=== PATIENT | female | born 1940 | race Caucasian/White ===

== ENCOUNTER 2017-02-05 09:46 | Inpatient (IN) | payer MEDICARE ==
[2017-02-05] MEDS ORDERED: IPRATROPIUM-ALBUTEROL 3 ML NEB INHALATION STA (10:10)
--- NOTE | 2017-02-05 10:13 | ED ---
SOB HPI - General Chief Complaint: Shortness of Breath Stated Complaint: POSS CVA, CONFUSION, KATIUSKA Time Seen by Provider: 02/05/17 10:02 Source: patient, family, RN notes reviewed Mode of arrival: wheelchair Limitations: no limitations - History of Present Illness Initial Comments: This is a 76-year-old female who presents with complaints of 2 days of shortness of breath exertional dyspnea a cough which she states she cannot get any phlegm up. She also states she's had some dull lower midsternal chest discomfort that radiates to her back intermittently. It does not get worse with deep breathing or with coughing. She denies any other complaints at this time. MD Complaint: shortness of breath, cough - Related Data Home Medications Medication Instructions Recorded Confirmed Amitriptyline HCl [Elavil] 75 mg PO HS 12/09/15 02/05/17 Aspirin [Adult Low Dose Aspirin EC] 81 mg PO DAILY 12/09/15 02/05/17 Atenolol 25 mg PO DAILY 12/09/15 02/05/17 Meclizine [Antivert] 25 mg PO BID PRN 12/09/15 02/05/17 Simvastatin [Zocor] 40 mg PO HS 12/09/15 02/05/17 glipiZIDE [Glucotrol] 5 mg PO DAILY 12/09/15 02/05/17 HYDROcodone/APAP 5-325MG [[place] 1 tab PO DAILY PRN 02/29/16 02/05/17 5-325] Insulin NPH Human Isophane 25 units SQ AC-BID 02/29/16 02/05/17 [NovoLIN N] Levothyroxine Sodium [Synthroid] 25 mcg PO DAILY 02/29/16 02/05/17 Lisinopril [Zestril] 10 mg PO DAILY 02/29/16 02/05/17 traMADol HCL [Ultram] 100 mg PO BID PRN 02/29/16 02/05/17 metFORMIN HCL [Glucophage] 500 mg PO BID 02/05/17 02/05/17 Allergies Allergy/AdvReac Type Severity Reaction Status Date / Time No Known Allergies Allergy Verified 02/05/17 10:54 Review of Systems ROS Statement: Those systems with pertinent positive or pertinent negative responses have been documented in the HPI. ROS Other: All systems not noted in ROS Statement are negative. Past Medical History Past Medical History: Cancer, COPD, Diabetes Mellitus, Fibromyalgia, Hypertension Additional Past Medical History / Comment(s): cervical cancer 1975 History of Any Multi-Drug Resistant Organisms: None Reported Past Surgical History: Cholecystectomy, Hysterectomy Past Psychological History: Anxiety Smoking Status: Former smoker Past Alcohol Use History: None Reported Past Drug Use History: None Reported - Past Family History Father Additional Family Medical History / Comment(s): kidney cancer- General Exam - General Exam Comments Initial Comments: This is a well-developed well-nourished awake alert oriented 3 female Limitations: no limitations General appearance: alert, in no apparent distress Head exam: Present: atraumatic, normocephalic, normal inspection Eye exam: Present: normal appearance, PERRL, EOMI. Absent: scleral icterus, conjunctival injection, periorbital swelling ENT exam: Present: normal exam, mucous membranes moist Neck exam: Present: normal inspection. Absent: tenderness, meningismus, lymphadenopathy Respiratory exam: Present: rhonchi, decreased breath sounds. Absent: respiratory distress, wheezes, rales, stridor Cardiovascular Exam: Present: regular rate, normal rhythm, normal heart sounds. Absent: systolic murmur, diastolic murmur, rubs, gallop, clicks GI/Abdominal exam: Present: soft, normal bowel sounds. Absent: distended, tenderness, guarding, rebound, rigid Extremities exam: Present: normal inspection, full ROM, normal capillary refill. Absent: tenderness, pedal edema, joint swelling, calf tenderness Back exam: Present: normal inspection Neurological exam: Present: alert, oriented X3, CN II-XII intact Psychiatric exam: Present: normal affect, normal mood Skin exam: Present: warm, dry, intact, normal color. Absent: rash Course Vital Signs 02/05/17 02/05/17 02/05/17 09:49 10:19 10:52 Temperature 99.3 F Pulse Rate 71 68 Respiratory 18 25 H 25 H Rate Blood Pressure 152/67 176/90 O2 Sat by Pulse 88 L 99 Oximetry 02/05/17 02/05/17 02/05/17 10:53 11:05 12:00 Temperature Pulse Rate 60 64 67 Respiratory 25 H Rate Blood Pressure 149/64 O2 Sat by Pulse 92 L Oximetry 02/05/17 13:12 Temperature Pulse Rate 65 Respiratory 22 Rate Blood Pressure 138/58 O2 Sat by Pulse 92 L Oximetry - Reevaluation(s) Reevaluation #1: 02/05/17 13:29 Reevaluation patient reveals she is improved though far. She does demonstrate an x-ray evidence of pneumonia. Medical Decision Making - Medical Decision Making I discussed findings with the patient family patient will be admitted for evaluation and treatment of pneumonia or bronchospasm secondary to COPD. I did discuss case with Dr. Sanchez - Lab Data Result diagrams: 02/05/17 10:10 02/05/17 10:10 Lab Results 02/05/17 02/05/17 02/05/17 Range/Units 10:10 10:10 10:10 WBC 13.1 H (3.8-10.6) k/uL RBC 4.86 (3.80-5.40) m/uL Hgb 13.8 (11.4-16.0) gm/dL Hct 43.3 (34.0-46.0) % MCV 89.1 (80.0-100.0) fL MCH 28.4 (25.0-35.0) pg MCHC 31.9 (31.0-37.0) g/dL RDW 16.0 H (11.5-15.5) % Plt Count 181 (150-450) k/uL Neutrophils % 78 % Lymphocytes % 15 % Monocytes % 5 % Eosinophils % 0 % Basophils % 0 % Neutrophils # 10.3 H (1.3-7.7) k/uL Lymphocytes # 1.9 (1.0-4.8) k/uL Monocytes # 0.6 (0-1.0) k/uL Eosinophils # 0.0 (0-0.7) k/uL Basophils # 0.0 (0-0.2) k/uL PT (9.0-12.0) sec INR (<1.1) APTT (22.0-30.0) sec D-Dimer (<0.60) mg/L FEU Sodium 139 (137-145) mmol/L Potassium 4.7 (3.5-5.1) mmol/L Chloride 99 (98-107) mmol/L Carbon Dioxide 26 (22-30) mmol/L Anion Gap 14 mmol/L BUN 20 H (7-17) mg/dL Creatinine 1.25 H (0.52-1.04) mg/dL Est GFR (MDRD) Af Amer 51 (>60 ml/min/1.73 sqM) Est GFR (MDRD) Non-Af 42 (>60 ml/min/1.73 sqM) Glucose 229 H (74-99) mg/dL Calcium 9.1 (8.4-10.2) mg/dL Magnesium 1.2 L (1.6-2.3) mg/dL Total Bilirubin 1.5 H (0.2-1.3) mg/dL AST 37 H (14-36) U/L ALT 21 (9-52) U/L Alkaline Phosphatase 88 (38-126) U/L Total Creatine Kinase 69 (30-135) U/L CK-MB (CK-2) 1.0 (0.0-2.4) ng/mL CK-MB (CK-2) Rel Index 1.4 Troponin I 0.028 (0.000-0.034) ng/mL NT-Pro-B Natriuret Pep pg/mL Total Protein 6.7 (6.3-8.2) g/dL Albumin 4.0 (3.5-5.0) g/dL 02/05/17 02/05/17 Range/Units 10:10 10:10 WBC (3.8-10.6) k/uL RBC (3.80-5.40) m/uL Hgb (11.4-16.0) gm/dL Hct (34.0-46.0) % MCV (80.0-100.0) fL MCH (25.0-35.0) pg MCHC (31.0-37.0) g/dL RDW (11.5-15.5) % Plt Count (150-450) k/uL Neutrophils % % Lymphocytes % % Monocytes % % Eosinophils % % Basophils % % Neutrophils # (1.3-7.7) k/uL Lymphocytes # (1.0-4.8) k/uL Monocytes # (0-1.0) k/uL Eosinophils # (0-0.7) k/uL Basophils # (0-0.2) k/uL PT 12.8 H (9.0-12.0) sec INR 1.3 (<1.1) APTT 25.2 (22.0-30.0) sec D-Dimer 0.43 (<0.60) mg/L FEU Sodium (137-145) mmol/L Potassium (3.5-5.1) mmol/L Chloride (98-107) mmol/L Carbon Dioxide (22-30) mmol/L Anion Gap mmol/L BUN (7-17) mg/dL Creatinine (0.52-1.04) mg/dL Est GFR (MDRD) Af Amer (>60 ml/min/1.73 sqM) Est GFR (MDRD) Non-Af (>60 ml/min/1.73 sqM) Glucose (74-99) mg/dL Calcium (8.4-10.2) mg/dL Magnesium (1.6-2.3) mg/dL Total Bilirubin (0.2-1.3) mg/dL AST (14-36) U/L ALT (9-52) U/L Alkaline Phosphatase (38-126) U/L Total Creatine Kinase (30-135) U/L CK-MB (CK-2) (0.0-2.4) ng/mL CK-MB (CK-2) Rel Index Troponin I (0.000-0.034) ng/mL NT-Pro-B Natriuret Pep 663 pg/mL Total Protein (6.3-8.2) g/dL Albumin (3.5-5.0) g/dL - EKG Data -: EKG Interpreted by Ny EKG shows normal: sinus rhythm (Sinus rhythm rate of 65. Interval 94 QRS 94 QT since QTC of 46/[address]-T wave changes. Some artifact is present since arrhythmias noted) - Radiology Data Radiology results: report reviewed (Review the imaging and reports show evidence of right upper lobe pneumonia.), image reviewed Critical Care Time Critical Care Time: Yes Critical Care Time: 31 minutes of critical care time which includes initial presentation with history physical labs x-rays reevaluation. Therapy discuss with the patient family regarding findings. I wished all the above discussed with the admitting physician. Admission orders and documentation Disposition Clinical Impression: Acute exacerbation of chronic obstructive airways disease, Adult respiratory distress syndrome, Right upper lobe pneumonia, Febrile illness, acute Disposition: ADMITTED IP TO THIS [facility] Condition: Stable Referrals: Jeronimo Noble MD [Primary Care Provider] - 1-2 days
[2017-02-05 10:42] LABS: Basophils % (A) 0 %; CH 28.3; CHCM 31.8; Eosinophils % (A) 0 %; HCT 43.3 % (34.0-46.0); HDW 2.75; HGB 13.8 gm/dL (11.4-16.0); Luc # (Auto) 0.24; Luc % (Auto) 2; Lymphocytes # (A) 1.9 k/uL (1.0-4.8); Lymphocytes % (A) 15 %; MCH 28.4 pg (25.0-35.0); MCHC 31.9 g/dL (31.0-37.0); MCV 89.1 fL (80.0-100.0); Mean Platelet Volume 7.7; Monocytes # (A) 0.6 k/uL (0-1.0); Monocytes % (A) 5 %; Neutrophils # (A) 10.3 k/uL (1.3-7.7); Neutrophils % (A) 78 %; RBC 4.86 m/uL (3.80-5.40); WBC 13.1 k/uL (3.8-10.6); WBC (Perox) 13.95
[2017-02-05 10:48] LABS: Calcium 9.1 mg/dL (8.4-10.2); Total Bilirubin 1.5 mg/dL (0.2-1.3)
[2017-02-05 10:54] LABS: Potassium 4.7 mmol/L (3.5-5.1)
[2017-02-05 10:55] LABS: Magnesium 1.2 mg/dL (1.6-2.3); Total Protein 6.7 g/dL (6.3-8.2)
[2017-02-05 11:19] LABS: Troponin I 0.028 ng/mL (0.000-0.034)
--- NOTE | 2017-02-05 11:40 | XR ---
EXAMINATION TYPE: XR chest 2V DATE OF EXAM: 02/05/2017 COMPARISON: 03/11/2016 TECHNIQUE: PA and lateral views submitted. HISTORY: Difficulty breathing FINDINGS: Right upper lobe area of consolidation laterally. Coarsened interstitium is stable. Arthropathy of th e shoulders. Degenerative change of the spine. Bone island likely within the left humeral head. IMPRESSION: 1. Findings suggest right upper lobe infiltrate. Follow to resolution to exclude other etiologies. 2. Coarsened interstitium may reflect chronic underlying interstitial lung disease mild venous conges tion in the differential diagnosis. Correlate clinically.
[2017-02-05 11:46] LABS: INR 1.3 (<1.1); Partial Thromboplastin Time 25.2 sec (22.0-30.0); Prothrombin Time 12.8 sec (9.0-12.0)
[2017-02-05] MEDS ORDERED: PNEUMONIA PROTOCOL UTILIZED 1 EACH MISC PO PRN (13:32)
[2017-02-05] MEDS ORDERED: AZITHROMYCIN 500 MG in SODIUM CHLORIDE 0.9% 250 ML IVPB STA (13:32)
[2017-02-05] MEDS ORDERED: methylPREDNISolone SOD SUCCI 125 MG/2 ML VIAL IV STA (13:35)
[2017-02-05] MEDS: SODIUM CHLORIDE 0.9% 1,000 ML IV SCH (13:50)
[2017-02-05] MEDS ORDERED: IPRATROPIUM-ALBUTEROL 3 ML NEB INHALATION SCH (16:00)
[2017-02-05] MEDS ORDERED: IPRATROPIUM-ALBUTEROL 3 ML NEB INHALATION PRN (19:00)
[2017-02-05 20:37] LABS: Glucose,Whole Blood 297 mg/dL (75-99)
--- NOTE | 2017-02-05 20:37 | P.HPIM ---
History of Present Illness H&P Date: 02/05/17 Chief Complaint: Shortness of breath cough This is a 76-year-old pleasant lady patient of Dr. Noble, she has underlying history of COPD, chronic O2 dependency however she is noncompliant treated, previous tobacco, diabetes mellitus type 2, fibromyalgia morbid obesity hypertension admitted to the hospital secondary to lingering worsening cough and shortness of breath, she has gotten worse over the past 3 days for which sputum now has become more purulent, patient has been hitting some rattling noise in the lung, patient has low-grade fever, no chills, patient denies any PND however she does have dyspnea on exertion, no lower extremity pain does have recurrent lower extremity edema. Patient denies any chest pain nausea vomiting no headache no tiny to his however she has had intermittent coughing spells during food intake. She was subsequently seen in emergency room x-rays chest shows right upper lobe infiltrate, patient was admitted for pneumonia, community acquired acquired against aspiration Review of Systems Constitutional: Reports as per HPI, Reports anorexia, Reports chills, Reports fatigue, Reports fever, Reports malaise, Reports poor appetite, Reports weakness , Reports weight loss Ears, nose, mouth and throat: Reports as per HPI, Denies ant. neck pain, Denies bleeding gums, Denies dental pain, Denies dysphagia, Denies epistaxis, Denies headache, Denies hoarseness, Denies mouth pain, Denies nasal congestion, Denies nasal discharge, Denies neck fullness/pressure, Denies neck lump, Denies nose pain, Denies odynophagia, Denies post-nasal drip, Denies sinus pain, Denies sinus pressure, Denies swelling in mouth, Denies swelling in throat, Denies sore throat, Denies vertigo, Denies voice changes Cardiovascular: Reports as per HPI, Reports decreased exercise tolerance, Reports dyspnea on exertion, Reports shortness of breath, Denies chest pain, Denies claudication, Denies edema, Denies high blood pressure, Denies irregular heart beat, Denies leg edema, Denies lightheadedness, Denies orthopnea, Denies palpitations, Denies paroxysmal nocturnal dyspnea, Denies phlebitis, Denies rapid heart beat, Denies syncope Respiratory: Reports as per HPI, Reports cough, Denies congestion, Denies cough with sputum, Denies dyspnea, Denies excessive sputum, Denies hemoptysis, Denies home oxygen, Denies pain, Denies pain on inspiration, Denies pleurisy, Denies respiratory infections, Denies sleep apnea, Denies snoring, Denies wheezing Gastrointestinal: Reports as per HPI, Denies abdominal pain, Denies belching, Denies bloating, Denies BRBPR, Denies change in bowel habits, Denies coffee ground emesis, Denies constipation, Denies diarrhea, Denies dyspepsia, Denies early satiety, Denies excessive gas, Denies heartburn, Denies hematemesis, Denies hematochezia, Denies indigestion, Denies jaundice, Denies lactose intolerance, Denies loss of appetite, Denies melena, Denies nausea, Denies vomiting Genitourinary: Reports as per HPI Past Medical History Past Medical History: Cancer, COPD, CVA/TIA, Diabetes Mellitus, Fibromyalgia, Hyperlipidemia, Hypertension, Thyroid Disorder Additional Past Medical History / Comment(s): cervical cancer 1974, home 02 2.5 liters n/c uses prn. neuropathy in feet, tia History of Any Multi-Drug Resistant Organisms: None Reported Past Surgical History: Cholecystectomy, Hysterectomy Past Anesthesia/Blood Transfusion Reactions: No Reported Reaction Past Psychological History: Anxiety Additional Psychological History / Comment(s): pt lives w/sig other of years. has 1 pet cat. has home 02 2.5 liters n/c,nebulizer,shower chair, electri scooter, w/c, walker. Smoking Status: Former smoker Past Alcohol Use History: None Reported Additional Past Alcohol Use History / Comment(s): started smoking 1959- quit 1989 was smoking 2 ppd Past Drug Use History: None Reported - Past Family History Father Additional Family Medical History / Comment(s): kidney cancer- Mother Additional Family Medical History / Comment(s): severe osteoporosis Medications and Allergies Home Medications Medication Instructions Recorded Confirmed Type Amitriptyline HCl [Elavil] 75 mg PO HS 12/09/15 02/05/17 History Aspirin [Adult Low Dose Aspirin EC] 81 mg PO DAILY 12/09/15 02/05/17 History Atenolol 25 mg PO DAILY 12/09/15 02/05/17 History Meclizine [Antivert] 25 mg PO BID PRN 12/09/15 02/05/17 History Simvastatin [Zocor] 40 mg PO HS 12/09/15 02/05/17 History glipiZIDE [Glucotrol] 5 mg PO DAILY 12/09/15 02/05/17 History HYDROcodone/APAP 5-325MG [[place] 1 tab PO DAILY PRN 02/29/16 02/05/17 History 5-325] Insulin NPH Human Isophane 25 units SQ AC-BID 02/29/16 02/05/17 History [NovoLIN N] Levothyroxine Sodium [Synthroid] 25 mcg PO DAILY 02/29/16 02/05/17 History Lisinopril [Zestril] 10 mg PO DAILY 02/29/16 02/05/17 History traMADol HCL [Ultram] 100 mg PO BID PRN 02/29/16 02/05/17 History metFORMIN HCL [Glucophage] 500 mg PO BID 02/05/17 02/05/17 History Allergies Allergy/AdvReac Type Severity Reaction Status Date / Time No Known Allergies Allergy Verified 02/05/17 10:54 Physical Exam Vitals: Vital Signs Temp Pulse Pulse Resp BP BP Pulse Ox 02/05/17 16:00 66 18 02/05/17 15:00 99.4 F 66 18 140/62 89 L 02/05/17 14:12 99.9 F H 02/05/17 13:57 62 18 138/58 89 L 02/05/17 13:12 65 22 138/58 92 L 02/05/17 12:00 67 25 H 149/64 92 L 02/05/17 11:05 64 02/05/17 10:53 60 02/05/17 10:52 68 25 H 176/90 99 02/05/17 10:19 25 H 02/05/17 09:49 99.3 F 71 18 152/67 88 L Intake and Output 02/05/17 02/05/17 02/05/17 06:59 14:59 22:59 Other: Voiding Method Bedside Commode Diaper Weight 97.522 kg Patient Weight 02/06/17 06:59 Weight 97.522 kg - Constitutional General appearance: cooperative, no acute distress - EENT Eyes: anicteric sclerae, EOMI, PERRLA, poor dentition, normal appearance ENT: NA/AT, normal oropharynx - Neck Neck: normal ROM - Respiratory Respiratory: bilateral: diminished, rales, negative: CTA, rhonchi, wheezing - Cardiovascular Rhythm: regular Heart sounds: normal: S1 Abnormal Heart Sounds: systolic murmur, no diastolic murmur, no rub, no S3 Gallop, no S4 Gallop, no click, no other - Gastrointestinal General gastrointestinal: normal bowel sounds, soft - Integumentary Integumentary: normal, normal turgor - Musculoskeletal Musculoskeletal: gait normal, strength equal bilaterally - Psychiatric Psychiatric: A&O x's 3, appropriate affect, intact judgment & insight Results CBC & Chem 7: 02/06/17 07:51 02/06/17 07:51 Labs: Abnormal Lab Results - Last 24 Hours (Table) 02/05/17 02/05/17 02/05/17 Range/Units 10:10 10:10 10:10 WBC 13.1 H (3.8-10.6) k/uL RDW 16.0 H (11.5-15.5) % Neutrophils # 10.3 H (1.3-7.7) k/uL PT 12.8 H (9.0-12.0) sec BUN 20 H (7-17) mg/dL Creatinine 1.25 H (0.52-1.04) mg/dL Glucose 229 H (74-99) mg/dL Magnesium 1.2 L (1.6-2.3) mg/dL Total Bilirubin 1.5 H (0.2-1.3) mg/dL AST 37 H (14-36) U/L Thrombosis Risk Factor Assmnt - Choose All That Apply Each Factor Represents 1 point: Abnormal pulmonary function (COPD) Each Risk Factor Represents 3 Points: Age 75 years or older Thrombosis Risk Factor Assessment Total Risk Factor Score: 4 Thrombosis Risk Factor Assessment Level: Moderate Risk Assessment and Plan Plan: 1. Acute COPD exacerbation with purulent tracheobronchitis. Continue Solu- Medrol 60 mg IV every 6 hours, DuoNeb 4 times daily and as needed, Levaquin IV, clindamycin IV, Pulmicort twice daily, Pulmonary consult with Dr. Allen who has seen her in the past hospitalizations modified Sergio swallowing eval secondary to suspected recurrent aspiration IV steroids, nebulized albuterol Atrovent, sputum cultures Last CAT scan reviewed November 2015 there is minimal basilar atelectasis without any mediastinal masses or adenopathy extensive of centrilobular COPD changes are noted 2. Acute on Chronic hypoxic respiratory failure with home O2 dependence. And noncompliance to its use, she was at 2.5 L nasal cannula counseled regarding necessity of compliance and her oxygenation of critical organs 3. Dysphagia/recurrent modified barium swallow eval with speech consult, monitor for involving oral thrush 4. Diabetes mellitus type 2 insulin requiring. Patient on Glucotrol 5 mg daily along with NPH 25 units twice a day, NovoLog sliding scale with pain along with hemoglobin A1c. Patient can continue on metformin 500 mg twice a day 5. Hypertension. Continue atenolol 25 mg daily, lisinopril 5 mg daily. 6. Generalized anxiety disorder and recurrent depression. Continue Elavil 75 mg at bedtime. 7. Hyperlipidemia. Continue Zocor 40 mg at bedtime. 8. Hypothyroidism. Continue Synthroid 25 g daily. 10. DVT prophylaxis. Continue heparin 5000 units subcu every 8 hours. 11. Gastrointestinal prophylaxis. Continue Pepcid 20 mg daily.
[2017-02-05 20:39] LABS: Hemoglobin A1C 6.5 % (4.2-6.1)
[2017-02-05] MEDS: INSULIN LISPRO (humaLOG) 300 UNIT/3 ML VIAL SQ SCH (20:42)
[2017-02-05] MEDS: IPRATROPIUM-ALBUTEROL 3 ML NEB INHALATION SCH (20:46)
[2017-02-05] MEDS ORDERED: MECLIZINE 25 MG TAB PO PRN (20:57)
[2017-02-05] MEDS ORDERED: traMADol 50 MG TAB PO PRN (20:57)
[2017-02-05] MEDS: LEVOFLOXACIN 750MG-D5W PMX 750 MG in DEXTROSE/WATER 1 150ML.BAG IVPB SCH (21:04)
[2017-02-05] MEDS: ATORVASTATIN 20 MG TAB PO SCH (21:33)
[2017-02-05] MEDS: AMITRIPTYLINE HCL 25 MG TAB PO SCH (21:33)
[2017-02-05] MEDS: metFORMIN 500 MG TAB PO SCH (21:34)
[2017-02-05] MEDS: INSULIN NPH 300 UNIT/3 ML VIAL SQ SCH (21:36)
[2017-02-06] MEDS: CLINDAMYCIN 600 MG in DEXTROSE 5% IN WATER 50 ML IVPB SCH ×8 (00:01→23:28)
[2017-02-06] MEDS: LEVOTHYROXINE 25 MCG TAB PO SCH (05:57)
[2017-02-06 06:47] LABS: Glucose,Whole Blood 198 mg/dL (75-99)
[2017-02-06 08:09] LABS: Basophils % (A) 0 %; Eosinophils % (A) 0 %; HCT 36.8 % (34.0-46.0); HDW 2.65; HGB 11.3 gm/dL (11.4-16.0); Hypochromasia Slight; Luc # (Auto) 0.16; Luc % (Auto) 2; Lymphocytes # (A) 2.3 k/uL (1.0-4.8); Lymphocytes % (A) 24 %; MCH 27.9 pg (25.0-35.0); MCHC 30.8 g/dL (31.0-37.0); MCV 90.6 fL (80.0-100.0); Mean Platelet Volume 8.5; Monocytes # (A) 0.4 k/uL (0-1.0); Monocytes % (A) 4 %; Neutrophils # (A) 6.8 k/uL (1.3-7.7); Neutrophils % (A) 71 %; RBC 4.06 m/uL (3.80-5.40); WBC 9.6 k/uL (3.8-10.6); WBC (Perox) 10.01
[2017-02-06] MEDS: SODIUM CHLORIDE 0.9% 1,000 ML IV SCH ×2 (08:32→08:40)
[2017-02-06 08:35] LABS: Calcium 8.4 mg/dL (8.4-10.2); Potassium 4.1 mmol/L (3.5-5.1); Total Bilirubin 0.6 mg/dL (0.2-1.3); Total Protein 5.5 g/dL (6.3-8.2)
[2017-02-06] MEDS: INSULIN LISPRO (humaLOG) 300 UNIT/3 ML VIAL SQ SCH ×4 (08:38→20:22)
[2017-02-06] MEDS: metFORMIN 500 MG TAB PO SCH ×2 (08:38→17:55)
[2017-02-06] MEDS: glipiZIDE 5 MG TAB PO SCH (08:38)
[2017-02-06] MEDS: INSULIN NPH 300 UNIT/3 ML VIAL SQ SCH ×2 (08:39→17:55)
[2017-02-06] MEDS: LISINOPRIL 10 MG TAB PO SCH (08:40)
[2017-02-06] MEDS: ASPIRIN 81 MG CHEW PO SCH (08:40)
[2017-02-06] MEDS: ATENOLOL 25 MG TAB PO SCH (08:40)
[2017-02-06] MEDS: IPRATROPIUM-ALBUTEROL 3 ML NEB INHALATION SCH ×4 (08:48→21:13)
[2017-02-06 11:47] LABS: Glucose,Whole Blood 231 mg/dL (75-99)
--- NOTE | 2017-02-06 11:58 | XR ---
EXAMINATION TYPE: XR chest 2V DATE OF EXAM: 02/06/2017 COMPARISON: Chest x-ray 02/05/2017 HISTORY: Difficulty breathing TECHNIQUE: Frontal and lateral views of the chest are obtained. FINDINGS: Increased density associated with the right lower lobe, there is obscured right hemidiaphr agm and right heart border. No other significant interval change. IMPRESSION: Correlate for right lower lobe pneumonia versus atelectasis and associated effusion, fol low-up recommended.
[2017-02-06] MEDS ORDERED: AZITHROMYCIN 500 MG TAB PO SCH (12:00)
--- NOTE | 2017-02-06 12:01 | CT ---
EXAMINATION TYPE: CT chest wo con DATE OF EXAM: 02/06/2017 COMPARISON: CTA chest December 15, 2015. HISTORY: Cough, ILD, Pneumonia CT DLP: 524.8 mGycm. Automated Exposure Control for Dose Reduction was Utilized. TECHNIQUE: CT scan of the thorax is performed without IV contrast. FINDINGS: LUNGS: Moderate underlying emphysematous change is redemonstrated bilaterally. There is posterior rig ht basilar consolidation and/or atelectasis more prominent than prior exam. There are new new focal a reas of groundglass opacity inferior posterior right upper lobe. There is more prominent right middle lobe atelectasis or consolidation abutting diaphragm and right heart border new from prior study wit h mucous plugging suspected for reference coronal image 64 shows bronchial opacity. Dependent atelectasis in left lung base is present. There is additional central linear scarring left lung base. No suspicious parenchymal nodule or mass is identified bilaterally. No pleural effusion or pneumothorax is seen. MEDIASTINUM: Lack of IV contrast is noted to limit evaluation for mediastinal and especially hilar ad enopathy. There are no definitive greater than 1 cm hilar or mediastinal lymph nodes. No cardiomega ly or pericardial effusion is seen. Prominence of intra-arterial fat is redemonstrated. Coronary siria ry calcifications are again seen. There is mild to moderate calcified plaque of the visualized aorta. Main pulmonary artery remains dilated, CT findings suggesting underlying pulmonary artery hypertensi on. OTHER: Liver is somewhat small in size and lobulated in contour, underlying cirrhosis is felt present . Calcification or clip just below diaphragm above liver is stable. Spleen is slightly enlarged in si ze measuring 13.6 cm on coronal image 62. Some cortical thinning in both kidneys is seen. Cholecystec magdy clips are noted. IMPRESSION: 1. Moderate emphysematous change with increasing posterior right basilar consolidation and/or atelect asis and new right middle lobe atelectasis and/or consolidation abutting right heart border. New foca l areas of groundglass opacity posterior inferior right upper lobe could reflect edema and/or infiltr ates. 2. Suspect cirrhosis and splenomegaly raising concern for underlying portal hypertension. Clinical an d lab correlation advised.
--- NOTE | 2017-02-06 12:02 | FL ---
EXAMINATION TYPE: FL barium swallow w video DATE OF EXAM: 02/06/2017 MODIFIED SWALLOW / DEGLUTITION STUDY CLINICAL HISTORY: Dysphagia. Pneumonia rule out aspiration. TECHNIQUE: Deglutition study is performed utilizing thin liquid barium, honey and nectar thick liqui d barium, barium thick applesauce, and barium coated cracker. A total of 1 minute 53 seconds of fluor oscopic time was utilized during procedure. COMPARISON: None. FINDINGS: The oral and pharyngeal phases show satisfactory initiation and propagation with all modali ties tested. Normal mastication is seen with solid modalities tested. There is no evidence of penet ration or aspiration with any modality tested. No significant pharyngeal residue was appreciated. IMPRESSION: No penetration or aspiration noted. Please refer to speech therapist notes for further details if necessary.
--- NOTE | 2017-02-06 13:08 | P.CNPUL ---
History of Present Illness Consult date: 02/06/17 Requesting physician: Sophia Sanchez Reason for consult: abnormal CXR/CT (Right upper lobe infiltrate) Chief complaint: Shortness of breath, cough, congestion History of present illness: This is a very pleasant 76-year-old female patient who follows with Dr. Noble as her primary care physician. She has a history of oxygen dependent chronic obstructive pulmonary disease, diabetes mellitus, fibromyalgia, hypertension, cervical cancer status post hysterectomy. She does have a significant smoking history but quit many years ago. She has been seen by Dr. Ruffin while hospitalized in the past. She presented to the emergency room on 02/05/2017 with complaints of increasing shortness of breath cough and congestion. This is started 2 days prior to her arrival. She also had some lower midsternal chest discomfort that radiated to her back intermittently. A computed tomography scan of the chest revealed moderately dysmetric changes with increasing posterior right basilar consolidation and/or atelectasis and new right middle lobe atelectasis/consolidation abutting the right heart border. There is some groundglass opacity in the posterior inferior right upper lobe. There was suspected cirrhosis and splenomegaly with concerns regarding underlying portal hypertension as well. The patient is seen today in consultation. She is awake and alert in no acute distress. She states she did have some periods of confusion but seems to be oriented now. She has a loose nonproductive cough. No chills or night sweats. She did have a T-max of 99.9. Currently afebrile. Maintaining good O2 saturations in the 90s on 2 L/m per nasal cannula. No leukocytosis. Blood cultures reveal no growth to date. Review of Systems 14 point review of system was conducted. All negative other than as mentioned in the HPI. Past Medical History Past Medical History: Cancer, COPD, CVA/TIA, Diabetes Mellitus, Fibromyalgia, Hyperlipidemia, Hypertension, Thyroid Disorder Additional Past Medical History / Comment(s): cervical cancer 1974, home 02 2.5 liters n/c uses prn. neuropathy in feet, tia History of Any Multi-Drug Resistant Organisms: None Reported Past Surgical History: Cholecystectomy, Hysterectomy Past Anesthesia/Blood Transfusion Reactions: No Reported Reaction Past Psychological History: Anxiety Additional Psychological History / Comment(s): pt lives w/sig other of years. has 1 pet cat. has home 02 2.5 liters n/c,nebulizer,shower chair, electri scooter, w/c, walker. Smoking Status: Former smoker Past Alcohol Use History: None Reported Additional Past Alcohol Use History / Comment(s): started smoking 1959- quit 1989 was smoking 2 ppd Past Drug Use History: None Reported - Past Family History Father Additional Family Medical History / Comment(s): kidney cancer- Mother Additional Family Medical History / Comment(s): severe osteoporosis Medications and Allergies Home Medications Medication Instructions Recorded Confirmed Type Amitriptyline HCl [Elavil] 75 mg PO HS 12/09/15 02/05/17 History Aspirin [Adult Low Dose Aspirin EC] 81 mg PO DAILY 12/09/15 02/05/17 History Atenolol 25 mg PO DAILY 12/09/15 02/05/17 History Meclizine [Antivert] 25 mg PO BID PRN 12/09/15 02/05/17 History Simvastatin [Zocor] 40 mg PO HS 12/09/15 02/05/17 History glipiZIDE [Glucotrol] 5 mg PO DAILY 12/09/15 02/05/17 History HYDROcodone/APAP 5-325MG [Ell[place] 1 tab PO DAILY PRN 02/29/16 02/05/17 History 5-325] Insulin NPH Human Isophane 25 units SQ AC-BID 02/29/16 02/05/17 History [NovoLIN N] Levothyroxine Sodium [Synthroid] 25 mcg PO DAILY 02/29/16 02/05/17 History Lisinopril [Zestril] 10 mg PO DAILY 02/29/16 02/05/17 History traMADol HCL [Ultram] 100 mg PO BID PRN 02/29/16 02/05/17 History metFORMIN HCL [Glucophage] 500 mg PO BID 02/05/17 02/05/17 History Allergies Allergy/AdvReac Type Severity Reaction Status Date / Time No Known Allergies Allergy Verified 02/05/17 10:54 Physical Exam Vitals: Vital Signs Temp Pulse Pulse Resp BP BP Pulse Ox 02/06/17 12:32 86 02/06/17 12:22 88 02/06/17 08:59 84 02/06/17 08:48 84 02/06/17 07:00 97.7 F 70 18 102/49 92 L 02/05/17 23:00 98.4 F 68 17 117/58 92 L 02/05/17 22:08 18 02/05/17 20:51 80 02/05/17 20:41 80 02/05/17 16:00 66 18 02/05/17 15:00 99.4 F 66 18 140/62 89 L 02/05/17 14:12 99.9 F H 02/05/17 13:57 62 18 138/58 89 L 02/05/17 13:12 65 22 138/58 92 L Intake and Output 02/05/17 02/06/17 02/06/17 22:59 06:59 14:59 Intake Total 450 800 Balance 450 800 Intake: Intake, IV Titration 450 800 Amount Levofloxacin 750Mg-D5w 50 Pmx 750 mg In Dextrose/ Water 1 150ml.bag @ 100 mls/hr IVPB HS [facility] Rx#: [id number] Sodium Chloride 0.9% 1, 400 800 000 ml @ 100 mls/hr IV . Q10H [facility] Rx#:[id number] Other: Voiding Method Bedside Commode Bedside Commode Diaper Diaper GENERAL EXAM: Obese. Alert, active, comfortable in no apparent distress. HEAD: Normocephalic. EYES: Normal reaction of pupils, equal size. NOSE: Clear with pink turbinates. THROAT: No erythema or exudates. NECK: No masses, no JVD. CHEST: No chest wall deformity. LUNGS: Equal air entry with few scattered rhonchi. Crackles in the right posterior base. Diminished. CVS: S1 and S2 normal with no audible murmurs, regular rhythm. ABDOMEN: Obese, soft, normal bowel sounds, no guarding or rigidity. SPINE: No scoliosis or deformity SKIN: No rashes CENTRAL NERVOUS SYSTEM: No focal deficits, tone is normal in all 4 extremities. Extremities: There is trace peripheral edema. No clubbing, no cyanosis. Peripheral pulses are intact. Results - Laboratory Findings CBC and BMP: 02/06/17 07:51 02/06/17 07:51 PT/INR, D-dimer PT 12.8 sec (9.0-12.0) H 02/05/17 10:10 INR 1.3 (<1.1) 02/05/17 10:10 D-Dimer 0.43 mg/L FEU (<0.60) 02/05/17 10:10 Abnormal lab findings: Abnormal Labs 02/05/17 02/05/17 02/05/17 10:10 10:10 10:10 WBC 13.1 H Hgb MCHC RDW 16.0 H Neutrophils # 10.3 H PT 12.8 H BUN 20 H Creatinine 1.25 H Glucose 229 H POC Glucose (mg/dL) Hemoglobin A1c Magnesium 1.2 L Total Bilirubin 1.5 H AST 37 H Total Protein Albumin TSH 02/05/17 02/05/17 02/06/17 10:10 20:21 06:45 WBC Hgb MCHC RDW Neutrophils # PT BUN Creatinine Glucose POC Glucose (mg/dL) 297 H 198 H Hemoglobin A1c 6.5 H Magnesium Total Bilirubin AST Total Protein Albumin TSH 02/06/17 02/06/17 02/06/17 07:51 07:51 11:46 WBC Hgb 11.3 L MCHC 30.8 L RDW 16.0 H Neutrophils # PT BUN 31 H Creatinine 1.31 H Glucose 175 H POC Glucose (mg/dL) 231 H Hemoglobin A1c Magnesium Total Bilirubin AST Total Protein 5.5 L Albumin 3.1 L TSH 0.422 L - Diagnostic Findings Chest x-ray: image reviewed CT scan - chest: image reviewed Assessment and Plan Plan: Impression: #1 Right lower lobe pneumonia, community-acquired. #2 Acute exacerbation of chronic obstructive pulmonary disease, on home oxygen therapy. #3 Acute on chronic hypoxic respiratory failure secondary to above. #4 Remote history of chronic tobacco use. #5 Cirrhosis and splenomegaly suspect portal hypertension. #6 Diabetes mellitus. #7 Acute renal failure suspect dehydration, NSAIDs #8 Hypertension. #9 Hyperlipidemia. #10 Hypothyroidism. #11 Chronic pain syndrome. #12 History of anxiety/depression. Plan: The patient was seen and evaluated by Dr. Allen. Her chest x-ray and CT scans were reviewed. We will continue with her current medications including bronchodilators and antibiotics in the form of Levaquin and clindamycin. We will continue to follow make further recommendations based on her clinical status. Time with Patient: Greater than 30
--- NOTE | 2017-02-06 14:44 | P.PN ---
Subjective This is a 76-year-old pleasant lady patient of Dr. Noble, she has underlying history of COPD, chronic O2 dependency however she is noncompliant treated, previous tobacco, diabetes mellitus type 2, fibromyalgia morbid obesity hypertension admitted to the hospital secondary to lingering worsening cough and shortness of breath, she has gotten worse over the past 3 days for which sputum now has become more purulent, patient has been hitting some rattling noise in the lung, patient has low-grade fever, no chills, patient denies any PND however she does have dyspnea on exertion, no lower extremity pain does have recurrent lower extremity edema. Patient denies any chest pain nausea vomiting no headache no tiny to his however she has had intermittent coughing spells during food intake. She was subsequently seen in emergency room x-rays chest shows right upper lobe infiltrate, patient was admitted for pneumonia, community acquired acquired against aspiration 02/06: CT of the chest showed moderate emphysematous change with increasing posterior right basilar consolidation and/or atelectasis and new right middle lobe atelectasis and/or consolidation. New focal areas of groundglass opacity posterior inferior right upper lobe could reflect edema and/or infiltrates. Suspect cirrhosis and splenomegaly raising concern for underlying portal hypertension. Patient is currently on IV antibiotics the form of clindamycin and Levaquin for possible aspiration. Speech therapy has done a modified barium swallow which found transit laryngeal penetration with thin liquids consistent for patient's advanced age. Recommendations for regular diet and thin liquids. Solu-Medrol is at 60 mg IV every 6 hours will be decreased to 40 mg every 8 hours. Patient states she is only bringing up a small amount of sputum. BUN 31 creatinine 1.31. Objective - Vital Signs Vital signs: Vital Signs Temp 97.7 F 02/06/17 07:00 Pulse 84 02/06/17 08:59 Resp 18 02/06/17 07:00 BP 102/49 02/06/17 07:00 Pulse Ox 92 L 02/06/17 07:00 Intake & Output 02/05/17 02/06/17 02/06/17 18:59 06:59 18:59 Intake Total 1250 Balance 1250 Weight 97.522 kg Intake: Intake, IV Titration 1250 Amount Levofloxacin 750Mg-D5w 50 Pmx 750 mg In Dextrose/ Water 1 150ml.bag @ 100 mls/hr IVPB HS [facility] Rx#: [id number] Sodium Chloride 0.9% 1, 1200 000 ml @ 100 mls/hr IV . Q10H [facility] Rx#:[id number] Other: Voiding Method Bedside Commode Bedside Commode Diaper Diaper - Exam General appearance: cooperative, no acute distress - EENT Eyes: anicteric sclerae, EOMI, PERRLA, poor dentition, normal appearance ENT: NA/AT, normal oropharynx - Neck Neck: normal ROM - Respiratory Respiratory: bilateral: diminished, rales, negative: CTA, rhonchi, wheezing - Cardiovascular Rhythm: regular Heart sounds: normal: S1 Abnormal Heart Sounds: systolic murmur, no diastolic murmur, no rub, no S3 Gallop, no S4 Gallop, no click, no other - Gastrointestinal General gastrointestinal: normal bowel sounds, soft - Integumentary Integumentary: normal, normal turgor - Musculoskeletal Musculoskeletal: gait normal, strength equal bilaterally - Psychiatric Psychiatric: A&O x's 3, appropriate affect, intact judgment & insight - Labs CBC & Chem 7: 02/06/17 07:51 02/06/17 07:51 Labs: Abnormal Lab Results - Last 24 Hours (Table) 02/05/17 02/05/17 02/05/17 Range/Units 10:10 10:10 10:10 WBC 13.1 H (3.8-10.6) k/uL Hgb (11.4-16.0) gm/dL MCHC (31.0-37.0) g/dL RDW 16.0 H (11.5-15.5) % Neutrophils # 10.3 H (1.3-7.7) k/uL PT 12.8 H (9.0-12.0) sec BUN 20 H (7-17) mg/dL Creatinine 1.25 H (0.52-1.04) mg/dL Glucose 229 H (74-99) mg/dL POC Glucose (mg/dL) (75-99) mg/dL Hemoglobin A1c (4.2-6.1) % Magnesium 1.2 L (1.6-2.3) mg/dL Total Bilirubin 1.5 H (0.2-1.3) mg/dL AST 37 H (14-36) U/L Total Protein (6.3-8.2) g/dL Albumin (3.5-5.0) g/dL TSH (0.465-4.680) mIU/L 02/05/17 02/05/17 02/06/17 Range/Units 10:10 20:21 06:45 WBC (3.8-10.6) k/uL Hgb (11.4-16.0) gm/dL MCHC (31.0-37.0) g/dL RDW (11.5-15.5) % Neutrophils # (1.3-7.7) k/uL PT (9.0-12.0) sec BUN (7-17) mg/dL Creatinine (0.52-1.04) mg/dL Glucose (74-99) mg/dL POC Glucose (mg/dL) 297 H 198 H (75-99) mg/dL Hemoglobin A1c 6.5 H (4.2-6.1) % Magnesium (1.6-2.3) mg/dL Total Bilirubin (0.2-1.3) mg/dL AST (14-36) U/L Total Protein (6.3-8.2) g/dL Albumin (3.5-5.0) g/dL TSH (0.465-4.680) mIU/L 02/06/17 02/06/17 Range/Units 07:51 07:51 WBC (3.8-10.6) k/uL Hgb 11.3 L (11.4-16.0) gm/dL MCHC 30.8 L (31.0-37.0) g/dL RDW 16.0 H (11.5-15.5) % Neutrophils # (1.3-7.7) k/uL PT (9.0-12.0) sec BUN 31 H (7-17) mg/dL Creatinine 1.31 H (0.52-1.04) mg/dL Glucose 175 H (74-99) mg/dL POC Glucose (mg/dL) (75-99) mg/dL Hemoglobin A1c (4.2-6.1) % Magnesium (1.6-2.3) mg/dL Total Bilirubin (0.2-1.3) mg/dL AST (14-36) U/L Total Protein 5.5 L (6.3-8.2) g/dL Albumin 3.1 L (3.5-5.0) g/dL TSH 0.422 L (0.465-4.680) mIU/L Assessment and Plan Plan: 1. Acute COPD exacerbation with acute aspiration pneumonia. Continue Solu- Medrol 40 mg IV every 8 hours, DuoNeb 4 times daily and as needed, Levaquin IV, clindamycin IV, Pulmicort twice daily, Pulmonary consult with Dr. Allen who has seen her in the past hospitalizations. Modified barium swallow as above. 2. Acute on Chronic hypoxic respiratory failure with home O2 dependence. And noncompliance to its use, she was at 2.5 L nasal cannula counseled regarding necessity of compliance and her oxygenation of critical organs 3. Dysphagia/recurrent modified barium swallow eval with speech consult, monitor for oral thrush 4. Diabetes mellitus type 2 insulin requiring. Patient on Glucotrol 5 mg daily along with NPH 25 units twice a day, NovoLog sliding scale with pain along with hemoglobin A1c. Patient can continue on metformin 500 mg twice a day 5. Hypertension. Continue atenolol 25 mg daily, lisinopril 5 mg daily. 6. Generalized anxiety disorder and recurrent depression. Continue Elavil 75 mg at bedtime. 7. Hyperlipidemia. Continue Zocor 40 mg at bedtime. 8. Hypothyroidism. Continue Synthroid 25 g daily. 10. DVT prophylaxis. Continue heparin 5000 units subcu every 8 hours. 11. Gastrointestinal prophylaxis. Continue Pepcid 20 mg daily. Discharge plan: Return home Impression and plan of care have been directed as dictated by the signing physician. Jodi Schwartz nurse practitioner acting as scribe for signing physician.
[2017-02-06 17:47] LABS: Glucose,Whole Blood 108 mg/dL (75-99)
[2017-02-06] MEDS: LEVOFLOXACIN 750MG-D5W PMX 750 MG in DEXTROSE/WATER 1 150ML.BAG IVPB SCH (19:58)
[2017-02-06] MEDS: AMITRIPTYLINE HCL 25 MG TAB PO SCH (19:59)
[2017-02-06] MEDS: ATORVASTATIN 20 MG TAB PO SCH (19:59)
[2017-02-06 20:33] LABS: Glucose,Whole Blood 104 mg/dL (75-99)
[2017-02-06] MEDS: SYMBICORT 160-4.5 MCG INHALER INHALATION SCH (21:14)
[2017-02-07] MEDS: LEVOTHYROXINE 25 MCG TAB PO SCH (05:48)
[2017-02-07] MEDS: SYMBICORT 160-4.5 MCG INHALER INHALATION SCH ×2 (07:14→19:31)
[2017-02-07] MEDS: IPRATROPIUM-ALBUTEROL 3 ML NEB INHALATION SCH ×4 (07:15→19:31)
[2017-02-07 07:44] LABS: Anisocytosis Slight; Basophils % (A) 0 %; CHCM 30.7; Eosinophils % (A) 0 %; HCT 40.3 % (34.0-46.0); HDW 2.55; HGB 12.3 gm/dL (11.4-16.0); Hypochromasia Moderate; Luc # (Auto) 0.13; Luc % (Auto) 1; Lymphocytes # (A) 2.3 k/uL (1.0-4.8); Lymphocytes % (A) 22 %; MCH 27.9 pg (25.0-35.0); MCHC 30.5 g/dL (31.0-37.0); MCV 91.6 fL (80.0-100.0); Mean Platelet Volume 7.9; Monocytes # (A) 0.5 k/uL (0-1.0); Monocytes % (A) 5 %; Neutrophils # (A) 7.2 k/uL (1.3-7.7); Neutrophils % (A) 71 %; RDW 16.1 % (11.5-15.5); WBC 10.2 k/uL (3.8-10.6); WBC (Perox) 10.72
[2017-02-07 07:51] LABS: Glucose,Whole Blood 88 mg/dL (75-99)
[2017-02-07 08:03] LABS: Calcium 8.8 mg/dL (8.4-10.2); Potassium 4.2 mmol/L (3.5-5.1); Total Bilirubin 0.7 mg/dL (0.2-1.3); Total Protein 5.8 g/dL (6.3-8.2)
[2017-02-07] MEDS: CLINDAMYCIN 600 MG in DEXTROSE 5% IN WATER 50 ML IVPB SCH ×6 (08:39→22:55)
[2017-02-07] MEDS: INSULIN NPH 300 UNIT/3 ML VIAL SQ SCH ×2 (08:40→17:24)
[2017-02-07] MEDS: ASPIRIN 81 MG CHEW PO SCH (08:40)
[2017-02-07] MEDS: LISINOPRIL 10 MG TAB PO SCH (08:40)
[2017-02-07] MEDS: ATENOLOL 25 MG TAB PO SCH (08:40)
[2017-02-07] MEDS: INSULIN LISPRO (humaLOG) 300 UNIT/3 ML VIAL SQ SCH ×4 (08:40→20:32)
[2017-02-07] MEDS: metFORMIN 500 MG TAB PO SCH ×2 (08:40→17:24)
[2017-02-07] MEDS: glipiZIDE 5 MG TAB PO SCH (08:41)
[2017-02-07] MEDS: HYDROcodone/APAP 5-325MG 1 EACH TAB PO PRN (08:47)
[2017-02-07 11:59] LABS: Glucose,Whole Blood 80 mg/dL (75-99)
--- NOTE | 2017-02-07 13:28 | P.PN ---
Subjective Principal diagnosis: Right upper lobe pneumonia This is a very pleasant 76-year-old female patient who follows with Dr. Noble as her primary care physician. She has a history of oxygen dependent chronic obstructive pulmonary disease, diabetes mellitus, fibromyalgia, hypertension, cervical cancer status post hysterectomy. She does have a significant smoking history but quit many years ago. She has been seen by Dr. Ruffin while hospitalized in the past. She presented to the emergency room on 02/05/2017 with complaints of increasing shortness of breath cough and congestion. This is started 2 days prior to her arrival. She also had some lower midsternal chest discomfort that radiated to her back intermittently. A computed tomography scan of the chest revealed moderately dysmetric changes with increasing posterior right basilar consolidation and/or atelectasis and new right middle lobe atelectasis/consolidation abutting the right heart border. There is some groundglass opacity in the posterior inferior right upper lobe. There was suspected cirrhosis and splenomegaly with concerns regarding underlying portal hypertension as well. The patient is seen today in consultation. She is awake and alert in no acute distress. She states she did have some periods of confusion but seems to be oriented now. She has a loose nonproductive cough. No chills or night sweats. She did have a T-max of 99.9. Currently afebrile. Maintaining good O2 saturations in the 90s on 2 L/m per nasal cannula. No leukocytosis. Blood cultures reveal no growth to date. The patient is seen again today in follow-up 02/07/2017 on the regular medical floor. She is currently sitting up in bed. She is awake and alert in no acute distress. She states she is breathing easier today as compared to yesterday. She does continue with a loose productive cough. Preliminary sputum results revealed moderate gram-positive bacilli. She has been afebrile. No leukocytosis. Maintaining O2 saturations in the low 90s on 3 L/m per nasal cannula. Hemodynamically stable. Creatinine 1.41. Objective - Vital Signs Vital signs: Vital Signs Temp 98.9 F 02/07/17 07:00 Pulse 76 02/07/17 10:41 Resp 18 02/07/17 08:00 BP 135/60 02/07/17 07:00 Pulse Ox 94 L 02/07/17 07:17 Intake & Output 02/06/17 02/07/1717 18:59 06:59 18:59 Intake Total 650 180 Balance 650 180 Weight 97.522 kg Intake: Intake, IV Titration 50 Amount Clindamycin 600 mg In 50 Dextrose 5% in Water 50 ml @ 100 mls/hr IVPB Q8HR [facility] Rx#:[id number] Oral 600 180 Other: Voiding Method Bedside Commode Bedside Commode Bedside Commode Diaper Diaper Diaper # Voids 2 1 - Exam GENERAL EXAM: Obese. Alert, active, comfortable in no apparent distress. HEAD: Normocephalic. EYES: Normal reaction of pupils, equal size. NOSE: Clear with pink turbinates. THROAT: No erythema or exudates. NECK: No masses, no JVD. CHEST: No chest wall deformity. LUNGS: Equal air entry with few scattered rhonchi. Crackles in the right posterior base. Diminished. CVS: S1 and S2 normal with no audible murmurs, regular rhythm. ABDOMEN: Obese, soft, normal bowel sounds, no guarding or rigidity. SPINE: No scoliosis or deformity SKIN: No rashes CENTRAL NERVOUS SYSTEM: No focal deficits, tone is normal in all 4 extremities. Extremities: There is trace peripheral edema. No clubbing, no cyanosis. Peripheral pulses are intact. - Labs CBC & Chem 7: 02/07/17 07:03 02/07/17 07:03 Labs: Abnormal Lab Results - Last 24 Hours (Table) 02/06/17 02/06/17 02/07/17 Range/Units 17:37 20:22 07:03 MCHC 30.5 L (31.0-37.0) g/dL RDW 16.1 H (11.5-15.5) % BUN (7-17) mg/dL Creatinine (0.52-1.04) mg/dL POC Glucose (mg/dL) 108 H 104 H (75-99) mg/dL Total Protein (6.3-8.2) g/dL Albumin (3.5-5.0) g/dL 02/07/17 Range/Units 07:03 MCHC (31.0-37.0) g/dL RDW (11.5-15.5) % BUN 34 H (7-17) mg/dL Creatinine 1.41 H (0.52-1.04) mg/dL POC Glucose (mg/dL) (75-99) mg/dL Total Protein 5.8 L (6.3-8.2) g/dL Albumin 3.3 L (3.5-5.0) g/dL Microbiology - Last 24 Hours (Table) 02/05/17 10:10 Blood Culture - Preliminary Blood No Growth after 48 hours 02/06/17 17:50 Gram Stain - Preliminary Sputum Assessment and Plan Plan: Impression: #1 Right lower lobe pneumonia, community-acquired. #2 Acute exacerbation of chronic obstructive pulmonary disease, on home oxygen therapy. #3 Acute on chronic hypoxic respiratory failure secondary to above. #4 Remote history of chronic tobacco use. #5 Cirrhosis and splenomegaly suspect portal hypertension. #6 Diabetes mellitus. #7 Acute renal failure suspect dehydration, NSAIDs #8 Hypertension. #9 Hyperlipidemia. #10 Hypothyroidism. #11 Chronic pain syndrome. #12 History of anxiety/depression. Plan: The patient was seen and evaluated by Dr. Allen. We will continue with her current medications including bronchodilators, steroids and antibiotics in the form of Levaquin and clindamycin. We will increase her activity as tolerated. We will repeat her chest x-ray in the a.m. We will continue to follow and make further recommendations based on her clinical status.
[2017-02-07 13:44] LABS: Hepatitis B Surface Ag Index 0.05
[2017-02-07 13:50] LABS: Hepatitis B Core IgM Index 0.01
--- NOTE | 2017-02-07 13:55 | P.PN ---
Subjective This is a 76-year-old pleasant lady patient of Dr. Noble, she has underlying history of COPD, chronic O2 dependency however she is noncompliant treated, previous tobacco, diabetes mellitus type 2, fibromyalgia morbid obesity hypertension admitted to the hospital secondary to lingering worsening cough and shortness of breath, she has gotten worse over the past 3 days for which sputum now has become more purulent, patient has been hitting some rattling noise in the lung, patient has low-grade fever, no chills, patient denies any PND however she does have dyspnea on exertion, no lower extremity pain does have recurrent lower extremity edema. Patient denies any chest pain nausea vomiting no headache no tiny to his however she has had intermittent coughing spells during food intake. She was subsequently seen in emergency room x-rays chest shows right upper lobe infiltrate, patient was admitted for pneumonia, community acquired acquired against aspiration 02/06: CT of the chest showed moderate emphysematous change with increasing posterior right basilar consolidation and/or atelectasis and new right middle lobe atelectasis and/or consolidation. New focal areas of groundglass opacity posterior inferior right upper lobe could reflect edema and/or infiltrates. Suspect cirrhosis and splenomegaly raising concern for underlying portal hypertension. Patient is currently on IV antibiotics the form of clindamycin and Levaquin for possible aspiration. Speech therapy has done a modified barium swallow which found transit laryngeal penetration with thin liquids consistent for patient's advanced age. Recommendations for regular diet and thin liquids. Solu-Medrol is at 60 mg IV every 6 hours will be decreased to 40 mg every 8 hours. Patient states she is only bringing up a small amount of sputum. BUN 31 creatinine 1.31. 02/07: Patient continues to have slow improvement. Discussed results of CAT scan with the patient regarding portal hypertension and cirrhosis. Hepatitis panel has been ordered and plan for follow-up with Dr. Campo as an outpatient. Patient denies any history of hepatitis, jaundice. Sht denies any alcohol intake. Repeat BUN 31 and creatinine 1.41. Solu-Medrol will be decreased to 40 mg IV every 6 hours. Anticipate discharge in the next 24-48 hours. Objective - Vital Signs Vital signs: Vital Signs Temp 98.9 F 02/07/17 07:00 Pulse 68 02/07/17 07:17 Resp 18 02/07/17 07:00 BP 135/60 02/07/17 07:00 Pulse Ox 94 L 02/07/17 07:17 Intake & Output 02/06/17 02/07/17 02/07/17 18:59 06:59 18:59 Intake Total 650 180 Balance 650 180 Intake: Intake, IV Titration 50 Amount Clindamycin 600 mg In 50 Dextrose 5% in Water 50 ml @ 100 mls/hr IVPB Q8HR [facility] Rx#:[id number] Oral 600 180 Other: Voiding Method Bedside Commode Bedside Commode Diaper Diaper # Voids 2 - Exam General appearance: cooperative, no acute distress - EENT Eyes: anicteric sclerae, EOMI, PERRLA, poor dentition, normal appearance ENT: NA/AT, normal oropharynx - Neck Neck: normal ROM - Respiratory Respiratory: bilateral: diminished, rales, negative: CTA, rhonchi, wheezing - Cardiovascular Rhythm: regular Heart sounds: normal: S1 Abnormal Heart Sounds: systolic murmur, no diastolic murmur, no rub, no S3 Gallop, no S4 Gallop, no click, no other - Gastrointestinal General gastrointestinal: normal bowel sounds, soft - Integumentary Integumentary: normal, normal turgor - Musculoskeletal Musculoskeletal: gait normal, strength equal bilaterally - Psychiatric Psychiatric: A&O x's 3, appropriate affect, intact judgment & insight - Labs CBC & Chem 7: 02/07/17 07:03 02/07/17 07:03 Labs: Abnormal Lab Results - Last 24 Hours (Table) 02/06/17 02/06/17 02/06/17 Range/Units 07:51 11:46 17:37 MCHC (31.0-37.0) g/dL RDW (11.5-15.5) % BUN 31 H (7-17) mg/dL Creatinine 1.31 H (0.52-1.04) mg/dL Glucose 175 H (74-99) mg/dL POC Glucose (mg/dL) 231 H 108 H (75-99) mg/dL Total Protein 5.5 L (6.3-8.2) g/dL Albumin 3.1 L (3.5-5.0) g/dL TSH 0.422 L (0.465-4.680) mIU/L 02/06/17 02/07/17 02/07/17 Range/Units 20:22 07:03 07:03 MCHC 30.5 L (31.0-37.0) g/dL RDW 16.1 H (11.5-15.5) % BUN 34 H (7-17) mg/dL Creatinine 1.41 H (0.52-1.04) mg/dL Glucose (74-99) mg/dL POC Glucose (mg/dL) 104 H (75-99) mg/dL Total Protein 5.8 L (6.3-8.2) g/dL Albumin 3.3 L (3.5-5.0) g/dL TSH (0.465-4.680) mIU/L Microbiology - Last 24 Hours (Table) 02/06/17 17:50 Gram Stain - Preliminary Sputum 02/05/17 10:10 Blood Culture - Preliminary Blood No Growth after 24 hours Assessment and Plan Plan: 1. Acute COPD exacerbation with acute aspiration pneumonia. Continue Solu- Medrol 40 mg IV every 8 hours, DuoNeb 4 times daily and as needed, Levaquin IV, clindamycin IV, Pulmicort twice daily, Pulmonary consult with Dr. Allen who has seen her in the past hospitalizations. Modified barium swallow as above. 2. Acute on Chronic hypoxic respiratory failure with home O2 dependence. And noncompliance to its use, she was at 2.5 L nasal cannula counseled regarding necessity of compliance and her oxygenation of critical organs 3. Dysphagia/recurrent modified barium swallow eval with speech consult, monitor for oral thrush 4. Diabetes mellitus type 2 insulin requiring. Patient on Glucotrol 5 mg daily along with NPH 25 units twice a day, NovoLog sliding scale with pain along with hemoglobin A1c is 6.5. Patient can continue on metformin 500 mg twice a day 5. Hypertension. Continue atenolol 25 mg daily, lisinopril 5 mg daily. 6. Generalized anxiety disorder and recurrent depression. Continue Elavil 75 mg at bedtime. 7. Hyperlipidemia. Continue Zocor 40 mg at bedtime. 8. Hypothyroidism. Continue Synthroid 25 g daily. 10. DVT prophylaxis. Continue heparin 5000 units subcu every 8 hours. 11. Gastrointestinal prophylaxis. Continue Pepcid 20 mg daily. 12. Possible cirrhosis of the liver found on CAT scan. Acute hepatitis panel ordered. Patient will need follow-up with Dr. Jahaira as an outpatient. Discharge plan: Return home Impression and plan of care have been directed as dictated by the signing physician. Jodi Schwartz nurse practitioner acting as scribe for signing physician.
[2017-02-07] MEDS: methylPREDNISolone SOD SUCCI 40 MG/ML 1 ML VIAL IV SCH ×3 (13:58→22:56)
[2017-02-07 14:01] LABS: Hepatitis C Virus IgG Ab Negative (Negative); Hepatitis C Virus IgG Index 0.01
[2017-02-07 17:09] LABS: Glucose,Whole Blood 141 mg/dL (75-99)
[2017-02-07 20:21] LABS: Glucose,Whole Blood 262 mg/dL (75-99)
[2017-02-07] MEDS: AMITRIPTYLINE HCL 25 MG TAB PO SCH (20:28)
[2017-02-07] MEDS: ATORVASTATIN 20 MG TAB PO SCH (20:28)
[2017-02-07] MEDS: LEVOFLOXACIN 750 MG TAB PO SCH (20:29)
[2017-02-08] MEDS: LEVOTHYROXINE 25 MCG TAB PO SCH (05:06)
[2017-02-08] MEDS: methylPREDNISolone SOD SUCCI 40 MG/ML 1 ML VIAL IV SCH ×4 (05:06→23:40)
[2017-02-08] MEDS: IPRATROPIUM-ALBUTEROL 3 ML NEB INHALATION SCH ×4 (06:55→19:50)
[2017-02-08] MEDS: SYMBICORT 160-4.5 MCG INHALER INHALATION SCH ×2 (06:55→19:49)
[2017-02-08 07:16] LABS: Basophils % (A) 0 %; CH 27.8; CHCM 31.6; Eosinophils % (A) 0 %; HCT 36.7 % (34.0-46.0); HDW 2.77; HGB 11.7 gm/dL (11.4-16.0); Hypochromasia Slight; Luc # (Auto) 0.07; Luc % (Auto) 1; Lymphocytes # (A) 1.3 k/uL (1.0-4.8); Lymphocytes % (A) 23 %; MCH 28.2 pg (25.0-35.0); MCHC 31.8 g/dL (31.0-37.0); MCV 88.5 fL (80.0-100.0); Mean Platelet Volume 8.1; Monocytes # (A) 0.2 k/uL (0-1.0); Monocytes % (A) 3 %; Neutrophils # (A) 4.1 k/uL (1.3-7.7); Neutrophils % (A) 73 %; RBC 4.15 m/uL (3.80-5.40); RDW 15.8 % (11.5-15.5); WBC 5.6 k/uL (3.8-10.6); WBC (Perox) 5.59
[2017-02-08 07:38] LABS: Glucose,Whole Blood 215 mg/dL (75-99)
[2017-02-08] MEDS: metFORMIN 500 MG TAB PO SCH ×2 (07:39→17:59)
[2017-02-08] MEDS: ATENOLOL 25 MG TAB PO SCH (07:39)
[2017-02-08] MEDS: glipiZIDE 5 MG TAB PO SCH (07:39)
[2017-02-08] MEDS: LISINOPRIL 10 MG TAB PO SCH (07:39)
[2017-02-08] MEDS: ASPIRIN 81 MG CHEW PO SCH (07:39)
[2017-02-08] MEDS: CLINDAMYCIN 600 MG in DEXTROSE 5% IN WATER 50 ML IVPB SCH ×6 (07:39→23:40)
[2017-02-08 08:00] LABS: Calcium 9.1 mg/dL (8.4-10.2)
[2017-02-08] MEDS: INSULIN NPH 300 UNIT/3 ML VIAL SQ SCH ×2 (08:04→18:00)
[2017-02-08] MEDS: INSULIN LISPRO (humaLOG) 300 UNIT/3 ML VIAL SQ SCH ×4 (08:05→21:09)
--- NOTE | 2017-02-08 08:21 | XR ---
EXAMINATION TYPE: XR chest 2V DATE OF EXAM: 02/08/2017 COMPARISON: 02/06/2017 TECHNIQUE: PA and lateral views submitted. HISTORY: Pneumonia FINDINGS: Bilateral lower lobe infiltrate and small effusion. The heart is prominent there is atherosclerotic c hange aorta. Arthropathy of the shoulders. Biapical pleural thickening. Hypertrophic and degenerative change of the spine. IMPRESSION: 1. Bilateral lower lobe infiltrate and small effusion.
--- NOTE | 2017-02-08 11:34 | P.PN ---
Subjective Principal diagnosis: Right upper lobe pneumonia This is a very pleasant 76-year-old female patient who follows with Dr. Noble as her primary care physician. She has a history of oxygen dependent chronic obstructive pulmonary disease, diabetes mellitus, fibromyalgia, hypertension, cervical cancer status post hysterectomy. She does have a significant smoking history but quit many years ago. She has been seen by Dr. Ruffin while hospitalized in the past. She presented to the emergency room on 02/05/2017 with complaints of increasing shortness of breath cough and congestion. This is started 2 days prior to her arrival. She also had some lower midsternal chest discomfort that radiated to her back intermittently. A computed tomography scan of the chest revealed moderately dysmetric changes with increasing posterior right basilar consolidation and/or atelectasis and new right middle lobe atelectasis/consolidation abutting the right heart border. There is some groundglass opacity in the posterior inferior right upper lobe. There was suspected cirrhosis and splenomegaly with concerns regarding underlying portal hypertension as well. The patient is seen today in consultation. She is awake and alert in no acute distress. She states she did have some periods of confusion but seems to be oriented now. She has a loose nonproductive cough. No chills or night sweats. She did have a T-max of 99.9. Currently afebrile. Maintaining good O2 saturations in the 90s on 2 L/m per nasal cannula. No leukocytosis. Blood cultures reveal no growth to date. The patient is seen again today in follow-up 02/07/2017 on the regular medical floor. She is currently sitting up in bed. She is awake and alert in no acute distress. She states she is breathing easier today as compared to yesterday. She does continue with a loose productive cough. Preliminary sputum results revealed moderate gram-positive bacilli. She has been afebrile. No leukocytosis. Maintaining O2 saturations in the low 90s on 3 L/m per nasal cannula. Hemodynamically stable. Creatinine 1.41. Patient seen again today 02/08/2017 in follow-up on the regular medical floor. She is currently sitting up in bed. She is awake and alert in no acute distress. She is maintaining O2 saturations in the low 90s on 3 L/m per nasal cannula. She is afebrile. No leukocytosis. She remains on clindamycin and Levaquin. Her renal function is improving current creatinine 1.19. Her chest x -ray today continues to show bilateral lower lobe infiltrates with small effusions. Sputum culture is still pending. Blood cultures reveal no growth to date. Objective - Vital Signs Vital signs: Vital Signs Temp 97.4 F L 02/08/17 07:00 Pulse 72 02/08/17 11:11 Resp 20 02/08/17 07:00 BP 144/64 02/08/17 07:00 Pulse Ox 90 L 02/08/17 07:00 Intake & Output 02/07/17 02/08/17 02/08/17 18:59 06:59 18:59 Intake Total 700 50 Output Total 6 2 2 Balance 694 48 -2 Weight 97.522 kg 97.522 kg 97.522 kg Intake: IV 50 Clindamycin 600 mg In 50 Dextrose 5% in Water 50 ml @ 100 mls/hr IVPB Q8HR [facility] Rx#:[id number] Intake, IV Titration 100 Amount Clindamycin 600 mg In 100 Dextrose 5% in Water 50 ml @ 100 mls/hr IVPB Q8HR [facility] Rx#:[id number] Oral 600 Output: Stool 6 2 2 Other: Voiding Method Bedside Commode Bedside Commode Bedside Commode Diaper Diaper # Voids 4 2 1 - Exam GENERAL EXAM: Obese. Alert, active, comfortable in no apparent distress. HEAD: Normocephalic. EYES: Normal reaction of pupils, equal size. NOSE: Clear with pink turbinates. THROAT: No erythema or exudates. NECK: No masses, no JVD. CHEST: No chest wall deformity. LUNGS: Equal air entry with few scattered rhonchi. Crackles in the right posterior base. Diminished. CVS: S1 and S2 normal with no audible murmurs, regular rhythm. ABDOMEN: Obese, soft, normal bowel sounds, no guarding or rigidity. SPINE: No scoliosis or deformity SKIN: No rashes CENTRAL NERVOUS SYSTEM: No focal deficits, tone is normal in all 4 extremities. Extremities: There is trace peripheral edema. No clubbing, no cyanosis. Peripheral pulses are intact. - Labs CBC & Chem 7: 02/08/17 06:28 02/08/17 06:28 Labs: Abnormal Lab Results - Last 24 Hours (Table) 02/07/17 02/07/17 02/08/17 Range/Units 17:04 20:17 06:28 RDW 15.8 H (11.5-15.5) % BUN (7-17) mg/dL Creatinine (0.52-1.04) mg/dL Glucose (74-99) mg/dL POC Glucose (mg/dL) 141 H 262 H (75-99) mg/dL 02/08/17 02/08/17 Range/Units 06:28 07:31 RDW (11.5-15.5) % BUN 34 H (7-17) mg/dL Creatinine 1.19 H (0.52-1.04) mg/dL Glucose 222 H (74-99) mg/dL POC Glucose (mg/dL) 215 H (75-99) mg/dL Microbiology - Last 24 Hours (Table) 02/05/17 10:10 Blood Culture - Preliminary Blood No Growth after 48 hours Assessment and Plan Plan: Impression: #1 Right middle/lower lobe pneumonia, community-acquired. #2 Acute exacerbation of chronic obstructive pulmonary disease, on home oxygen therapy. #3 Acute on chronic hypoxic respiratory failure secondary to above. #4 Remote history of chronic tobacco use. #5 Cirrhosis and splenomegaly suspect portal hypertension. #6 Diabetes mellitus. #7 Acute renal failure suspect dehydration, NSAIDs #8 Hypertension. #9 Hyperlipidemia. #10 Hypothyroidism. #11 Chronic pain syndrome. #12 History of anxiety/depression. Plan: The patient was seen and evaluated by Dr. Allen. Her chest x-ray and labs were reviewed. We will continue with her current medications including bronchodilators, steroids and antibiotics in the form of Levaquin and clindamycin. We will increase her activity as tolerated. We will continue to follow and make further recommendations based on her clinical status.
[2017-02-08 11:40] LABS: Glucose,Whole Blood 187 mg/dL (75-99)
--- NOTE | 2017-02-08 13:38 | PN ---
INTERVAL HISTORY: Patient continued to be short of breath, have audible wheezes from the bedside. Patient with slight improvement in her shortness of breath since presentation and said that she is between 25% to 50%. Patient is still very short of breath with minimum activities and limited to bed to bedside commode. No major events reported by nursing staff. PHYSICAL EXAMINATION: VITAL SIGNS: Temperature 97.4, heart rate of 64, respiratory 67, blood pressure 144/64 and saturation is 90% on 3 L nasal cannula. LUNGS: Decreased air entry bilaterally. HEART: Normal S1, S2. ABDOMEN: Soft, no tenderness, positive bowel sounds in all 4 quadrants. LOWER EXTREMITY. No edema. SKIN: No new rash. PSYCH: Alert and oriented x3. Blood work CBC is normal. Chem-7 showed slight elevation in creatinine of 1.19. Glucose is fluctuating between to 80 and 215. Blood cultures are still pending, negative. ASSESSMENT AND PLAN: 1. Acute on chronic respiratory failure. 2. Chronic obstructive pulmonary disease with exacerbation. Patient still on high-dose IV steroids minimum improvement over the hospital course, requires support with IV steroids, aggressive breathing treatments and antibiotics. I discussed the case with Dr. Allen who felt that the patient will require a prolonged course of IV antibiotics and we will start weaning off slowly and gradually upon improvement and continue current supportive care. 3. Right lower lobe pneumonia with current chest x-ray showing bilateral pneumonia. We will continue current antibiotics regimen. 4. Diabetes seems to be under fair control. Continue current regimen. 5. Hypertension, under fair control. 6. Discharge planning based on clinical progress. 7. Debility. Will have PT, OT evaluate the patient.
[2017-02-08] MEDS: FLUCONAZOLE 100 MG TAB PO SCH ×2 (13:45→21:09)
[2017-02-08 17:20] LABS: Glucose,Whole Blood 180 mg/dL (75-99)
[2017-02-08 20:42] LABS: Glucose,Whole Blood 224 mg/dL (75-99)
[2017-02-08] MEDS: ATORVASTATIN 20 MG TAB PO SCH (21:08)
[2017-02-08] MEDS: AMITRIPTYLINE HCL 25 MG TAB PO SCH (21:08)
[2017-02-08] MEDS: LEVOFLOXACIN 750 MG TAB PO SCH (21:08)
[2017-02-09] MEDS: methylPREDNISolone SOD SUCCI 40 MG/ML 1 ML VIAL IV SCH ×4 (06:01→23:16)
[2017-02-09] MEDS: LEVOTHYROXINE 25 MCG TAB PO SCH (06:02)
[2017-02-09] MEDS: SYMBICORT 160-4.5 MCG INHALER INHALATION SCH ×2 (06:56→20:49)
[2017-02-09] MEDS: IPRATROPIUM-ALBUTEROL 3 ML NEB INHALATION SCH ×4 (06:56→20:49)
--- NOTE | 2017-02-09 07:29 | XR ---
EXAMINATION TYPE: XR chest 1V portable DATE OF EXAM: 02/09/2017 COMPARISON: NONE HISTORY: Shortness of breath TECHNIQUE: Single frontal view of the chest is obtained. FINDINGS: Bilateral lower lobe infiltrate and small effusion. The heart is prominent there is athero sclerotic change aorta. Arthropathy of the shoulders. Biapical pleural thickening. Hypertrophic and d egenerative change of the spine. Hyperinflation suggests COPD. IMPRESSION: 1. Right lower valve infiltrate and tiny effusion is stable correlate. 2. Subsegmental changes at the left lung base most typical atelectasis with minimal pleural effusion or thickening stable.
[2017-02-09] MEDS: HYDROcodone/APAP 5-325MG 1 EACH TAB PO PRN (07:34)
[2017-02-09] MEDS: metFORMIN 500 MG TAB PO SCH ×2 (07:36→17:54)
[2017-02-09] MEDS: FLUCONAZOLE 100 MG TAB PO SCH ×2 (07:36→21:37)
[2017-02-09] MEDS: ASPIRIN 81 MG CHEW PO SCH (07:36)
[2017-02-09] MEDS: glipiZIDE 5 MG TAB PO SCH (07:36)
[2017-02-09] MEDS: CLINDAMYCIN 600 MG in DEXTROSE 5% IN WATER 50 ML IVPB SCH ×2 (07:37)
[2017-02-09] MEDS: LISINOPRIL 10 MG TAB PO SCH (07:37)
[2017-02-09] MEDS: ATENOLOL 25 MG TAB PO SCH (07:37)
[2017-02-09] MEDS: INSULIN NPH 300 UNIT/3 ML VIAL SQ SCH ×2 (07:38→17:54)
[2017-02-09] MEDS: INSULIN LISPRO (humaLOG) 300 UNIT/3 ML VIAL SQ SCH ×4 (07:40→21:42)
[2017-02-09 07:44] LABS: Glucose,Whole Blood 195 mg/dL (75-99)
[2017-02-09 07:53] LABS: Calcium 9.6 mg/dL (8.4-10.2); Potassium 5.6 mmol/L (3.5-5.1)
[2017-02-09] MEDS ORDERED: SODIUM POLYSTYRENE SULFONATE 15 GM/60 ML BOTTLE PO STA (09:06)
--- NOTE | 2017-02-09 11:30 | P.PN ---
Subjective Principal diagnosis: Right lower lobe pneumonia This is a very pleasant 76-year-old female patient who follows with Dr. Noble as her primary care physician. She has a history of oxygen dependent chronic obstructive pulmonary disease, diabetes mellitus, fibromyalgia, hypertension, cervical cancer status post hysterectomy. She does have a significant smoking history but quit many years ago. She has been seen by Dr. Ruffin while hospitalized in the past. She presented to the emergency room on 02/05/2017 with complaints of increasing shortness of breath cough and congestion. This is started 2 days prior to her arrival. She also had some lower midsternal chest discomfort that radiated to her back intermittently. A computed tomography scan of the chest revealed moderately dysmetric changes with increasing posterior right basilar consolidation and/or atelectasis and new right middle lobe atelectasis/consolidation abutting the right heart border. There is some groundglass opacity in the posterior inferior right upper lobe. There was suspected cirrhosis and splenomegaly with concerns regarding underlying portal hypertension as well. The patient is seen today in consultation. She is awake and alert in no acute distress. She states she did have some periods of confusion but seems to be oriented now. She has a loose nonproductive cough. No chills or night sweats. She did have a T-max of 99.9. Currently afebrile. Maintaining good O2 saturations in the 90s on 2 L/m per nasal cannula. No leukocytosis. Blood cultures reveal no growth to date. The patient is seen again today in follow-up 02/07/2017 on the regular medical floor. She is currently sitting up in bed. She is awake and alert in no acute distress. She states she is breathing easier today as compared to yesterday. She does continue with a loose productive cough. Preliminary sputum results revealed moderate gram-positive bacilli. She has been afebrile. No leukocytosis. Maintaining O2 saturations in the low 90s on 3 L/m per nasal cannula. Hemodynamically stable. Creatinine 1.41. Patient seen again today 02/08/2017 in follow-up on the regular medical floor. She is currently sitting up in bed. She is awake and alert in no acute distress. She is maintaining O2 saturations in the low 90s on 3 L/m per nasal cannula. She is afebrile. No leukocytosis. She remains on clindamycin and Levaquin. Her renal function is improving current creatinine 1.19. Her chest x -ray today continues to show bilateral lower lobe infiltrates with small effusions. Sputum culture is still pending. Blood cultures reveal no growth to date. On 02/09/2017, patient continues to have intermittent cough wheezing shortness of breath, chest x-ray is showing slight improvement in the right lower lobe and right middle lobe consolidation. Patient remains on antibiotics in the form of Levaquin and clindamycin. Patient continues to have productive cough, but unable to clear her secretions, hence if she does not improve much in the next couple of days, bronchoscopy may be indicated. Patient overall is improving but not quite ready for any discharge planning at this point. Objective - Vital Signs Vital signs: Vital Signs Temp 97.6 F 02/09/17 07:00 Pulse 62 02/09/17 11:13 Resp 18 02/09/17 07:00 BP 94/41 02/09/17 07:00 Pulse Ox 92 L 02/09/17 07:00 Intake & Output 02/08/17 02/09/17 02/09/17 18:59 06:59 18:59 Intake Total 750 490 Output Total 6 2 Balance 744 490 -2 Weight 97.522 kg 97.522 kg Intake: IV 50 50 Clindamycin 600 mg In 50 50 Dextrose 5% in Water 50 ml @ 100 mls/hr IVPB Q8HR [facility] Rx#:[id number] Oral 700 440 Output: Stool 6 2 Other: Voiding Method Bedside Commode Bedside Commode Toilet Bedside Commode # Voids 4 2 1 - Exam GENERAL EXAM: Obese. Alert, active, comfortable in no apparent distress. HEAD: Normocephalic. EYES: Normal reaction of pupils, equal size. NOSE: Clear with pink turbinates. THROAT: No erythema or exudates. NECK: No masses, no JVD. CHEST: No chest wall deformity. LUNGS: Equal air entry with few scattered rhonchi. Crackles in the right posterior base. Diminished. CVS: S1 and S2 normal with no audible murmurs, regular rhythm. ABDOMEN: Obese, soft, normal bowel sounds, no guarding or rigidity. SPINE: No scoliosis or deformity SKIN: No rashes CENTRAL NERVOUS SYSTEM: No focal deficits, tone is normal in all 4 extremities. Extremities: There is trace peripheral edema. No clubbing, no cyanosis. Peripheral pulses are intact. - Labs CBC & Chem 7: 02/08/17 06:28 02/09/17 06:50 Labs: Abnormal Lab Results - Last 24 Hours (Table) 02/08/17 02/08/17 02/08/17 Range/Units 11:36 17:14 20:41 Potassium (3.5-5.1) mmol/L Carbon Dioxide (22-30) mmol/L BUN (7-17) mg/dL Creatinine (0.52-1.04) mg/dL Glucose (74-99) mg/dL POC Glucose (mg/dL) 187 H 180 H 224 H (75-99) mg/dL 02/09/17 02/09/17 Range/Units 06:50 07:22 Potassium 5.6 H (3.5-5.1) mmol/L Carbon Dioxide 21 L (22-30) mmol/L BUN 44 H (7-17) mg/dL Creatinine 1.35 H (0.52-1.04) mg/dL Glucose 205 H (74-99) mg/dL POC Glucose (mg/dL) 195 H (75-99) mg/dL Microbiology - Last 24 Hours (Table) 02/05/17 10:10 Blood Culture - Preliminary Blood No Growth after 72 hours 02/06/17 17:50 Gram Stain - Preliminary Sputum Sputum Culture - Preliminary Yeast species Assessment and Plan Plan: #1 Right middle/lower lobe pneumonia, community-acquired. #2 Acute exacerbation of chronic obstructive pulmonary disease, on home oxygen therapy. #3 Acute on chronic hypoxic respiratory failure secondary to above. #4 Remote history of chronic tobacco use. #5 Cirrhosis and splenomegaly suspect portal hypertension. #6 Diabetes mellitus. #7 Acute renal failure suspect dehydration, NSAIDs #8 Hypertension. #9 Hyperlipidemia. #10 Hypothyroidism. #11 Chronic pain syndrome. #12 History of anxiety/depression. Recommendation: Continue present treatment plan, patient is not quite ready for discharge planning, if she doesn't improve much over the next couple of days, bronchoscopy may be indicated. We'll continue to follow, continue antibiotics bronchodilators and steroids. Time with Patient: Less than 30
[2017-02-09] MEDS ORDERED: IV VANCOMYCIN PER PHARMACY 1 EACH MISC MISCELLANE PRN (11:56)
[2017-02-09] MEDS ORDERED: VANCOMYCIN 1,500 MG in SODIUM CHLORIDE 0.9% 250 ML IVPB STA (12:01)
[2017-02-09 12:32] LABS: Glucose,Whole Blood 211 mg/dL (75-99)
[2017-02-09] MEDS: NYSTATIN 100,000 UNIT/ML SUSP 500,000 UNIT/5 ML CUP PO SCH ×3 (12:58→21:37)
[2017-02-09 17:29] LABS: Glucose,Whole Blood 263 mg/dL (75-99)
--- NOTE | 2017-02-09 17:46 | PN ---
INTERVAL HISTORY: Patient continued to be hemodynamically stable overnight. No major events reported by the nursing staff. Patient said that she has a rough night where she had multiple achy muscles and bones. Did not ask for pain medication until this morning and hoping that she will have some relief after taking the pain pill. The patient is denying chest pain, nausea, vomiting, dizziness, lightheadedness, or blurry vision. She is tolerating diet without difficulty. Feels that her breathing has improved slightly since yesterday, but not quite back to the area where she can function and she is limited to bed and bedside commode. PHYSICAL EXAMINATION: VITAL SIGNS: 97.6, 68, 18, 94/41 and saturation is 92% on 3 liters nasal cannula. LUNGS: Decreased air entry bilaterally. HEART: Normal S1, S2. ABDOMEN: Soft, no tenderness, positive bowel sounds in all quadrants. EXTREMITIES: Lower extremity no edema. PSYCH: Alert and oriented x3. NEURO: No focal deficit. SKIN: No new rash. IMAGING AND LABS: Potassium this morning is 5.6, creat is 1.35. Glucose fluctuating between 187 and 205. Sputum culture was collected yesterday and showed yeast feces with the other finding, which Diflucan was ordered by Dr. Allen yesterday. Blood cultures are still pending, negative. Chest x-ray was done this morning and showed right lower lobe infiltrate and tiny effusion is stable. Subsegmental changes in the left lung base most typical atelectasis with minimal pleural effusion or thickening, stable. ASSESSMENT AND PLAN: 1. Acute on chronic respiratory failure with hypoxia. 2. Chronic obstructive pulmonary disease with acute exacerbation. Patient will be continued on high dose IV steroids. Minimum improvement over the last 24 hours. Patient is still short of breath with conversation and unable to function and practice her daily activities and the only thing she can do on her own is to get up to the bedside commode. The patient will require further IV steroids and prolonged hospitalization and we will consider tapering the dose off once the patient is improved. The patient agreed to the current treatment plan. 3. Right lower lobe pneumonia with repeated chest x-ray and stability in exam. Patient will be continued on current antibiotics regimen. Diflucan was added because of the sputum culture showed yeast infection. Will follow up on final culture results. 4. Diabetes seems to be under fair control. 5. Hypertension. Continue current regimen. Goal less than 140/90. 6. Debility and weakness. PT, OT evaluated the patient and recommended discharge planning to rehab due to significant debility. Patient is agreeable and we will consult rn social work regarding discharge planning to long term upon improvement.
[2017-02-09] MEDS ORDERED: INSULIN LISPRO (humaLOG) 300 UNIT/3 ML VIAL SQ ONE (18:18)
[2017-02-09 21:02] LABS: Glucose,Whole Blood 316 mg/dL (75-99)
[2017-02-09] MEDS: LEVOFLOXACIN 750 MG TAB PO SCH (21:37)
[2017-02-09] MEDS: AMITRIPTYLINE HCL 25 MG TAB PO SCH (21:37)
[2017-02-09] MEDS: ATORVASTATIN 20 MG TAB PO SCH (21:38)
[2017-02-10] MEDS: LEVOTHYROXINE 25 MCG TAB PO SCH (05:30)
[2017-02-10] MEDS: methylPREDNISolone SOD SUCCI 40 MG/ML 1 ML VIAL IV SCH ×2 (05:30→12:03)
[2017-02-10] MEDS ORDERED: VANCOMYCIN 1,500 MG in SODIUM CHLORIDE 0.9% 250 ML IVPB SCH (06:00)
[2017-02-10 07:05] LABS: Glucose,Whole Blood 197 mg/dL (75-99)
[2017-02-10] MEDS: SYMBICORT 160-4.5 MCG INHALER INHALATION SCH (07:26)
[2017-02-10] MEDS: IPRATROPIUM-ALBUTEROL 3 ML NEB INHALATION SCH ×3 (07:26→16:24)
[2017-02-10 07:33] VITALS: RESP 16
[2017-02-10] MEDS: metFORMIN 500 MG TAB PO SCH ×2 (07:35→17:53)
[2017-02-10] MEDS: INSULIN NPH 300 UNIT/3 ML VIAL SQ SCH ×2 (07:35→17:52)
[2017-02-10] MEDS: glipiZIDE 5 MG TAB PO SCH (07:35)
[2017-02-10] MEDS: INSULIN LISPRO (humaLOG) 300 UNIT/3 ML VIAL SQ SCH ×3 (07:42→17:50)
[2017-02-10 07:57] LABS: Basophils % (A) 0 %; CH 27.7; CHCM 31.3; Eosinophils % (A) 0 %; HCT 35.7 % (34.0-46.0); HDW 2.67; HGB 11.4 gm/dL (11.4-16.0); Hypochromasia Slight; Luc % (Auto) 1; Lymphocytes % (A) 24 %; MCH 28.4 pg (25.0-35.0); MCHC 31.9 g/dL (31.0-37.0); Mean Platelet Volume 7.9; Monocytes # (A) 0.1 k/uL (0-1.0); Monocytes % (A) 2 %; Neutrophils % (A) 73 %; RBC 4.01 m/uL (3.80-5.40); RDW 15.6 % (11.5-15.5); WBC 8.2 k/uL (3.8-10.6); WBC (Perox) 8.14
[2017-02-10 08:14] LABS: Calcium 9.2 mg/dL (8.4-10.2); Potassium 4.9 mmol/L (3.5-5.1); Total Bilirubin 0.4 mg/dL (0.2-1.3); Total Protein 5.4 g/dL (6.3-8.2)
[2017-02-10] MEDS: ASPIRIN 81 MG CHEW PO SCH (08:28)
[2017-02-10] MEDS: ATENOLOL 25 MG TAB PO SCH (08:28)
[2017-02-10] MEDS: FLUCONAZOLE 100 MG TAB PO SCH (08:29)
[2017-02-10] MEDS: NYSTATIN 100,000 UNIT/ML SUSP 500,000 UNIT/5 ML CUP PO SCH ×3 (08:29→17:54)
[2017-02-10] MEDS: LISINOPRIL 10 MG TAB PO SCH (08:29)
[2017-02-10 11:25] LABS: Glucose,Whole Blood 249 mg/dL (75-99)
--- NOTE | 2017-02-10 13:43 | P.DS ---
Providers Date of admission: 02/05/17 13:35 Expected date of discharge: 02/10/17 Attending physician: Sophia Sanchez Consults: 02/05/17 13:32 Consult Physician Routine Consulting Provider: Irma Allen Consult Reason/Comments: COPD and pneumonia Do you want consulting provider notified?: Yes [facility] Course: This is a 76-year-old pleasant lady patient of Dr. Noble, she has underlying history of COPD, chronic O2 dependency however she is noncompliant treated, previous tobacco, diabetes mellitus type 2, fibromyalgia morbid obesity hypertension admitted to the hospital secondary to lingering worsening cough and shortness of breath, she has gotten worse over the past 3 days for which sputum now has become more purulent, patient has been hitting some rattling noise in the lung, patient has low-grade fever, no chills, patient denies any PND however she does have dyspnea on exertion, no lower extremity pain does have recurrent lower extremity edema. Patient denies any chest pain nausea vomiting no headache no tiny to his however she has had intermittent coughing spells during food intake. She was subsequently seen in emergency room x-rays chest shows right upper lobe infiltrate, patient was admitted for pneumonia, community acquired acquired against aspiration 02/06: CT of the chest showed moderate emphysematous change with increasing posterior right basilar consolidation and/or atelectasis and new right middle lobe atelectasis and/or consolidation. New focal areas of groundglass opacity posterior inferior right upper lobe could reflect edema and/or infiltrates. Suspect cirrhosis and splenomegaly raising concern for underlying portal hypertension. Patient is currently on IV antibiotics the form of clindamycin and Levaquin for possible aspiration. Speech therapy has done a modified barium swallow which found transit laryngeal penetration with thin liquids consistent for patient's advanced age. Recommendations for regular diet and thin liquids. Solu-Medrol is at 60 mg IV every 6 hours will be decreased to 40 mg every 8 hours. Patient states she is only bringing up a small amount of sputum. BUN 31 creatinine 1.31. 02/07: Patient continues to have slow improvement. Discussed results of CAT scan with the patient regarding portal hypertension and cirrhosis. Hepatitis panel has been ordered and plan for follow-up with Dr. Campo as an outpatient. Patient denies any history of hepatitis, jaundice. Sht denies any alcohol intake. Repeat BUN 31 and creatinine 1.41. Solu-Medrol will be decreased to 40 mg IV every 6 hours. Anticipate discharge in the next 24-48 hours. 02/10: Acute hepatitis panel was negative. Sputum culture was positive for Ale and MSSA. Patient's breathing status is gradually improving, Dr. Yap has changed antibiotics to Augmentin which will be continued at the retirement. Patient has agreed that she will go to [facility] today. Patient will be followed there by Dr. Noble. Patient will be discharged to [facility] in stable condition. Discharge diagnoses: 1. Acute COPD exacerbation with acute aspiration pneumonia. 2. Acute on Chronic hypoxic respiratory failure with home O2 dependence. And noncompliance to its use 3. Dysphagia 4. Diabetes mellitus type 2 insulin requiring. 5. Hypertension. 6. Generalized anxiety disorder and recurrent depression. 7. Hyperlipidemia. 8. Hypothyroidism. 9. Possible cirrhosis of the liver found on CAT scan. Acute hepatitis panel ordered. Patient will need follow-up with Dr. Campo as an outpatient. 10. Chronic kidney disease stage III Discharge plan: [facility] under the care of Dr. Noble Impression and plan of care have been directed as dictated by the signing physician. Jodi Schwartz nurse practitioner acting as scribe for signing physician. Patient Condition at Discharge: Good Plan - Discharge Summary New Discharge Prescriptions: New Amoxicillin/Potassium Clav [Augmentin 875-125 Tablet] 1 each PO Q12HR #14 tab No Action Atenolol 25 mg PO DAILY Amitriptyline HCl [Elavil] 75 mg PO HS Meclizine [Antivert] 25 mg PO BID PRN PRN Reason: Vertigo Simvastatin [Zocor] 40 mg PO HS Aspirin [Adult Low Dose Aspirin EC] 81 mg PO DAILY glipiZIDE [Glucotrol] 5 mg PO DAILY Levothyroxine Sodium [Synthroid] 25 mcg PO DAILY traMADol HCL [Ultram] 100 mg PO BID PRN PRN Reason: Pain HYDROcodone/APAP 5-325MG [[place] 5-325] 1 tab PO DAILY PRN PRN Reason: Pain Lisinopril [Zestril] 10 mg PO DAILY Insulin NPH Human Isophane [NovoLIN N] 25 units SQ AC-BID metFORMIN HCL [Glucophage] 500 mg PO BID Discharge Medication List Amitriptyline HCl [Elavil] 75 mg PO HS 12/09/15 [History] Aspirin [Adult Low Dose Aspirin EC] 81 mg PO DAILY 12/09/15 [History] Atenolol 25 mg PO DAILY 12/09/15 [History] Meclizine [Antivert] 25 mg PO BID PRN 12/09/15 [History] Simvastatin [Zocor] 40 mg PO HS 12/09/15 [History] glipiZIDE [Glucotrol] 5 mg PO DAILY 12/09/15 [History] HYDROcodone/APAP 5-325MG [[place] 5-325] 1 tab PO DAILY PRN 02/29/16 [History] Insulin NPH Human Isophane [NovoLIN N] 25 units SQ AC-BID 02/29/16 [History] Levothyroxine Sodium [Synthroid] 25 mcg PO DAILY 02/29/16 [History] Lisinopril [Zestril] 10 mg PO DAILY 02/29/16 [History] traMADol HCL [Ultram] 100 mg PO BID PRN 02/29/16 [History] metFORMIN HCL [Glucophage] 500 mg PO BID 02/05/17 [History] Amoxicillin/Potassium Clav [Augmentin 875-125 Tablet] 1 each PO Q12HR #14 tab [Rx] Follow up Appointment(s)/Referral(s): Jeroinmo Noble MD [Primary Care Provider] - 1 Week Lachelle Rendon MD [STAFF PHYSICIAN] - 1 Week (Follow-up for CAT scan findings of cirrhosis.)
[2017-02-10 15:11] VITALS: BP 134/73; TEMP 97.8
[2017-02-10 16:38] VITALS: PULSE 64
[2017-02-10 16:48] LABS: Glucose,Whole Blood 275 mg/dL (75-99)
--- NOTE | 2017-02-10 17:16 | PN ---
This is a patient who was admitted with a diagnosis of right middle lobe, right lower lobe pneumonia, community-acquired, COPD exacerbation and chronic hypoxemic respiratory failure. She is actually doing relatively well. She sees Dr. Sanchez as her primary doctor. She has not seen a lung doctor in the past. She comes with a diagnosis of COPD/emphysema but has never really been seen by a support services specialist. I did speak to her current hospitalist, Dr. Noble, and he said that he would get her in to be seen. In addition to the above, she has a history of anxiety, depression, chronic pain syndrome, hypothyroidism, hyperlipidemia, hypertension, acute renal failure secondary to dehydration, diabetes, cirrhosis and splenomegaly with suspected portal hypertension. She also has a history of chronic and remote tobacco use; has not smoked recently. She is feeling a bit better; not back to baseline. She was admitted with a diagnosis of right middle lobe and right lower lobe pneumonia. Current vital signs include a temperature which is 97.7, heart rate 62, respiratory rate 16, blood pressure 120/67, mean 87, 3-liter saturation 93%. Appears in no acute distress. HEENT examination is grossly unremarkable. Mucous membranes are moist. No oral lesions. Neck is supple. Full range of motion. No adenopathy or thyromegaly. Cardiovascular examination reveals regular rhythm and rate. S1, S2 normal. No S3, S4 or murmur. Lungs reveal a few scattered coarse rhonchi bilaterally. Breath sounds are diminished. The rhonchi are heard at both inspiration and exhalation. No crackles. Some expiratory wheezes. Slight prolongation on forced maneuver. ABDOMEN: Soft. Bowel sounds are heard. No masses or tenderness. EXTREMITIES: Intact. No cyanosis, clubbing or edema. Skin without rash. Neurologic examination is brief but nonfocal. Labs are reviewed. CBC is essentially normal. Electrolyte profile is pretty good. BUN and creatinine show BUN 45, creatinine 1.33, consistent with some prerenal azotemia. The rest of the labs look okay. Microbiology currently is showing sputum with Ale glabrata and Staphylococcus aureus. Apparently the Staphylococcus aureus is oxacillin-sensitive or methicillin-sensitive Staph aureus. It is sensitive to just about everything. She is currently on vancomycin, which we will stop. Chest x-ray is reviewed. Medications are reviewed. ASSESSMENT: 1. Right middle lobe, right lower lobe pneumonia, secondary to methicillin-sensitive Staphylococcus aureus. 2. Chronic obstructive pulmonary disease exacerbation. 3. Acute on chronic hypoxemic respiratory failure. 4. Remote history of tobacco use. 5. Cirrhosis/splenomegaly with suspected portal hypertension. 6. Diabetes mellitus. 7. Acute renal failure secondary to dehydration with prerenal numbers. 8. Hypertension. 9. Hyperlipidemia. 10. Hypothyroidism. 11. Chronic pain syndrome. 12. History of anxiety/depression. PLAN: The patient's vancomycin will be discontinued. We will probably put her on Bactrim if she is not allergic to that. No additional recommendations are made. Prognosis is generally good. I talked to Dr. Noble about having her follow up with us in the office. The rest of her medications are reviewed.
[2017-02-10] MEDS ORDERED: AMOXIC-POT CLAV 875-125MG 1 EACH TAB PO SCH (21:00)
[2017-02-11] MEDS ORDERED: LEVOFLOXACIN 750 MG TAB PO SCH (21:00)
== END 2017-02-10 18:05 | DRG 190 ==
LOC: EC 09:46 → 5MS5E 13:35
PROVIDERS: ADMIT Family Medicine; ATTEND Family Medicine
DX: J44.1 Chronic obstructive pulmonary disease with (acute) exacerbation (principal); J96.21 Acute and chronic respiratory failure with hypoxia; J69.0 Pneumonitis due to inhalation of food and vomit; B37.1 Pulmonary candidiasis; N17.9 Acute kidney failure, unspecified; K76.6 Portal hypertension; B37.0 Candidal stomatitis; F33.9 Major depressive disorder, recurrent, unspecified; E11.22 Type 2 diabetes mellitus with diabetic chronic kidney disease; F41.1 Generalized anxiety disorder; N18.3 Chronic kidney disease, stage 3 (moderate); E11.40 Type 2 diabetes mellitus with diabetic neuropathy, unspecified; K74.60 Unspecified cirrhosis of liver; R13.10 Dysphagia, unspecified; Z99.81 Dependence on supplemental oxygen; I12.9 Hypertensive chronic kidney disease with stage 1 through stage 4 chronic kidney disease, or unspecified chronic kidney disease; T39.315A Adverse effect of propionic acid derivatives, initial encounter; E66.01 Morbid (severe) obesity due to excess calories; E86.0 Dehydration; E78.5 Hyperlipidemia, unspecified; E03.9 Hypothyroidism, unspecified; R16.1 Splenomegaly, not elsewhere classified; B95.61 Methicillin susceptible Staphylococcus aureus infection as the cause of diseases classified elsewhere; R53.1 Weakness; G89.4 Chronic pain syndrome; R07.89 Other chest pain; M79.7 Fibromyalgia; Z82.62 Family history of osteoporosis; Z79.899 Other long term (current) drug therapy; Z87.891 Personal history of nicotine dependence; Z90.710 Acquired absence of both cervix and uterus; Z86.73 Personal history of transient ischemic attack (TIA), and cerebral infarction without residual deficits; Z80.51 Family history of malignant neoplasm of kidney; Z85.41 Personal history of malignant neoplasm of cervix uteri; Z79.4 Long term (current) use of insulin; Z79.82 Long term (current) use of aspirin; Z91.19 Patient's noncompliance with other medical treatment and regimen; Z68.35 Body mass index [BMI] 35.0-35.9, adult; Z90.49 Acquired absence of other specified parts of digestive tract; Z79.891 Long term (current) use of opiate analgesic
CPT/HCPCS: 36415; 71010; 71020; 71250; 74230; 80048; 80053; 80074; 82550; 82553; 83036; 83735; 83880; 84439; 84443; 84484; 85025; 85379; 85610; 85730; 87040; 87070; 87077; 87186; 87205; 93005; 94640; 94760; 96365; 96375; 99291

== ENCOUNTER 2017-09-16 11:03 | Inpatient (IN) | payer MEDICARE ==
--- NOTE | 2017-09-16 12:00 | ED ---
General Adult HPI - General Chief complaint: Dizziness Stated complaint: Dizzy/weakness Time Seen by Provider: 09/16/17 11:30 Source: patient, family, RN notes reviewed Mode of arrival: wheelchair Limitations: no limitations - History of Present Illness Initial comments: This is a 77-year-old female who was sent in apparently by her doctor's office because of evidence of renal failure seen on the lab work that was done. Patient states she's had some generalized episodes of weakness and feeling tired over the past 2 weeks since that she's off-balance she also states she had a sensation of a flash of light in her eyes last night lasted for brief seconds never had this before she denies any overt headache focal weakness or arms or legs difficulty with hearing or other problems at this time. No chest pain and no overt shortness of breath at this time. - Related Data Home Medications Medication Instructions Recorded Confirmed Amitriptyline HCl [Elavil] 75 mg PO HS 12/09/15 09/16/17 Aspirin [Adult Low Dose Aspirin EC] 81 mg PO DAILY 12/09/15 09/16/17 Meclizine [Antivert] 25 mg PO BID PRN 12/09/15 09/16/17 Simvastatin [Zocor] 40 mg PO HS 12/09/15 09/16/17 Insulin NPH Human Isophane 20 units SQ AC-BID 02/29/16 09/16/17 [NovoLIN N] Lisinopril [Zestril] 10 mg PO DAILY 02/29/16 09/16/17 Levothyroxine Sodium [Synthroid] 50 mcg PO DAILY 09/16/17 09/16/17 Metoprolol Tartrate [Lopressor] 50 mg PO DAILY 09/16/17 09/16/17 Previous Rx's Medication Instructions Recorded HYDROcodone/APAP 5-325MG [[place] 1 tab PO DAILY PRN #60 02/10/17 5-325] traMADol HCL [Ultram] 100 mg PO BID PRN #60 02/10/17 Allergies Allergy/AdvReac Type Severity Reaction Status Date / Time No Known Allergies Allergy Verified 09/16/17 12:49 Review of Systems ROS Statement: Those systems with pertinent positive or pertinent negative responses have been documented in the HPI. ROS Other: All systems not noted in ROS Statement are negative. Past Medical History Past Medical History: Cancer, COPD, CVA/TIA, Diabetes Mellitus, Fibromyalgia, Hyperlipidemia, Hypertension, Thyroid Disorder Additional Past Medical History / Comment(s): cervical cancer 1975, home 02 2.5 liters n/c uses prn. neuropathy in feet, tia History of Any Multi-Drug Resistant Organisms: None Reported Past Surgical History: Cholecystectomy, Hysterectomy Past Anesthesia/Blood Transfusion Reactions: No Reported Reaction Past Psychological History: Anxiety Smoking Status: Former smoker Past Alcohol Use History: None Reported Past Drug Use History: None Reported - Past Family History Father Additional Family Medical History / Comment(s): kidney cancer- Mother Additional Family Medical History / Comment(s): severe osteoporosis General Exam - General Exam Comments Initial Comments: This is a well-developed well-nourished awake alert oriented 3 female Limitations: no limitations General appearance: alert, in no apparent distress Head exam: Present: atraumatic, normocephalic, normal inspection Eye exam: Present: normal appearance, PERRL, EOMI. Absent: scleral icterus, conjunctival injection, periorbital swelling ENT exam: Present: normal exam, mucous membranes moist Neck exam: Present: normal inspection. Absent: tenderness, meningismus, lymphadenopathy Respiratory exam: Present: decreased breath sounds. Absent: respiratory distress, wheezes, rales, rhonchi, stridor Cardiovascular Exam: Present: irregular rhythm. Absent: systolic murmur, diastolic murmur, rubs, gallop, clicks GI/Abdominal exam: Present: soft, normal bowel sounds, other (Obese abdomen). Absent: distended, tenderness, guarding, rebound, rigid Extremities exam: Present: normal inspection, full ROM, normal capillary refill , pedal edema (Trace edema to the left lower extremity). Absent: tenderness, joint swelling, calf tenderness Back exam: Present: normal inspection Neurological exam: Present: alert, oriented X3, CN II-XII intact Psychiatric exam: Present: normal affect, normal mood Skin exam: Present: warm, dry, intact, normal color. Absent: rash Course Vital Signs 09/16/17 09/16/17 11:31 14:25 Temperature 98.3 F Pulse Rate 88 58 L Respiratory 20 16 Rate Blood Pressure 130/94 102/60 O2 Sat by Pulse 95 96 Oximetry EKG Findings - EKG Results: EKG: interpreted by ERMD (Evidence of atrial fibrillation with competing junctional pacemaker the ventricular rate 67 QRS 106 QT since QTC at 436/[address] T-wave changes.) Medical Decision Making - Medical Decision Making Patient does have evidence of acute renal failure the patient will be admitted I did discuss the case with Dr. Gray who did come the emergency department see the patient. - Lab Data Result diagrams: 09/16/17 12:09 09/16/17 12:09 Lab Results 09/16/17 09/16/17 09/16/17 Range/Units 12:09 12:09 12:09 WBC 7.9 (3.8-10.6) k/uL RBC 4.07 (3.80-5.40) m/uL Hgb 12.1 (11.4-16.0) gm/dL Hct 38.2 (34.0-46.0) % MCV 93.9 (80.0-100.0) fL MCH 29.8 (25.0-35.0) pg MCHC 31.8 (31.0-37.0) g/dL RDW 14.0 (11.5-15.5) % Plt Count 157 (150-450) k/uL Neutrophils % 70 % Lymphocytes % 23 % Monocytes % 4 % Eosinophils % 1 % Basophils % 0 % Neutrophils # 5.5 (1.3-7.7) k/uL Lymphocytes # 1.8 (1.0-4.8) k/uL Monocytes # 0.4 (0-1.0) k/uL Eosinophils # 0.1 (0-0.7) k/uL Basophils # 0.0 (0-0.2) k/uL Sodium 143 (137-145) mmol/L Potassium 4.5 (3.5-5.1) mmol/L Chloride 104 (98-107) mmol/L Carbon Dioxide 24 (22-30) mmol/L Anion Gap 15 mmol/L BUN 78 H (7-17) mg/dL Creatinine 7.02 H* (0.52-1.04) mg/dL Est GFR (MDRD) Af Amer 7 (>60 ml/min/1.73 sqM) Est GFR (MDRD) Non-Af 6 (>60 ml/min/1.73 sqM) Glucose 83 (74-99) mg/dL Calcium 9.0 (8.4-10.2) mg/dL Magnesium 1.8 (1.6-2.3) mg/dL Total Bilirubin 0.4 (0.2-1.3) mg/dL AST 29 (14-36) U/L ALT 34 (9-52) U/L Alkaline Phosphatase 106 (38-126) U/L Total Creatine Kinase (30-135) U/L CK-MB (CK-2) (0.0-2.4) ng/mL CK-MB (CK-2) Rel Index Troponin I (0.000-0.034) ng/mL NT-Pro-B Natriuret Pep 4280 pg/mL Total Protein 5.9 L (6.3-8.2) g/dL Albumin 3.7 (3.5-5.0) g/dL 09/16/17 Range/Units 12:09 WBC (3.8-10.6) k/uL RBC (3.80-5.40) m/uL Hgb (11.4-16.0) gm/dL Hct (34.0-46.0) % MCV (80.0-100.0) fL MCH (25.0-35.0) pg MCHC (31.0-37.0) g/dL RDW (11.5-15.5) % Plt Count (150-450) k/uL Neutrophils % % Lymphocytes % % Monocytes % % Eosinophils % % Basophils % % Neutrophils # (1.3-7.7) k/uL Lymphocytes # (1.0-4.8) k/uL Monocytes # (0-1.0) k/uL Eosinophils # (0-0.7) k/uL Basophils # (0-0.2) k/uL Sodium (137-145) mmol/L Potassium (3.5-5.1) mmol/L Chloride (98-107) mmol/L Carbon Dioxide (22-30) mmol/L Anion Gap mmol/L BUN (7-17) mg/dL Creatinine (0.52-1.04) mg/dL Est GFR (MDRD) Af Amer (>60 ml/min/1.73 sqM) Est GFR (MDRD) Non-Af (>60 ml/min/1.73 sqM) Glucose (74-99) mg/dL Calcium (8.4-10.2) mg/dL Magnesium (1.6-2.3) mg/dL Total Bilirubin (0.2-1.3) mg/dL AST (14-36) U/L ALT (9-52) U/L Alkaline Phosphatase (38-126) U/L Total Creatine Kinase 73 (30-135) U/L CK-MB (CK-2) 3.2 H* (0.0-2.4) ng/mL CK-MB (CK-2) Rel Index 4.4 Troponin I 0.030 (0.000-0.034) ng/mL NT-Pro-B Natriuret Pep pg/mL Total Protein (6.3-8.2) g/dL Albumin (3.5-5.0) g/dL Disposition Clinical Impression: Acute renal failure (ARF) Disposition: ADMITTED IP TO THIS HOSP Condition: Serious Referrals: Jeronimo Noble MD [Primary Care Provider] - 1-2 days
--- NOTE | 2017-09-16 12:35 | XR ---
EXAMINATION TYPE: XR chest 2V DATE OF EXAM: 09/16/2017 COMPARISON: 02/09/2017 TECHNIQUE: PA and lateral views submitted. HISTORY: Cough FINDINGS: The lungs are clear and there is no pneumothorax, pleural effusion, or focal pneumonia. Heart is pr ominent and there is hyperinflation. Correlate for COPD. Arthropathy of the shoulders. No overt failu re. Atherosclerotic change aorta. Degenerative change of the spine. Surgical clips in the abdomen. IMPRESSION: 1. No acute process.
[2017-09-16 12:37] LABS: Basophils % (A) 0 %; Eosinophils # (A) 0.1 k/uL (0-0.7); Eosinophils % (A) 1 %; HCT 38.2 % (34.0-46.0); HGB 12.1 gm/dL (11.4-16.0); Lymphocytes # (A) 1.8 k/uL (1.0-4.8); Lymphocytes % (A) 23 %; MCH 29.8 pg (25.0-35.0); MCHC 31.8 g/dL (31.0-37.0); MCV 93.9 fL (80.0-100.0); Mean Platelet Volume 8.3; Monocytes # (A) 0.4 k/uL (0-1.0); Monocytes % (A) 4 %; Neutrophils # (A) 5.5 k/uL (1.3-7.7); Neutrophils % (A) 70 %; Platelet Count 157 k/uL (150-450); RBC 4.07 m/uL (3.80-5.40); WBC 7.9 k/uL (3.8-10.6)
[2017-09-16 13:01] LABS: Albumin 3.7 g/dL (3.5-5.0); Magnesium 1.8 mg/dL (1.6-2.3); Potassium 4.5 mmol/L (3.5-5.1); Total Bilirubin 0.4 mg/dL (0.2-1.3); Total Protein 5.9 g/dL (6.3-8.2)
[2017-09-16 13:05] LABS: Troponin I 0.03 ng/mL (0.000-0.034)
[2017-09-16 13:12] LABS: Creatine Kinase MB 3.2 ng/mL (0.0-2.4)
[2017-09-16] MEDS ORDERED: IPRATROPIUM-ALBUTEROL 3 ML NEB INHALATION PRN (14:18)
[2017-09-16] MEDS ORDERED: ACETAMINOPHEN TAB 325 MG TAB PO PRN (14:18)
[2017-09-16] MEDS ORDERED: NALOXONE 0.4 MG/ML 1 ML VIAL IV PRN (15:22)
--- NOTE | 2017-09-16 15:57 | US ---
EXAMINATION TYPE: US kidneys/renal and bladder DATE OF EXAM: 09/16/2017 COMPARISON: NONE CLINICAL HISTORY: Pain, renal failure, abnormal labs. EXAM MEASUREMENTS: Right Kidney: 11.6 x 5.2 x 4.4cm Left Kidney: 11.7 x 4.4 x 4.4cm Post Void Residual Volume: mL Patient of large body habitus Right Kidney: no masses or hydro identified Left Kidney: no masses or hydro identified Bladder: wnl There is no evidence for hydronephrosis at this point in time. No nephrolithiasis is seen. No terrence s are identified. The urinary bladder is anechoic. Bilateral ureteral jets are seen. Slight cortica l thinning. Preservation of cortical medullary junction. IMPRESSION: 1. No hydronephrosis or nephrolithiasis. There may be cortical thinning associated with chronic medic al renal disease.
[2017-09-16 16:22] LABS: Appearance,Urine Turbid (Clear); Bacteria,Urine Many /hpf; Bilirubin,Urine Negative (Negative); Blood,Urine Small (Negative); Budding Yeast,Urine Occasional /hpf; Color,Urine Yellow; Glucose,Urine (UA) Negative (Negative); Ketones,Urine Negative (Negative); Leukocyte Esterase,Urine Large (Negative); Nitrite,Urine Negative (Negative); Protein,Urine 1+ (Negative); RBC,Urine 7 /hpf (0-5); Specific Gravity,Urine 1.012 (1.001-1.035); Squamous Epithelial Cell,Urine 1 /hpf (0-4); Urobilinogen,Urine <2.0 mg/dL (<2.0); WBC,Urine >182 /hpf (0-5)
[2017-09-16] MEDS ORDERED: SODIUM CHLORIDE 0.9% 2,000 ML IV ONE (16:54)
--- NOTE | 2017-09-16 17:06 | P.HPIM ---
History of Present Illness H&P Date: 09/16/17 Chief Complaint: Acute kidney injury This is a 76-year-old pleasant lady patient of Dr. Noble, she has underlying history of COPD, chronic O2 dependency however she is noncompliant treated, previous tobacco, diabetes mellitus type 2, fibromyalgia morbid obesity hypertension admitted to the hospital after found abnormality on the labs. Patient had basic labs done and was called in office due to increasing creatinine. Patient states she is feeling tired, boyfriend bedside thinks patient is confused which is different from her baseline. Patient states she feels distended, complains of shortness of breath associated with cough. She denies any fever or chills. She does endorses decreased urination and frequency associated with some flank tenderness on the left for the past 1 week. She denies any blood in her urine or history of kidney stones. BMP done in the ED suggestive of BUN 78, creatinine 7.1.(Baseline creatinine 1.15 as per recent labs) vitals otherwise are stable. Metformin, glipizide, Lasix discontinued. Patient's presentation appears to be secondary to acute tubular necrosis secondary to hypoperfusion and nephrotoxic medication. Nephrology is consulted. Patient will be given 1 L of normal saline and fluids will be continued at 100 mL per hour Review of Systems Constitutional: Reports chronic pain, Reports daytime sleepiness, Reports fatigue, Reports poor appetite, Reports weakness, Denies anorexia, Denies chills , Denies fever Eyes: denies decreased vision, denies diplopia, denies dry eye, denies photophobia, denies loss of peripheral vision Ears, nose, mouth and throat: Denies ant. neck pain, Denies dysphagia, Denies headache, Denies hoarseness, Denies nasal congestion, Denies nasal discharge, Denies odynophagia, Denies post-nasal drip, Denies sore throat Cardiovascular: Reports decreased exercise tolerance, Reports dyspnea on exertion, Reports leg edema, Reports shortness of breath, Denies chest pain, Denies claudication, Denies high blood pressure, Denies irregular heart beat, Denies orthopnea, Denies palpitations Respiratory: Reports dyspnea, Reports home oxygen, Reports wheezing, Denies cough, Denies cough with sputum, Denies excessive sputum, Denies hemoptysis Gastrointestinal: Reports abdominal pain, Reports bloating, Reports heartburn, Reports loss of appetite, Denies BRBPR, Denies constipation, Denies hematemesis , Denies hematochezia, Denies melena, Denies nausea, Denies vomiting Musculoskeletal: Reports low back pain, Reports muscle weakness, Denies arm numbness/tingling, Denies limitation of motion, Denies loss of height, Denies shooting arm pain, Denies shooting leg pain Integumentary: Denies boils, Denies rash, Denies striae, Denies unusual bruising Neurological: Reports gait dysfunction, Reports weakness, Denies aphasia, Denies motor disturbance, Denies paralysis, Denies paresthesias, Denies seizures , Denies transient paralysis, Denies tremors, Denies vertigo Psychiatric: Denies anxiety, Denies depression Endocrine: Reports fatigue, Denies high blood sugars, Denies low blood sugars, Denies palpitations Past Medical History Past Medical History: Cancer, COPD, CVA/TIA, Diabetes Mellitus, Fibromyalgia, Hyperlipidemia, Hypertension, Thyroid Disorder Additional Past Medical History / Comment(s): cervical cancer 1974, home 02 2.5 liters n/c uses prn. neuropathy in feet, tia History of Any Multi-Drug Resistant Organisms: None Reported Past Surgical History: Cholecystectomy, Hysterectomy Past Anesthesia/Blood Transfusion Reactions: No Reported Reaction Past Psychological History: Anxiety Smoking Status: Former smoker Past Alcohol Use History: None Reported Past Drug Use History: None Reported Additional History: Wears oxygen 24 7 Uses walker to ambulate, decreased movement as compared to the partner at bedside - Past Family History Father Family Medical History: Cancer, Renal Disease Additional Family Medical History / Comment(s): kidney cancer- Mother Additional Family Medical History / Comment(s): severe osteoporosis Sister(s) Family Medical History: Cancer (Lung cancer) Medications and Allergies Home Medications Medication Instructions Recorded Confirmed Type Amitriptyline HCl [Elavil] 75 mg PO HS 12/09/15 09/16/17 History Aspirin [Adult Low Dose Aspirin EC] 81 mg PO DAILY 12/09/15 09/16/17 History Meclizine [Antivert] 25 mg PO BID PRN 12/09/15 09/16/17 History Simvastatin [Zocor] 40 mg PO HS 12/09/15 09/16/17 History Insulin NPH Human Isophane 20 units SQ AC-BID 02/29/16 09/16/17 History [NovoLIN N] Lisinopril [Zestril] 10 mg PO DAILY 02/29/16 09/16/17 History HYDROcodone/APAP 5-325MG [[place] 1 tab PO DAILY PRN #60 02/10/17 09/16/17 Rx 5-325] traMADol HCL [Ultram] 100 mg PO BID PRN #60 02/10/17 09/16/17 Rx Levothyroxine Sodium [Synthroid] 50 mcg PO DAILY 09/16/17 09/16/17 History Metoprolol Tartrate [Lopressor] 50 mg PO DAILY 09/16/17 09/16/17 History Allergies Allergy/AdvReac Type Severity Reaction Status Date / Time No Known Allergies Allergy Verified 09/16/17 12:49 Physical Exam Vitals: Vital Signs Temp Pulse Resp BP Pulse Ox 09/16/17 16:04 81 16 157/81 97 09/16/17 14:25 58 L 16 102/60 96 09/16/17 11:31 98.3 F 88 20 130/94 95 Intake and Output 09/16/17 09/16/17 09/16/17 06:59 14:59 22:59 Other: Weight 94.347 kg Patient Weight 09/17/17 06:59 Weight 94.347 kg - Constitutional General appearance: average body habitus, cooperative, no acute distress, obese - EENT Eyes: EOMI, PERRLA, dentition normal, no ptosis, no scleral icterus ENT: hearing grossly normal Ears: bilateral: normal - Neck Neck: no lymphadenopathy, normal ROM, no rigidity, no thyromegaly Carotids: bilateral: upstroke normal Thyroid: bilateral: normal size - Respiratory Respiratory: bilateral: diminished, wheezing, prolonged expiration, negative: CTA, dullness, rales, rhonchi - Cardiovascular Rhythm: regular Heart sounds: normal: S1, S2 Abnormal Heart Sounds: no systolic murmur, no diastolic murmur, no S3 Gallop, no S4 Gallop, no click - Gastrointestinal General gastrointestinal: no distended, normal bowel sounds, no organomegaly, soft, no tenderness - Integumentary Integumentary: no pale, no rash - Neurologic Neurologic: CNII-XII intact - Musculoskeletal Musculoskeletal: generalized weakness, strength equal bilaterally - Psychiatric Psychiatric: A&O x's 3 Results CBC & Chem 7: 09/16/17 12:09 09/16/17 12:09 Labs: Abnormal Lab Results - Last 24 Hours (Table) 09/16/17 09/16/17 09/16/17 Range/Units 12:09 12:09 15:50 BUN 78 H (7-17) mg/dL Creatinine 7.02 H* (0.52-1.04) mg/dL CK-MB (CK-2) 3.2 H* (0.0-2.4) ng/mL Total Protein 5.9 L (6.3-8.2) g/dL Urine Appearance Turbid H (Clear) Urine Protein 1+ H (Negative) Urine Blood Small H (Negative) Ur Leukocyte Esterase Large H (Negative) Urine RBC 7 H (0-5) /hpf Urine WBC >182 H (0-5) /hpf Urine WBC Clumps Moderate H (None) /hpf Urine Bacteria Many H (None) /hpf Urine Yeast (Budding) Occasional H (None) /hpf Thrombosis Risk Factor Assmnt - DVT/VTE Prophylaxis DVT/VTE Prophylaxis: Pharmacologic Prophylaxis ordered Assessment and Plan Plan: 1. Acute kidney injury likely secondary to acute tubular necrosis from hypoperfusion that was going on for 1 week. Hold lisinopril, metformin, glipizide and Lasix. Avoid nephrotoxic agent. Monitor input and output. Daily weights. Nephrology consulted. Status post 2 L IV fluid continue 100 mL per hour of normal saline further recommendation to follow from nephrology. Patient had some confusion noted by the family but otherwise oriented 3. Urine output is reduced. Retroperitoneal ultrasound to rule out kidney stones as patient has some left-sided flank pain. 2. Chronic hypoxic respiratory failure with home O2 dependence secondary to end-stage COPD currently at baseline of 2.5 L/24 hours 3. Fibromyalgia continue [place] and tramadol 4. Diabetes mellitus type 2 insulin requiring. Hold metformin and glipizide continue NPH 20 units twice a day, NovoLog sliding scale with pain along with hemoglobin A1c. 5. Hypertension. Continue metoprolol 50 mg by mouth daily hold lisinopril 6. Generalized anxiety disorder and recurrent depression. Continue Elavil 75 mg at bedtime. 7. Hyperlipidemia. Continue Zocor 40 mg at bedtime. 8. Hypothyroidism. Continue Synthroid 25 g daily. 10. DVT prophylaxis. Continue heparin 5000 units subcu every 8 hours. 11. Gastrointestinal prophylaxis. Continue Pepcid 20 mg daily. Disposition patient needed 1-2 inpatient midnights stays for evaluation for [place] Time with Patient: Greater than 30
[2017-09-16] MEDS: INSULIN NPH 300 UNIT/3 ML VIAL SQ SCH (18:08)
[2017-09-16 18:49] LABS: Glucose,Whole Blood 61 mg/dL (75-99)
[2017-09-16 18:49] LABS: Glucose,Whole Blood 82 mg/dL (75-99)
[2017-09-16] MEDS: SODIUM CHLORIDE 0.9% 1,000 ML IV SCH (19:05)
[2017-09-16] MEDS: ATORVASTATIN 20 MG TAB PO SCH (20:04)
[2017-09-16] MEDS: AMITRIPTYLINE HCL 25 MG TAB PO SCH (20:04)
[2017-09-16] MEDS: HEPARIN SODIUM,PORCINE 5,000 UNIT/ML 1 ML VIAL SQ SCH (20:04)
[2017-09-16 20:45] LABS: Glucose,Whole Blood 113 mg/dL (75-99)
[2017-09-17 05:10] LABS: Hemoglobin A1C 5.8 % (4.0-6.0)
[2017-09-17] MEDS: LEVOTHYROXINE 50 MCG TAB PO SCH (05:45)
[2017-09-17] MEDS: traMADol 50 MG TAB PO PRN (05:47)
[2017-09-17 07:51] LABS: Glucose,Whole Blood 91 mg/dL (75-99)
[2017-09-17] MEDS: INSULIN NPH 300 UNIT/3 ML VIAL SQ SCH ×2 (08:02→17:24)
[2017-09-17] MEDS: FAMOTIDINE 20 MG TAB PO SCH (08:23)
[2017-09-17] MEDS: HEPARIN SODIUM,PORCINE 5,000 UNIT/ML 1 ML VIAL SQ SCH ×2 (08:29→20:42)
[2017-09-17] MEDS: HYDROcodone/APAP 5-325MG 1 EACH TAB PO PRN (08:29)
[2017-09-17] MEDS: METOPROLOL TARTRATE 50 MG TAB PO SCH ×2 (08:31→08:33)
[2017-09-17] MEDS: SODIUM CHLORIDE 0.9% 1,000 ML IV SCH ×3 (08:31→20:46)
--- NOTE | 2017-09-17 10:34 | P.NPCON ---
History of Present Illness - Reason for Consult acute renal failure - History of Present Illness Reason for consultation: Acute kidney injury History of present illness: Patient is a 77-year-old female seen in new consultation for acute kidney injury. Patient states she had blood work done as an outpatient and was advised to go to the hospital due to renal failure. Her creatinine was elevated at 7.02 on admission. She was started on normal saline to be run at 100 mL an hour. Labs from today are pending at this time. Patient states she has been losing her balance quite often but denies sustaining any falls. Denies any syncopal episodes. Denies any vomiting or diarrhea. Oral intake has been fair. Denies any recent use of NSAIDs. Denies family history of kidney disease. It appears she does have chronic kidney disease stage III with baseline creatinine in the range of 1-1.3. Etiology is likely to be diabetic kidney disease. Patient states she was diagnosed with diabetes about 10 years ago and is maintained on insulin. No fever or chills. States her urine output has been decreased the last few days. Denies any hematuria or dysuria. Vital signs are stable. General: The patient appeared well nourished and normally developed. HEENT: Head exam is unremarkable. Neck is without jugular venous distension. LUNGS: Lungs are clear to auscultation and percussion. Breath sounds decreased. HEART: Rate and Rhythm are regular. First and second heart sounds normal. No murmurs, rubs or gallops. ABDOMEN: Abdominal exam reveals normal bowel sounds. Non-tender and non- distended. No evidence of peritonitis. EXTREMITITES: No clubbing, cyanosis, or edema. Past Medical History Past Medical History: Cancer, COPD, CVA/TIA, Diabetes Mellitus, Fibromyalgia, Hyperlipidemia, Hypertension, Thyroid Disorder Additional Past Medical History / Comment(s): cervical cancer 1974, home 02 2.5 liters n/c uses prn. neuropathy in feet, tia History of Any Multi-Drug Resistant Organisms: None Reported Past Surgical History: Cholecystectomy, Hysterectomy Past Anesthesia/Blood Transfusion Reactions: No Reported Reaction Past Psychological History: Anxiety Smoking Status: Former smoker Past Alcohol Use History: None Reported Past Drug Use History: None Reported - Past Family History Father Family Medical History: Cancer, Renal Disease Additional Family Medical History / Comment(s): kidney cancer- Mother Additional Family Medical History / Comment(s): severe osteoporosis Sister(s) Family Medical History: Cancer (Lung cancer) Medications and Allergies Home Medications Medication Instructions Recorded Confirmed Type Amitriptyline HCl [Elavil] 75 mg PO HS 12/09/15 09/16/17 History Aspirin [Adult Low Dose Aspirin EC] 81 mg PO DAILY 12/09/15 09/16/17 History Meclizine [Antivert] 25 mg PO BID PRN 12/09/15 09/16/17 History Simvastatin [Zocor] 40 mg PO HS 12/09/15 09/16/17 History Insulin NPH Human Isophane 20 units SQ AC-BID 02/29/16 09/16/17 History [NovoLIN N] Lisinopril [Zestril] 10 mg PO DAILY 02/29/16 09/16/17 History HYDROcodone/APAP 5-325MG [[place] 1 tab PO DAILY PRN #60 02/10/17 09/16/17 Rx 5-325] traMADol HCL [Ultram] 100 mg PO BID PRN #60 02/10/17 09/16/17 Rx Levothyroxine Sodium [Synthroid] 50 mcg PO DAILY 09/16/17 09/16/17 History Metoprolol Tartrate [Lopressor] 50 mg PO DAILY 09/16/17 09/16/17 History Allergies Allergy/AdvReac Type Severity Reaction Status Date / Time No Known Allergies Allergy Verified 09/16/17 12:49 Physical Exam Vitals: Vital Signs Temp Pulse Pulse Resp BP BP Pulse Ox 09/17/17 08:13 16 09/17/17 07:00 97.3 F L 49 L 18 104/50 96 09/16/17 23:00 96.3 F L 56 L 16 148/67 94 L 09/16/17 18:01 98.5 F 57 L 16 136/61 92 L 09/16/17 17:30 97.2 F L 60 18 111/60 94 L 09/16/17 16:04 81 16 157/81 97 09/16/17 14:25 58 L 16 102/60 96 09/16/17 11:31 98.3 F 88 20 130/94 95 Intake and Output 09/16/17 09/17/17 09/17/17 22:59 06:59 14:59 Other: Voiding Method Bedside Commode Toilet # Voids 1 1 1 Results - Lab Results Most recent lab results Calcium 9.0 mg/dL (8.4-10.2) 09/16/17 12:09 Magnesium 1.8 mg/dL (1.6-2.3) 09/16/17 12:09 09/16/17 12:09 09/16/17 12:09 Assessment and Plan Plan: Assessment: #1. Nonoliguric acute kidney injury. Etiology unclear but likely to be prerenal versus ATN. Need to rule out urinary retention as well. No evidence of hydronephrosis noted on renal ultrasound. Creatinine 7.02 on admission. Labs from today are pending at this time. #2. Chronic kidney disease stage III with baseline creatinine in the range of 1 -1.3. Etiology is likely to be diabetic kidney disease. #3. Pyuria. #4. Hypertension with chronic kidney disease. Currently controlled. #5. Insulin-dependent diabetes mellitus. Plan: Continue normal saline to be run at 100 mL an hour. Check urine culture. Check postvoid residual. Follow-up morning labs. Encourage oral intake. Repeat electrolytes in the morning. Thank you for the consultation. I will continue to follow the patient with you during her hospital stay.
[2017-09-17] MEDS: ASPIRIN 81 MG PO SCH (10:48)
[2017-09-17 11:05] LABS: Albumin 3.2 g/dL (3.5-5.0); Calcium 8.7 mg/dL (8.4-10.2); Potassium 4.6 mmol/L (3.5-5.1); Total Bilirubin 0.4 mg/dL (0.2-1.3); Total Protein 5.3 g/dL (6.3-8.2)
[2017-09-17 11:22] LABS: Basophils % (A) 0 %; Eosinophils # (A) 0.1 k/uL (0-0.7); Eosinophils % (A) 2 %; HCT 36.3 % (34.0-46.0); HGB 11.3 gm/dL (11.4-16.0); Hypochromasia Slight; Lymphocytes # (A) 2.4 k/uL (1.0-4.8); Lymphocytes % (A) 37 %; MCH 30.1 pg (25.0-35.0); MCV 97.2 fL (80.0-100.0); Mean Platelet Volume 8.5; Monocytes # (A) 0.3 k/uL (0-1.0); Monocytes % (A) 4 %; Neutrophils # (A) 3.5 k/uL (1.3-7.7); Neutrophils % (A) 55 %; Platelet Count 147 k/uL (150-450); RBC 3.73 m/uL (3.80-5.40); RDW 14.1 % (11.5-15.5); WBC 6.4 k/uL (3.8-10.6)
[2017-09-17 12:28] LABS: Glucose,Whole Blood 192 mg/dL (75-99)
--- NOTE | 2017-09-17 12:45 | P.PN ---
Subjective Progress Note Date: 09/17/17 This is a 76-year-old pleasant lady patient of Dr. Noble, she has underlying history of COPD, chronic O2 dependency however she is noncompliant treated, previous tobacco, diabetes mellitus type 2, fibromyalgia morbid obesity hypertension admitted to the hospital after found abnormality on the labs. Patient had basic labs done and was called in office due to increasing creatinine. Patient states she is feeling tired, boyfriend bedside thinks patient is confused which is different from her baseline. Patient states she feels distended, complains of shortness of breath associated with cough. She denies any fever or chills. She does endorses decreased urination and frequency associated with some flank tenderness on the left for the past 1 week. She denies any blood in her urine or history of kidney stones. BMP done in the ED suggestive of BUN 78, creatinine 7.1.(Baseline creatinine 1.15 as per recent labs) vitals otherwise are stable. Metformin, glipizide, Lasix discontinued. Patient's presentation appears to be secondary to acute tubular necrosis secondary to hypoperfusion and nephrotoxic medication. Nephrology is consulted. Patient will be given 1 L of normal saline and fluids will be continued at 100 mL per hour 09/17: Repeat BUN 72 and creatinine 6.55. Patient has been seen by nephrology with recommendations for IV fluids to continue it 100 mL per hour, urine culture to be obtained, check post void residual and encourage oral intake. Repeat labs have been ordered for tomorrow. Renal ultrasound shows no hydronephrosis or nephrolithiasis. There may be cortical thinning associated with chronic medical renal disease. patient will be started on Rocephin for possible urinary tract infection. Patient has requested [facility]. Objective - Vital Signs Vital signs: Vital Signs Temp 97.3 F L 09/17/17 07:00 Pulse 49 L 09/17/17 07:00 Resp 16 09/17/17 08:13 BP 104/50 09/17/17 07:00 Pulse Ox 96 09/17/17 07:00 Intake & Output 09/16/17 09/17/17 09/17/17 18:59 06:59 18:59 Intake Total 250 Balance 250 Weight 94 kg Intake: Oral 250 Other: Voiding Method Bedside Commode Bedside Commode Toilet # Voids 0 1 1 - Exam - Constitutional General appearance: average body habitus, cooperative, no acute distress, obese - EENT Eyes: EOMI, PERRLA, dentition normal, no ptosis, no scleral icterus ENT: hearing grossly normal Ears: bilateral: normal - Neck Neck: no lymphadenopathy, normal ROM, no rigidity, no thyromegaly Carotids: bilateral: upstroke normal Thyroid: bilateral: normal size - Respiratory Respiratory: bilateral: diminished, wheezing, prolonged expiration, negative: CTA, dullness, rales, rhonchi - Cardiovascular Rhythm: regular Heart sounds: normal: S1, S2 Abnormal Heart Sounds: no systolic murmur, no diastolic murmur, no S3 Gallop, no S4 Gallop, no click - Gastrointestinal General gastrointestinal: no distended, normal bowel sounds, no organomegaly, soft, no tenderness - Integumentary Integumentary: no pale, no rash - Neurologic Neurologic: CNII-XII intact - Musculoskeletal Musculoskeletal: generalized weakness, strength equal bilaterally - Psychiatric Psychiatric: A&O x's 3 - Labs CBC & Chem 7: 09/17/17 10:17 09/17/17 10:17 Labs: Abnormal Lab Results - Last 24 Hours (Table) 09/16/17 09/16/17 09/16/17 Range/Units 12:09 12:09 15:50 BUN 78 H (7-17) mg/dL Creatinine 7.02 H* (0.52-1.04) mg/dL Glucose (74-99) mg/dL POC Glucose (mg/dL) (75-99) mg/dL CK-MB (CK-2) 3.2 H* (0.0-2.4) ng/mL Troponin I (0.000-0.034) ng/mL Total Protein 5.9 L (6.3-8.2) g/dL Albumin (3.5-5.0) g/dL Urine Appearance Turbid H (Clear) Urine Protein 1+ H (Negative) Urine Blood Small H (Negative) Ur Leukocyte Esterase Large H (Negative) Urine RBC 7 H (0-5) /hpf Urine WBC >182 H (0-5) /hpf Urine WBC Clumps Moderate H (None) /hpf Urine Bacteria Many H (None) /hpf Urine Yeast (Budding) Occasional H (None) /hpf 09/16/17 09/16/17 09/17/17 Range/Units 17:53 20:43 00:30 BUN (7-17) mg/dL Creatinine (0.52-1.04) mg/dL Glucose (74-99) mg/dL POC Glucose (mg/dL) 61 L 113 H (75-99) mg/dL CK-MB (CK-2) (0.0-2.4) ng/mL Troponin I 0.041 H* (0.000-0.034) ng/mL Total Protein (6.3-8.2) g/dL Albumin (3.5-5.0) g/dL Urine Appearance (Clear) Urine Protein (Negative) Urine Blood (Negative) Ur Leukocyte Esterase (Negative) Urine RBC (0-5) /hpf Urine WBC (0-5) /hpf Urine WBC Clumps (None) /hpf Urine Bacteria (None) /hpf Urine Yeast (Budding) (None) /hpf 09/17/17 Range/Units 10:17 BUN 72 H (7-17) mg/dL Creatinine 6.55 H* (0.52-1.04) mg/dL Glucose 143 H (74-99) mg/dL POC Glucose (mg/dL) (75-99) mg/dL CK-MB (CK-2) (0.0-2.4) ng/mL Troponin I (0.000-0.034) ng/mL Total Protein 5.3 L (6.3-8.2) g/dL Albumin 3.2 L (3.5-5.0) g/dL Urine Appearance (Clear) Urine Protein (Negative) Urine Blood (Negative) Ur Leukocyte Esterase (Negative) Urine RBC (0-5) /hpf Urine WBC (0-5) /hpf Urine WBC Clumps (None) /hpf Urine Bacteria (None) /hpf Urine Yeast (Budding) (None) /hpf Assessment and Plan Plan: 1. Acute kidney injury likely secondary to acute tubular necrosis from hypoperfusion that was going on for 1 week. Hold lisinopril, metformin, glipizide and Lasix. Avoid nephrotoxic agent. Monitor input and output. Daily weights. Nephrology consulted. Status post 2 L IV fluid continue 100 mL per hour of normal saline further recommendation to follow from nephrology. Patient had some confusion noted by the family but otherwise oriented 3. Urine output is reduced. Retroperitoneal ultrasound as above. 2. Possible urinary tract infection. Urine culture to be obtained. Patient started on ceftriaxone. 3. Chronic hypoxic respiratory failure with home O2 dependence secondary to end-stage COPD currently at baseline of 2.5 L/24 hours 4. Fibromyalgia continue [place] and tramadol 5. Diabetes mellitus type 2 insulin requiring. Hold metformin and glipizide continue NPH 20 units twice a day, NovoLog sliding scale with pain along with hemoglobin A1c. 6. Hypertension. Continue metoprolol 50 mg by mouth daily hold lisinopril 7. Generalized anxiety disorder and recurrent depression. Continue Elavil 75 mg at bedtime. 8. Hyperlipidemia. Continue Zocor 40 mg at bedtime. 9. Hypothyroidism. Continue Synthroid 25 g daily. 10. DVT prophylaxis. Continue heparin 5000 units subcu every 8 hours. 11. Gastrointestinal prophylaxis. Continue Pepcid 20 mg daily. Discharge plan: Return home Impression and plan of care have been directed as dictated by the signing physician. Jodi Schwartz nurse practitioner acting as scribe for signing physician.
[2017-09-17] MEDS: cefTRIAXone IN SWFI 1,000 MG/10 ML SYRINGE IVP SCH (14:20)
[2017-09-17 17:22] LABS: Glucose,Whole Blood 193 mg/dL (75-99)
[2017-09-17] MEDS: ATORVASTATIN 20 MG TAB PO SCH (20:41)
[2017-09-17] MEDS: AMITRIPTYLINE HCL 25 MG TAB PO SCH (20:41)
[2017-09-17 21:21] LABS: Glucose,Whole Blood 195 mg/dL (75-99)
[2017-09-18] MEDS: HYDROcodone/APAP 5-325MG 1 EACH TAB PO PRN (06:09)
[2017-09-18] MEDS: LEVOTHYROXINE 50 MCG TAB PO SCH (06:09)
[2017-09-18 07:54] LABS: Glucose,Whole Blood 280 mg/dL (75-99)
[2017-09-18] MEDS: ASPIRIN 81 MG PO SCH (08:04)
[2017-09-18] MEDS: INSULIN NPH 300 UNIT/3 ML VIAL SQ SCH ×2 (08:04→18:22)
[2017-09-18] MEDS: HEPARIN SODIUM,PORCINE 5,000 UNIT/ML 1 ML VIAL SQ SCH ×2 (08:04→21:26)
[2017-09-18] MEDS: FAMOTIDINE 20 MG TAB PO SCH (08:04)
[2017-09-18] MEDS: cefTRIAXone IN SWFI 1,000 MG/10 ML SYRINGE IVP SCH (08:16)
[2017-09-18] MEDS: METOPROLOL TARTRATE 50 MG TAB PO SCH (08:25)
--- NOTE | 2017-09-18 10:25 | P.PN ---
Subjective Patient is seen in follow-up for acute kidney injury. Patient has chronic kidney disease stage III with baseline creatinine in the range of 1-1.3 due to diabetic kidney disease. Her creatinine was 7 on admission and was down to 6.55 yesterday. Patient's currently sitting up in chair. She admits to good urine output. No hematuria or dysuria. No vomiting or diarrhea. Denies chest pain or shortness of breath. Oral intake is fair. Vital signs are stable. General: The patient appeared well nourished and normally developed. HEENT: Head exam is unremarkable. Neck is without jugular venous distension. LUNGS: Lungs are clear to auscultation and percussion. Breath sounds decreased. HEART: Rate and Rhythm are regular. First and second heart sounds normal. No murmurs, rubs or gallops. ABDOMEN: Abdominal exam reveals normal bowel sounds. Non-tender and non- distended. No evidence of peritonitis. EXTREMITITES: No clubbing, cyanosis, or edema. Objective - Vital Signs Vital signs: Vital Signs Temp 97.6 F 09/18/17 07:00 Pulse 58 L 09/18/17 07:00 Resp 16 09/18/17 07:00 BP 101/49 09/18/17 07:00 Pulse Ox 98 09/18/17 07:00 Intake & Output 09/17/17 09/18/17 09/18/17 18:59 06:59 18:59 Intake Total 500 Output Total 300 41 Balance 200 -41 Weight 94 kg 97.5 kg Intake: Oral 500 Output: Urine 300 Post Void Residual 41 Other: Voiding Method Toilet Toilet # Voids 1 1 - Labs CBC & Chem 7: 09/17/17 10:17 09/17/17 10:17 Labs: Abnormal Lab Results - Last 24 Hours (Table) 09/17/17 09/17/17 09/17/17 Range/Units 10:17 10:17 12:26 RBC 3.73 L (3.80-5.40) m/uL Hgb 11.3 L (11.4-16.0) gm/dL Plt Count 147 L (150-450) k/uL BUN 72 H (7-17) mg/dL Creatinine 6.55 H* (0.52-1.04) mg/dL Glucose 143 H (74-99) mg/dL POC Glucose (mg/dL) 192 H (75-99) mg/dL Total Protein 5.3 L (6.3-8.2) g/dL Albumin 3.2 L (3.5-5.0) g/dL 09/17/17 09/17/17 09/18/17 Range/Units 17:10 21:07 07:22 RBC (3.80-5.40) m/uL Hgb (11.4-16.0) gm/dL Plt Count (150-450) k/uL BUN (7-17) mg/dL Creatinine (0.52-1.04) mg/dL Glucose (74-99) mg/dL POC Glucose (mg/dL) 193 H 195 H 280 H (75-99) mg/dL Total Protein (6.3-8.2) g/dL Albumin (3.5-5.0) g/dL Microbiology - Last 24 Hours (Table) 09/17/17 12:00 Urine Culture - Preliminary Urine,Catheterized Assessment and Plan Plan: Assessment: #1. Nonoliguric acute kidney injury. Etiology unclear but likely to be prerenal versus ATN. No evidence of urinary retention. No evidence of hydronephrosis noted on renal ultrasound. Creatinine 7.02 on admission and down to 6.55 as of yesterday. Labs from today are pending at this time. #2. Chronic kidney disease stage III with baseline creatinine in the range of 1 -1.3. Etiology is likely to be diabetic kidney disease. #3. Pyuria. #4. Hypertension with chronic kidney disease. Currently controlled. #5. Insulin-dependent diabetes mellitus. Plan: Continue normal saline to be run at 100 mL an hour. Follow-up urine culture. Follow-up morning labs. Check urine eosinophils. Encourage oral intake. Repeat electrolytes in the morning.
[2017-09-18 10:53] LABS: Basophils % (A) 0 %; Eosinophils # (A) 0.1 k/uL (0-0.7); Eosinophils % (A) 2 %; HCT 34.2 % (34.0-46.0); HGB 10.4 gm/dL (11.4-16.0); Hypochromasia Slight; Lymphocytes # (A) 1.5 k/uL (1.0-4.8); Lymphocytes % (A) 31 %; MCH 29.6 pg (25.0-35.0); MCHC 30.5 g/dL (31.0-37.0); MCV 97.2 fL (80.0-100.0); Mean Platelet Volume 8.1; Monocytes # (A) 0.2 k/uL (0-1.0); Monocytes % (A) 4 %; Neutrophils % (A) 61 %; Platelet Count 135 k/uL (150-450); RBC 3.52 m/uL (3.80-5.40); RDW 13.9 % (11.5-15.5); WBC 4.9 k/uL (3.8-10.6)
[2017-09-18 11:09] LABS: Albumin 3.1 g/dL (3.5-5.0); Calcium 8.7 mg/dL (8.4-10.2); Potassium 4.4 mmol/L (3.5-5.1); Total Bilirubin 0.2 mg/dL (0.2-1.3); Total Protein 5.1 g/dL (6.3-8.2)
[2017-09-18 12:01] LABS: Glucose,Whole Blood 231 mg/dL (75-99)
[2017-09-18] MEDS: SODIUM CHLORIDE 0.9% 1,000 ML IV SCH ×2 (12:55→22:51)
[2017-09-18] MEDS: INSULIN ASPART 100 UNIT/ML 1 ML 10 ML VIAL SQ SCH ×3 (12:59→22:29)
--- NOTE | 2017-09-18 14:14 | P.PN ---
Subjective Progress Note Date: 09/18/17 This is a 76-year-old pleasant lady patient of Dr. Noble, she has underlying history of COPD, chronic O2 dependency however she is noncompliant treated, previous tobacco, diabetes mellitus type 2, fibromyalgia morbid obesity hypertension admitted to the hospital after found abnormality on the labs. Patient had basic labs done and was called in office due to increasing creatinine. Patient states she is feeling tired, boyfriend bedside thinks patient is confused which is different from her baseline. Patient states she feels distended, complains of shortness of breath associated with cough. She denies any fever or chills. She does endorses decreased urination and frequency associated with some flank tenderness on the left for the past 1 week. She denies any blood in her urine or history of kidney stones. BMP done in the ED suggestive of BUN 78, creatinine 7.1.(Baseline creatinine 1.15 as per recent labs) vitals otherwise are stable. Metformin, glipizide, Lasix discontinued. Patient's presentation appears to be secondary to acute tubular necrosis secondary to hypoperfusion and nephrotoxic medication. Nephrology is consulted. Patient will be given 1 L of normal saline and fluids will be continued at 100 mL per hour 09/17: Repeat BUN 72 and creatinine 6.55. Patient has been seen by nephrology with recommendations for IV fluids to continue it 100 mL per hour, urine culture to be obtained, check post void residual and encourage oral intake. Repeat labs have been ordered for tomorrow. Renal ultrasound shows no hydronephrosis or nephrolithiasis. There may be cortical thinning associated with chronic medical renal disease. patient will be started on Rocephin for possible urinary tract infection. Patient has requested [place]. 09/18: Repeat BUN is 64 and creatinine 6.3. IV fluids will be increased to 75 mL per hour. Autoimmune, hepatitis and etc. testing ordered by Dr. Jiang. Patient is complaining of fibromyalgia pain and Neurontin has been added. Blood pressure was high in the evening for which metoprolol was increased to twice daily dosing. Insulin dosing will also be decreased and insulin scale added. Urine culture is in progress. Objective - Vital Signs Vital signs: Vital Signs Temp 97.6 F 09/18/17 07:00 Pulse 58 L 09/18/17 07:00 Resp 16 09/18/17 07:00 BP 101/49 09/18/17 07:00 Pulse Ox 98 09/18/17 07:00 Intake & Output 09/17/17 09/18/17 09/18/17 18:59 06:59 18:59 Intake Total 500 Output Total 300 41 Balance 200 -41 Weight 94 kg 97.5 kg Intake: Oral 500 Output: Urine 300 Post Void Residual 41 Other: Voiding Method Toilet Toilet # Voids 1 1 - Exam - Constitutional General appearance: average body habitus, cooperative, no acute distress, obese - EENT Eyes: EOMI, PERRLA, dentition normal, no ptosis, no scleral icterus ENT: hearing grossly normal Ears: bilateral: normal - Neck Neck: no lymphadenopathy, normal ROM, no rigidity, no thyromegaly Carotids: bilateral: upstroke normal Thyroid: bilateral: normal size - Respiratory Respiratory: bilateral: diminished, wheezing, prolonged expiration, negative: CTA, dullness, rales, rhonchi - Cardiovascular Rhythm: regular Heart sounds: normal: S1, S2 Abnormal Heart Sounds: no systolic murmur, no diastolic murmur, no S3 Gallop, no S4 Gallop, no click - Gastrointestinal General gastrointestinal: no distended, normal bowel sounds, no organomegaly, soft, no tenderness - Integumentary Integumentary: no pale, no rash - Neurologic Neurologic: CNII-XII intact - Musculoskeletal Musculoskeletal: generalized weakness, strength equal bilaterally - Psychiatric Psychiatric: A&O x's 3 - Labs CBC & Chem 7: 09/18/17 10:10 09/18/17 10:10 Labs: Abnormal Lab Results - Last 24 Hours (Table) 09/17/17 09/17/17 09/17/17 Range/Units 10:17 10:17 12:26 RBC 3.73 L (3.80-5.40) m/uL Hgb 11.3 L (11.4-16.0) gm/dL Plt Count 147 L (150-450) k/uL BUN 72 H (7-17) mg/dL Creatinine 6.55 H* (0.52-1.04) mg/dL Glucose 143 H (74-99) mg/dL POC Glucose (mg/dL) 192 H (75-99) mg/dL Total Protein 5.3 L (6.3-8.2) g/dL Albumin 3.2 L (3.5-5.0) g/dL 09/17/17 09/17/17 09/18/17 Range/Units 17:10 21:07 07:22 RBC (3.80-5.40) m/uL Hgb (11.4-16.0) gm/dL Plt Count (150-450) k/uL BUN (7-17) mg/dL Creatinine (0.52-1.04) mg/dL Glucose (74-99) mg/dL POC Glucose (mg/dL) 193 H 195 H 280 H (75-99) mg/dL Total Protein (6.3-8.2) g/dL Albumin (3.5-5.0) g/dL Microbiology - Last 24 Hours (Table) 09/17/17 12:00 Urine Culture - Preliminary Urine,Catheterized Assessment and Plan Plan: 1. Acute kidney injury likely secondary to acute tubular necrosis from hypoperfusion that was going on for 1 week. Hold lisinopril, metformin, glipizide and Lasix. Avoid nephrotoxic agent. Monitor input and output. Daily weights. Nephrology consulted. Status post 2 L IV fluid continue 75 mL per hour of normal saline further recommendation to follow from nephrology. Patient had some confusion noted by the family but otherwise oriented 3. Urine output is reduced. Retroperitoneal ultrasound as above. 2. Possible urinary tract infection. Urine culture to be obtained. Patient started on ceftriaxone. 3. Chronic hypoxic respiratory failure with home O2 dependence secondary to end-stage COPD currently at baseline of 2.5 L/24 hours 4. Fibromyalgia continue [place] and tramadol 5. Diabetes mellitus type 2 insulin requiring. Hold metformin and glipizide continue NPH 20 units twice a day, NovoLog sliding scale with pain along with hemoglobin A1c. 6. Hypertension. Continue metoprolol 50 mg by mouth daily hold lisinopril 7. Generalized anxiety disorder and recurrent depression. Continue Elavil 75 mg at bedtime. 8. Hyperlipidemia. Continue Zocor 40 mg at bedtime. 9. Hypothyroidism. Continue Synthroid 25 g daily. 10. DVT prophylaxis. Continue heparin 5000 units subcu every 8 hours. 11. Gastrointestinal prophylaxis. Continue Pepcid 20 mg daily. Discharge plan: Return home Impression and plan of care have been directed as dictated by the signing physician. Jodi Schwartz nurse practitioner acting as scribe for signing physician.
[2017-09-18] MEDS ORDERED: LIDOCAINE 2% INJ 20 MG/ML SQ ONE (15:38)
[2017-09-18 17:18] LABS: Appearance,Urine Clear (Clear); Bilirubin,Urine Negative (Negative); Blood,Urine Small (Negative); Color,Urine Light Yellow; Glucose,Urine (UA) Negative (Negative); Ketones,Urine Negative (Negative); Leukocyte Esterase,Urine Large (Negative); Mucus,Urine Rare /hpf; Nitrite,Urine Negative (Negative); Protein,Urine 1+ (Negative); RBC,Urine 2 /hpf (0-5); Specific Gravity,Urine 1.009 (1.001-1.035); Squamous Epithelial Cell,Urine <1 /hpf (0-4); Urobilinogen,Urine <2.0 mg/dL (<2.0); WBC,Urine 110 /hpf (0-5)
[2017-09-18 17:19] LABS: Glucose,Whole Blood 92 mg/dL (75-99)
[2017-09-18 20:44] LABS: Glucose,Whole Blood 117 mg/dL (75-99)
[2017-09-18 20:47] LABS: Protein, Total 5.5 g/dL (6.2-8.2)
[2017-09-18 21:08] LABS: Hepatitis A Antibody IgM Non-Reactive (Non-Reactive); Hepatitis B Core IgM Non-Reactive (Non-Reactive)
[2017-09-18] MEDS: GABAPENTIN 100 MG CAP PO SCH (21:25)
[2017-09-18] MEDS: ATORVASTATIN 20 MG TAB PO SCH (21:25)
[2017-09-18] MEDS: METOPROLOL TARTRATE 25 MG TAB PO SCH (21:26)
[2017-09-18] MEDS: AMITRIPTYLINE HCL 25 MG TAB PO SCH (21:26)
[2017-09-18 23:25] LABS: Anti-DNA, DS unit <1.0 IU/mL; DNA Double-Stranded NEGATIVE (NEGATIVE)
[2017-09-19] MEDS: LEVOTHYROXINE 50 MCG TAB PO SCH (06:29)
[2017-09-19 07:25] LABS: Glucose,Whole Blood 111 mg/dL (75-99)
[2017-09-19] MEDS: INSULIN ASPART 100 UNIT/ML 1 ML 10 ML VIAL SQ SCH ×5 (07:46→20:58)
[2017-09-19 08:18] LABS: Basophils # (A) 0.1 k/uL (0-0.2); Basophils % (A) 1 %; Eosinophils # (A) 0.2 k/uL (0-0.7); Eosinophils % (A) 2 %; HCT 37.1 % (34.0-46.0); HGB 11.6 gm/dL (11.4-16.0); Hypochromasia Moderate; Lymphocytes # (A) 2.6 k/uL (1.0-4.8); Lymphocytes % (A) 34 %; MCH 29.9 pg (25.0-35.0); MCHC 31.2 g/dL (31.0-37.0); MCV 95.8 fL (80.0-100.0); Mean Platelet Volume 10.5; Monocytes # (A) 0.3 k/uL (0-1.0); Monocytes % (A) 4 %; Neutrophils # (A) 4.4 k/uL (1.3-7.7); Neutrophils % (A) 57 %; Platelet Count 135 k/uL (150-450); RBC 3.88 m/uL (3.80-5.40); RDW 15.3 % (11.5-15.5); WBC 7.7 k/uL (3.8-10.6)
--- NOTE | 2017-09-19 08:18 | IR ---
EXAMINATION TYPE: IR cvc insert >=5 years DATE OF EXAM: 09/18/2017 COMPARISON: NONE CLINICAL HISTORY: Infection Needs long-term intravenous access for antibiotics. PROCEDURE: After informed consent, the skin overlying the upper extremity vein was localized with ultrasound and noted to be compressible and patent. An ultrasound image was obtained and submitted on the patient' s chart. The overlying skin was prepped and draped and Lidocaine was used for local anesthesia. A s kin susy was made with a scalpel. Access was gained to the vein under ultrasound guidance with a 21 gauge needle and a 0.018 inch wire was advanced. Access site was dilated with Peel-Away sheath and c atheter tailored to the appropriate length and advanced such that the distal tip is at the cavoatrial junction. Spot image was obtained verifying placement. Catheter was fixed to the skin with suture and a sterile dressing was placed following hemostasis. Catheter was aspirated and flushed with sali ne. Patient was discharged in stable condition without complication. Maximal barrier technique is ut ilized. Ultrasound image is documented on the chart. Ultrasound used with sterile technique. Fluoro time and fluoroscopic images submitted to document procedure: 23 intraoperative images, 0.2 mi nutes fluoroscopy time IMPRESSION: STATUS POST ULTRASOUND AND FLUOROSCOPIC GUIDED PICC LINE PLACEMENT, READY FOR USE. THIS PROCEDURE WAS PERFORMED BY THE UNDERSIGNED.
[2017-09-19 08:33] LABS: Albumin 3.3 g/dL (3.5-5.0); Calcium 9.3 mg/dL (8.4-10.2); Potassium 4.1 mmol/L (3.5-5.1); Total Bilirubin 0.4 mg/dL (0.2-1.3); Total Protein 5.5 g/dL (6.3-8.2)
[2017-09-19] MEDS: INSULIN NPH 300 UNIT/3 ML VIAL SQ SCH ×2 (09:10→18:00)
[2017-09-19] MEDS: cefTRIAXone IN SWFI 1,000 MG/10 ML SYRINGE IVP SCH (09:10)
[2017-09-19] MEDS: HEPARIN SODIUM,PORCINE 5,000 UNIT/ML 1 ML VIAL SQ SCH ×2 (09:11→21:42)
[2017-09-19] MEDS: METOPROLOL TARTRATE 25 MG TAB PO SCH ×2 (09:11→20:58)
[2017-09-19] MEDS: FAMOTIDINE 20 MG TAB PO SCH (09:12)
[2017-09-19] MEDS: ASPIRIN 81 MG PO SCH (09:12)
[2017-09-19] MEDS: SODIUM CHLORIDE 0.45% 1,000 ML IV SCH ×2 (09:16→18:50)
--- NOTE | 2017-09-19 09:30 | P.PN ---
Subjective Patient is seen in follow-up for acute kidney injury. Patient has chronic kidney disease stage III with baseline creatinine in the range of 1-1.3 due to diabetic kidney disease. Her creatinine was 7 on admission and is down to 5.96 today. Patient's currently sitting up in chair. She admits to good urine output. No hematuria or dysuria. No vomiting or diarrhea. Denies chest pain or shortness of breath. Oral intake is fair. She is currently maintained on normal saline at 75 mL an hour. Sodium level is up to 147 today. Vital signs are stable. General: The patient appeared well nourished and normally developed. HEENT: Head exam is unremarkable. Neck is without jugular venous distension. LUNGS: Lungs are clear to auscultation and percussion. Breath sounds decreased. HEART: Rate and Rhythm are regular. First and second heart sounds normal. No murmurs, rubs or gallops. ABDOMEN: Abdominal exam reveals normal bowel sounds. Non-tender and non- distended. No evidence of peritonitis. EXTREMITITES: No clubbing, cyanosis, or edema. Objective - Vital Signs Vital signs: Vital Signs Temp 98.3 F 09/19/17 07:00 Pulse 64 09/19/17 09:21 Resp 16 09/19/17 07:00 BP 137/56 09/19/17 07:00 Pulse Ox 92 L 09/19/17 07:00 Intake & Output 09/18/17 09/19/17 09/19/17 18:59 06:59 18:59 Intake Total 480 Balance 480 Weight 97.5 kg 97.5 kg Intake: Oral 480 Other: Voiding Method Toilet # Voids 1 3 1 - Labs CBC & Chem 7: 09/19/17 08:05 09/19/17 08:05 Labs: Abnormal Lab Results - Last 24 Hours (Table) 09/18/17 09/18/17 09/18/17 Range/Units 10:10 10:10 11:48 RBC 3.52 L (3.80-5.40) m/uL Hgb 10.4 L (11.4-16.0) gm/dL MCHC 30.5 L (31.0-37.0) g/dL Plt Count 135 L (150-450) k/uL Sodium (137-145) mmol/L Chloride 108 H (98-107) mmol/L BUN 64 H (7-17) mg/dL Creatinine 6.30 H* (0.52-1.04) mg/dL Glucose 250 H (74-99) mg/dL POC Glucose (mg/dL) 231 H (75-99) mg/dL AST (14-36) U/L Total Protein 5.1 L (6.3-8.2) g/dL Total Protein (PEP) (6.2-8.2) g/dL Albumin 3.1 L (3.5-5.0) g/dL Urine Protein (Negative) Urine Blood (Negative) Ur Leukocyte Esterase (Negative) Urine WBC (0-5) /hpf Urine Mucus (None) /hpf U Random Total Protein (<12) mg/dL 09/18/17 09/18/17 09/18/17 Range/Units 13:51 16:54 16:54 RBC (3.80-5.40) m/uL Hgb (11.4-16.0) gm/dL MCHC (31.0-37.0) g/dL Plt Count (150-450) k/uL Sodium (137-145) mmol/L Chloride (98-107) mmol/L BUN (7-17) mg/dL Creatinine (0.52-1.04) mg/dL Glucose (74-99) mg/dL POC Glucose (mg/dL) (75-99) mg/dL AST (14-36) U/L Total Protein (6.3-8.2) g/dL Total Protein (PEP) 5.5 L (6.2-8.2) g/dL Albumin (3.5-5.0) g/dL Urine Protein 1+ H (Negative) Urine Blood Small H (Negative) Ur Leukocyte Esterase Large H (Negative) Urine WBC 110 H (0-5) /hpf Urine Mucus Rare H (None) /hpf U Random Total Protein 50 H (<12) mg/dL 09/18/17 09/19/17 09/19/17 Range/Units 20:43 07:19 08:05 RBC (3.80-5.40) m/uL Hgb (11.4-16.0) gm/dL MCHC (31.0-37.0) g/dL Plt Count 135 L (150-450) k/uL Sodium (137-145) mmol/L Chloride (98-107) mmol/L BUN (7-17) mg/dL Creatinine (0.52-1.04) mg/dL Glucose (74-99) mg/dL POC Glucose (mg/dL) 117 H 111 H (75-99) mg/dL AST (14-36) U/L Total Protein (6.3-8.2) g/dL Total Protein (PEP) (6.2-8.2) g/dL Albumin (3.5-5.0) g/dL Urine Protein (Negative) Urine Blood (Negative) Ur Leukocyte Esterase (Negative) Urine WBC (0-5) /hpf Urine Mucus (None) /hpf U Random Total Protein (<12) mg/dL 09/19/17 Range/Units 08:05 RBC (3.80-5.40) m/uL Hgb (11.4-16.0) gm/dL MCHC (31.0-37.0) g/dL Plt Count (150-450) k/uL Sodium 147 H (137-145) mmol/L Chloride 110 H (98-107) mmol/L BUN 56 H (7-17) mg/dL Creatinine 5.96 H* (0.52-1.04) mg/dL Glucose 112 H (74-99) mg/dL POC Glucose (mg/dL) (75-99) mg/dL AST 42 H (14-36) U/L Total Protein 5.5 L (6.3-8.2) g/dL Total Protein (PEP) (6.2-8.2) g/dL Albumin 3.3 L (3.5-5.0) g/dL Urine Protein (Negative) Urine Blood (Negative) Ur Leukocyte Esterase (Negative) Urine WBC (0-5) /hpf Urine Mucus (None) /hpf U Random Total Protein (<12) mg/dL Microbiology - Last 24 Hours (Table) 09/17/17 12:00 Urine Culture - Final Urine,Catheterized Assessment and Plan Plan: Assessment: #1. Nonoliguric acute kidney injury secondary to ATN. No evidence of urinary retention. No evidence of hydronephrosis noted on renal ultrasound. Creatinine 7.02 on admission and down to 5.96 today. She is noted to have sub- nephrotic proteinuria which is likely due to underlying diabetic kidney disease. Need to rule out GN. Serologies so far negative. Urine eosinophils negative. #2. Chronic kidney disease stage III with baseline creatinine in the range of 1 -1.3. Etiology is likely to be diabetic kidney disease. #3. Pyuria. Urine culture negative so far. #4. Hypertension with chronic kidney disease. Currently controlled. #5. Insulin-dependent diabetes mellitus. #6. Hypernatremia secondary to lack of oral water intake. Plan: I will change IV fluids to half-normal saline to be run at 100 mL an hour. Encouraged oral intake. Follow-up serologies. Repeat electrolytes in the morning.
[2017-09-19 12:09] LABS: Glucose,Whole Blood 246 mg/dL (75-99)
--- NOTE | 2017-09-19 13:50 | P.PN ---
Subjective Progress Note Date: 09/19/17 This is a 76-year-old pleasant lady patient of Dr. Noble, she has underlying history of COPD, chronic O2 dependency however she is noncompliant treated, previous tobacco, diabetes mellitus type 2, fibromyalgia morbid obesity hypertension admitted to the hospital after found abnormality on the labs. Patient had basic labs done and was called in office due to increasing creatinine. Patient states she is feeling tired, boyfriend bedside thinks patient is confused which is different from her baseline. Patient states she feels distended, complains of shortness of breath associated with cough. She denies any fever or chills. She does endorses decreased urination and frequency associated with some flank tenderness on the left for the past 1 week. She denies any blood in her urine or history of kidney stones. BMP done in the ED suggestive of BUN 78, creatinine 7.1.(Baseline creatinine 1.15 as per recent labs) vitals otherwise are stable. Metformin, glipizide, Lasix discontinued. Patient's presentation appears to be secondary to acute tubular necrosis secondary to hypoperfusion and nephrotoxic medication. Nephrology is consulted. Patient will be given 1 L of normal saline and fluids will be continued at 100 mL per hour 09/17: Repeat BUN 72 and creatinine 6.55. Patient has been seen by nephrology with recommendations for IV fluids to continue it 100 mL per hour, urine culture to be obtained, check post void residual and encourage oral intake. Repeat labs have been ordered for tomorrow. Renal ultrasound shows no hydronephrosis or nephrolithiasis. There may be cortical thinning associated with chronic medical renal disease. patient will be started on Rocephin for possible urinary tract infection. Patient has requested [place]. 09/18: Repeat BUN is 64 and creatinine 6.3. IV fluids will be increased to 75 mL per hour. Autoimmune, hepatitis and etc. testing ordered by Dr. Jiang. Patient is complaining of fibromyalgia pain and Neurontin has been added. Blood pressure was high in the evening for which metoprolol was increased to twice daily dosing. Insulin dosing will also be decreased and insulin scale added. Urine culture is in progress. 09/19: PICC line was placed yesterday as patient had no IV access. She is currently on 0.45 saline at 100 mL per hour for hypernatremia. Repeat BUN 56 and creatinine is down to 5.96.blood sugars are uncontrolled for which NPH was decreased to 12 units and added in NovoLog with meals 4 units. Objective - Vital Signs Vital signs: Vital Signs Temp 98.3 F 09/19/17 07:00 Pulse 64 09/19/17 09:21 Resp 16 09/19/17 07:00 BP 137/56 09/19/17 07:00 Pulse Ox 92 L 09/19/17 07:00 Intake & Output 09/18/17 09/19/17 09/19/17 18:59 06:59 18:59 Intake Total 480 Balance 480 Weight 97.5 kg 97.5 kg Intake: Oral 480 Other: Voiding Method Toilet # Voids 1 3 1 - Exam - Constitutional General appearance: average body habitus, cooperative, no acute distress, obese - EENT Eyes: EOMI, PERRLA, dentition normal, no ptosis, no scleral icterus ENT: hearing grossly normal Ears: bilateral: normal - Neck Neck: no lymphadenopathy, normal ROM, no rigidity, no thyromegaly Carotids: bilateral: upstroke normal Thyroid: bilateral: normal size - Respiratory Respiratory: bilateral: diminished, wheezing, prolonged expiration, negative: CTA, dullness, rales, rhonchi - Cardiovascular Rhythm: regular Heart sounds: normal: S1, S2 Abnormal Heart Sounds: no systolic murmur, no diastolic murmur, no S3 Gallop, no S4 Gallop, no click - Gastrointestinal General gastrointestinal: no distended, normal bowel sounds, no organomegaly, soft, no tenderness - Integumentary Integumentary: no pale, no rash - Neurologic Neurologic: CNII-XII intact - Musculoskeletal Musculoskeletal: generalized weakness, strength equal bilaterally - Psychiatric Psychiatric: A&O x's 3 - Labs CBC & Chem 7: 09/19/17 08:05 09/19/17 08:05 Labs: Abnormal Lab Results - Last 24 Hours (Table) 09/18/17 09/18/17 09/18/17 Range/Units 10:10 11:48 13:51 Plt Count (150-450) k/uL Sodium (137-145) mmol/L Chloride 108 H (98-107) mmol/L BUN 64 H (7-17) mg/dL Creatinine 6.30 H* (0.52-1.04) mg/dL Glucose 250 H (74-99) mg/dL POC Glucose (mg/dL) 231 H (75-99) mg/dL AST (14-36) U/L Total Protein 5.1 L (6.3-8.2) g/dL Total Protein (PEP) 5.5 L (6.2-8.2) g/dL Albumin 3.1 L (3.5-5.0) g/dL Urine Protein (Negative) Urine Blood (Negative) Ur Leukocyte Esterase (Negative) Urine WBC (0-5) /hpf Urine Mucus (None) /hpf U Random Total Protein (<12) mg/dL 09/18/17 09/18/17 09/18/17 Range/Units 16:54 16:54 20:43 Plt Count (150-450) k/uL Sodium (137-145) mmol/L Chloride (98-107) mmol/L BUN (7-17) mg/dL Creatinine (0.52-1.04) mg/dL Glucose (74-99) mg/dL POC Glucose (mg/dL) 117 H (75-99) mg/dL AST (14-36) U/L Total Protein (6.3-8.2) g/dL Total Protein (PEP) (6.2-8.2) g/dL Albumin (3.5-5.0) g/dL Urine Protein 1+ H (Negative) Urine Blood Small H (Negative) Ur Leukocyte Esterase Large H (Negative) Urine WBC 110 H (0-5) /hpf Urine Mucus Rare H (None) /hpf U Random Total Protein 50 H (<12) mg/dL 09/19/17 09/19/17 09/19/17 Range/Units 07:19 08:05 08:05 Plt Count 135 L (150-450) k/uL Sodium 147 H (137-145) mmol/L Chloride 110 H (98-107) mmol/L BUN 56 H (7-17) mg/dL Creatinine 5.96 H* (0.52-1.04) mg/dL Glucose 112 H (74-99) mg/dL POC Glucose (mg/dL) 111 H (75-99) mg/dL AST 42 H (14-36) U/L Total Protein 5.5 L (6.3-8.2) g/dL Total Protein (PEP) (6.2-8.2) g/dL Albumin 3.3 L (3.5-5.0) g/dL Urine Protein (Negative) Urine Blood (Negative) Ur Leukocyte Esterase (Negative) Urine WBC (0-5) /hpf Urine Mucus (None) /hpf U Random Total Protein (<12) mg/dL Microbiology - Last 24 Hours (Table) 09/17/17 12:00 Urine Culture - Final Urine,Catheterized Assessment and Plan Plan: 1. Acute kidney injury likely secondary to acute tubular necrosis from hypoperfusion that was going on for 1 week. Hold lisinopril, metformin, glipizide and Lasix. Avoid nephrotoxic agent. Monitor input and output. Daily weights. Nephrology consulted. Status post 2 L IV fluid, recommendation to follow from nephrology. Patient had some confusion noted by the family but otherwise oriented 3. Urine output is reduced. Retroperitoneal ultrasound as above. 2. Possible urinary tract infection. Urine culture to be obtained. Patient started on ceftriaxone. 3. Chronic hypoxic respiratory failure with home O2 dependence secondary to end-stage COPD currently at baseline of 2.5 L/24 hours 4. Fibromyalgia continue [place] and tramadol 5. Diabetes mellitus type 2 insulin requiring. Hold metformin and glipizide continue NPH 12 units twice a day, NovoLog 4 units with meals and sliding scale. 6. Hypertension. Continue metoprolol 50 mg by mouth daily hold lisinopril 7. Generalized anxiety disorder and recurrent depression. Continue Elavil 75 mg at bedtime. 8. Hyperlipidemia. Continue Zocor 40 mg at bedtime. 9. Hypothyroidism. Continue Synthroid 25 g daily. 10. DVT prophylaxis. Continue heparin 5000 units subcu every 8 hours. 11. Gastrointestinal prophylaxis. Continue Pepcid 20 mg daily. 12. Hyperkalemia. Half normal saline. Discharge plan: Return home Impression and plan of care have been directed as dictated by the signing physician. Jodi Schwartz nurse practitioner acting as scribe for signing physician.
[2017-09-19 14:39] LABS: C-ANCA <1:20 Titer (<1:20); P-ANCA <1:20 Titer (<1:20)
[2017-09-19 17:22] LABS: Glucose,Whole Blood 111 mg/dL (75-99)
[2017-09-19 20:47] LABS: Glucose,Whole Blood 138 mg/dL (75-99)
[2017-09-19] MEDS: AMITRIPTYLINE HCL 25 MG TAB PO SCH (20:55)
[2017-09-19] MEDS: ATORVASTATIN 20 MG TAB PO SCH (20:55)
[2017-09-19] MEDS: GABAPENTIN 100 MG CAP PO SCH (20:55)
[2017-09-20] MEDS: SODIUM CHLORIDE 0.45% 1,000 ML IV SCH (03:50)
[2017-09-20] MEDS: LEVOTHYROXINE 50 MCG TAB PO SCH (06:41)
[2017-09-20] MEDS: INSULIN ASPART 100 UNIT/ML 1 ML 10 ML VIAL SQ SCH ×7 (07:44→21:25)
[2017-09-20 07:52] LABS: Glucose,Whole Blood 74 mg/dL (75-99)
[2017-09-20] MEDS: INSULIN NPH 300 UNIT/3 ML VIAL SQ SCH ×2 (08:08→18:34)
[2017-09-20] MEDS: cefTRIAXone IN SWFI 1,000 MG/10 ML SYRINGE IVP SCH (08:09)
[2017-09-20] MEDS: METOPROLOL TARTRATE 25 MG TAB PO SCH ×2 (08:09→21:22)
[2017-09-20] MEDS: ASPIRIN 81 MG PO SCH (08:09)
[2017-09-20] MEDS: FAMOTIDINE 20 MG TAB PO SCH (08:10)
[2017-09-20] MEDS: HEPARIN SODIUM,PORCINE 5,000 UNIT/ML 1 ML VIAL SQ SCH ×2 (08:10→21:22)
[2017-09-20] MEDS: HYDROcodone/APAP 5-325MG 1 EACH TAB PO PRN ×2 (08:30→23:07)
[2017-09-20 08:38] LABS: Calcium 8.8 mg/dL (8.4-10.2); Potassium 4.5 mmol/L (3.5-5.1)
--- NOTE | 2017-09-20 12:01 | P.PN ---
Subjective Patient is seen in follow-up for acute kidney injury. Patient has chronic kidney disease stage III with baseline creatinine in the range of 1-1.3 due to diabetic kidney disease. Her creatinine was 7 on admission and is down to 5.46 today. Patient's currently sitting up in chair. She admits to good urine output. No hematuria or dysuria. No vomiting or diarrhea. Denies chest pain or shortness of breath. Oral intake is fair. She is awake and alert. No active complaints at this time. Vital signs are stable. General: The patient appeared well nourished and normally developed. HEENT: Head exam is unremarkable. Neck is without jugular venous distension. LUNGS: Lungs are clear to auscultation and percussion. Breath sounds decreased. HEART: Rate and Rhythm are regular. First and second heart sounds normal. No murmurs, rubs or gallops. ABDOMEN: Abdominal exam reveals normal bowel sounds. Non-tender and non- distended. No evidence of peritonitis. EXTREMITITES: No clubbing, cyanosis, or edema. Objective - Vital Signs Vital signs: Vital Signs Temp 96.5 F L 09/20/17 07:00 Pulse 55 L 09/20/17 07:00 Resp 18 09/20/17 07:00 BP 128/62 09/20/17 07:00 Pulse Ox 91 L 09/20/17 07:00 Intake & Output 09/19/17 09/20/17 09/20/17 18:59 06:59 18:59 Weight 97.5 kg Other: Voiding Method Toilet Toilet # Voids 1 1 - Labs CBC & Chem 7: 09/19/17 08:05 09/20/17 08:00 Labs: Abnormal Lab Results - Last 24 Hours (Table) 09/18/17 09/19/17 09/19/17 Range/Units 13:51 11:55 17:06 Chloride (98-107) mmol/L Carbon Dioxide (22-30) mmol/L BUN (7-17) mg/dL Creatinine (0.52-1.04) mg/dL POC Glucose (mg/dL) 246 H 111 H (75-99) mg/dL [place] LC, Quant 2.51 H (0.33-1.94) mg/dL 09/19/17 09/20/17 09/20/17 Range/Units 20:37 07:30 08:00 Chloride 112 H (98-107) mmol/L Carbon Dioxide 20 L (22-30) mmol/L BUN 54 H (7-17) mg/dL Creatinine 5.46 H* (0.52-1.04) mg/dL POC Glucose (mg/dL) 138 H 74 L (75-99) mg/dL [place] LC, Quant (0.33-1.94) mg/dL Assessment and Plan Plan: Assessment: #1. Nonoliguric acute kidney injury secondary to ATN. No evidence of urinary retention. No evidence of hydronephrosis noted on renal ultrasound. Creatinine 7.02 on admission and down to 5.46 today. She is noted to have sub- nephrotic proteinuria which is likely due to underlying diabetic kidney disease. Need to rule out GN. Serologies so far negative. Urine eosinophils negative. #2. Chronic kidney disease stage III with baseline creatinine in the range of 1 -1.3. Etiology is likely to be diabetic kidney disease. #3. Pyuria. Urine culture negative so far. #4. Hypertension with chronic kidney disease. Currently controlled. #5. Insulin-dependent diabetes mellitus. #6. Hypernatremia secondary to lack of oral water intake. Improved. #7. Metabolic acidosis secondary to acute kidney injury and IV fluids. Plan: I will change fluids back to 0.9 at 100 mL an hour. Encouraged oral intake, including free water. Follow-up serologies. Add oral sodium bicarbonate 650 mg twice daily. Repeat electrolytes in the morning.
[2017-09-20 12:23] LABS: Glucose,Whole Blood 140 mg/dL (75-99)
[2017-09-20] MEDS: SODIUM BICARBONATE TAB 650 MG TAB PO SCH ×2 (12:34→21:22)
[2017-09-20] MEDS: SODIUM CHLORIDE 0.9% 1,000 ML IV SCH ×2 (12:34→21:34)
--- NOTE | 2017-09-20 16:23 | P.PN ---
Subjective Progress Note Date: 09/20/17 This is a 76-year-old pleasant lady patient of Dr. Noble, she has underlying history of COPD, chronic O2 dependency however she is noncompliant treated, previous tobacco, diabetes mellitus type 2, fibromyalgia morbid obesity hypertension admitted to the hospital after found abnormality on the labs. Patient had basic labs done and was called in office due to increasing creatinine. Patient states she is feeling tired, boyfriend bedside thinks patient is confused which is different from her baseline. Patient states she feels distended, complains of shortness of breath associated with cough. She denies any fever or chills. She does endorses decreased urination and frequency associated with some flank tenderness on the left for the past 1 week. She denies any blood in her urine or history of kidney stones. BMP done in the ED suggestive of BUN 78, creatinine 7.1.(Baseline creatinine 1.15 as per recent labs) vitals otherwise are stable. Metformin, glipizide, Lasix discontinued. Patient's presentation appears to be secondary to acute tubular necrosis secondary to hypoperfusion and nephrotoxic medication. Nephrology is consulted. Patient will be given 1 L of normal saline and fluids will be continued at 100 mL per hour 09/17: Repeat BUN 72 and creatinine 6.55. Patient has been seen by nephrology with recommendations for IV fluids to continue it 100 mL per hour, urine culture to be obtained, check post void residual and encourage oral intake. Repeat labs have been ordered for tomorrow. Renal ultrasound shows no hydronephrosis or nephrolithiasis. There may be cortical thinning associated with chronic medical renal disease. patient will be started on Rocephin for possible urinary tract infection. Patient has requested [facility] [place]. 09/18: Repeat BUN is 64 and creatinine 6.3. IV fluids will be increased to 75 mL per hour. Autoimmune, hepatitis and etc. testing ordered by Dr. Jiang. Patient is complaining of fibromyalgia pain and Neurontin has been added. Blood pressure was high in the evening for which metoprolol was increased to twice daily dosing. Insulin dosing will also be decreased and insulin scale added. Urine culture is in progress. 09/19: PICC line was placed yesterday as patient had no IV access. She is currently on 0.45 saline at 100 mL per hour for hypernatremia. Repeat BUN 56 and creatinine is down to 5.96.blood sugars are uncontrolled for which NPH was decreased to 12 units and added in NovoLog with meals 4 units. 09/20:, Patient remains with IV fluids, creatinine has come down to 5.46, BUN of 54, patient was encouraged to do some ambulation, no orthostasis, patient denies any ongoing GI losses blood sugars between 74-138, NPH will be decreased to 10 units twice a day, no change in NovoLog pre-meal 4 units Objective - Vital Signs Vital signs: Vital Signs Temp 96.9 F L 09/20/17 15:00 Pulse 58 L 09/20/17 15:00 Resp 16 09/20/17 15:00 BP 141/59 09/20/17 15:00 Pulse Ox 94 L 09/20/17 15:00 Intake & Output 09/19/17 09/20/17 09/20/17 18:59 06:59 18:59 Intake Total 780 Balance 780 Weight 97.5 kg Intake: Oral 780 Other: Voiding Method Toilet Toilet # Voids 1 1 2 - Constitutional General appearance: Present: average body habitus, morbidly obese - EENT Eyes: Present: anicteric sclerae, PERRLA, dentition normal, normal appearance ENT: Present: NA/AT, normal oropharynx - Neck Neck: Present: normal ROM - Respiratory Respiratory: bilateral: CTA, negative: diminished, dullness, rales, rhonchi, wheezing, prolonged expiration - Cardiovascular Rhythm: regular Heart sounds: normal: S1, S2 Abnormal Heart Sounds: Absent: systolic murmur, diastolic murmur, rub, S3 Gallop , S4 Gallop, click, other - Gastrointestinal General gastrointestinal: Present: normal bowel sounds, soft - Integumentary Integumentary: Present: normal, normal turgor - Neurologic Neurologic: Present: CNII-XII intact - Musculoskeletal Musculoskeletal: Present: gait normal, strength equal bilaterally - Psychiatric Psychiatric: Present: A&O x's 3, appropriate affect - Labs CBC & Chem 7: 09/19/17 08:05 09/20/17 08:00 Labs: Abnormal Lab Results - Last 24 Hours (Table) 09/19/17 09/19/17 09/20/17 Range/Units 17:06 20:37 07:30 Chloride (98-107) mmol/L Carbon Dioxide (22-30) mmol/L BUN (7-17) mg/dL Creatinine (0.52-1.04) mg/dL POC Glucose (mg/dL) 111 H 138 H 74 L (75-99) mg/dL 09/20/17 09/20/17 Range/Units 08:00 12:20 Chloride 112 H (98-107) mmol/L Carbon Dioxide 20 L (22-30) mmol/L BUN 54 H (7-17) mg/dL Creatinine 5.46 H* (0.52-1.04) mg/dL POC Glucose (mg/dL) 140 H (75-99) mg/dL Assessment and Plan Plan: 1. Acute kidney injury likely secondary to acute tubular necrosis from hypoperfusion that was going on for 1 week. Hold lisinopril, metformin, glipizide and Lasix. Avoid nephrotoxic agent. Monitor input and output. Daily weights. Nephrology consulted. Status post 2 L IV fluid, recommendation to follow from nephrology. Patient had some confusion noted by the family but otherwise oriented 3. Urine output is reduced. Retroperitoneal ultrasound as above. 2. Pyuria Negative for urinary tract infection. Urine culture negative Patient started on ceftriaxone and is discontinued. Patient completed 3 days of IV Rocephin 3. Chronic hypoxic respiratory failure with home O2 dependence secondary to end-stage COPD currently at baseline of 2.5 L/24 hours 4. Fibromyalgia continue [place] and tramadol 5. Diabetes mellitus type 2 insulin requiring. Hold metformin and glipizide continue NPH 12 units twice a day, NovoLog 4 units with meals and sliding scale. 6. Hypertension. Continue metoprolol 50 mg by mouth daily hold lisinopril 7. Generalized anxiety disorder and recurrent depression. Continue Elavil 75 mg at bedtime. 8. Hyperlipidemia. Continue Zocor 40 mg at bedtime. 9. Hypothyroidism. Continue Synthroid 25 g daily. 10. DVT prophylaxis. Continue heparin 5000 units subcu every 8 hours. 11. Gastrointestinal prophylaxis. Continue Pepcid 20 mg daily. 12. Hyperkalemia. Half normal saline. Discharge plan: Return home
[2017-09-20 17:14] LABS: Glucose,Whole Blood 150 mg/dL (75-99)
[2017-09-20 20:54] LABS: Glucose,Whole Blood 196 mg/dL (75-99)
[2017-09-20] MEDS: ATORVASTATIN 20 MG TAB PO SCH (21:21)
[2017-09-20] MEDS: AMITRIPTYLINE HCL 25 MG TAB PO SCH (21:21)
[2017-09-20] MEDS: GABAPENTIN 100 MG CAP PO SCH (21:22)
[2017-09-21] MEDS: LEVOTHYROXINE 50 MCG TAB PO SCH (06:37)
[2017-09-21 07:30] LABS: Glucose,Whole Blood 129 mg/dL (75-99)
[2017-09-21 08:34] LABS: Basophils % (A) 0 %; Eosinophils # (A) 0.2 k/uL (0-0.7); Eosinophils % (A) 3 %; HCT 34.5 % (34.0-46.0); HGB 10.9 gm/dL (11.4-16.0); Lymphocytes # (A) 2.1 k/uL (1.0-4.8); Lymphocytes % (A) 32 %; MCH 30.2 pg (25.0-35.0); MCHC 31.6 g/dL (31.0-37.0); MCV 95.4 fL (80.0-100.0); Mean Platelet Volume 7.9; Monocytes # (A) 0.4 k/uL (0-1.0); Monocytes % (A) 5 %; Neutrophils # (A) 3.7 k/uL (1.3-7.7); Neutrophils % (A) 58 %; Platelet Count 126 k/uL (150-450); RBC 3.61 m/uL (3.80-5.40); RDW 14.4 % (11.5-15.5); WBC 6.4 k/uL (3.8-10.6)
[2017-09-21 08:53] LABS: Calcium 8.9 mg/dL (8.4-10.2)
[2017-09-21] MEDS: INSULIN ASPART 100 UNIT/ML 1 ML 10 ML VIAL SQ SCH ×7 (09:58→23:06)
[2017-09-21] MEDS: SODIUM BICARBONATE TAB 650 MG TAB PO SCH ×2 (10:50→20:57)
[2017-09-21] MEDS: FAMOTIDINE 20 MG TAB PO SCH (10:50)
[2017-09-21] MEDS: ASPIRIN 81 MG PO SCH (10:50)
[2017-09-21] MEDS: HEPARIN SODIUM,PORCINE 5,000 UNIT/ML 1 ML VIAL SQ SCH ×2 (10:51→20:57)
[2017-09-21] MEDS: SODIUM CHLORIDE 0.9% 1,000 ML IV SCH ×3 (10:51→20:50)
[2017-09-21] MEDS: INSULIN NPH 300 UNIT/3 ML VIAL SQ SCH ×2 (10:52→18:21)
[2017-09-21] MEDS: METOPROLOL TARTRATE 25 MG TAB PO SCH ×2 (10:53→20:57)
--- NOTE | 2017-09-21 12:22 | P.PN ---
Subjective Patient is seen in follow-up for acute kidney injury. Patient has chronic kidney disease stage III with baseline creatinine in the range of 1-1.3 due to diabetic kidney disease. Her creatinine was 7 on admission and is down to 5.18 today. Patient's currently sitting up in chair. She admits to good urine output. No hematuria or dysuria. No vomiting or diarrhea. Denies chest pain or shortness of breath. Oral intake is fair. She is awake and alert. No active complaints at this time except feels more tired today. Vital signs are stable. General: The patient appeared well nourished and normally developed. HEENT: Head exam is unremarkable. Neck is without jugular venous distension. LUNGS: Lungs are clear to auscultation and percussion. Breath sounds decreased. HEART: Rate and Rhythm are regular. First and second heart sounds normal. No murmurs, rubs or gallops. ABDOMEN: Abdominal exam reveals normal bowel sounds. Non-tender and non- distended. No evidence of peritonitis. EXTREMITITES: No clubbing, cyanosis, or edema. Objective - Vital Signs Vital signs: Vital Signs Temp 97.3 F L 09/21/17 06:14 Pulse 51 L 09/21/17 06:14 Resp 18 09/21/17 06:14 BP 104/51 09/21/17 06:14 Pulse Ox 93 L 09/21/17 06:14 Intake & Output 09/20/17 09/21/17 09/21/17 18:59 06:59 18:59 Intake Total 780 900 Output Total 300 Balance 480 900 Weight 97.5 kg Intake: Oral 780 900 Output: Urine 300 Other: Voiding Method Toilet Toilet Bedside Commode Bedside Commode Diaper Diaper # Voids 2 2 - Labs CBC & Chem 7: 09/21/17 08:11 09/21/17 08:11 Labs: Abnormal Lab Results - Last 24 Hours (Table) 09/20/17 09/20/17 09/20/17 Range/Units 12:20 17:10 20:44 RBC (3.80-5.40) m/uL Hgb (11.4-16.0) gm/dL Plt Count (150-450) k/uL Chloride (98-107) mmol/L Carbon Dioxide (22-30) mmol/L BUN (7-17) mg/dL Creatinine (0.52-1.04) mg/dL Glucose (74-99) mg/dL POC Glucose (mg/dL) 140 H 150 H 196 H (75-99) mg/dL 09/21/17 09/21/17 09/21/17 Range/Units 07:24 08:11 08:11 RBC 3.61 L (3.80-5.40) m/uL Hgb 10.9 L (11.4-16.0) gm/dL Plt Count 126 L (150-450) k/uL Chloride 113 H (98-107) mmol/L Carbon Dioxide 20 L (22-30) mmol/L BUN 48 H (7-17) mg/dL Creatinine 5.18 H* (0.52-1.04) mg/dL Glucose 132 H (74-99) mg/dL POC Glucose (mg/dL) 129 H (75-99) mg/dL Assessment and Plan Plan: Assessment: #1. Nonoliguric acute kidney injury secondary to ATN. No evidence of urinary retention. No evidence of hydronephrosis noted on renal ultrasound. Creatinine 7.02 on admission and down to 5.18 today. She is noted to have sub- nephrotic proteinuria which is likely due to underlying diabetic kidney disease. Need to rule out GN. Serologies so far negative. Urine eosinophils negative. #2. Chronic kidney disease stage III with baseline creatinine in the range of 1 -1.3. Etiology is likely to be diabetic kidney disease. #3. Pyuria. Urine culture negative so far. #4. Hypertension with chronic kidney disease. Currently controlled. #5. Insulin-dependent diabetes mellitus. #6. Hypernatremia secondary to lack of oral water intake. Improved. #7. Metabolic acidosis secondary to acute kidney injury and IV fluids. Plan: Continue normal saline to be run at 100 mL an hour. Encouraged oral intake, including free water. Follow-up serologies. Maintain oral sodium bicarbonate 650 mg twice daily. Repeat electrolytes in the morning.
[2017-09-21 12:27] LABS: Glucose,Whole Blood 167 mg/dL (75-99)
--- NOTE | 2017-09-21 16:07 | P.PN ---
Subjective This is a 76-year-old pleasant lady patient of Dr. Noble, she has underlying history of COPD, chronic O2 dependency however she is noncompliant treated, previous tobacco, diabetes mellitus type 2, fibromyalgia morbid obesity hypertension admitted to the hospital after found abnormality on the labs. Patient had basic labs done and was called in office due to increasing creatinine. Patient states she is feeling tired, boyfriend bedside thinks patient is confused which is different from her baseline. Patient states she feels distended, complains of shortness of breath associated with cough. She denies any fever or chills. She does endorses decreased urination and frequency associated with some flank tenderness on the left for the past 1 week. She denies any blood in her urine or history of kidney stones. BMP done in the ED suggestive of BUN 78, creatinine 7.1.(Baseline creatinine 1.15 as per recent labs) vitals otherwise are stable. Metformin, glipizide, Lasix discontinued. Patient's presentation appears to be secondary to acute tubular necrosis secondary to hypoperfusion and nephrotoxic medication. Nephrology is consulted. Patient will be given 1 L of normal saline and fluids will be continued at 100 mL per hour 09/17: Repeat BUN 72 and creatinine 6.55. Patient has been seen by nephrology with recommendations for IV fluids to continue it 100 mL per hour, urine culture to be obtained, check post void residual and encourage oral intake. Repeat labs have been ordered for tomorrow. Renal ultrasound shows no hydronephrosis or nephrolithiasis. There may be cortical thinning associated with chronic medical renal disease. patient will be started on Rocephin for possible urinary tract infection. Patient has requested [facility] [place]. 09/18: Repeat BUN is 64 and creatinine 6.3. IV fluids will be increased to 75 mL per hour. Autoimmune, hepatitis and etc. testing ordered by Dr. Jiang. Patient is complaining of fibromyalgia pain and Neurontin has been added. Blood pressure was high in the evening for which metoprolol was increased to twice daily dosing. Insulin dosing will also be decreased and insulin scale added. Urine culture is in progress. 09/19: PICC line was placed yesterday as patient had no IV access. She is currently on 0.45 saline at 100 mL per hour for hypernatremia. Repeat BUN 56 and creatinine is down to 5.96.blood sugars are uncontrolled for which NPH was decreased to 12 units and added in NovoLog with meals 4 units. 09/20:, Patient remains with IV fluids, creatinine has come down to 5.46, BUN of 54, patient was encouraged to do some ambulation, no orthostasis, patient denies any ongoing GI losses blood sugars between 74-138, NPH will be decreased to 10 units twice a day, no change in NovoLog pre-meal 4 units 09/21: Creatinine still remains to be elevated 5.18, previous of 5.46, no hypertension patient does not have any issues regarding lightheadedness and dizziness, loss blood pressure 104/51, peak of 145 systolic heart rate between 51-88 patient currently is not on any DEON inhibitor as, no other antihypertensive medications Objective - Vital Signs Vital signs: Vital Signs Temp 97.7 F 09/21/17 15:00 Pulse 88 09/21/17 15:00 Resp 16 09/21/17 15:00 BP 124/57 09/21/17 15:00 Pulse Ox 96 09/21/17 15:00 Intake & Output 09/20/17 09/21/17 09/21/17 18:59 06:59 18:59 Intake Total 780 900 700 Output Total 300 Balance 480 900 700 Weight 97.5 kg Intake: Oral 780 900 700 Output: Urine 300 Other: Voiding Method Toilet Toilet Toilet Bedside Commode Bedside Commode Bedside Commode Diaper Diaper Diaper # Voids 2 2 3 - Constitutional General appearance: Present: cooperative, no acute distress, obese - EENT Eyes: Present: anicteric sclerae, PERRLA, dentition normal, normal appearance ENT: Present: hard of hearing, NA/AT, normal oropharynx - Neck Neck: Present: normal ROM - Respiratory Respiratory: bilateral: CTA, negative: diminished, dullness, rales - Cardiovascular Rhythm: regular Heart sounds: normal: S1, S2 - Gastrointestinal General gastrointestinal: Present: normal bowel sounds, soft - Integumentary Integumentary: Present: normal, normal turgor - Neurologic Neurologic: Present: CNII-XII intact - Musculoskeletal Musculoskeletal: Present: gait normal, strength equal bilaterally - Psychiatric Psychiatric: Present: A&O x's 3, appropriate affect, intact judgment & insight - Labs CBC & Chem 7: 09/21/17 08:11 09/21/17 08:11 Labs: Abnormal Lab Results - Last 24 Hours (Table) 09/20/17 09/20/17 09/21/17 Range/Units 17:10 20:44 07:24 RBC (3.80-5.40) m/uL Hgb (11.4-16.0) gm/dL Plt Count (150-450) k/uL Chloride (98-107) mmol/L Carbon Dioxide (22-30) mmol/L BUN (7-17) mg/dL Creatinine (0.52-1.04) mg/dL Glucose (74-99) mg/dL POC Glucose (mg/dL) 150 H 196 H 129 H (75-99) mg/dL 09/21/17 09/21/17 09/21/17 Range/Units 08:11 08:11 12:18 RBC 3.61 L (3.80-5.40) m/uL Hgb 10.9 L (11.4-16.0) gm/dL Plt Count 126 L (150-450) k/uL Chloride 113 H (98-107) mmol/L Carbon Dioxide 20 L (22-30) mmol/L BUN 48 H (7-17) mg/dL Creatinine 5.18 H* (0.52-1.04) mg/dL Glucose 132 H (74-99) mg/dL POC Glucose (mg/dL) 167 H (75-99) mg/dL Assessment and Plan Plan: 1. Acute kidney injury likely secondary to acute tubular necrosis from hypoperfusion that was going on for 1 week. Hold lisinopril, metformin, glipizide and Lasix. Avoid nephrotoxic agent. Monitor input and output. Daily weights. Nephrology consulted. Status post 2 L IV fluid, recommendation to follow from nephrology. Patient had some confusion noted by the family but otherwise oriented 3. Urine output is reduced. Retroperitoneal ultrasound as above.. Actimmune causes of the nephropathy currently pending IV fluids currently at 100 mL an hour PICC line placed on 09/18/2017 as the patient has no IV access requiring IV fluid infusion, no current need for any IV antibiotic therapy that we could identify, urine culture negative, IV Rocephin has been discontinued 2. Pyuria Negative for urinary tract infection. Urine culture negative Patient started on ceftriaxone and is discontinued. Patient completed 3 days of IV Rocephin 3. Chronic hypoxic respiratory failure with home O2 dependence secondary to end-stage COPD currently at baseline of 2.5 L/24 hours 4. Fibromyalgia continue [place] and tramadol 5. Diabetes mellitus type 2 insulin requiring. Hold metformin and glipizide continue NPH 12 units twice a day, NovoLog 4 units with meals and sliding scale. 6. Hypertension. Continue metoprolol 50 mg by mouth daily hold lisinopril 7. Generalized anxiety disorder and recurrent depression. Continue Elavil 75 mg at bedtime. 8. Hyperlipidemia. Continue Zocor 40 mg at bedtime. 9. Hypothyroidism. Continue Synthroid 25 g daily. 10. DVT prophylaxis. Continue heparin 5000 units subcu every 8 hours. 11. Gastrointestinal prophylaxis. Continue Pepcid 20 mg daily. 12. Hyperkalemia. Half normal saline. Discharge plan: Return home
[2017-09-21 17:15] LABS: Glucose,Whole Blood 96 mg/dL (75-99)
[2017-09-21] MEDS: GABAPENTIN 100 MG CAP PO SCH (20:57)
[2017-09-21] MEDS: ATORVASTATIN 20 MG TAB PO SCH (20:57)
[2017-09-21] MEDS: AMITRIPTYLINE HCL 25 MG TAB PO SCH (20:57)
[2017-09-21] MEDS: HYDROcodone/APAP 5-325MG 1 EACH TAB PO PRN (21:02)
[2017-09-21 21:19] LABS: Glucose,Whole Blood 125 mg/dL (75-99)
[2017-09-22] MEDS: LEVOTHYROXINE 50 MCG TAB PO SCH (06:32)
[2017-09-22 07:08] LABS: Glucose,Whole Blood 101 mg/dL (75-99)
[2017-09-22] MEDS: INSULIN ASPART 100 UNIT/ML 1 ML 10 ML VIAL SQ SCH ×7 (07:46→22:08)
[2017-09-22] MEDS: INSULIN NPH 300 UNIT/3 ML VIAL SQ SCH ×2 (08:05→18:50)
[2017-09-22] MEDS: SODIUM BICARBONATE TAB 650 MG TAB PO SCH ×2 (08:05→22:04)
[2017-09-22] MEDS: HEPARIN SODIUM,PORCINE 5,000 UNIT/ML 1 ML VIAL SQ SCH ×2 (08:05→22:04)
[2017-09-22] MEDS: METOPROLOL TARTRATE 25 MG TAB PO SCH ×2 (08:06→22:04)
[2017-09-22] MEDS: FAMOTIDINE 20 MG TAB PO SCH (08:06)
[2017-09-22] MEDS: ASPIRIN 81 MG PO SCH (08:06)
[2017-09-22 09:46] LABS: Calcium 8.6 mg/dL (8.4-10.2); Potassium 4.6 mmol/L (3.5-5.1)
[2017-09-22 09:48] LABS: Anisocytosis Slight; Basophils % (A) 0 %; Eosinophils # (A) 0.1 k/uL (0-0.7); Eosinophils % (A) 2 %; HCT 32.9 % (34.0-46.0); HGB 10.2 gm/dL (11.4-16.0); Hypochromasia Marked; Lymphocytes % (A) 33 %; MCHC 30.8 g/dL (31.0-37.0); Macrocytosis Slight; Mean Platelet Volume 8.9; Monocytes # (A) 0.3 k/uL (0-1.0); Monocytes % (A) 6 %; Neutrophils # (A) 3.4 k/uL (1.3-7.7); Neutrophils % (A) 57 %; Platelet Count 119 k/uL (150-450); RBC 3.28 m/uL (3.80-5.40)
[2017-09-22 09:57] LABS: MCV 100.5 fL (80.0-100.0)
[2017-09-22 10:47] LABS: Albumin 3.43 g/dL (3.80-4.90); Gamma Globulin 0.43 g/dL (0.70-1.50)
--- NOTE | 2017-09-22 10:48 | P.PN ---
Subjective Patient is seen in follow-up for acute kidney injury. Patient has chronic kidney disease stage III with baseline creatinine in the range of 1-1.3 due to diabetic kidney disease. Her creatinine was 7 on admission and is down to 5.07 today. She admits to good urine output. No hematuria or dysuria. No vomiting or diarrhea. Denies chest pain but does admit to dyspnea today. She is quite wheezy. Oral intake is fair. She is awake and alert. Also complains of gait imbalance. Vital signs are stable. General: The patient appeared well nourished and normally developed. HEENT: Head exam is unremarkable. Neck is without jugular venous distension. LUNGS: Lungs are clear to auscultation and percussion. Breath sounds decreased. HEART: Rate and Rhythm are regular. First and second heart sounds normal. No murmurs, rubs or gallops. ABDOMEN: Abdominal exam reveals normal bowel sounds. Non-tender and non- distended. No evidence of peritonitis. EXTREMITITES: No clubbing, cyanosis, or edema. Objective - Vital Signs Vital signs: Vital Signs Temp 97.3 F L 09/22/17 07:00 Pulse 103 H 09/22/17 07:00 Resp 15 09/22/17 07:00 BP 112/59 09/22/17 07:00 Pulse Ox 96 09/21/17 23:00 Intake & Output 09/21/17 09/22/17 09/22/17 18:59 06:59 18:59 Intake Total 700 Balance 700 Weight 97.5 kg Intake: Oral 700 Other: Voiding Method Toilet Toilet Bedside Commode Bedside Commode Diaper Diaper # Voids 3 1 - Labs CBC & Chem 7: 09/22/17 08:58 09/22/17 08:58 Labs: Abnormal Lab Results - Last 24 Hours (Table) 09/21/17 09/21/17 09/22/17 Range/Units 12:18 21:16 07:01 RBC (3.80-5.40) m/uL Hgb (11.4-16.0) gm/dL Hct (34.0-46.0) % MCV (80.0-100.0) fL MCHC (31.0-37.0) g/dL RDW (11.5-15.5) % Plt Count (150-450) k/uL Chloride (98-107) mmol/L Carbon Dioxide (22-30) mmol/L BUN (7-17) mg/dL Creatinine (0.52-1.04) mg/dL Glucose (74-99) mg/dL POC Glucose (mg/dL) 167 H 125 H 101 H (75-99) mg/dL 09/22/17 09/22/17 Range/Units 08:58 08:58 RBC 3.28 L (3.80-5.40) m/uL Hgb 10.2 L (11.4-16.0) gm/dL Hct 32.9 L (34.0-46.0) % MCV 100.5 H D (80.0-100.0) fL MCHC 30.8 L (31.0-37.0) g/dL RDW 16.0 H (11.5-15.5) % Plt Count 119 L (150-450) k/uL Chloride 114 H (98-107) mmol/L Carbon Dioxide 19 L (22-30) mmol/L BUN 44 H (7-17) mg/dL Creatinine 5.07 H* (0.52-1.04) mg/dL Glucose 111 H (74-99) mg/dL POC Glucose (mg/dL) (75-99) mg/dL Assessment and Plan Plan: Assessment: #1. Nonoliguric acute kidney injury secondary to ATN. No evidence of urinary retention. No evidence of hydronephrosis noted on renal ultrasound. Creatinine 7.02 on admission and down to 5.07 today. She is noted to have sub- nephrotic proteinuria which is likely due to underlying diabetic kidney disease. Need to rule out GN. Serologies so far negative. Urine eosinophils negative. #2. Chronic kidney disease stage III with baseline creatinine in the range of 1 -1.3. Etiology is likely to be diabetic kidney disease. #3. Pyuria. Urine culture negative so far. #4. Hypertension with chronic kidney disease. Currently controlled. #5. Insulin-dependent diabetes mellitus. #6. Hypernatremia secondary to lack of oral water intake. Improved. #7. Metabolic acidosis secondary to acute kidney injury and IV fluids. Plan: I will decrease the rate of normal saline to 50 mL an hour. Check chest x-ray. Encouraged oral intake, including free water. Follow-up serologies. Maintain oral sodium bicarbonate 650 mg twice daily. Renal function has not improved significantly despite being on IV fluids for the last few days. Serologies have been negative so far. I will schedule her for a CT-guided renal biopsy for definitive diagnosis. To prevent uremic bleeding, I will start her on hemodialysis and schedule the first treatment for today. She will also receive a dose of IV DDAVP prior to the kidney biopsy.
[2017-09-22] MEDS ORDERED: SODIUM CHLORIDE 0.9% IVPB PRN (11:34)
[2017-09-22] MEDS ORDERED: DESMOPRESSIN IVPB PRN (11:34)
[2017-09-22 11:53] LABS: Glucose,Whole Blood 135 mg/dL (75-99)
[2017-09-22] MEDS: IPRATROPIUM-ALBUTEROL 3 ML NEB INHALATION SCH ×3 (12:01→20:31)
[2017-09-22 13:59] LABS: INR 1.2 (<1.2); Prothrombin Time 11.4 sec (9.0-12.0)
[2017-09-22] MEDS ORDERED: fentaNYL (PF) 50 MCG/ML 2 ML AMP IV ONE (14:49)
--- NOTE | 2017-09-22 14:53 | P.PN ---
Subjective Progress Note Date: 09/22/17 This is a 76-year-old pleasant lady patient of Dr. Noble, she has underlying history of COPD, chronic O2 dependency however she is noncompliant treated, previous tobacco, diabetes mellitus type 2, fibromyalgia morbid obesity hypertension admitted to the hospital after found abnormality on the labs. Patient had basic labs done and was called in office due to increasing creatinine. Patient states she is feeling tired, boyfriend bedside thinks patient is confused which is different from her baseline. Patient states she feels distended, complains of shortness of breath associated with cough. She denies any fever or chills. She does endorses decreased urination and frequency associated with some flank tenderness on the left for the past 1 week. She denies any blood in her urine or history of kidney stones. BMP done in the ED suggestive of BUN 78, creatinine 7.1.(Baseline creatinine 1.15 as per recent labs) vitals otherwise are stable. Metformin, glipizide, Lasix discontinued. Patient's presentation appears to be secondary to acute tubular necrosis secondary to hypoperfusion and nephrotoxic medication. Nephrology is consulted. Patient will be given 1 L of normal saline and fluids will be continued at 100 mL per hour 09/17: Repeat BUN 72 and creatinine 6.55. Patient has been seen by nephrology with recommendations for IV fluids to continue it 100 mL per hour, urine culture to be obtained, check post void residual and encourage oral intake. Repeat labs have been ordered for tomorrow. Renal ultrasound shows no hydronephrosis or nephrolithiasis. There may be cortical thinning associated with chronic medical renal disease. patient will be started on Rocephin for possible urinary tract infection. Patient has requested [place]. 09/18: Repeat BUN is 64 and creatinine 6.3. IV fluids will be increased to 75 mL per hour. Autoimmune, hepatitis and etc. testing ordered by Dr. Jiang. Patient is complaining of fibromyalgia pain and Neurontin has been added. Blood pressure was high in the evening for which metoprolol was increased to twice daily dosing. Insulin dosing will also be decreased and insulin scale added. Urine culture is in progress. 09/19: PICC line was placed yesterday as patient had no IV access. She is currently on 0.45 saline at 100 mL per hour for hypernatremia. Repeat BUN 56 and creatinine is down to 5.96.blood sugars are uncontrolled for which NPH was decreased to 12 units and added in NovoLog with meals 4 units. 09/20:, Patient remains with IV fluids, creatinine has come down to 5.46, BUN of 54, patient was encouraged to do some ambulation, no orthostasis, patient denies any ongoing GI losses blood sugars between 74-138, NPH will be decreased to 10 units twice a day, no change in NovoLog pre-meal 4 units 09/21: Creatinine still remains to be elevated 5.18, previous of 5.46, no hypertension patient does not have any issues regarding lightheadedness and dizziness, loss blood pressure 104/51, peak of 145 systolic heart rate between 51-88 patient currently is not on any DEON inhibitor as, no other antihypertensive medications 09/22: Renal function is improving slowly with BUN 54 and creatinine 5.46. Patient complains of increased shortness of breath today and wheezing. Nebulizer treatments changed to scheduled and Pulmicort added. Additional dose of Lasix to be given this afternoon the patient does not start dialysis. Chest x -ray ordered. Dr. Jiang would like to have a CAT scan guided biopsy and patient will need to be off aspirin for 7 days. Aspirin will be discontinued now. Dr. Membreno consult was added for temporary dialysis catheter and patient started dialysis treatment. Kurtz catheter to be placed to monitor urine output. Patient has had a change in her mental status. Objective - Vital Signs Vital signs: Vital Signs Temp 97.3 F L 09/22/17 07:00 Pulse 103 H 09/22/17 07:00 Resp 15 09/22/17 07:00 BP 112/59 09/22/17 07:00 Pulse Ox 96 09/21/17 23:00 Intake & Output 09/21/17 09/22/17 09/22/17 18:59 06:59 18:59 Intake Total 700 Balance 700 Weight 97.5 kg Intake: Oral 700 Other: Voiding Method Toilet Toilet Bedside Commode Bedside Commode Diaper Diaper # Voids 3 1 - Exam - Constitutional General appearance: average body habitus, cooperative, no acute distress, obese - EENT Eyes: EOMI, PERRLA, dentition normal, no ptosis, no scleral icterus ENT: hearing grossly normal Ears: bilateral: normal - Neck Neck: no lymphadenopathy, normal ROM, no rigidity, no thyromegaly Carotids: bilateral: upstroke normal Thyroid: bilateral: normal size - Respiratory Respiratory: bilateral: diminished, wheezing, prolonged expiration, negative: CTA, dullness, rales, rhonchi - Cardiovascular Rhythm: regular Heart sounds: normal: S1, S2 Abnormal Heart Sounds: no systolic murmur, no diastolic murmur, no S3 Gallop, no S4 Gallop, no click - Gastrointestinal General gastrointestinal: no distended, normal bowel sounds, no organomegaly, soft, no tenderness - Integumentary Integumentary: no pale, no rash - Neurologic Neurologic: CNII-XII intact - Musculoskeletal Musculoskeletal: generalized weakness, strength equal bilaterally - Psychiatric Psychiatric: A&O x's 3 - Labs CBC & Chem 7: 09/22/17 08:58 09/22/17 08:58 Labs: Abnormal Lab Results - Last 24 Hours (Table) 09/21/17 09/21/17 09/22/17 Range/Units 12:18 21:16 07:01 RBC (3.80-5.40) m/uL Hgb (11.4-16.0) gm/dL Hct (34.0-46.0) % MCV (80.0-100.0) fL MCHC (31.0-37.0) g/dL RDW (11.5-15.5) % Plt Count (150-450) k/uL Chloride (98-107) mmol/L Carbon Dioxide (22-30) mmol/L BUN (7-17) mg/dL Creatinine (0.52-1.04) mg/dL Glucose (74-99) mg/dL POC Glucose (mg/dL) 167 H 125 H 101 H (75-99) mg/dL 09/22/17 09/22/17 Range/Units 08:58 08:58 RBC 3.28 L (3.80-5.40) m/uL Hgb 10.2 L (11.4-16.0) gm/dL Hct 32.9 L (34.0-46.0) % MCV 100.5 H D (80.0-100.0) fL MCHC 30.8 L (31.0-37.0) g/dL RDW 16.0 H (11.5-15.5) % Plt Count 119 L (150-450) k/uL Chloride 114 H (98-107) mmol/L Carbon Dioxide 19 L (22-30) mmol/L BUN 44 H (7-17) mg/dL Creatinine 5.07 H* (0.52-1.04) mg/dL Glucose 111 H (74-99) mg/dL POC Glucose (mg/dL) (75-99) mg/dL Assessment and Plan Plan: 1. Acute kidney injury likely secondary to acute tubular necrosis from hypoperfusion that was going on for 1 week. Hold lisinopril, metformin, glipizide and Lasix. Avoid nephrotoxic agent. Monitor input and output. Daily weights. Nephrology consulted. Status post 2 L IV fluid, recommendation to follow from nephrology. Patient had some confusion noted by the family but otherwise oriented 3. Urine output is reduced. Retroperitoneal ultrasound as above. Autoimmune testing pending 2. Possible urinary tract infection ruled out. Discontinue ceftriaxone. 3. Chronic hypoxic respiratory failure with home O2 dependence secondary to end-stage COPD currently at baseline of 2.5 L/24 hours 4. Fibromyalgia continue Page and tramadol 5. Diabetes mellitus type 2 insulin requiring. Hold metformin and glipizide continue NPH 12 units twice a day, NovoLog 4 units with meals and sliding scale. 6. Hypertension. Continue metoprolol 50 mg by mouth daily hold lisinopril 7. Generalized anxiety disorder and recurrent depression. Continue Elavil 75 mg at bedtime. 8. Hyperlipidemia. Continue Zocor 40 mg at bedtime. 9. Hypothyroidism. Continue Synthroid 25 g daily. 10. DVT prophylaxis. Continue heparin 5000 units subcu every 8 hours. 11. Gastrointestinal prophylaxis. Continue Pepcid 20 mg daily. 12. Hypernatremia. 13. Metabolic encephalopathy most likely secondary to uremia Discharge plan: Return home Impression and plan of care have been directed as dictated by the signing physician. Jodi Schwartz nurse practitioner acting as scribe for signing physician.
--- NOTE | 2017-09-22 15:04 | CONS ---
DATE OF CONSULTATION: 09/22/2017 This is a 77-year-old female, she has been admitted with the diagnosis of nonoliguric kidney injury. Patient also has a history of chronic kidney disease, stage III. Patient has a history of by pyuria, history of hypertension, history of insulin- dependent diabetes mellitus. I was consulted for placement of a dialysis catheter. MEDICAL HISTORY: History of COPD, history of TIA in the past, history of diabetes mellitus, history of fibromyalgia, history of hyperlipidemia, history of hypertension, thyroid disorder. PHYSICAL EXAMINATION: Patient's neck is supple. Trachea central. CHEST: Clear. ABDOMEN: Soft. Femoral pulses are present. PLAN: Placement for a dialysis catheter. MMODL / IJN: [id number] / MTDD
[2017-09-22 17:40] LABS: Glucose,Whole Blood 122 mg/dL (75-99)
--- NOTE | 2017-09-22 18:37 | PCN ---
PROCEDURE NOTE PREOP DIAGNOSE: Acute on chronic renal failure. PROCEDURE: Placement of ultrasound guided 27 cm dialysis catheter right femoral approach. This patient was brought to the laborer [facility]. Right groin was prepped and drapes were applied in the usual sterile manner. 1% lidocaine was infiltrated and ultrasound- guided micropuncture into the right common femoral vein and micropuncture guidewire was passed. After that, a 4-Angolan dilator on the top of the guidewire and we passed a regular guide wire under fluoroscopy control. Then the dilator was advanced on the top of the guidewire. Then, we placed 27 cm dialysis catheter on top of the guidewire. The guidewire was removed and the catheter was flushed with heparin saline and hep- locked, secured with 3-0 nylon. The tip of the catheter was in the inferior vena cava. Dressing applied. Patient tolerated the procedure well. MMODL / KAYLEIGHN: [id number] /
--- NOTE | 2017-09-22 19:25 | XR ---
EXAMINATION TYPE: XR chest 2V DATE OF EXAM: 09/22/2017 COMPARISON: Prior chest x-ray 09/16/2017 HISTORY: Wheezing, abnormal chest x-ray TECHNIQUE: Frontal and lateral views of the chest are obtained on 3 images. FINDINGS: There is prominence of the central vascularity and interstitium, there is blunting of the posterior costophrenic angles. The cardiac silhouette size is stable and enlarged accounting for rot ation. Right-sided PICC line is in place, distal tip is overlying the cavoatrial junction level The osseous structures are intact. IMPRESSION: Correlate for congestive heart failure with small pleural effusions. Follow-up is recomm ended.
--- NOTE | 2017-09-22 19:33 | IR ---
EXAMINATION TYPE: IR cvc insert non tunneled DATE OF EXAM: 09/22/2017 COMPARISON: None HISTORY: Dialysis catheter placement Fluoroscopy support supplied to the referring clinician. See dictated report from vascular surgery, 0.2 minutes fluoroscopy time supplied, 96 images document the procedure
[2017-09-22] MEDS: BUDESONIDE 0.5 MG/2 ML NEBU INHALATION SCH (20:31)
[2017-09-22 21:05] LABS: Glucose,Whole Blood 198 mg/dL (75-99)
[2017-09-22] MEDS: AMITRIPTYLINE HCL 25 MG TAB PO SCH (22:04)
[2017-09-22] MEDS: ATORVASTATIN 20 MG TAB PO SCH (22:04)
[2017-09-22] MEDS: GABAPENTIN 100 MG CAP PO SCH (22:04)
[2017-09-22] MEDS: SODIUM CHLORIDE 0.9% 1,000 ML IV SCH (23:45)
[2017-09-23] MEDS: IPRATROPIUM-ALBUTEROL 3 ML NEB INHALATION SCH ×4 (07:34→19:40)
[2017-09-23] MEDS: BUDESONIDE 0.5 MG/2 ML NEBU INHALATION SCH ×2 (07:34→19:40)
[2017-09-23] MEDS: INSULIN ASPART 100 UNIT/ML 1 ML 10 ML VIAL SQ SCH ×7 (07:37→22:15)
[2017-09-23 07:40] LABS: Glucose,Whole Blood 95 mg/dL (75-99)
[2017-09-23] MEDS: INSULIN NPH 300 UNIT/3 ML VIAL SQ SCH ×2 (08:58→18:01)
[2017-09-23] MEDS: FAMOTIDINE 20 MG TAB PO SCH (08:58)
[2017-09-23] MEDS: HEPARIN SODIUM,PORCINE 5,000 UNIT/ML 1 ML VIAL SQ SCH ×2 (08:58→22:13)
[2017-09-23] MEDS: SODIUM BICARBONATE TAB 650 MG TAB PO SCH ×2 (08:59→22:13)
[2017-09-23] MEDS: LEVOTHYROXINE 50 MCG TAB PO SCH (08:59)
[2017-09-23] MEDS: ASPIRIN 81 MG PO SCH (08:59)
[2017-09-23] MEDS: METOPROLOL TARTRATE 25 MG TAB PO SCH (09:01)
[2017-09-23 10:20] LABS: Basophils % (A) 1 %; Eosinophils # (A) 0.2 k/uL (0-0.7); Eosinophils % (A) 2 %; HCT 34.2 % (34.0-46.0); HGB 10.6 gm/dL (11.4-16.0); Hypochromasia Slight; Lymphocytes # (A) 2.3 k/uL (1.0-4.8); Lymphocytes % (A) 34 %; MCH 30.6 pg (25.0-35.0); MCV 98.8 fL (80.0-100.0); Macrocytosis Slight; Mean Platelet Volume 8.1; Monocytes # (A) 0.4 k/uL (0-1.0); Monocytes % (A) 6 %; Neutrophils # (A) 3.7 k/uL (1.3-7.7); Neutrophils % (A) 55 %; Platelet Count 115 k/uL (150-450); RBC 3.46 m/uL (3.80-5.40); RDW 14.5 % (11.5-15.5); WBC 6.8 k/uL (3.8-10.6)
[2017-09-23 10:45] LABS: Calcium 8.8 mg/dL (8.4-10.2); Potassium 3.7 mmol/L (3.5-5.1)
[2017-09-23 12:13] LABS: Glucose,Whole Blood 194 mg/dL (75-99)
--- NOTE | 2017-09-23 12:26 | P.PN ---
Subjective Patient is seen in follow-up for acute kidney injury. Patient has chronic kidney disease stage III with baseline creatinine in the range of 1-1.3 due to diabetic kidney disease. Her creatinine was 7 on admission and was down to 5.07 on 09/23. She admits to good urine output. No hematuria or dysuria. No vomiting or diarrhea. Denies chest pain but has been more dyspneic. She was also feeling quite tired and was also complaining of gait imbalance. Oral intake is fair. She is awake and alert. She underwent first treatment of hemodialysis on September 22 and second treatment this morning. Vital signs are stable. General: The patient appeared well nourished and normally developed. HEENT: Head exam is unremarkable. Neck is without jugular venous distension. LUNGS: Lungs are clear to auscultation and percussion. Breath sounds decreased. HEART: Rate and Rhythm are regular. First and second heart sounds normal. No murmurs, rubs or gallops. ABDOMEN: Abdominal exam reveals normal bowel sounds. Non-tender and non- distended. No evidence of peritonitis. EXTREMITITES: No clubbing, cyanosis, or edema. Objective - Vital Signs Vital signs: Vital Signs Temp 97.8 F 09/23/17 09:00 Pulse 48 L 09/23/17 09:00 Resp 16 09/23/17 09:00 BP 108/52 09/23/17 09:00 Pulse Ox 91 L 09/23/17 07:35 Intake & Output 09/22/17 09/23/17 09/23/17 18:59 06:59 18:59 Intake Total 400 100 120 Output Total 875 600 Balance -475 -500 120 Weight 97.5 kg 100 kg Intake: Intake, IV Titration 400 Amount Sodium Chloride 0.9% 1, 400 000 ml @ 50 mls/hr IV . Q20H [facility] Rx#:[id number] Oral 100 120 Output: Urine 875 600 Other: Voiding Method Indwelling Catheter Indwelling Catheter Indwelling Catheter # Voids 1 - Labs CBC & Chem 7: 09/23/17 09:54 09/23/17 09:54 Labs: Abnormal Lab Results - Last 24 Hours (Table) 09/22/17 09/22/17 09/22/17 Range/Units 13:01 17:37 21:04 RBC (3.80-5.40) m/uL Hgb (11.4-16.0) gm/dL Plt Count (150-450) k/uL INR 1.2 H (<1.2) BUN (7-17) mg/dL Creatinine (0.52-1.04) mg/dL Glucose (74-99) mg/dL POC Glucose (mg/dL) 122 H 198 H (75-99) mg/dL 09/23/17 09/23/17 09/23/17 Range/Units 09:54 09:54 11:53 RBC 3.46 L (3.80-5.40) m/uL Hgb 10.6 L (11.4-16.0) gm/dL Plt Count 115 L (150-450) k/uL INR (<1.2) BUN 21 H (7-17) mg/dL Creatinine 3.00 H (0.52-1.04) mg/dL Glucose 127 H (74-99) mg/dL POC Glucose (mg/dL) 194 H (75-99) mg/dL Assessment and Plan Plan: Assessment: #1. Nonoliguric acute kidney injury secondary to ATN. No evidence of urinary retention. No evidence of hydronephrosis noted on renal ultrasound. Creatinine 7.02 on admission and down to 5.07 with IV fluids. She is noted to have sub-nephrotic proteinuria which is likely due to underlying diabetic kidney disease. Need to rule out GN. Serologies so far negative. Urine eosinophils negative. #2. Chronic kidney disease stage III with baseline creatinine in the range of 1 -1.3. Etiology is likely to be diabetic kidney disease. #3. Pyuria. Urine culture negative so far. #4. Hypertension with chronic kidney disease. Currently controlled. #5. Insulin-dependent diabetes mellitus. #6. Hypernatremia secondary to lack of oral water intake. Improved. #7. Metabolic acidosis secondary to acute kidney injury and IV fluids. improved. #8. Volume overload. Bilateral pleural effusions noted on chest x-ray. Plan: Hep-Lock IV fluids. Lasix 80 mg IV once today. Encouraged oral intake. Maintain oral sodium bicarbonate 650 mg twice daily. Renal function did not improved significantly despite being on IV fluids for several days. Serologies have been negative so far. I will schedule her for a CT-guided renal biopsy for definitive diagnosis - on hold as she was on aspirin. For volume overload and concern for uremia, she was started on hemodialysis on September 22. She underwent second treatment this morning. She has a Kurtz catheter in place. Strict I's and O's. Check 2-D echo. Plan to hold dialysis tomorrow and monitor for renal function recovery.
[2017-09-23] MEDS ORDERED: FUROSEMIDE 10 MG/ML 10 ML VIAL IV STA (12:27)
[2017-09-23] MEDS: SENNOSIDES-DOCUSATE SODIUM 1 EACH TAB PO SCH (14:27)
--- NOTE | 2017-09-23 15:23 | P.PN ---
Subjective Progress Note Date: 09/23/17 This is a 76-year-old pleasant lady patient of Dr. Noble, she has underlying history of COPD, chronic O2 dependency however she is noncompliant treated, previous tobacco, diabetes mellitus type 2, fibromyalgia morbid obesity hypertension admitted to the hospital after found abnormality on the labs. Patient had basic labs done and was called in office due to increasing creatinine. Patient states she is feeling tired, boyfriend bedside thinks patient is confused which is different from her baseline. Patient states she feels distended, complains of shortness of breath associated with cough. She denies any fever or chills. She does endorses decreased urination and frequency associated with some flank tenderness on the left for the past 1 week. She denies any blood in her urine or history of kidney stones. BMP done in the ED suggestive of BUN 78, creatinine 7.1.(Baseline creatinine 1.15 as per recent labs) vitals otherwise are stable. Metformin, glipizide, Lasix discontinued. Patient's presentation appears to be secondary to acute tubular necrosis secondary to hypoperfusion and nephrotoxic medication. Nephrology is consulted. Patient will be given 1 L of normal saline and fluids will be continued at 100 mL per hour 09/17: Repeat BUN 72 and creatinine 6.55. Patient has been seen by nephrology with recommendations for IV fluids to continue it 100 mL per hour, urine culture to be obtained, check post void residual and encourage oral intake. Repeat labs have been ordered for tomorrow. Renal ultrasound shows no hydronephrosis or nephrolithiasis. There may be cortical thinning associated with chronic medical renal disease. patient will be started on Rocephin for possible urinary tract infection. Patient has requested [facility] [place]. 09/18: Repeat BUN is 64 and creatinine 6.3. IV fluids will be increased to 75 mL per hour. Autoimmune, hepatitis and etc. testing ordered by Dr. Jiang. Patient is complaining of fibromyalgia pain and Neurontin has been added. Blood pressure was high in the evening for which metoprolol was increased to twice daily dosing. Insulin dosing will also be decreased and insulin scale added. Urine culture is in progress. 09/19: PICC line was placed yesterday as patient had no IV access. She is currently on 0.45 saline at 100 mL per hour for hypernatremia. Repeat BUN 56 and creatinine is down to 5.96.blood sugars are uncontrolled for which NPH was decreased to 12 units and added in NovoLog with meals 4 units. 09/20:, Patient remains with IV fluids, creatinine has come down to 5.46, BUN of 54, patient was encouraged to do some ambulation, no orthostasis, patient denies any ongoing GI losses blood sugars between 74-138, NPH will be decreased to 10 units twice a day, no change in NovoLog pre-meal 4 units 09/21: Creatinine still remains to be elevated 5.18, previous of 5.46, no hypertension patient does not have any issues regarding lightheadedness and dizziness, loss blood pressure 104/51, peak of 145 systolic heart rate between 51-88 patient currently is not on any DEON inhibitor as, no other antihypertensive medications 09/22: Renal function is improving slowly with BUN 54 and creatinine 5.46. Patient complains of increased shortness of breath today and wheezing. Nebulizer treatments changed to scheduled and Pulmicort added. Additional dose of Lasix to be given this afternoon the patient does not start dialysis. Chest x -ray ordered. Dr. Jiang would like to have a CAT scan guided biopsy and patient will need to be off aspirin for 7 days. Aspirin will be discontinued now. Dr. Membreno consult was added for temporary dialysis catheter and patient started dialysis treatment. Kurtz catheter to be placed to monitor urine output. Patient has had a change in her mental status. 09/23: Dr. Membreno his placed a dialysis catheter in the right femoral vein. Patient underwent dialysis yesterday and this morning. BUN is 21 and creatinine 3. Blood blood glucose running between 95 and 198. Temperature max 100.2. Heart rate has been on the lower side running 45-51 and Lopressor decreased to 12.5 mg per day with parameters. Pulse ox 91 percent on 2 L nasal cannula. She is complaining of constipation for which Senokot added. Echocardiogram report is pending. Objective - Vital Signs Vital signs: Vital Signs Temp 97.1 F L 09/23/17 07:00 Pulse 45 L 09/23/17 07:00 Resp 20 09/23/17 07:00 BP 116/53 09/23/17 07:00 Pulse Ox 91 L 09/23/17 07:35 Intake & Output 09/22/17 09/23/17 09/23/17 18:59 06:59 18:59 Intake Total 400 100 Output Total 875 600 Balance -475 -500 Weight 97.5 kg 100 kg Intake: Intake, IV Titration 400 Amount Sodium Chloride 0.9% 1, 400 000 ml @ 50 mls/hr IV . Q20H [facility] Rx#:[id number] Oral 100 Output: Urine 875 600 Other: Voiding Method Indwelling Catheter Indwelling Catheter # Voids 1 - Exam - Constitutional General appearance: average body habitus, cooperative, no acute distress, obese - EENT Eyes: EOMI, PERRLA, dentition normal, no ptosis, no scleral icterus ENT: hearing grossly normal Ears: bilateral: normal - Neck Neck: no lymphadenopathy, normal ROM, no rigidity, no thyromegaly Carotids: bilateral: upstroke normal Thyroid: bilateral: normal size - Respiratory Respiratory: bilateral: diminished, wheezing, prolonged expiration, negative: CTA, dullness, rales, rhonchi - Cardiovascular Rhythm: regular Heart sounds: normal: S1, S2 Abnormal Heart Sounds: no systolic murmur, no diastolic murmur, no S3 Gallop, no S4 Gallop, no click - Gastrointestinal General gastrointestinal: no distended, normal bowel sounds, no organomegaly, soft, no tenderness - Integumentary Integumentary: no pale, no rash - Neurologic Neurologic: CNII-XII intact - Musculoskeletal Musculoskeletal: generalized weakness, strength equal bilaterally - Psychiatric Psychiatric: A&O x's 3 - Labs CBC & Chem 7: 09/23/17 09:54 09/23/17 09:54 Labs: Abnormal Lab Results - Last 24 Hours (Table) 09/18/17 09/22/17 09/22/17 Range/Units 13:51 11:50 13:01 RBC (3.80-5.40) m/uL Hgb (11.4-16.0) gm/dL Plt Count (150-450) k/uL INR 1.2 H (<1.2) POC Glucose (mg/dL) 135 H (75-99) mg/dL Albumin (PEP) 3.43 L (3.80-4.90) g/dL Gamma Globulins 0.43 L (0.70-1.50) g/dL 09/22/17 09/22/17 09/23/17 Range/Units 17:37 21:04 09:54 RBC 3.46 L (3.80-5.40) m/uL Hgb 10.6 L (11.4-16.0) gm/dL Plt Count 115 L (150-450) k/uL INR (<1.2) POC Glucose (mg/dL) 122 H 198 H (75-99) mg/dL Albumin (PEP) (3.80-4.90) g/dL Gamma Globulins (0.70-1.50) g/dL Assessment and Plan Plan: 1. Acute kidney injury likely secondary to acute tubular necrosis from hypoperfusion that was going on for 1 week. Hold lisinopril, metformin, glipizide and Lasix. Avoid nephrotoxic agent. Monitor input and output. Daily weights. Nephrology consulted. Status post 2 L IV fluid, recommendation to follow from nephrology. Retroperitoneal ultrasound as above. Autoimmune testing has been negative. Temporary catheter placed by Dr. Membreno. Patient is undergone 2 treatments of hemodialysis. 2. Possible urinary tract infection ruled out. Discontinue ceftriaxone. 3. Chronic hypoxic respiratory failure with home O2 dependence secondary to end-stage COPD currently at baseline of 2.5 L/24 hours 4. Fibromyalgia continue Simla and tramadol 5. Diabetes mellitus type 2 insulin requiring. Hold metformin and glipizide continue NPH 12 units twice a day, NovoLog 4 units with meals and sliding scale. 6. Hypertension. Continue metoprolol 50 mg by mouth daily hold lisinopril 7. Generalized anxiety disorder and recurrent depression. Continue Elavil 75 mg at bedtime. 8. Hyperlipidemia. Continue Zocor 40 mg at bedtime. 9. Hypothyroidism. Continue Synthroid 25 g daily. 10. DVT prophylaxis. Continue heparin 5000 units subcu every 8 hours. 11. Gastrointestinal prophylaxis. Continue Pepcid 20 mg daily. 12. Hypernatremia. 13. Metabolic encephalopathy most likely secondary to uremia 14. Bradycardia. We will decrease Lopressor to 12.5 mg daily Discharge plan: Return home Impression and plan of care have been directed as dictated by the signing physician. Jodi Schwartz nurse practitioner acting as scribe for signing physician.
[2017-09-23] MEDS: SODIUM CHLORIDE 0.9% 1,000 ML IV SCH (16:50)
[2017-09-23 17:19] LABS: Glucose,Whole Blood 171 mg/dL (75-99)
[2017-09-23 17:19] LABS: Glucose,Whole Blood 571 mg/dL (75-99)
[2017-09-23 20:44] LABS: Glucose,Whole Blood 167 mg/dL (75-99)
[2017-09-23] MEDS: ATORVASTATIN 20 MG TAB PO SCH (22:12)
[2017-09-23] MEDS: GABAPENTIN 100 MG CAP PO SCH (22:12)
[2017-09-23] MEDS: AMITRIPTYLINE HCL 25 MG TAB PO SCH (22:12)
[2017-09-24] MEDS: LEVOTHYROXINE 50 MCG TAB PO SCH (06:25)
[2017-09-24] MEDS: BUDESONIDE 0.5 MG/2 ML NEBU INHALATION SCH ×2 (07:01→19:22)
[2017-09-24] MEDS: IPRATROPIUM-ALBUTEROL 3 ML NEB INHALATION SCH ×4 (07:01→19:22)
[2017-09-24 08:08] LABS: Glucose,Whole Blood 108 mg/dL (75-99)
[2017-09-24] MEDS: INSULIN ASPART 100 UNIT/ML 1 ML 10 ML VIAL SQ SCH ×7 (09:16→21:32)
[2017-09-24 09:35] LABS: Calcium 9.2 mg/dL (8.4-10.2); Potassium 3.9 mmol/L (3.5-5.1)
[2017-09-24] MEDS: HEPARIN SODIUM,PORCINE 5,000 UNIT/ML 1 ML VIAL SQ SCH ×2 (10:00→20:03)
[2017-09-24] MEDS: SENNOSIDES-DOCUSATE SODIUM 1 EACH TAB PO SCH (10:01)
[2017-09-24] MEDS: FAMOTIDINE 20 MG TAB PO SCH (10:01)
[2017-09-24] MEDS: INSULIN NPH 300 UNIT/3 ML VIAL SQ SCH ×2 (10:01→18:00)
[2017-09-24] MEDS: METOPROLOL TARTRATE 12.5 MG TAB PO SCH (10:01)
[2017-09-24] MEDS: ASPIRIN 81 MG PO SCH (10:01)
[2017-09-24] MEDS: SODIUM BICARBONATE TAB 650 MG TAB PO SCH (10:01)
--- NOTE | 2017-09-24 10:43 | ECHOF ---
Referral Reason:dyspnea MEASUREMENTS -------- HEIGHT: 165.1 cm WEIGHT: 99.8 kg BP: 108/52 RVIDd: 3.4 cm (< 3.3) IVSd: 1.0 cm (0.6 - 1.1) LVIDd: 4.5 cm (3.9 - 5.3) LVPWd: 1.1 cm (0.6 - 1.1) IVSs: 1.4 cm LVIDs: 3.3 cm LVPWs: 1.6 cm LAESV Index (A-L): 39.33 ml/m Ao Diam: 3.1 cm (2.0 - 3.7) AV Cusp: 0.8 cm (1.5 - 2.6) LA Diam: 4.1 cm (2.7 - 3.8) MV E Solomon: 1.39 m/s MV DecT: 318 ms MV A Solomon: 0.95 m/s MV E/A Ratio: 1.47 AV maxP.02 mmHg AV meanP.28 mmHg AR PHT: 733 ms RAP: 10.00 mmHg RVSP: 44.00 mmHg MV EF SLOPE: 40.10 mm/s (70 - 150) MV EXCURSION: 1.10 cm (> 18.000) FINDINGS -------- Resting bradycardia (HR<60bpm). This was a technically difficult study with suboptimal views. The left ventricular size is normal. There is borderline concentric left ventricular hypertrophy. Overall left ventricular systolic function is normal with, an EF between 55 - 60 %. The right ventricle is mild to moderately enlarged. LA is severely dilated >40 ml/m2 RA appears enlarged. 2ml of Lumason was utilized for enhancement of images. Aortic valve is moderately thickened. There is mild aortic regurgitation. The aortic pressure half -time by doppler is 733ms. There is moderate aortic stenosis present. Peak/mean gradient across t he Aortic Valve is 45.02mmHg / 25.28mmHg. The mitral valve leaflets are mild to moderately thickened. Moderate mitral annular calcification present. Mild mitral regurgitation is present. The peak and mean MV gradients are 11.95mmHg 3.61 mmHg as measured by doppler. Mild mitral stenosis. Mild tricuspid regurgitation present. There is mild pulmonary hypertension. The right ventricular systolic pressure, as measured by Doppler, is 44.00mmHg. The pulmonic valve was not well visualized. The aortic root size is normal. The IVC is dilated with normal collapse. The pericardium is normal. There is no pericardial effusion. CONCLUSIONS -------- 1. Resting bradycardia (HR<60bpm). 2. This was a technically difficult study with suboptimal views. 3. The left ventricular size is normal. 4. There is borderline concentric left ventricular hypertrophy. 5. Overall left ventricular systolic function is normal with, an EF between 55 - 60 %. 6. The right ventricle is mild to moderately enlarged. 7. LA is severely dilated >40 ml/m2 8. RA appears enlarged. 9. 2ml of Lumason was utilized for enhancement of images. 10. Aortic valve is moderately thickened. 11. There is mild aortic regurgitation. 12. The aortic pressure half-time by doppler is 733ms. 13. There is moderate aortic stenosis present. 14. Peak/mean gradient across the Aortic Valve is 45.02mmHg / 25.28mmHg. 15. The mitral valve leaflets are mild to moderately thickened. 16. Moderate mitral annular calcification present. 17. Mild mitral regurgitation is present. 18. The peak and mean MV gradients are 11.95mmHg 3.61mmHg as measured by doppler. 19. Mild mitral stenosis. 20. Mild tricuspid regurgitation present. 21. There is mild pulmonary hypertension. 22. The right ventricular systolic pressure, as measured by Doppler, is 44.00mmHg. 23. The pulmonic valve was not well visualized. 24. The aortic root size is normal. 25. The IVC is dilated with normal collapse. 26. There is no pericardial effusion. [employer]ER: Denzel Kumar RDCS
[2017-09-24 12:14] LABS: Glucose,Whole Blood 162 mg/dL (75-99)
--- NOTE | 2017-09-24 12:59 | P.PN ---
Subjective Patient is seen in follow-up for acute kidney injury. Patient has chronic kidney disease stage III with baseline creatinine in the range of 1-1.3 due to diabetic kidney disease. Her creatinine was 7 on admission and was down to 5.07 on 09/23. No hematuria or dysuria. No vomiting or diarrhea. Denies chest pain but has been more dyspneic. She was also feeling quite tired and was also complaining of gait imbalance. Oral intake is fair. She is awake and alert. She underwent first treatment of hemodialysis on September 22 and second treatment on September 23. She has a Kurtz catheter in place. Urine output is documented as 3800 ml. Vital signs are stable. General: The patient appeared well nourished and normally developed. HEENT: Head exam is unremarkable. Neck is without jugular venous distension. LUNGS: Lungs are clear to auscultation and percussion. Breath sounds decreased. HEART: Rate and Rhythm are regular. First and second heart sounds normal. No murmurs, rubs or gallops. ABDOMEN: Abdominal exam reveals normal bowel sounds. Non-tender and non- distended. No evidence of peritonitis. EXTREMITITES: No clubbing, cyanosis, or edema. Objective - Vital Signs Vital signs: Vital Signs Temp 96.8 F L 09/24/17 07:00 Pulse 66 09/24/17 10:04 Resp 16 09/24/17 10:04 BP 125/59 09/24/17 07:00 Pulse Ox 93 L 09/24/17 07:00 Intake & Output 09/23/17 09/24/17 09/24/17 18:59 06:59 18:59 Intake Total 370 120 Output Total 2300 1500 Balance -1930 -1500 120 Weight 100 kg 101 kg 101 kg Intake: Intake, IV Titration 250 Amount Sodium Chloride 0.9% 1, 250 000 ml @ 50 mls/hr IV . Q20H BROCK Rx#:[id number] Oral 120 120 Output: Urine 2300 1500 Other: Voiding Method Indwelling Catheter Indwelling Catheter Indwelling Catheter # Bowel Movements 1 - Labs CBC & Chem 7: 09/23/17 09:54 09/24/17 08:56 Labs: Abnormal Lab Results - Last 24 Hours (Table) 09/23/17 09/23/17 09/23/17 Range/Units 17:12 17:13 20:44 BUN (7-17) mg/dL Creatinine (0.52-1.04) mg/dL Glucose (74-99) mg/dL POC Glucose (mg/dL) 571 H 171 H 167 H (75-99) mg/dL 09/24/17 09/24/17 09/24/17 Range/Units 07:52 08:56 12:11 BUN 24 H (7-17) mg/dL Creatinine 3.60 H (0.52-1.04) mg/dL Glucose 120 H (74-99) mg/dL POC Glucose (mg/dL) 108 H 162 H (75-99) mg/dL Assessment and Plan Plan: Assessment: #1. Nonoliguric acute kidney injury secondary to ATN. No evidence of urinary retention. No evidence of hydronephrosis noted on renal ultrasound. Creatinine 7.02 on admission and down to 5.07 with IV fluids. She is noted to have sub-nephrotic proteinuria which is likely due to underlying diabetic kidney disease. Need to rule out GN. Serologies so far negative. Urine eosinophils negative. #2. Chronic kidney disease stage III with baseline creatinine in the range of 1 -1.3. Etiology is likely to be diabetic kidney disease. #3. Pyuria. Urine culture negative so far. #4. Hypertension with chronic kidney disease. Currently controlled. #5. Insulin-dependent diabetes mellitus. #6. Hypernatremia secondary to lack of oral water intake. Improved. #7. Metabolic acidosis secondary to acute kidney injury and IV fluids. improved. #8. Volume overload. Bilateral pleural effusions noted on chest x-ray. #9. Moderate aortic stenosis. Plan: IV fluids have been discontinued. Status post 80 mg IV Lasix on September 23. Will hold today. Encouraged oral intake. Discontinue sodium bicarbonate. Renal function did not improve significantly despite being on IV fluids for several days. Serologies have been negative so far. I will schedule her for a CT-guided renal biopsy for definitive diagnosis - on hold as she was on aspirin. For volume overload and concern for uremia, she was started on hemodialysis on September 22. She has a Kurtz catheter in place. Strict I's and O's. Hold off on dialysis today and monitor renal function for recovery.
--- NOTE | 2017-09-24 14:34 | P.PN ---
Subjective Progress Note Date: 09/24/17 This is a 76-year-old pleasant lady patient of Dr. Noble, she has underlying history of COPD, chronic O2 dependency however she is noncompliant treated, previous tobacco, diabetes mellitus type 2, fibromyalgia morbid obesity hypertension admitted to the hospital after found abnormality on the labs. Patient had basic labs done and was called in office due to increasing creatinine. Patient states she is feeling tired, boyfriend bedside thinks patient is confused which is different from her baseline. Patient states she feels distended, complains of shortness of breath associated with cough. She denies any fever or chills. She does endorses decreased urination and frequency associated with some flank tenderness on the left for the past 1 week. She denies any blood in her urine or history of kidney stones. BMP done in the ED suggestive of BUN 78, creatinine 7.1.(Baseline creatinine 1.15 as per recent labs) vitals otherwise are stable. Metformin, glipizide, Lasix discontinued. Patient's presentation appears to be secondary to acute tubular necrosis secondary to hypoperfusion and nephrotoxic medication. Nephrology is consulted. Patient will be given 1 L of normal saline and fluids will be continued at 100 mL per hour 09/17: Repeat BUN 72 and creatinine 6.55. Patient has been seen by nephrology with recommendations for IV fluids to continue it 100 mL per hour, urine culture to be obtained, check post void residual and encourage oral intake. Repeat labs have been ordered for tomorrow. Renal ultrasound shows no hydronephrosis or nephrolithiasis. There may be cortical thinning associated with chronic medical renal disease. patient will be started on Rocephin for possible urinary tract infection. Patient has requested [facility] [place]. 09/18: Repeat BUN is 64 and creatinine 6.3. IV fluids will be increased to 75 mL per hour. Autoimmune, hepatitis and etc. testing ordered by Dr. Jiang. Patient is complaining of fibromyalgia pain and Neurontin has been added. Blood pressure was high in the evening for which metoprolol was increased to twice daily dosing. Insulin dosing will also be decreased and insulin scale added. Urine culture is in progress. 09/19: PICC line was placed yesterday as patient had no IV access. She is currently on 0.45 saline at 100 mL per hour for hypernatremia. Repeat BUN 56 and creatinine is down to 5.96.blood sugars are uncontrolled for which NPH was decreased to 12 units and added in NovoLog with meals 4 units. 09/20:, Patient remains with IV fluids, creatinine has come down to 5.46, BUN of 54, patient was encouraged to do some ambulation, no orthostasis, patient denies any ongoing GI losses blood sugars between 74-138, NPH will be decreased to 10 units twice a day, no change in NovoLog pre-meal 4 units 09/21: Creatinine still remains to be elevated 5.18, previous of 5.46, no hypertension patient does not have any issues regarding lightheadedness and dizziness, loss blood pressure 104/51, peak of 145 systolic heart rate between 51-88 patient currently is not on any DEON inhibitor as, no other antihypertensive medications 09/22: Renal function is improving slowly with BUN 54 and creatinine 5.46. Patient complains of increased shortness of breath today and wheezing. Nebulizer treatments changed to scheduled and Pulmicort added. Additional dose of Lasix to be given this afternoon the patient does not start dialysis. Chest x -ray ordered. Dr. Jiang would like to have a CAT scan guided biopsy and patient will need to be off aspirin for 7 days. Aspirin will be discontinued now. Dr. Membreno consult was added for temporary dialysis catheter and patient started dialysis treatment. Kurtz catheter to be placed to monitor urine output. Patient has had a change in her mental status. 09/23: Dr. Membreno his placed a dialysis catheter in the right femoral vein. Patient underwent dialysis yesterday and this morning. BUN is 21 and creatinine 3. Blood blood glucose running between 95 and 198. Temperature max 100.2. Heart rate has been on the lower side running 45-51 and Lopressor decreased to 12.5 mg per day with parameters. Pulse ox 91 percent on 2 L nasal cannula. She is complaining of constipation for which Senokot added. Echocardiogram report is pending. 09/24: BUN 24 and creatinine 3.6. Immunology testing was negative except for free Of 2.51. Acute hepatitis negative. No dialysis scheduled for today or tomorrow pending repeat lab work in the morning. Echocardiogram reveals borderline concentric left ventricular hypertrophy, EF 55-60%, L a dilated at 40 , mild aortic regurgitation, moderate aortic stenosis, mild mitral regurgitation , mild mitral stenosis, mild tricuspid regurgitation, mild pulmonary hypertension, right ventricular systolic pressure is 44. Patient's mental status is improved today although she will be able to work with physical therapy. Lasix was ordered 1 this morning. Patient encouraged to use incentive spirometry hourly. Patient states she has had a bowel movement and constipation is relieved. Objective - Vital Signs Vital signs: Vital Signs Temp 96.8 F L 09/24/17 07:00 Pulse 66 09/24/17 07:00 Resp 16 09/24/17 07:00 BP 125/59 09/24/17 07:00 Pulse Ox 93 L 09/24/17 07:00 Intake & Output 09/23/17 09/24/17 09/24/17 18:59 06:59 18:59 Intake Total 370 Output Total 2300 1500 Balance -1930 -1500 Weight 100 kg 101 kg Intake: Intake, IV Titration 250 Amount Sodium Chloride 0.9% 1, 250 000 ml @ 50 mls/hr IV . Q20H BROCK Rx#:[id number] Oral 120 Output: Urine 2300 1500 Other: Voiding Method Indwelling Catheter Indwelling Catheter - Exam - Constitutional General appearance: average body habitus, cooperative, no acute distress, obese - EENT Eyes: EOMI, PERRLA, dentition normal, no ptosis, no scleral icterus ENT: hearing grossly normal Ears: bilateral: normal - Neck Neck: no lymphadenopathy, normal ROM, no rigidity, no thyromegaly Carotids: bilateral: upstroke normal Thyroid: bilateral: normal size - Respiratory Respiratory: bilateral: diminished, wheezing, prolonged expiration, negative: CTA, dullness, rales, rhonchi - Cardiovascular Rhythm: regular Heart sounds: normal: S1, S2 Abnormal Heart Sounds: no systolic murmur, no diastolic murmur, no S3 Gallop, no S4 Gallop, no click - Gastrointestinal General gastrointestinal: no distended, normal bowel sounds, no organomegaly, soft, no tenderness - Integumentary Integumentary: no pale, no rash - Neurologic Neurologic: CNII-XII intact - Musculoskeletal Musculoskeletal: generalized weakness, strength equal bilaterally - Psychiatric Psychiatric: A&O x's 3 - Labs CBC & Chem 7: 09/23/17 09:54 09/24/17 08:56 Labs: Abnormal Lab Results - Last 24 Hours (Table) 09/23/17 09/23/17 09/23/17 Range/Units 09:54 09:54 11:53 RBC 3.46 L (3.80-5.40) m/uL Hgb 10.6 L (11.4-16.0) gm/dL Plt Count 115 L (150-450) k/uL BUN 21 H (7-17) mg/dL Creatinine 3.00 H (0.52-1.04) mg/dL Glucose 127 H (74-99) mg/dL POC Glucose (mg/dL) 194 H (75-99) mg/dL 09/23/17 09/23/17 09/23/17 Range/Units 17:12 17:13 20:44 RBC (3.80-5.40) m/uL Hgb (11.4-16.0) gm/dL Plt Count (150-450) k/uL BUN (7-17) mg/dL Creatinine (0.52-1.04) mg/dL Glucose (74-99) mg/dL POC Glucose (mg/dL) 571 H 171 H 167 H (75-99) mg/dL 09/24/17 09/24/17 Range/Units 07:52 08:56 RBC (3.80-5.40) m/uL Hgb (11.4-16.0) gm/dL Plt Count (150-450) k/uL BUN 24 H (7-17) mg/dL Creatinine 3.60 H (0.52-1.04) mg/dL Glucose 120 H (74-99) mg/dL POC Glucose (mg/dL) 108 H (75-99) mg/dL Assessment and Plan Plan: 1. Acute kidney injury likely secondary to acute tubular necrosis from hypoperfusion that was going on for 1 week. Hold lisinopril, metformin, glipizide and Lasix. Avoid nephrotoxic agent. Monitor input and output. Daily weights. Nephrology consulted. Status post 2 L IV fluid, recommendation to follow from nephrology. Retroperitoneal ultrasound as above. Autoimmune testing has been negative. Temporary catheter placed by Dr. Membreno. Patient is undergone 2 treatments of hemodialysis. 2. Possible urinary tract infection ruled out. Discontinue ceftriaxone. 3. Chronic hypoxic respiratory failure with home O2 dependence secondary to end-stage COPD currently at baseline of 2.5 L/24 hours 4. Fibromyalgia continue [place] and tramadol 5. Diabetes mellitus type 2 insulin requiring. Hold metformin and glipizide continue NPH 12 units twice a day, NovoLog 4 units with meals and sliding scale. 6. Hypertension. Continue metoprolol 50 mg by mouth daily hold lisinopril 7. Generalized anxiety disorder and recurrent depression. Continue Elavil 75 mg at bedtime. 8. Hyperlipidemia. Continue Zocor 40 mg at bedtime. 9. Hypothyroidism. Continue Synthroid 25 g daily. 10. DVT prophylaxis. Continue heparin 5000 units subcu every 8 hours. 11. Gastrointestinal prophylaxis. Continue Pepcid 20 mg daily. 12. Hypernatremia. 13. Metabolic encephalopathy most likely secondary to uremia 14. Bradycardia. We will decrease Lopressor to 12.5 mg daily Discharge plan: Return home Impression and plan of care have been directed as dictated by the signing physician. Jodi Schwartz nurse practitioner acting as scribe for signing physician.
[2017-09-24 17:19] LABS: Glucose,Whole Blood 139 mg/dL (75-99)
[2017-09-24] MEDS: GABAPENTIN 100 MG CAP PO SCH (20:01)
[2017-09-24] MEDS: ATORVASTATIN 20 MG TAB PO SCH (20:01)
[2017-09-24] MEDS: AMITRIPTYLINE HCL 25 MG TAB PO SCH (20:01)
[2017-09-24] MEDS: guaiFENesin 600 MG TABLET.ER PO SCH (20:03)
[2017-09-24 20:47] LABS: Glucose,Whole Blood 122 mg/dL (75-99)
[2017-09-25] MEDS: LEVOTHYROXINE 50 MCG TAB PO SCH (06:24)
[2017-09-25 07:30] LABS: Glucose,Whole Blood 126 mg/dL (75-99)
[2017-09-25] MEDS: INSULIN ASPART 100 UNIT/ML 1 ML 10 ML VIAL SQ SCH ×7 (07:31→22:39)
[2017-09-25] MEDS: BUDESONIDE 0.5 MG/2 ML NEBU INHALATION SCH ×2 (07:47→20:11)
[2017-09-25] MEDS: IPRATROPIUM-ALBUTEROL 3 ML NEB INHALATION SCH ×4 (07:47→20:11)
[2017-09-25 08:10] LABS: Calcium 8.9 mg/dL (8.4-10.2); Phosphorus 3.4 mg/dL (2.5-4.5)
[2017-09-25] MEDS: FAMOTIDINE 20 MG TAB PO SCH (08:47)
[2017-09-25] MEDS: SENNOSIDES-DOCUSATE SODIUM 1 EACH TAB PO SCH (08:47)
[2017-09-25] MEDS: HEPARIN SODIUM,PORCINE 5,000 UNIT/ML 1 ML VIAL SQ SCH ×2 (08:47→20:34)
[2017-09-25] MEDS: METOPROLOL TARTRATE 12.5 MG TAB PO SCH (08:47)
[2017-09-25] MEDS: INSULIN NPH 300 UNIT/3 ML VIAL SQ SCH ×2 (08:47→17:35)
[2017-09-25] MEDS: guaiFENesin 600 MG TABLET.ER PO SCH ×2 (08:48→20:29)
[2017-09-25 12:31] LABS: Glucose,Whole Blood 184 mg/dL (75-99)
--- NOTE | 2017-09-25 12:34 | P.PN ---
Subjective Patient is seen in follow-up for acute kidney injury. Patient has chronic kidney disease stage III with baseline creatinine in the range of 1-1.3 due to diabetic kidney disease. Her creatinine was 7 on admission and was down to 5.07 on 09/23. No hematuria or dysuria. No vomiting or diarrhea. Denies chest pain but has been more dyspneic. She was also feeling quite tired and was also complaining of gait imbalance. Oral intake is fair. She is awake and alert. She underwent first treatment of hemodialysis on September 22 and second treatment on September 23. Currently seen while undergoing hemodialysis. She has a Kurtz catheter in place. Urine output is documented as 2375 ml in the last 24 hours. Vital signs are stable. General: The patient appeared well nourished and normally developed. HEENT: Head exam is unremarkable. Neck is without jugular venous distension. LUNGS: Lungs are clear to auscultation and percussion. Breath sounds decreased. HEART: Rate and Rhythm are regular. First and second heart sounds normal. No murmurs, rubs or gallops. ABDOMEN: Abdominal exam reveals normal bowel sounds. Non-tender and non- distended. No evidence of peritonitis. EXTREMITITES: No clubbing, cyanosis, or edema. Objective - Vital Signs Vital signs: Vital Signs Temp 97.7 F 09/25/17 07:00 Pulse 74 09/25/17 08:50 Resp 18 09/25/17 08:50 BP 123/56 09/25/17 07:00 Pulse Ox 96 09/25/17 07:50 Intake & Output 09/24/17 09/25/17 09/25/17 18:59 06:59 18:59 Intake Total 1250 250 Output Total 1475 900 175 Balance -225 -900 75 Weight 101 kg 97.5 kg Intake: Oral 1250 250 Output: Urine 1475 900 175 Other: Voiding Method Indwelling Catheter Indwelling Catheter Indwelling Catheter # Voids 1 0 # Bowel Movements 1 0 - Labs CBC & Chem 7: 09/23/17 09:54 09/25/17 07:10 Labs: Abnormal Lab Results - Last 24 Hours (Table) 09/24/17 09/24/17 09/25/17 Range/Units 17:16 20:46 07:04 BUN (7-17) mg/dL Creatinine (0.52-1.04) mg/dL Glucose (74-99) mg/dL POC Glucose (mg/dL) 139 H 122 H 126 H (75-99) mg/dL 09/25/17 09/25/17 Range/Units 07:10 12:27 BUN 28 H (7-17) mg/dL Creatinine 3.98 H (0.52-1.04) mg/dL Glucose 120 H (74-99) mg/dL POC Glucose (mg/dL) 184 H (75-99) mg/dL Assessment and Plan Plan: Assessment: #1. Nonoliguric acute kidney injury secondary to ATN. No evidence of urinary retention. No evidence of hydronephrosis noted on renal ultrasound. Creatinine 7.02 on admission and down to 5.07 with IV fluids. She is noted to have sub-nephrotic proteinuria which is likely due to underlying diabetic kidney disease. Need to rule out GN. Serologies so far negative. Urine eosinophils negative. #2. Chronic kidney disease stage III with baseline creatinine in the range of 1 -1.3. Etiology is likely to be diabetic kidney disease. #3. Pyuria. Urine culture negative so far. #4. Hypertension with chronic kidney disease. Currently controlled. #5. Insulin-dependent diabetes mellitus. #6. Hypernatremia secondary to lack of oral water intake. Improved. #7. Metabolic acidosis secondary to acute kidney injury and IV fluids. improved. #8. Volume overload. Bilateral pleural effusions noted on chest x-ray. #9. Moderate aortic stenosis. Plan: IV fluids have been discontinued. Status post 80 mg IV Lasix on September 23. Encouraged oral intake. Discontinued sodium bicarbonate. Renal function did not improve significantly despite being on IV fluids for several days. Serologies have been negative so far. I will schedule her for a CT-guided renal biopsy for definitive diagnosis - on hold as she was on aspirin. For volume overload and concern for uremia, she was started on hemodialysis on September 22. She has a Kurtz catheter in place. Strict I's and O's.
--- NOTE | 2017-09-25 12:51 | P.PN ---
Subjective Progress Note Date: 09/25/17 This is a 76-year-old pleasant lady patient of Dr. Noble, she has underlying history of COPD, chronic O2 dependency however she is noncompliant treated, previous tobacco, diabetes mellitus type 2, fibromyalgia morbid obesity hypertension admitted to the hospital after found abnormality on the labs. Patient had basic labs done and was called in office due to increasing creatinine. Patient states she is feeling tired, boyfriend bedside thinks patient is confused which is different from her baseline. Patient states she feels distended, complains of shortness of breath associated with cough. She denies any fever or chills. She does endorses decreased urination and frequency associated with some flank tenderness on the left for the past 1 week. She denies any blood in her urine or history of kidney stones. BMP done in the ED suggestive of BUN 78, creatinine 7.1.(Baseline creatinine 1.15 as per recent labs) vitals otherwise are stable. Metformin, glipizide, Lasix discontinued. Patient's presentation appears to be secondary to acute tubular necrosis secondary to hypoperfusion and nephrotoxic medication. Nephrology is consulted. Patient will be given 1 L of normal saline and fluids will be continued at 100 mL per hour 09/17: Repeat BUN 72 and creatinine 6.55. Patient has been seen by nephrology with recommendations for IV fluids to continue it 100 mL per hour, urine culture to be obtained, check post void residual and encourage oral intake. Repeat labs have been ordered for tomorrow. Renal ultrasound shows no hydronephrosis or nephrolithiasis. There may be cortical thinning associated with chronic medical renal disease. patient will be started on Rocephin for possible urinary tract infection. Patient has requested [facility] [place]. 09/18: Repeat BUN is 64 and creatinine 6.3. IV fluids will be increased to 75 mL per hour. Autoimmune, hepatitis and etc. testing ordered by Dr. Jiang. Patient is complaining of fibromyalgia pain and Neurontin has been added. Blood pressure was high in the evening for which metoprolol was increased to twice daily dosing. Insulin dosing will also be decreased and insulin scale added. Urine culture is in progress. 09/19: PICC line was placed yesterday as patient had no IV access. She is currently on 0.45 saline at 100 mL per hour for hypernatremia. Repeat BUN 56 and creatinine is down to 5.96.blood sugars are uncontrolled for which NPH was decreased to 12 units and added in NovoLog with meals 4 units. 09/20:, Patient remains with IV fluids, creatinine has come down to 5.46, BUN of 54, patient was encouraged to do some ambulation, no orthostasis, patient denies any ongoing GI losses blood sugars between 74-138, NPH will be decreased to 10 units twice a day, no change in NovoLog pre-meal 4 units 09/21: Creatinine still remains to be elevated 5.18, previous of 5.46, no hypertension patient does not have any issues regarding lightheadedness and dizziness, loss blood pressure 104/51, peak of 145 systolic heart rate between 51-88 patient currently is not on any DEON inhibitor as, no other antihypertensive medications 09/22: Renal function is improving slowly with BUN 54 and creatinine 5.46. Patient complains of increased shortness of breath today and wheezing. Nebulizer treatments changed to scheduled and Pulmicort added. Additional dose of Lasix to be given this afternoon the patient does not start dialysis. Chest x -ray ordered. Dr. Jiang would like to have a CAT scan guided biopsy and patient will need to be off aspirin for 7 days. Aspirin will be discontinued now. Dr. Membreno consult was added for temporary dialysis catheter and patient started dialysis treatment. Kurtz catheter to be placed to monitor urine output. Patient has had a change in her mental status. 09/23: Dr. Membreno his placed a dialysis catheter in the right femoral vein. Patient underwent dialysis yesterday and this morning. BUN is 21 and creatinine 3. Blood blood glucose running between 95 and 198. Temperature max 100.2. Heart rate has been on the lower side running 45-51 and Lopressor decreased to 12.5 mg per day with parameters. Pulse ox 91 percent on 2 L nasal cannula. She is complaining of constipation for which Senokot added. Echocardiogram report is pending. 09/24: BUN 24 and creatinine 3.6. Immunology testing was negative except for free Of 2.51. Acute hepatitis negative. No dialysis scheduled for today or tomorrow pending repeat lab work in the morning. Echocardiogram reveals borderline concentric left ventricular hypertrophy, EF 55-60%, L a dilated at 40 , mild aortic regurgitation, moderate aortic stenosis, mild mitral regurgitation , mild mitral stenosis, mild tricuspid regurgitation, mild pulmonary hypertension, right ventricular systolic pressure is 44. Patient's mental status is improved today although she will be able to work with physical therapy. Lasix was ordered 1 this morning. Patient encouraged to use incentive spirometry hourly. Patient states she has had a bowel movement and constipation is relieved. 09/25: BUN 28 and creatinine 3.98. Patient is undergoing hemodialysis today. Pulse ox 96% on 2 L. Yesterday, OT attempted to work with the patient but she was too fatigued. Objective - Vital Signs Vital signs: Vital Signs Temp 97.7 F 09/25/17 07:00 Pulse 74 09/25/17 08:50 Resp 18 09/25/17 08:50 BP 123/56 09/25/17 07:00 Pulse Ox 96 09/25/17 07:50 Intake & Output 09/24/17 09/25/17 09/25/17 18:59 06:59 18:59 Intake Total 1250 250 Output Total 1475 900 175 Balance -225 -900 75 Weight 101 kg 97.5 kg Intake: Oral 1250 250 Output: Urine 1475 900 175 Other: Voiding Method Indwelling Catheter Indwelling Catheter Indwelling Catheter # Voids 1 0 # Bowel Movements 1 0 - Exam - Constitutional General appearance: average body habitus, cooperative, no acute distress, obese - EENT Eyes: EOMI, PERRLA, dentition normal, no ptosis, no scleral icterus ENT: hearing grossly normal Ears: bilateral: normal - Neck Neck: no lymphadenopathy, normal ROM, no rigidity, no thyromegaly Carotids: bilateral: upstroke normal Thyroid: bilateral: normal size - Respiratory Respiratory: bilateral: diminished, wheezing, prolonged expiration, negative: CTA, dullness, rales, rhonchi - Cardiovascular Rhythm: regular Heart sounds: normal: S1, S2 Abnormal Heart Sounds: no systolic murmur, no diastolic murmur, no S3 Gallop, no S4 Gallop, no click - Gastrointestinal General gastrointestinal: no distended, normal bowel sounds, no organomegaly, soft, no tenderness - Integumentary Integumentary: no pale, no rash - Neurologic Neurologic: CNII-XII intact - Musculoskeletal Musculoskeletal: generalized weakness, strength equal bilaterally - Psychiatric Psychiatric: A&O x's 3 - Labs CBC & Chem 7: 09/23/17 09:54 09/25/17 07:10 Labs: Abnormal Lab Results - Last 24 Hours (Table) 09/24/17 09/24/17 09/24/17 Range/Units 12:11 17:16 20:46 BUN (7-17) mg/dL Creatinine (0.52-1.04) mg/dL Glucose (74-99) mg/dL POC Glucose (mg/dL) 162 H 139 H 122 H (75-99) mg/dL 09/25/17 09/25/17 Range/Units 07:04 07:10 BUN 28 H (7-17) mg/dL Creatinine 3.98 H (0.52-1.04) mg/dL Glucose 120 H (74-99) mg/dL POC Glucose (mg/dL) 126 H (75-99) mg/dL Assessment and Plan Plan: 1. Acute kidney injury likely secondary to acute tubular necrosis from hypoperfusion that was going on for 1 week. Hold lisinopril, metformin, glipizide and Lasix. Avoid nephrotoxic agent. Monitor input and output. Daily weights. Nephrology consulted. Status post 2 L IV fluid, recommendation to follow from nephrology. Retroperitoneal ultrasound as above. Autoimmune testing has been negative. Temporary catheter placed by Dr. Membreno. Patient is undergone 2 treatments of hemodialysis. Repeat dialysis today. 2. Possible urinary tract infection ruled out. Discontinue ceftriaxone. 3. Chronic hypoxic respiratory failure with home O2 dependence secondary to end-stage COPD currently at baseline of 2.5 L/24 hours 4. Fibromyalgia continue [place] and tramadol 5. Diabetes mellitus type 2 insulin requiring. Hold metformin and glipizide continue NPH 12 units twice a day, NovoLog 4 units with meals and sliding scale. 6. Hypertension. Continue metoprolol 50 mg by mouth daily hold lisinopril 7. Generalized anxiety disorder and recurrent depression. Continue Elavil 75 mg at bedtime. 8. Hyperlipidemia. Continue Zocor 40 mg at bedtime. 9. Hypothyroidism. Continue Synthroid 25 g daily. 10. DVT prophylaxis. Continue heparin 5000 units subcu every 8 hours. 11. Gastrointestinal prophylaxis. Continue Pepcid 20 mg daily. 12. Hypernatremia. 13. Metabolic encephalopathy most likely secondary to uremia 14. Bradycardia. We will decrease Lopressor to 12.5 mg daily Discharge plan: Return home Impression and plan of care have been directed as dictated by the signing physician. Jodi Schwartz nurse practitioner acting as scribe for signing physician.
[2017-09-25 17:26] LABS: Glucose,Whole Blood 188 mg/dL (75-99)
[2017-09-25] MEDS: ATORVASTATIN 20 MG TAB PO SCH (20:29)
[2017-09-25] MEDS: GABAPENTIN 100 MG CAP PO SCH (20:29)
[2017-09-25] MEDS: AMITRIPTYLINE HCL 25 MG TAB PO SCH (20:29)
[2017-09-25 20:36] LABS: Glucose,Whole Blood 177 mg/dL (75-99)
[2017-09-25] MEDS ORDERED: ALTEPLASE 2 MG VIAL (CATHFLO) IV STA (23:06)
[2017-09-26] MEDS: LEVOTHYROXINE 50 MCG TAB PO SCH (06:14)
[2017-09-26] MEDS: IPRATROPIUM-ALBUTEROL 3 ML NEB INHALATION SCH ×4 (07:50→19:17)
[2017-09-26] MEDS: BUDESONIDE 0.5 MG/2 ML NEBU INHALATION SCH ×2 (07:50→19:17)
[2017-09-26 07:52] LABS: Glucose,Whole Blood 119 mg/dL (75-99)
[2017-09-26] MEDS: INSULIN ASPART 100 UNIT/ML 1 ML 10 ML VIAL SQ SCH ×7 (07:53→22:38)
[2017-09-26] MEDS: INSULIN NPH 300 UNIT/3 ML VIAL SQ SCH ×2 (08:18→17:52)
[2017-09-26] MEDS: guaiFENesin 600 MG TABLET.ER PO SCH ×2 (08:18→20:09)
[2017-09-26] MEDS: HEPARIN SODIUM,PORCINE 5,000 UNIT/ML 1 ML VIAL SQ SCH ×2 (08:19→20:11)
[2017-09-26] MEDS: SENNOSIDES-DOCUSATE SODIUM 1 EACH TAB PO SCH (08:19)
[2017-09-26] MEDS: METOPROLOL TARTRATE 12.5 MG TAB PO SCH (08:19)
[2017-09-26] MEDS: FAMOTIDINE 20 MG TAB PO SCH (08:19)
[2017-09-26 09:26] LABS: Basophils % (A) 1 %; Eosinophils # (A) 0.2 k/uL (0-0.7); Eosinophils % (A) 3 %; HCT 35.4 % (34.0-46.0); HGB 11.1 gm/dL (11.4-16.0); Hypochromasia Slight; Lymphocytes # (A) 2.1 k/uL (1.0-4.8); Lymphocytes % (A) 33 %; MCH 30.6 pg (25.0-35.0); MCHC 31.3 g/dL (31.0-37.0); Macrocytosis Slight; Mean Platelet Volume 8.7; Monocytes # (A) 0.4 k/uL (0-1.0); Monocytes % (A) 5 %; Neutrophils # (A) 3.6 k/uL (1.3-7.7); Neutrophils % (A) 56 %; Platelet Count 128 k/uL (150-450); RBC 3.61 m/uL (3.80-5.40); RDW 15.7 % (11.5-15.5); WBC 6.5 k/uL (3.8-10.6)
[2017-09-26 09:37] LABS: Calcium 9.3 mg/dL (8.4-10.2); Potassium 4.1 mmol/L (3.5-5.1)
[2017-09-26 12:03] LABS: Glucose,Whole Blood 200 mg/dL (75-99)
--- NOTE | 2017-09-26 13:58 | P.PN ---
Subjective Progress Note Date: 09/26/17 This is a 76-year-old pleasant lady patient of Dr. Noble, she has underlying history of COPD, chronic O2 dependency however she is noncompliant treated, previous tobacco, diabetes mellitus type 2, fibromyalgia morbid obesity hypertension admitted to the hospital after found abnormality on the labs. Patient had basic labs done and was called in office due to increasing creatinine. Patient states she is feeling tired, boyfriend bedside thinks patient is confused which is different from her baseline. Patient states she feels distended, complains of shortness of breath associated with cough. She denies any fever or chills. She does endorses decreased urination and frequency associated with some flank tenderness on the left for the past 1 week. She denies any blood in her urine or history of kidney stones. BMP done in the ED suggestive of BUN 78, creatinine 7.1.(Baseline creatinine 1.15 as per recent labs) vitals otherwise are stable. Metformin, glipizide, Lasix discontinued. Patient's presentation appears to be secondary to acute tubular necrosis secondary to hypoperfusion and nephrotoxic medication. Nephrology is consulted. Patient will be given 1 L of normal saline and fluids will be continued at 100 mL per hour 09/17: Repeat BUN 72 and creatinine 6.55. Patient has been seen by nephrology with recommendations for IV fluids to continue it 100 mL per hour, urine culture to be obtained, check post void residual and encourage oral intake. Repeat labs have been ordered for tomorrow. Renal ultrasound shows no hydronephrosis or nephrolithiasis. There may be cortical thinning associated with chronic medical renal disease. patient will be started on Rocephin for possible urinary tract infection. Patient has requested [facility] [place]. 09/18: Repeat BUN is 64 and creatinine 6.3. IV fluids will be increased to 75 mL per hour. Autoimmune, hepatitis and etc. testing ordered by Dr. Jiang. Patient is complaining of fibromyalgia pain and Neurontin has been added. Blood pressure was high in the evening for which metoprolol was increased to twice daily dosing. Insulin dosing will also be decreased and insulin scale added. Urine culture is in progress. 09/19: PICC line was placed yesterday as patient had no IV access. She is currently on 0.45 saline at 100 mL per hour for hypernatremia. Repeat BUN 56 and creatinine is down to 5.96.blood sugars are uncontrolled for which NPH was decreased to 12 units and added in NovoLog with meals 4 units. 09/20:, Patient remains with IV fluids, creatinine has come down to 5.46, BUN of 54, patient was encouraged to do some ambulation, no orthostasis, patient denies any ongoing GI losses blood sugars between 74-138, NPH will be decreased to 10 units twice a day, no change in NovoLog pre-meal 4 units 09/21: Creatinine still remains to be elevated 5.18, previous of 5.46, no hypertension patient does not have any issues regarding lightheadedness and dizziness, loss blood pressure 104/51, peak of 145 systolic heart rate between 51-88 patient currently is not on any DEON inhibitor as, no other antihypertensive medications 09/22: Renal function is improving slowly with BUN 54 and creatinine 5.46. Patient complains of increased shortness of breath today and wheezing. Nebulizer treatments changed to scheduled and Pulmicort added. Additional dose of Lasix to be given this afternoon the patient does not start dialysis. Chest x -ray ordered. Dr. Jiang would like to have a CAT scan guided biopsy and patient will need to be off aspirin for 7 days. Aspirin will be discontinued now. Dr. Membreno consult was added for temporary dialysis catheter and patient started dialysis treatment. Kurtz catheter to be placed to monitor urine output. Patient has had a change in her mental status. 09/23: Dr. Membreno his placed a dialysis catheter in the right femoral vein. Patient underwent dialysis yesterday and this morning. BUN is 21 and creatinine 3. Blood blood glucose running between 95 and 198. Temperature max 100.2. Heart rate has been on the lower side running 45-51 and Lopressor decreased to 12.5 mg per day with parameters. Pulse ox 91 percent on 2 L nasal cannula. She is complaining of constipation for which Senokot added. Echocardiogram report is pending. 09/24: BUN 24 and creatinine 3.6. Immunology testing was negative except for free Of 2.51. Acute hepatitis negative. No dialysis scheduled for today or tomorrow pending repeat lab work in the morning. Echocardiogram reveals borderline concentric left ventricular hypertrophy, EF 55-60%, L a dilated at 40 , mild aortic regurgitation, moderate aortic stenosis, mild mitral regurgitation , mild mitral stenosis, mild tricuspid regurgitation, mild pulmonary hypertension, right ventricular systolic pressure is 44. Patient's mental status is improved today although she will be able to work with physical therapy. Lasix was ordered 1 this morning. Patient encouraged to use incentive spirometry hourly. Patient states she has had a bowel movement and constipation is relieved. 09/25: BUN 28 and creatinine 3.98. Patient is undergoing hemodialysis today. Pulse ox 96% on 2 L. Yesterday, OT attempted to work with the patient but she was too fatigued. 09/26: BUN 25 and creatinine 3.9. Nephrology is planning on permanent dialysis catheter and biopsy for next week. Patient did receive her last dose of aspirin on September 24. Therapy has recommended subacute rehab. Social work is making arrangements for [facility] at the time of discharge. Objective - Vital Signs Vital signs: Vital Signs Temp 96.9 F L 09/26/17 07:00 Pulse 73 09/26/17 07:00 Resp 16 09/26/17 07:00 BP 146/67 09/26/17 07:00 Pulse Ox 91 L 09/26/17 07:00 Intake & Output 09/25/17 09/26/17 09/26/17 18:59 06:59 18:59 Intake Total 490 220 Output Total 350 800 Balance 140 -580 Weight 97.5 kg 98 kg Intake: Oral 490 220 Output: Urine 350 800 Uretheral (Kurtz) 200 Other: Voiding Method Indwelling Catheter Indwelling Catheter # Voids 675 1 # Bowel Movements 1 - Exam - Constitutional General appearance: average body habitus, cooperative, no acute distress, obese - EENT Eyes: EOMI, PERRLA, dentition normal, no ptosis, no scleral icterus ENT: hearing grossly normal Ears: bilateral: normal - Neck Neck: no lymphadenopathy, normal ROM, no rigidity, no thyromegaly Carotids: bilateral: upstroke normal Thyroid: bilateral: normal size - Respiratory Respiratory: bilateral: diminished, wheezing, prolonged expiration, negative: CTA, dullness, rales, rhonchi - Cardiovascular Rhythm: regular Heart sounds: normal: S1, S2 Abnormal Heart Sounds: no systolic murmur, no diastolic murmur, no S3 Gallop, no S4 Gallop, no click - Gastrointestinal General gastrointestinal: no distended, normal bowel sounds, no organomegaly, soft, no tenderness - Integumentary Integumentary: no pale, no rash - Neurologic Neurologic: CNII-XII intact - Musculoskeletal Musculoskeletal: generalized weakness, strength equal bilaterally - Psychiatric Psychiatric: A&O x's 3 - Labs CBC & Chem 7: 09/26/17 08:26 09/26/17 08:26 Labs: Abnormal Lab Results - Last 24 Hours (Table) 09/25/17 09/25/17 09/25/17 Range/Units 12:27 17:19 20:34 POC Glucose (mg/dL) 184 H 188 H 177 H (75-99) mg/dL 09/26/17 Range/Units 07:31 POC Glucose (mg/dL) 119 H (75-99) mg/dL Assessment and Plan Plan: 1. Acute kidney injury likely secondary to acute tubular necrosis from hypoperfusion that was going on for 1 week. Hold lisinopril, metformin, glipizide and Lasix. Avoid nephrotoxic agent. Monitor input and output. Daily weights. Nephrology consulted. Status post 2 L IV fluid, recommendation to follow from nephrology. Retroperitoneal ultrasound as above. Autoimmune testing has been negative. Temporary catheter placed by Dr. Membreno. Patient is undergone 2 treatments of hemodialysis. Repeat dialysis today. 2. Possible urinary tract infection ruled out. Discontinue ceftriaxone. 3. Chronic hypoxic respiratory failure with home O2 dependence secondary to end-stage COPD currently at baseline of 2.5 L/24 hours 4. Fibromyalgia continue [place] and tramadol 5. Diabetes mellitus type 2 insulin requiring. Hold metformin and glipizide continue NPH 12 units twice a day, NovoLog 4 units with meals and sliding scale. 6. Hypertension. Continue metoprolol 50 mg by mouth daily hold lisinopril 7. Generalized anxiety disorder and recurrent depression. Continue Elavil 75 mg at bedtime. 8. Hyperlipidemia. Continue Zocor 40 mg at bedtime. 9. Hypothyroidism. Continue Synthroid 25 g daily. 10. DVT prophylaxis. Continue heparin 5000 units subcu every 8 hours. 11. Gastrointestinal prophylaxis. Continue Pepcid 20 mg daily. 12. Hypernatremia. 13. Metabolic encephalopathy most likely secondary to uremia 14. Bradycardia. We will decrease Lopressor to 12.5 mg daily Discharge plan: [place] under the care of Dr. Noble Impression and plan of care have been directed as dictated by the signing physician. Jodi Schwartz nurse practitioner acting as scribe for signing physician.
--- NOTE | 2017-09-26 15:03 | PN ---
PROGRESS NOTE Patient is a 77-year-old female who was admitted with renal failure and creatinine of about 7.0 on initial admission. Her renal function did not improve with IV hydration. She is scheduled to have a kidney biopsy done as outpatient. The patient was started on dialysis. She currently has a temporary femoral catheter. Her creatinine is now about 3.9 mg/dL. She has had fair urine output, however. She is being considered for discharge. At this time it appears that she remains hemodialysis-dependent, although her urine output is good. Her serum creatinine has not improved significantly off of dialysis and she had a repeat treatment yesterday. I will maintain her on maintenance dialysis upon discharge. Patient will need an IJ PermCath placed and chair time as well. She is scheduled to have a kidney biopsy done as outpatient and we will follow her for recovery of renal function as outpatient. O/E Pt is comfortable, awake, not in any distress. Femoral catheter is in place. Examination of the heart S1 and S2, no rub is heard Examination of the lungs shows good air entry bilat., n crackles or wheezing Examination of the abdomen , soft abdomen, no tenderness Exam of the extremities shows no edema bilat [employer] exam is grossly intact Labs are reviewed. Cr 3.9 ASSESSMENT: 1. Volume overload, status post IV Lasix previously. Will increase UF with hemodialysis tomorrow. 2. Hypertension with chronic kidney disease, currently controlled. 3. Hypernatremia associated with free water deficit, currently improved. 4. Moderate aortic stenosis. 5. Generalized debility; being considered for subacute rehab at [facility] upon discharge. PLAN: Obtain appointment for outpatient kidney biopsy to be done post discharge. Vascular Surgery will be consulted regarding placement of IJ catheter. We will arrange for hemodialysis in a.m. The patient will be maintained on outpatient dialysis and recovery of renal function will be followed as outpatient, particularly based on the findings on the kidney biopsy. MMODL / IJN: [id number] / YURI
[2017-09-26 17:45] LABS: Glucose,Whole Blood 186 mg/dL (75-99)
[2017-09-26] MEDS: AMITRIPTYLINE HCL 25 MG TAB PO SCH (20:05)
[2017-09-26] MEDS: GABAPENTIN 100 MG CAP PO SCH (20:09)
[2017-09-26] MEDS: ATORVASTATIN 20 MG TAB PO SCH (20:09)
[2017-09-26 20:33] LABS: Glucose,Whole Blood 175 mg/dL (75-99)
[2017-09-27] MEDS: LEVOTHYROXINE 50 MCG TAB PO SCH (06:42)
[2017-09-27] MEDS: BUDESONIDE 0.5 MG/2 ML NEBU INHALATION SCH ×2 (07:11→19:14)
[2017-09-27] MEDS: IPRATROPIUM-ALBUTEROL 3 ML NEB INHALATION SCH ×4 (07:11→19:14)
[2017-09-27 07:47] LABS: Glucose,Whole Blood 211 mg/dL (75-99)
[2017-09-27] MEDS ORDERED: SODIUM CHLORIDE 0.9% 500 ML IV ONE (07:54)
[2017-09-27] MEDS ORDERED: LIDOCAINE 2% INJ 20 MG/ML SQ ONE ×2 (08:06→08:13)
[2017-09-27] MEDS ORDERED: HEPARIN SODIUM 1,000 UN/ML (10ML VL) MISCELLANE ONE (08:55)
--- NOTE | 2017-09-27 09:15 | IR ---
FLUOROSCOPY 2.5 minutes of fluoroscopy time were utilized during tunneled catheter insertion. 516 images document the procedure.
--- NOTE | 2017-09-27 09:23 | OP ---
OPERATIVE REPORT PREOP DIAGNOSIS: Acute on chronic renal failure. PROCEDURE: Placement of dialysis catheter under ultrasound guided right internal jugular vein. PROCEDURE: This patient was brought to the laborer/key man. Right side of the neck and chest was prepped and drapes applied in usual sterile manner. 1% lidocaine was infiltrated into the neck area. Ultrasound-guided micropuncture into the right internal jugular vein. Micropuncture guide was passed. Then 4 [place] dilator on the top of the guidewire. Then, we created a tunnel. Through the tunnel we brought 23 cm straight dialysis catheter and we passed a regular guidewire which was passed through the superior and left in the inferior vena cava. Parked in. Then we used a dilator advanced on top of the guidewire. Then we advanced a sheath, through the sheath, we introduced the dialysis catheter. Tip of the catheter in superior vena cava and atrium, flushed with heparin saline and secured with Vicryl and nylon. Dressing applied. Patient tolerated the procedure well. MMODL / IJN: [id number] /
--- NOTE | 2017-09-27 09:52 | XR ---
EXAMINATION TYPE: XR chest 1V confirm line [facility] DATE OF EXAM: 09/27/2017 HISTORY: dialysis cath placement. REFERENCE: Previous study dated. FINDINGS: There has been interval placement of a large-bore, double-lumen catheter via a right internal grinder tender al jugular approach. Its tip is in the right atrium. There is no evidence of pneumothorax. Heart size is upper limits of normal. The lungs appear clear. Pleural spaces are clear. IMPRESSION: I DO NOT SEE A POST CATHETER PLACEMENT COMPLICATION.
--- NOTE | 2017-09-27 10:40 | P.PN ---
Subjective Progress Note Date: 09/27/17 This is a 76-year-old pleasant lady patient of Dr. Noble, she has underlying history of COPD, chronic O2 dependency however she is noncompliant treated, previous tobacco, diabetes mellitus type 2, fibromyalgia morbid obesity hypertension admitted to the hospital after found abnormality on the labs. Patient had basic labs done and was called in office due to increasing creatinine. Patient states she is feeling tired, boyfriend bedside thinks patient is confused which is different from her baseline. Patient states she feels distended, complains of shortness of breath associated with cough. She denies any fever or chills. She does endorses decreased urination and frequency associated with some flank tenderness on the left for the past 1 week. She denies any blood in her urine or history of kidney stones. BMP done in the ED suggestive of BUN 78, creatinine 7.1.(Baseline creatinine 1.15 as per recent labs) vitals otherwise are stable. Metformin, glipizide, Lasix discontinued. Patient's presentation appears to be secondary to acute tubular necrosis secondary to hypoperfusion and nephrotoxic medication. Nephrology is consulted. Patient will be given 1 L of normal saline and fluids will be continued at 100 mL per hour 09/17: Repeat BUN 72 and creatinine 6.55. Patient has been seen by nephrology with recommendations for IV fluids to continue it 100 mL per hour, urine culture to be obtained, check post void residual and encourage oral intake. Repeat labs have been ordered for tomorrow. Renal ultrasound shows no hydronephrosis or nephrolithiasis. There may be cortical thinning associated with chronic medical renal disease. patient will be started on Rocephin for possible urinary tract infection. Patient has requested [facility] [place]. 09/18: Repeat BUN is 64 and creatinine 6.3. IV fluids will be increased to 75 mL per hour. Autoimmune, hepatitis and etc. testing ordered by Dr. Jiang. Patient is complaining of fibromyalgia pain and Neurontin has been added. Blood pressure was high in the evening for which metoprolol was increased to twice daily dosing. Insulin dosing will also be decreased and insulin scale added. Urine culture is in progress. 09/19: PICC line was placed yesterday as patient had no IV access. She is currently on 0.45 saline at 100 mL per hour for hypernatremia. Repeat BUN 56 and creatinine is down to 5.96.blood sugars are uncontrolled for which NPH was decreased to 12 units and added in NovoLog with meals 4 units. 09/20:, Patient remains with IV fluids, creatinine has come down to 5.46, BUN of 54, patient was encouraged to do some ambulation, no orthostasis, patient denies any ongoing GI losses blood sugars between 74-138, NPH will be decreased to 10 units twice a day, no change in NovoLog pre-meal 4 units 09/21: Creatinine still remains to be elevated 5.18, previous of 5.46, no hypertension patient does not have any issues regarding lightheadedness and dizziness, loss blood pressure 104/51, peak of 145 systolic heart rate between 51-88 patient currently is not on any DEON inhibitor as, no other antihypertensive medications 09/22: Renal function is improving slowly with BUN 54 and creatinine 5.46. Patient complains of increased shortness of breath today and wheezing. Nebulizer treatments changed to scheduled and Pulmicort added. Additional dose of Lasix to be given this afternoon the patient does not start dialysis. Chest x -ray ordered. Dr. Jiang would like to have a CAT scan guided biopsy and patient will need to be off aspirin for 7 days. Aspirin will be discontinued now. Dr. Membreno consult was added for temporary dialysis catheter and patient started dialysis treatment. Kurtz catheter to be placed to monitor urine output. Patient has had a change in her mental status. 09/23: Dr. Membreno his placed a dialysis catheter in the right femoral vein. Patient underwent dialysis yesterday and this morning. BUN is 21 and creatinine 3. Blood blood glucose running between 95 and 198. Temperature max 100.2. Heart rate has been on the lower side running 45-51 and Lopressor decreased to 12.5 mg per day with parameters. Pulse ox 91 percent on 2 L nasal cannula. She is complaining of constipation for which Senokot added. Echocardiogram report is pending. 09/24: BUN 24 and creatinine 3.6. Immunology testing was negative except for free Of 2.51. Acute hepatitis negative. No dialysis scheduled for today or tomorrow pending repeat lab work in the morning. Echocardiogram reveals borderline concentric left ventricular hypertrophy, EF 55-60%, L a dilated at 40 , mild aortic regurgitation, moderate aortic stenosis, mild mitral regurgitation , mild mitral stenosis, mild tricuspid regurgitation, mild pulmonary hypertension, right ventricular systolic pressure is 44. Patient's mental status is improved today although she will be able to work with physical therapy. Lasix was ordered 1 this morning. Patient encouraged to use incentive spirometry hourly. Patient states she has had a bowel movement and constipation is relieved. 09/25: BUN 28 and creatinine 3.98. Patient is undergoing hemodialysis today. Pulse ox 96% on 2 L. Yesterday, OT attempted to work with the patient but she was too fatigued. 09/26: BUN 25 and creatinine 3.9. Nephrology is planning on permanent dialysis catheter and biopsy for next week. Patient did receive her last dose of aspirin on September 24. Therapy has recommended subacute rehab. Social work is making arrangements for [facility] at the time of discharge. 09/27: Dr. Membreno has place a permanent HD catheter this morning. patient is scheduled for hemodialysis treatment today.a.m. labs are delayed as patient was gone for catheter placement. Objective - Vital Signs Vital signs: Vital Signs Temp 96.5 F L 09/27/17 07:00 Pulse 76 09/27/17 07:26 Resp 20 09/27/17 07:00 BP 121/57 09/27/17 07:00 Pulse Ox 95 09/27/17 07:00 Intake & Output 09/26/17 09/27/17 09/27/17 18:59 06:59 18:59 Intake Total 240 50 Output Total 1000 180 Balance -760 -180 50 Weight 98 kg 98 kg Intake: IV 50 Oral 240 Output: Urine 1000 180 Uretheral (Kurtz) 400 Other: Voiding Method Indwelling Catheter Indwelling Catheter # Voids 1 - Exam - Constitutional General appearance: average body habitus, cooperative, no acute distress, obese - EENT Eyes: EOMI, PERRLA, dentition normal, no ptosis, no scleral icterus ENT: hearing grossly normal Ears: bilateral: normal - Neck Neck: no lymphadenopathy, normal ROM, no rigidity, no thyromegaly Carotids: bilateral: upstroke normal Thyroid: bilateral: normal size - Respiratory Respiratory: bilateral: diminished, wheezing, prolonged expiration, negative: CTA, dullness, rales, rhonchi - Cardiovascular Rhythm: regular Heart sounds: normal: S1, S2 Abnormal Heart Sounds: no systolic murmur, no diastolic murmur, no S3 Gallop, no S4 Gallop, no click - Gastrointestinal General gastrointestinal: no distended, normal bowel sounds, no organomegaly, soft, no tenderness - Integumentary Integumentary: no pale, no rash - Neurologic Neurologic: CNII-XII intact - Musculoskeletal Musculoskeletal: generalized weakness, strength equal bilaterally - Psychiatric Psychiatric: A&O x's 3 - Labs CBC & Chem 7: 09/26/17 08:26 09/26/17 08:26 Labs: Abnormal Lab Results - Last 24 Hours (Table) 09/26/17 09/26/17 09/26/17 Range/Units 11:55 17:06 20:31 POC Glucose (mg/dL) 200 H 186 H 175 H (75-99) mg/dL 09/27/17 Range/Units 07:39 POC Glucose (mg/dL) 211 H (75-99) mg/dL Assessment and Plan Plan: 1. Acute kidney injury likely secondary to acute tubular necrosis from hypoperfusion that was going on for 1 week. Hold lisinopril, metformin, glipizide and Lasix. Avoid nephrotoxic agent. Monitor input and output. Daily weights. Nephrology consulted. Status post 2 L IV fluid, recommendation to follow from nephrology. Retroperitoneal ultrasound as above. Autoimmune testing has been negative. Temporary catheter placed by Dr. Membreno. Patient is undergone 2 treatments of hemodialysis. Repeat dialysis today. Permanent HD catheter placed by Dr. Membreno. 2. Possible urinary tract infection ruled out. Discontinue ceftriaxone. 3. Chronic hypoxic respiratory failure with home O2 dependence secondary to end-stage COPD currently at baseline of 2.5 L/24 hours 4. Fibromyalgia continue [place] and tramadol 5. Diabetes mellitus type 2 insulin requiring. Hold metformin and glipizide continue NPH 12 units twice a day, NovoLog 4 units with meals and sliding scale. 6. Hypertension. Continue metoprolol 50 mg by mouth daily hold lisinopril 7. Generalized anxiety disorder and recurrent depression. Continue Elavil 75 mg at bedtime. 8. Hyperlipidemia. Continue Zocor 40 mg at bedtime. 9. Hypothyroidism. Continue Synthroid 25 g daily. 10. DVT prophylaxis. Continue heparin 5000 units subcu every 8 hours. 11. Gastrointestinal prophylaxis. Continue Pepcid 20 mg daily. 12. Hypernatremia. 13. Metabolic encephalopathy most likely secondary to uremia 14. Bradycardia. We will decrease Lopressor to 12.5 mg daily Discharge plan: Allison under the care of Dr. Noble Impression and plan of care have been directed as dictated by the signing physician. Jodi Schwartz nurse practitioner acting as scribe for signing physician.
[2017-09-27 10:44] LABS: HCT 30.8 % (34.0-46.0); HGB 9.7 gm/dL (11.4-16.0); Hypochromasia Moderate; MCH 30.7 pg (25.0-35.0); MCHC 31.4 g/dL (31.0-37.0); MCV 97.9 fL (80.0-100.0); Macrocytosis Slight; Mean Platelet Volume 8.8; Platelet Count 103 k/uL (150-450); RBC 3.15 m/uL (3.80-5.40); RDW 15.4 % (11.5-15.5); WBC 3.9 k/uL (3.8-10.6)
[2017-09-27 10:49] LABS: INR 1.2 (<1.2); Partial Thromboplastin Time 25.4 sec (22.0-30.0); Prothrombin Time 11.4 sec (9.0-12.0)
[2017-09-27] MEDS: SENNOSIDES-DOCUSATE SODIUM 1 EACH TAB PO SCH (10:54)
[2017-09-27] MEDS: FAMOTIDINE 20 MG TAB PO SCH (10:55)
[2017-09-27] MEDS: guaiFENesin 600 MG TABLET.ER PO SCH ×2 (10:55→21:27)
[2017-09-27] MEDS: INSULIN ASPART 100 UNIT/ML 1 ML 10 ML VIAL SQ SCH ×7 (10:55→21:27)
[2017-09-27] MEDS: INSULIN NPH 300 UNIT/3 ML VIAL SQ SCH ×2 (10:56→18:03)
[2017-09-27] MEDS: METOPROLOL TARTRATE 12.5 MG TAB PO SCH (10:57)
[2017-09-27] MEDS: HEPARIN SODIUM,PORCINE 5,000 UNIT/ML 1 ML VIAL SQ SCH ×2 (10:57→21:29)
[2017-09-27 11:00] LABS: Potassium 3.9 mmol/L (3.5-5.1)
[2017-09-27] MEDS: HYDROcodone/APAP 5-325MG 1 EACH TAB PO PRN (11:03)
[2017-09-27 11:50] LABS: Glucose,Whole Blood 164 mg/dL (75-99)
--- NOTE | 2017-09-27 14:05 | P.PN ---
Subjective Progress Note Date: 09/27/17 Seen and examined for the follow-up of acute kidney injury ongoing dialysis. Objective - Vital Signs Vital signs: Vital Signs Temp 96.5 F L 09/27/17 07:00 Pulse 80 09/27/17 11:26 Resp 18 09/27/17 09:15 BP 138/60 09/27/17 09:14 Pulse Ox 99 09/27/17 09:14 Intake & Output 09/26/17 09/27/17 09/27/17 18:59 06:59 18:59 Intake Total 240 50 Output Total 1000 180 Balance -760 -180 50 Weight 98 kg 98 kg Intake: IV 50 Oral 240 Output: Urine 1000 180 Uretheral (Kurtz) 400 Other: Voiding Method Indwelling Catheter Indwelling Catheter Indwelling Catheter # Voids 1 - Exam Lying in bed no acute distress tolerating dialysis well S1-S2 heard Jugular permacath No edema - Labs CBC & Chem 7: 09/27/17 10:25 09/27/17 10:25 Labs: Abnormal Lab Results - Last 24 Hours (Table) 09/26/17 09/26/17 09/27/17 Range/Units 17:06 20:31 07:39 RBC (3.80-5.40) m/uL Hgb (11.4-16.0) gm/dL Hct (34.0-46.0) % Plt Count (150-450) k/uL INR (<1.2) BUN (7-17) mg/dL Creatinine (0.52-1.04) mg/dL Glucose (74-99) mg/dL POC Glucose (mg/dL) 186 H 175 H 211 H (75-99) mg/dL 09/27/17 09/27/17 09/27/17 Range/Units 10:25 10:25 10:25 RBC 3.15 L (3.80-5.40) m/uL Hgb 9.7 L (11.4-16.0) gm/dL Hct 30.8 L (34.0-46.0) % Plt Count 103 L (150-450) k/uL INR 1.2 H (<1.2) BUN 28 H (7-17) mg/dL Creatinine 4.05 H (0.52-1.04) mg/dL Glucose 145 H (74-99) mg/dL POC Glucose (mg/dL) (75-99) mg/dL 09/27/17 Range/Units 11:47 RBC (3.80-5.40) m/uL Hgb (11.4-16.0) gm/dL Hct (34.0-46.0) % Plt Count (150-450) k/uL INR (<1.2) BUN (7-17) mg/dL Creatinine (0.52-1.04) mg/dL Glucose (74-99) mg/dL POC Glucose (mg/dL) 164 H (75-99) mg/dL Assessment and Plan Assessment: Impression: #1 acute kidney injury cause unclear awaiting renal biopsy as outpatient currently dialysis dependent #2 hypertension with chronic kidney disease #3 moderate aortic stenosis #4 anemia with CKD Recommendations: #1 hemodialysis today. Serology negative. #2 permacath was placed this morning and Les catheter was removed. #3 planned renal biopsy as outpatient #4 avoid nephrotoxic agents and monitor for renal recovery.
[2017-09-27 17:20] LABS: Glucose,Whole Blood 148 mg/dL (75-99)
[2017-09-27 20:48] LABS: Glucose,Whole Blood 183 mg/dL (75-99)
[2017-09-27] MEDS: ATORVASTATIN 20 MG TAB PO SCH (21:27)
[2017-09-27] MEDS: AMITRIPTYLINE HCL 25 MG TAB PO SCH (21:27)
[2017-09-27] MEDS: GABAPENTIN 100 MG CAP PO SCH (21:27)
[2017-09-27] MEDS: traMADol 50 MG TAB PO PRN (21:35)
[2017-09-28] MEDS: HYDROcodone/APAP 5-325MG 1 EACH TAB PO PRN ×2 (04:39→10:27)
[2017-09-28] MEDS: LEVOTHYROXINE 50 MCG TAB PO SCH (06:27)
[2017-09-28 07:39] LABS: Glucose,Whole Blood 135 mg/dL (75-99)
[2017-09-28] MEDS: IPRATROPIUM-ALBUTEROL 3 ML NEB INHALATION SCH ×4 (07:43→20:20)
[2017-09-28] MEDS: BUDESONIDE 0.5 MG/2 ML NEBU INHALATION SCH ×2 (07:43→20:20)
[2017-09-28 07:47] LABS: HCT 31.7 % (34.0-46.0); HGB 9.7 gm/dL (11.4-16.0); Hypochromasia Slight; MCH 30.6 pg (25.0-35.0); MCHC 30.7 g/dL (31.0-37.0); MCV 99.6 fL (80.0-100.0); Macrocytosis Slight; Mean Platelet Volume 8.6; Platelet Count 109 k/uL (150-450); RBC 3.19 m/uL (3.80-5.40); RDW 15.8 % (11.5-15.5); WBC 5.8 k/uL (3.8-10.6)
[2017-09-28] MEDS: guaiFENesin 600 MG TABLET.ER PO SCH ×2 (08:00→20:12)
[2017-09-28] MEDS: FAMOTIDINE 20 MG TAB PO SCH (08:00)
[2017-09-28] MEDS: SENNOSIDES-DOCUSATE SODIUM 1 EACH TAB PO SCH (08:00)
[2017-09-28] MEDS: METOPROLOL TARTRATE 12.5 MG TAB PO SCH (08:00)
[2017-09-28] MEDS: INSULIN ASPART 100 UNIT/ML 1 ML 10 ML VIAL SQ SCH ×7 (08:01→20:29)
[2017-09-28 08:02] LABS: Potassium 3.8 mmol/L (3.5-5.1)
[2017-09-28] MEDS: INSULIN NPH 300 UNIT/3 ML VIAL SQ SCH ×2 (08:06→17:49)
[2017-09-28] MEDS: HEPARIN SODIUM,PORCINE 5,000 UNIT/ML 1 ML VIAL SQ SCH ×2 (08:06→20:12)
[2017-09-28] MEDS ORDERED: HYDROcodone/APAP 7.5-325MG 1 EACH TAB PO PRN (09:25)
[2017-09-28] MEDS ORDERED: methylPREDNISolone SOD SUCCI 40 MG/ML 1 ML VIAL IV SCH (09:30)
--- NOTE | 2017-09-28 10:33 | P.PN ---
Subjective Progress Note Date: 09/28/17 This is a 76-year-old pleasant lady patient of Dr. Noble, she has underlying history of COPD, chronic O2 dependency however she is noncompliant treated, previous tobacco, diabetes mellitus type 2, fibromyalgia morbid obesity hypertension admitted to the hospital after found abnormality on the labs. Patient had basic labs done and was called in office due to increasing creatinine. Patient states she is feeling tired, boyfriend bedside thinks patient is confused which is different from her baseline. Patient states she feels distended, complains of shortness of breath associated with cough. She denies any fever or chills. She does endorses decreased urination and frequency associated with some flank tenderness on the left for the past 1 week. She denies any blood in her urine or history of kidney stones. BMP done in the ED suggestive of BUN 78, creatinine 7.1.(Baseline creatinine 1.15 as per recent labs) vitals otherwise are stable. Metformin, glipizide, Lasix discontinued. Patient's presentation appears to be secondary to acute tubular necrosis secondary to hypoperfusion and nephrotoxic medication. Nephrology is consulted. Patient will be given 1 L of normal saline and fluids will be continued at 100 mL per hour 09/17: Repeat BUN 72 and creatinine 6.55. Patient has been seen by nephrology with recommendations for IV fluids to continue it 100 mL per hour, urine culture to be obtained, check post void residual and encourage oral intake. Repeat labs have been ordered for tomorrow. Renal ultrasound shows no hydronephrosis or nephrolithiasis. There may be cortical thinning associated with chronic medical renal disease. patient will be started on Rocephin for possible urinary tract infection. Patient has requested [facility] [place]. 09/18: Repeat BUN is 64 and creatinine 6.3. IV fluids will be increased to 75 mL per hour. Autoimmune, hepatitis and etc. testing ordered by Dr. Jiang. Patient is complaining of fibromyalgia pain and Neurontin has been added. Blood pressure was high in the evening for which metoprolol was increased to twice daily dosing. Insulin dosing will also be decreased and insulin scale added. Urine culture is in progress. 09/19: PICC line was placed yesterday as patient had no IV access. She is currently on 0.45 saline at 100 mL per hour for hypernatremia. Repeat BUN 56 and creatinine is down to 5.96.blood sugars are uncontrolled for which NPH was decreased to 12 units and added in NovoLog with meals 4 units. 09/20:, Patient remains with IV fluids, creatinine has come down to 5.46, BUN of 54, patient was encouraged to do some ambulation, no orthostasis, patient denies any ongoing GI losses blood sugars between 74-138, NPH will be decreased to 10 units twice a day, no change in NovoLog pre-meal 4 units 09/21: Creatinine still remains to be elevated 5.18, previous of 5.46, no hypertension patient does not have any issues regarding lightheadedness and dizziness, loss blood pressure 104/51, peak of 145 systolic heart rate between 51-88 patient currently is not on any DEON inhibitor as, no other antihypertensive medications 09/22: Renal function is improving slowly with BUN 54 and creatinine 5.46. Patient complains of increased shortness of breath today and wheezing. Nebulizer treatments changed to scheduled and Pulmicort added. Additional dose of Lasix to be given this afternoon the patient does not start dialysis. Chest x -ray ordered. Dr. Jiang would like to have a CAT scan guided biopsy and patient will need to be off aspirin for 7 days. Aspirin will be discontinued now. Dr. Membreno consult was added for temporary dialysis catheter and patient started dialysis treatment. Kurtz catheter to be placed to monitor urine output. Patient has had a change in her mental status. 09/23: Dr. Membreno his placed a dialysis catheter in the right femoral vein. Patient underwent dialysis yesterday and this morning. BUN is 21 and creatinine 3. Blood blood glucose running between 95 and 198. Temperature max 100.2. Heart rate has been on the lower side running 45-51 and Lopressor decreased to 12.5 mg per day with parameters. Pulse ox 91 percent on 2 L nasal cannula. She is complaining of constipation for which Senokot added. Echocardiogram report is pending. 09/24: BUN 24 and creatinine 3.6. Immunology testing was negative except for free Of 2.51. Acute hepatitis negative. No dialysis scheduled for today or tomorrow pending repeat lab work in the morning. Echocardiogram reveals borderline concentric left ventricular hypertrophy, EF 55-60%, L a dilated at 40 , mild aortic regurgitation, moderate aortic stenosis, mild mitral regurgitation , mild mitral stenosis, mild tricuspid regurgitation, mild pulmonary hypertension, right ventricular systolic pressure is 44. Patient's mental status is improved today although she will be able to work with physical therapy. Lasix was ordered 1 this morning. Patient encouraged to use incentive spirometry hourly. Patient states she has had a bowel movement and constipation is relieved. 09/25: BUN 28 and creatinine 3.98. Patient is undergoing hemodialysis today. Pulse ox 96% on 2 L. Yesterday, OT attempted to work with the patient but she was too fatigued. 09/26: BUN 25 and creatinine 3.9. Nephrology is planning on permanent dialysis catheter and biopsy for next week. Patient did receive her last dose of aspirin on September 24. Therapy has recommended subacute rehab. Social work is making arrangements for [facility] at the time of discharge. 09/27: Dr. Membreno has place a permanent HD catheter this morning. patient is scheduled for hemodialysis treatment today.a.m. labs are delayed as patient was gone for catheter placement. 09/28:Patient underwent hemodialysis yesterday. Patient is complaining of right foot and ankle pain that started last evening after possible injury. X-ray ordered. Request that the nurse follow up in the morning regarding scheduling of CAT scan guided biopsy of the kidney and plan for discharge on Friday to . Objective - Vital Signs Vital signs: Vital Signs Temp 98.1 F 09/28/17 06:30 Pulse 76 09/28/17 08:02 Resp 18 09/28/17 08:00 BP 121/60 09/28/17 06:30 Pulse Ox 92 L 09/28/17 06:30 Intake & Output 09/27/17 09/28/17 09/28/17 18:59 06:59 18:59 Intake Total 50 Output Total 550 Balance 50 -550 Weight 67.5 kg Intake: IV 50 Output: Urine 550 Other: Voiding Method Indwelling Catheter Indwelling Catheter Indwelling Catheter - Exam - Constitutional General appearance: average body habitus, cooperative, no acute distress, obese - EENT Eyes: EOMI, PERRLA, dentition normal, no ptosis, no scleral icterus ENT: hearing grossly normal Ears: bilateral: normal - Neck Neck: no lymphadenopathy, normal ROM, no rigidity, no thyromegaly Carotids: bilateral: upstroke normal Thyroid: bilateral: normal size - Respiratory Respiratory: bilateral: diminished, wheezing, prolonged expiration, negative: CTA, dullness, rales, rhonchi - Cardiovascular Rhythm: regular Heart sounds: normal: S1, S2 Abnormal Heart Sounds: no systolic murmur, no diastolic murmur, no S3 Gallop, no S4 Gallop, no click - Gastrointestinal General gastrointestinal: no distended, normal bowel sounds, no organomegaly, soft, no tenderness - Integumentary Integumentary: no pale, no rash - Neurologic Neurologic: CNII-XII intact - Musculoskeletal Musculoskeletal: generalized weakness, strength equal bilaterally - Psychiatric Psychiatric: A&O x's 3 - Labs CBC & Chem 7: 09/28/17 07:35 09/28/17 07:35 Labs: Abnormal Lab Results - Last 24 Hours (Table) 09/27/17 09/27/17 09/27/17 Range/Units 10:25 10:25 10:25 RBC 3.15 L (3.80-5.40) m/uL Hgb 9.7 L (11.4-16.0) gm/dL Hct 30.8 L (34.0-46.0) % MCHC (31.0-37.0) g/dL RDW (11.5-15.5) % Plt Count 103 L (150-450) k/uL INR 1.2 H (<1.2) Carbon Dioxide (22-30) mmol/L BUN 28 H (7-17) mg/dL Creatinine 4.05 H (0.52-1.04) mg/dL Glucose 145 H (74-99) mg/dL POC Glucose (mg/dL) (75-99) mg/dL 09/27/17 09/27/17 09/27/17 Range/Units 11:47 17:18 20:47 RBC (3.80-5.40) m/uL Hgb (11.4-16.0) gm/dL Hct (34.0-46.0) % MCHC (31.0-37.0) g/dL RDW (11.5-15.5) % Plt Count (150-450) k/uL INR (<1.2) Carbon Dioxide (22-30) mmol/L BUN (7-17) mg/dL Creatinine (0.52-1.04) mg/dL Glucose (74-99) mg/dL POC Glucose (mg/dL) 164 H 148 H 183 H (75-99) mg/dL 09/28/17 09/28/17 09/28/17 Range/Units 07:34 07:35 07:35 RBC 3.19 L (3.80-5.40) m/uL Hgb 9.7 L (11.4-16.0) gm/dL Hct 31.7 L (34.0-46.0) % MCHC 30.7 L (31.0-37.0) g/dL RDW 15.8 H (11.5-15.5) % Plt Count 109 L (150-450) k/uL INR (<1.2) Carbon Dioxide 33 H (22-30) mmol/L BUN 18 H (7-17) mg/dL Creatinine 3.05 H (0.52-1.04) mg/dL Glucose 143 H (74-99) mg/dL POC Glucose (mg/dL) 135 H (75-99) mg/dL Assessment and Plan Plan: 1. Acute kidney injury likely secondary to acute tubular necrosis from hypoperfusion that was going on for 1 week. Hold lisinopril, metformin, glipizide and Lasix. Avoid nephrotoxic agent. Monitor input and output. Daily weights. Nephrology consulted. Status post 2 L IV fluid, recommendation to follow from nephrology. Retroperitoneal ultrasound as above. Autoimmune testing has been negative. Temporary catheter placed by Dr. Membreno. Permanent HD catheter placed by Dr. Membreno. 2. Possible urinary tract infection ruled out. Discontinue ceftriaxone. 3. Chronic hypoxic respiratory failure with home O2 dependence secondary to end-stage COPD currently at baseline of 2.5 L/24 hours 4. Fibromyalgia continue [place] and tramadol 5. Diabetes mellitus type 2 insulin requiring. Hold metformin and glipizide continue NPH 12 units twice a day, NovoLog 4 units with meals and sliding scale. 6. Hypertension. Continue metoprolol 50 mg by mouth daily hold lisinopril 7. Generalized anxiety disorder and recurrent depression. Continue Elavil 75 mg at bedtime. 8. Hyperlipidemia. Continue Zocor 40 mg at bedtime. 9. Hypothyroidism. Continue Synthroid 25 g daily. 10. DVT prophylaxis. Continue heparin 5000 units subcu every 8 hours. 11. Gastrointestinal prophylaxis. Continue Pepcid 20 mg daily. 12. Hypernatremia. 13. Metabolic encephalopathy most likely secondary to uremia 14. Bradycardia. We will decrease Lopressor to 12.5 mg daily Discharge plan: [place] under the care of Dr. Noble on Friday Impression and plan of care have been directed as dictated by the signing physician. Jodi Schwartz nurse practitioner acting as scribe for signing physician.
--- NOTE | 2017-09-28 11:22 | XR ---
EXAMINATION TYPE: XR ankle complete RT , 3 VIEWS DATE OF EXAM ORDERED: 09/28/2017 HISTORY: trauma, edema and pain. COMPARISON: None. FINDINGS: No fracture, dislocation or ankle joint effusion is seen. There is a small, plantar calcan eal spur. IMPRESSION: NO ACUTE OSSEOUS LESION.
--- NOTE | 2017-09-28 11:22 | XR ---
EXAMINATION TYPE: XR foot complete RT , 3 VIEWS DATE OF EXAM ORDERED: 09/28/2017 HISTORY: trauma, edema and pain. COMPARISON: None. FINDINGS: No fracture, dislocation or other acute osseous lesion is seen. Note is made of a small pl keesha calcaneal spur. IMPRESSION: NO ACUTE OSSEOUS LESION.
--- NOTE | 2017-09-28 11:53 | P.PN ---
Subjective Progress Note Date: 09/28/17 Seen and examined for the follow-up of acute kidney injury. No new complaints Objective - Vital Signs Vital signs: Vital Signs Temp 98.1 F 09/28/17 06:30 Pulse 76 09/28/17 11:45 Resp 18 09/28/17 08:00 BP 121/60 09/28/17 06:30 Pulse Ox 92 L 09/28/17 06:30 Intake & Output 09/27/17 09/28/17 09/28/17 18:59 06:59 18:59 Intake Total 50 350 Output Total 550 Balance 50 -550 350 Weight 67.5 kg Intake: IV 50 Oral 350 Output: Urine 550 Other: Voiding Method Indwelling Catheter Indwelling Catheter Indwelling Catheter - Exam Lying in bed no acute distress S1-S2 heard Jugular permacath No edema - Labs CBC & Chem 7: 09/28/17 07:35 09/28/17 07:35 Labs: Abnormal Lab Results - Last 24 Hours (Table) 09/27/17 09/27/17 09/28/17 Range/Units 17:18 20:47 07:34 RBC (3.80-5.40) m/uL Hgb (11.4-16.0) gm/dL Hct (34.0-46.0) % MCHC (31.0-37.0) g/dL RDW (11.5-15.5) % Plt Count (150-450) k/uL Carbon Dioxide (22-30) mmol/L BUN (7-17) mg/dL Creatinine (0.52-1.04) mg/dL Glucose (74-99) mg/dL POC Glucose (mg/dL) 148 H 183 H 135 H (75-99) mg/dL 09/28/17 09/28/17 Range/Units 07:35 07:35 RBC 3.19 L (3.80-5.40) m/uL Hgb 9.7 L (11.4-16.0) gm/dL Hct 31.7 L (34.0-46.0) % MCHC 30.7 L (31.0-37.0) g/dL RDW 15.8 H (11.5-15.5) % Plt Count 109 L (150-450) k/uL Carbon Dioxide 33 H (22-30) mmol/L BUN 18 H (7-17) mg/dL Creatinine 3.05 H (0.52-1.04) mg/dL Glucose 143 H (74-99) mg/dL POC Glucose (mg/dL) (75-99) mg/dL Assessment and Plan Assessment: Impression: #1 acute kidney injury cause unclear awaiting renal biopsy as outpatient currently dialysis dependent #2 hypertension with chronic kidney disease #3 moderate aortic stenosis #4 anemia with CKD Recommendations: #1 hemodialysis TTS schedule. Serology negative. #2 permacath was placed yesterday and Les catheter was removed. #3 planned renal biopsy as outpatient #4 avoid nephrotoxic agents and monitor for renal recovery.
[2017-09-28 12:39] LABS: Glucose,Whole Blood 196 mg/dL (75-99)
[2017-09-28 17:03] LABS: Glucose,Whole Blood 173 mg/dL (75-99)
[2017-09-28] MEDS: GABAPENTIN 100 MG CAP PO SCH (20:12)
[2017-09-28] MEDS: ATORVASTATIN 20 MG TAB PO SCH (20:12)
[2017-09-28] MEDS: AMITRIPTYLINE HCL 25 MG TAB PO SCH (20:12)
[2017-09-28 20:58] LABS: Glucose,Whole Blood 238 mg/dL (75-99)
[2017-09-29] MEDS: HYDROcodone/APAP 5-325MG 1 EACH TAB PO PRN (04:41)
[2017-09-29] MEDS: LEVOTHYROXINE 50 MCG TAB PO SCH (06:16)
[2017-09-29 07:28] LABS: Glucose,Whole Blood 200 mg/dL (75-99)
[2017-09-29] MEDS: guaiFENesin 600 MG TABLET.ER PO SCH ×2 (07:52→20:13)
[2017-09-29] MEDS: METOPROLOL TARTRATE 12.5 MG TAB PO SCH (07:52)
[2017-09-29] MEDS: SENNOSIDES-DOCUSATE SODIUM 1 EACH TAB PO SCH (07:52)
[2017-09-29] MEDS: INSULIN ASPART 100 UNIT/ML 1 ML 10 ML VIAL SQ SCH ×7 (07:53→21:01)
[2017-09-29] MEDS: INSULIN NPH 300 UNIT/3 ML VIAL SQ SCH ×2 (07:53→18:00)
[2017-09-29] MEDS: FAMOTIDINE 20 MG TAB PO SCH (07:54)
[2017-09-29] MEDS: HEPARIN SODIUM,PORCINE 5,000 UNIT/ML 1 ML VIAL SQ SCH ×2 (07:54→20:13)
[2017-09-29] MEDS: IPRATROPIUM-ALBUTEROL 3 ML NEB INHALATION SCH ×4 (08:10→19:40)
[2017-09-29] MEDS: BUDESONIDE 0.5 MG/2 ML NEBU INHALATION SCH ×2 (08:11→19:40)
[2017-09-29 12:14] LABS: Glucose,Whole Blood 125 mg/dL (75-99)
--- NOTE | 2017-09-29 15:24 | P.PN ---
Subjective Progress Note Date: 09/29/17 This is a 76-year-old pleasant lady patient of Dr. Noble, she has underlying history of COPD, chronic O2 dependency however she is noncompliant treated, previous tobacco, diabetes mellitus type 2, fibromyalgia morbid obesity hypertension admitted to the hospital after found abnormality on the labs. Patient had basic labs done and was called in office due to increasing creatinine. Patient states she is feeling tired, boyfriend bedside thinks patient is confused which is different from her baseline. Patient states she feels distended, complains of shortness of breath associated with cough. She denies any fever or chills. She does endorses decreased urination and frequency associated with some flank tenderness on the left for the past 1 week. She denies any blood in her urine or history of kidney stones. BMP done in the ED suggestive of BUN 78, creatinine 7.1.(Baseline creatinine 1.15 as per recent labs) vitals otherwise are stable. Metformin, glipizide, Lasix discontinued. Patient's presentation appears to be secondary to acute tubular necrosis secondary to hypoperfusion and nephrotoxic medication. Nephrology is consulted. Patient will be given 1 L of normal saline and fluids will be continued at 100 mL per hour 09/17: Repeat BUN 72 and creatinine 6.55. Patient has been seen by nephrology with recommendations for IV fluids to continue it 100 mL per hour, urine culture to be obtained, check post void residual and encourage oral intake. Repeat labs have been ordered for tomorrow. Renal ultrasound shows no hydronephrosis or nephrolithiasis. There may be cortical thinning associated with chronic medical renal disease. patient will be started on Rocephin for possible urinary tract infection. Patient has requested [facility] [place]. 09/18: Repeat BUN is 64 and creatinine 6.3. IV fluids will be increased to 75 mL per hour. Autoimmune, hepatitis and etc. testing ordered by Dr. Jiang. Patient is complaining of fibromyalgia pain and Neurontin has been added. Blood pressure was high in the evening for which metoprolol was increased to twice daily dosing. Insulin dosing will also be decreased and insulin scale added. Urine culture is in progress. 09/19: PICC line was placed yesterday as patient had no IV access. She is currently on 0.45 saline at 100 mL per hour for hypernatremia. Repeat BUN 56 and creatinine is down to 5.96.blood sugars are uncontrolled for which NPH was decreased to 12 units and added in NovoLog with meals 4 units. 09/20:, Patient remains with IV fluids, creatinine has come down to 5.46, BUN of 54, patient was encouraged to do some ambulation, no orthostasis, patient denies any ongoing GI losses blood sugars between 74-138, NPH will be decreased to 10 units twice a day, no change in NovoLog pre-meal 4 units 09/21: Creatinine still remains to be elevated 5.18, previous of 5.46, no hypertension patient does not have any issues regarding lightheadedness and dizziness, loss blood pressure 104/51, peak of 145 systolic heart rate between 51-88 patient currently is not on any DEON inhibitor as, no other antihypertensive medications 09/22: Renal function is improving slowly with BUN 54 and creatinine 5.46. Patient complains of increased shortness of breath today and wheezing. Nebulizer treatments changed to scheduled and Pulmicort added. Additional dose of Lasix to be given this afternoon the patient does not start dialysis. Chest x -ray ordered. Dr. Jiang would like to have a CAT scan guided biopsy and patient will need to be off aspirin for 7 days. Aspirin will be discontinued now. Dr. Membreno consult was added for temporary dialysis catheter and patient started dialysis treatment. Kurtz catheter to be placed to monitor urine output. Patient has had a change in her mental status. 09/23: Dr. Membreno his placed a dialysis catheter in the right femoral vein. Patient underwent dialysis yesterday and this morning. BUN is 21 and creatinine 3. Blood blood glucose running between 95 and 198. Temperature max 100.2. Heart rate has been on the lower side running 45-51 and Lopressor decreased to 12.5 mg per day with parameters. Pulse ox 91 percent on 2 L nasal cannula. She is complaining of constipation for which Senokot added. Echocardiogram report is pending. 09/24: BUN 24 and creatinine 3.6. Immunology testing was negative except for free Of 2.51. Acute hepatitis negative. No dialysis scheduled for today or tomorrow pending repeat lab work in the morning. Echocardiogram reveals borderline concentric left ventricular hypertrophy, EF 55-60%, L a dilated at 40 , mild aortic regurgitation, moderate aortic stenosis, mild mitral regurgitation , mild mitral stenosis, mild tricuspid regurgitation, mild pulmonary hypertension, right ventricular systolic pressure is 44. Patient's mental status is improved today although she will be able to work with physical therapy. Lasix was ordered 1 this morning. Patient encouraged to use incentive spirometry hourly. Patient states she has had a bowel movement and constipation is relieved. 09/25: BUN 28 and creatinine 3.98. Patient is undergoing hemodialysis today. Pulse ox 96% on 2 L. Yesterday, OT attempted to work with the patient but she was too fatigued. 09/26: BUN 25 and creatinine 3.9. Nephrology is planning on permanent dialysis catheter and biopsy for next week. Patient did receive her last dose of aspirin on September 24. Therapy has recommended subacute rehab. Social work is making arrangements for [facility] at the time of discharge. 09/27: Dr. Membreno has place a permanent HD catheter this morning. patient is scheduled for hemodialysis treatment today.a.m. labs are delayed as patient was gone for catheter placement. 09/28:Patient underwent hemodialysis yesterday. Patient is complaining of right foot and ankle pain that started last evening after possible injury. X-ray ordered. Request that the nurse follow up in the morning regarding scheduling of CAT scan guided biopsy of the kidney and plan for discharge on Friday to . 09/29: Patient will be on a Friday schedule for hemodialysis treatment. Dialysis center is unable to schedule her until when she is at [facility]. Patient will stay for dialysis treatment on Friday and we will try to schedule her CT-guided biopsy for Friday and then discharge to [facility] following that. Patient has no new complaints. Objective - Vital Signs Vital signs: Vital Signs Temp 98.2 F 09/29/17 07:00 Pulse 66 09/29/17 11:54 Resp 18 09/29/17 07:00 BP 114/67 09/29/17 07:00 Pulse Ox 92 L 09/29/17 07:00 Intake & Output 09/28/17 09/29/17 09/29/17 18:59 06:59 18:59 Intake Total 700 350 Output Total 500 Balance 700 -150 Weight 93.5 kg Intake: Oral 700 350 Output: Urine 500 Other: Voiding Method Indwelling Catheter Indwelling Catheter Indwelling Catheter # Voids 1 - Exam - Constitutional General appearance: average body habitus, cooperative, no acute distress, obese - EENT Eyes: EOMI, PERRLA, dentition normal, no ptosis, no scleral icterus ENT: hearing grossly normal Ears: bilateral: normal - Neck Neck: no lymphadenopathy, normal ROM, no rigidity, no thyromegaly Carotids: bilateral: upstroke normal Thyroid: bilateral: normal size - Respiratory Respiratory: bilateral: diminished, wheezing, prolonged expiration, negative: CTA, dullness, rales, rhonchi - Cardiovascular Rhythm: regular Heart sounds: normal: S1, S2 Abnormal Heart Sounds: no systolic murmur, no diastolic murmur, no S3 Gallop, no S4 Gallop, no click - Gastrointestinal General gastrointestinal: no distended, normal bowel sounds, no organomegaly, soft, no tenderness - Integumentary Integumentary: no pale, no rash - Neurologic Neurologic: CNII-XII intact - Musculoskeletal Musculoskeletal: generalized weakness, strength equal bilaterally - Psychiatric Psychiatric: A&O x's 3 - Labs CBC & Chem 7: 09/28/17 07:35 09/28/17 07:35 Labs: Abnormal Lab Results - Last 24 Hours (Table) 09/28/17 09/28/17 09/28/17 Range/Units 12:26 17:00 20:26 POC Glucose (mg/dL) 196 H 173 H 238 H (75-99) mg/dL 09/29/17 Range/Units 07:23 POC Glucose (mg/dL) 200 H (75-99) mg/dL Assessment and Plan Plan: 1. Acute kidney injury likely secondary to acute tubular necrosis from hypoperfusion that was going on for 1 week. Hold lisinopril, metformin, glipizide and Lasix. Avoid nephrotoxic agent. Monitor input and output. Daily weights. Nephrology consulted. Status post 2 L IV fluid, recommendation to follow from nephrology. Retroperitoneal ultrasound as above. Autoimmune testing has been negative. Temporary catheter placed by Dr. Membreno. Permanent HD catheter placed by Dr. Membreno. 2. Possible urinary tract infection ruled out. Discontinue ceftriaxone. 3. Chronic hypoxic respiratory failure with home O2 dependence secondary to end-stage COPD currently at baseline of 2.5 L/24 hours 4. Fibromyalgia continue [place] and tramadol 5. Diabetes mellitus type 2 insulin requiring. Hold metformin and glipizide continue NPH 12 units twice a day, NovoLog 4 units with meals and sliding scale. 6. Hypertension. Continue metoprolol 50 mg by mouth daily hold lisinopril 7. Generalized anxiety disorder and recurrent depression. Continue Elavil 75 mg at bedtime. 8. Hyperlipidemia. Continue Zocor 40 mg at bedtime. 9. Hypothyroidism. Continue Synthroid 25 g daily. 10. DVT prophylaxis. Continue heparin 5000 units subcu every 8 hours. 11. Gastrointestinal prophylaxis. Continue Pepcid 20 mg daily. 12. Hypernatremia. 13. Metabolic encephalopathy most likely secondary to uremia 14. Bradycardia. We will decrease Lopressor to 12.5 mg daily Discharge plan: Allison under the care of Dr. Noble on Friday after CT- guided biopsy of the kidney is done. Impression and plan of care have been directed as dictated by the signing physician. Jodi Schwartz nurse practitioner acting as scribe for signing physician.
[2017-09-29 17:43] LABS: Glucose,Whole Blood 166 mg/dL (75-99)
[2017-09-29] MEDS: GABAPENTIN 100 MG CAP PO SCH (20:13)
[2017-09-29] MEDS: AMITRIPTYLINE HCL 25 MG TAB PO SCH (20:13)
[2017-09-29] MEDS: ATORVASTATIN 20 MG TAB PO SCH (20:13)
[2017-09-29 20:54] LABS: Glucose,Whole Blood 236 mg/dL (75-99)
--- NOTE | 2017-09-29 21:02 | PN ---
PROGRESS NOTE Patient is seen for followup for chronic kidney disease. She was started on dialysis this admission, as serum creatinine remained quite elevated. She is currently maintained on a Friday, , Friday schedule. The patient has a right IJ PermCath now. She will be getting discharged to rehab facility and will be coming to [facility] for treatment. She will be maintained on a Friday, , Friday schedule as outpatient. PHYSICAL EXAMINATION: Currently patient this morning was comfortable. Blood pressure 120/57, heart rate 64 per minute. She is afebrile. EXAMINATION OF THE HEART: S1, S2. EXAMINATION OF LUNGS: Bilateral breath sounds are heard. ABDOMEN: Soft, non-tender, obese. Examination of lower extremities shows edema 1+ bilaterally. LABS: Sodium 140, potassium 3.8, chloride 101, BUN 18, serum creatinine 3.0, hemoglobin 9.7 g/dL. ASSESSMENT: 1. Acute kidney injury on top of chronic kidney disease, currently staying hemodialysis-dependent. 2. Hypertension, currently controlled. 3. Chronic respiratory failure secondary to end-stage chronic obstructive pulmonary disease. 4. Type 2 diabetes. 5. Uremia on initial admission, currently improved. PLAN: Continue to maintain hemodialysis as outpatient. Kidney biopsy will be done as outpatient, as patient had to hold the aspirin prior to the biopsy. We will follow up on the result of the biopsy. We will dialyze her tomorrow prior to discharge. MMDGL / KAYLEIGHN: [id number] /
[2017-09-30] MEDS: LEVOTHYROXINE 50 MCG TAB PO SCH (06:29)
[2017-09-30] MEDS: INSULIN NPH 300 UNIT/3 ML VIAL SQ SCH ×3 (07:30→17:51)
[2017-09-30] MEDS: guaiFENesin 600 MG TABLET.ER PO SCH ×4 (07:30→22:04)
[2017-09-30] MEDS: INSULIN ASPART 100 UNIT/ML 1 ML 10 ML VIAL SQ SCH ×9 (07:30→22:04)
[2017-09-30] MEDS: BUDESONIDE 0.5 MG/2 ML NEBU INHALATION SCH ×2 (07:43→20:00)
[2017-09-30] MEDS: IPRATROPIUM-ALBUTEROL 3 ML NEB INHALATION SCH ×4 (07:43→20:00)
[2017-09-30 07:45] LABS: Glucose,Whole Blood 151 mg/dL (75-99)
[2017-09-30] MEDS: FAMOTIDINE 20 MG TAB PO SCH ×2 (08:30→11:21)
[2017-09-30] MEDS: SENNOSIDES-DOCUSATE SODIUM 1 EACH TAB PO SCH ×2 (08:30→11:20)
[2017-09-30] MEDS: HEPARIN SODIUM,PORCINE 5,000 UNIT/ML 1 ML VIAL SQ SCH ×3 (08:30→22:04)
[2017-09-30] MEDS: METOPROLOL TARTRATE 12.5 MG TAB PO SCH ×2 (08:31→11:20)
[2017-09-30 08:40] LABS: HCT 31.2 % (34.0-46.0); HGB 9.6 gm/dL (11.4-16.0); Hypochromasia Slight; MCH 30.4 pg (25.0-35.0); MCHC 30.8 g/dL (31.0-37.0); MCV 98.6 fL (80.0-100.0); Macrocytosis Slight; Mean Platelet Volume 8.2; Platelet Count 134 k/uL (150-450); RBC 3.17 m/uL (3.80-5.40); RDW 14.9 % (11.5-15.5); WBC 5.7 k/uL (3.8-10.6)
[2017-09-30 09:03] LABS: Potassium 3.9 mmol/L (3.5-5.1)
[2017-09-30 09:04] LABS: Calcium 8.8 mg/dL (8.4-10.2)
[2017-09-30 11:33] LABS: Glucose,Whole Blood 123 mg/dL (75-99)
--- NOTE | 2017-09-30 15:00 | P.PN ---
Subjective Progress Note Date: 09/30/17 This is a 76-year-old pleasant lady patient of Dr. Noble, she has underlying history of COPD, chronic O2 dependency however she is noncompliant treated, previous tobacco, diabetes mellitus type 2, fibromyalgia morbid obesity hypertension admitted to the hospital after found abnormality on the labs. Patient had basic labs done and was called in office due to increasing creatinine. Patient states she is feeling tired, boyfriend bedside thinks patient is confused which is different from her baseline. Patient states she feels distended, complains of shortness of breath associated with cough. She denies any fever or chills. She does endorses decreased urination and frequency associated with some flank tenderness on the left for the past 1 week. She denies any blood in her urine or history of kidney stones. BMP done in the ED suggestive of BUN 78, creatinine 7.1.(Baseline creatinine 1.15 as per recent labs) vitals otherwise are stable. Metformin, glipizide, Lasix discontinued. Patient's presentation appears to be secondary to acute tubular necrosis secondary to hypoperfusion and nephrotoxic medication. Nephrology is consulted. Patient will be given 1 L of normal saline and fluids will be continued at 100 mL per hour 09/17: Repeat BUN 72 and creatinine 6.55. Patient has been seen by nephrology with recommendations for IV fluids to continue it 100 mL per hour, urine culture to be obtained, check post void residual and encourage oral intake. Repeat labs have been ordered for tomorrow. Renal ultrasound shows no hydronephrosis or nephrolithiasis. There may be cortical thinning associated with chronic medical renal disease. patient will be started on Rocephin for possible urinary tract infection. Patient has requested [facility] [place]. 09/18: Repeat BUN is 64 and creatinine 6.3. IV fluids will be increased to 75 mL per hour. Autoimmune, hepatitis and etc. testing ordered by Dr. Jiang. Patient is complaining of fibromyalgia pain and Neurontin has been added. Blood pressure was high in the evening for which metoprolol was increased to twice daily dosing. Insulin dosing will also be decreased and insulin scale added. Urine culture is in progress. 09/19: PICC line was placed yesterday as patient had no IV access. She is currently on 0.45 saline at 100 mL per hour for hypernatremia. Repeat BUN 56 and creatinine is down to 5.96.blood sugars are uncontrolled for which NPH was decreased to 12 units and added in NovoLog with meals 4 units. 09/20:, Patient remains with IV fluids, creatinine has come down to 5.46, BUN of 54, patient was encouraged to do some ambulation, no orthostasis, patient denies any ongoing GI losses blood sugars between 74-138, NPH will be decreased to 10 units twice a day, no change in NovoLog pre-meal 4 units 09/21: Creatinine still remains to be elevated 5.18, previous of 5.46, no hypertension patient does not have any issues regarding lightheadedness and dizziness, loss blood pressure 104/51, peak of 145 systolic heart rate between 51-88 patient currently is not on any DEON inhibitor as, no other antihypertensive medications 09/22: Renal function is improving slowly with BUN 54 and creatinine 5.46. Patient complains of increased shortness of breath today and wheezing. Nebulizer treatments changed to scheduled and Pulmicort added. Additional dose of Lasix to be given this afternoon the patient does not start dialysis. Chest x -ray ordered. Dr. Jiang would like to have a CAT scan guided biopsy and patient will need to be off aspirin for 7 days. Aspirin will be discontinued now. Dr. Membreno consult was added for temporary dialysis catheter and patient started dialysis treatment. Kurtz catheter to be placed to monitor urine output. Patient has had a change in her mental status. 09/23: Dr. Membreno his placed a dialysis catheter in the right femoral vein. Patient underwent dialysis yesterday and this morning. BUN is 21 and creatinine 3. Blood blood glucose running between 95 and 198. Temperature max 100.2. Heart rate has been on the lower side running 45-51 and Lopressor decreased to 12.5 mg per day with parameters. Pulse ox 91 percent on 2 L nasal cannula. She is complaining of constipation for which Senokot added. Echocardiogram report is pending. 09/24: BUN 24 and creatinine 3.6. Immunology testing was negative except for free Of 2.51. Acute hepatitis negative. No dialysis scheduled for today or tomorrow pending repeat lab work in the morning. Echocardiogram reveals borderline concentric left ventricular hypertrophy, EF 55-60%, L a dilated at 40 , mild aortic regurgitation, moderate aortic stenosis, mild mitral regurgitation , mild mitral stenosis, mild tricuspid regurgitation, mild pulmonary hypertension, right ventricular systolic pressure is 44. Patient's mental status is improved today although she will be able to work with physical therapy. Lasix was ordered 1 this morning. Patient encouraged to use incentive spirometry hourly. Patient states she has had a bowel movement and constipation is relieved. 09/25: BUN 28 and creatinine 3.98. Patient is undergoing hemodialysis today. Pulse ox 96% on 2 L. Yesterday, OT attempted to work with the patient but she was too fatigued. 09/26: BUN 25 and creatinine 3.9. Nephrology is planning on permanent dialysis catheter and biopsy for next week. Patient did receive her last dose of aspirin on September 24. Therapy has recommended subacute rehab. Social work is making arrangements for [facility] at the time of discharge. 09/27: Dr. Membreno has place a permanent HD catheter this morning. patient is scheduled for hemodialysis treatment today.a.m. labs are delayed as patient was gone for catheter placement. 09/28:Patient underwent hemodialysis yesterday. Patient is complaining of right foot and ankle pain that started last evening after possible injury. X-ray ordered. Request that the nurse follow up in the morning regarding scheduling of CAT scan guided biopsy of the kidney and plan for discharge on Friday to . 09/29: Patient will be on a Friday schedule for hemodialysis treatment. Dialysis center is unable to schedule her until when she is at [facility]. Patient will stay for dialysis treatment on Friday and we will try to schedule her CT-guided biopsy for Friday and then discharge [facility] following that. Patient has no new complaints. 09/30: Repeat BUN 27, creatinine 3.77, hemoglobin 9.6. Patient is to undergo hemodialysis today. CAT scan guided biopsy of the kidneys for tomorrow. Patient will then be discharged to [facility]. Objective - Vital Signs Vital signs: Vital Signs Temp 98.6 F 09/30/17 07:00 Pulse 60 09/30/17 08:00 Resp 18 09/30/17 07:00 BP 131/65 09/30/17 07:00 Pulse Ox 91 L 09/30/17 07:00 Intake & Output 09/29/17 09/30/17 09/30/17 18:59 06:59 18:59 Intake Total 200 Output Total 250 475 Balance -250 -275 Weight 93.5 kg Intake: Oral 200 Output: Urine 250 475 Other: Voiding Method Indwelling Catheter Indwelling Catheter # Voids 1 # Bowel Movements 0 1 - Exam - Constitutional General appearance: average body habitus, cooperative, no acute distress, obese - EENT Eyes: EOMI, PERRLA, dentition normal, no ptosis, no scleral icterus ENT: hearing grossly normal Ears: bilateral: normal - Neck Neck: no lymphadenopathy, normal ROM, no rigidity, no thyromegaly Carotids: bilateral: upstroke normal Thyroid: bilateral: normal size - Respiratory Respiratory: bilateral: diminished, wheezing, prolonged expiration, negative: CTA, dullness, rales, rhonchi - Cardiovascular Rhythm: regular Heart sounds: normal: S1, S2 Abnormal Heart Sounds: no systolic murmur, no diastolic murmur, no S3 Gallop, no S4 Gallop, no click - Gastrointestinal General gastrointestinal: no distended, normal bowel sounds, no organomegaly, soft, no tenderness - Integumentary Integumentary: no pale, no rash - Neurologic Neurologic: CNII-XII intact - Musculoskeletal Musculoskeletal: generalized weakness, strength equal bilaterally - Psychiatric Psychiatric: A&O x's 3 - Labs CBC & Chem 7: 09/30/17 07:51 09/30/17 07:51 Labs: Abnormal Lab Results - Last 24 Hours (Table) 09/29/17 09/29/17 09/29/17 Range/Units 11:57 17:36 20:51 RBC (3.80-5.40) m/uL Hgb (11.4-16.0) gm/dL Hct (34.0-46.0) % MCHC (31.0-37.0) g/dL Plt Count (150-450) k/uL Carbon Dioxide (22-30) mmol/L BUN (7-17) mg/dL Creatinine (0.52-1.04) mg/dL Glucose (74-99) mg/dL POC Glucose (mg/dL) 125 H 166 H 236 H (75-99) mg/dL 09/30/17 09/30/17 09/30/17 Range/Units 07:37 07:51 07:51 RBC 3.17 L (3.80-5.40) m/uL Hgb 9.6 L (11.4-16.0) gm/dL Hct 31.2 L (34.0-46.0) % MCHC 30.8 L (31.0-37.0) g/dL Plt Count 134 L (150-450) k/uL Carbon Dioxide 31 H (22-30) mmol/L BUN 27 H (7-17) mg/dL Creatinine 3.77 H (0.52-1.04) mg/dL Glucose 143 H (74-99) mg/dL POC Glucose (mg/dL) 151 H (75-99) mg/dL Assessment and Plan Plan: 1. Acute kidney injury likely secondary to acute tubular necrosis from hypoperfusion that was going on for 1 week. Hold lisinopril, metformin, glipizide and Lasix. Avoid nephrotoxic agent. Monitor input and output. Daily weights. Nephrology consulted. Status post 2 L IV fluid, recommendation to follow from nephrology. Retroperitoneal ultrasound as above. Autoimmune testing has been negative. Temporary catheter placed by Dr. Membreno. Permanent HD catheter placed by Dr. Membreno. 2. Possible urinary tract infection ruled out. Discontinue ceftriaxone. 3. Chronic hypoxic respiratory failure with home O2 dependence secondary to end-stage COPD currently at baseline of 2.5 L/24 hours 4. Fibromyalgia continue [place] and tramadol 5. Diabetes mellitus type 2 insulin requiring. Hold metformin and glipizide continue NPH 12 units twice a day, NovoLog 4 units with meals and sliding scale. 6. Hypertension. Continue metoprolol 50 mg by mouth daily hold lisinopril 7. Generalized anxiety disorder and recurrent depression. Continue Elavil 75 mg at bedtime. 8. Hyperlipidemia. Continue Zocor 40 mg at bedtime. 9. Hypothyroidism. Continue Synthroid 25 g daily. 10. DVT prophylaxis. Continue heparin 5000 units subcu every 8 hours. 11. Gastrointestinal prophylaxis. Continue Pepcid 20 mg daily. 12. Hypernatremia. 13. Metabolic encephalopathy most likely secondary to uremia 14. Bradycardia. We will decrease Lopressor to 12.5 mg daily Discharge plan: Allison under the care of Dr. Noble on Friday after CT- guided biopsy of the kidney is done. Impression and plan of care have been directed as dictated by the signing physician. Jodi Schwartz nurse practitioner acting as scribe for signing physician.
[2017-09-30] MEDS: traMADol 50 MG TAB PO PRN (15:06)
[2017-09-30 15:46] VITALS: BMI 34.2
[2017-09-30 16:50] LABS: Glucose,Whole Blood 172 mg/dL (75-99)
[2017-09-30 21:11] LABS: Glucose,Whole Blood 144 mg/dL (75-99)
[2017-09-30] MEDS: AMITRIPTYLINE HCL 25 MG TAB PO SCH (22:03)
[2017-09-30] MEDS: GABAPENTIN 100 MG CAP PO SCH (22:04)
[2017-09-30] MEDS: ATORVASTATIN 20 MG TAB PO SCH (22:04)
[2017-09-30] MEDS: HYDROcodone/APAP 5-325MG 1 EACH TAB PO PRN (22:16)
--- NOTE | 2017-09-30 22:39 | PN ---
PROGRESS NOTE Patient is seen for followup for acute kidney injury, currently hemodialysis dependent. The patient is awaiting transfer to rehab facility. She will be maintained on a Friday, , Friday schedule. EXAMINATION: Blood pressure is 129/52, heart rate 55 per minute patient is afebrile. HEART: S1, S2. LUNGS: Decreased breath sounds at bases. Abdomen is soft, nontender. Lower extremities show no significant edema. 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 Patient moving all 4 extremities. No focal deficits noted. LABS: Show sodium 141, potassium 3.9, chloride 102, BUN 27, serum creatinine 3.7. Hemoglobin 9.6 g/dL. ASSESSMENT: 1. Acute kidney injury, currently hemodialysis dependent, scheduled for kidney biopsy as outpatient. 2. Uremia on initial admission, currently resolved. 3. Metabolic encephalopathy, now improved. 4. Generalized debility. Patient will be going to a rehab facility. 5. Chronic obstructive pulmonary disease, maintained on home oxygen. PLAN: Will continue to maintain patient on dialysis. She needs a kidney biopsy. She was initially scheduled as outpatient; however, it appears that it may be done as inpatient. The patient has been off of the aspirin for 7 days now. MMODL / IJN: [id number] /
[2017-10-01] MEDS: LEVOTHYROXINE 50 MCG TAB PO SCH ×2 (06:48→07:26)
[2017-10-01 07:32] LABS: Glucose,Whole Blood 135 mg/dL (75-99)
[2017-10-01] MEDS: INSULIN ASPART 100 UNIT/ML 1 ML 10 ML VIAL SQ SCH ×4 (07:36→12:46)
[2017-10-01] MEDS: INSULIN NPH 300 UNIT/3 ML VIAL SQ SCH (07:37)
[2017-10-01] MEDS: BUDESONIDE 0.5 MG/2 ML NEBU INHALATION SCH (08:11)
[2017-10-01] MEDS: IPRATROPIUM-ALBUTEROL 3 ML NEB INHALATION SCH ×2 (08:11→11:14)
[2017-10-01] MEDS: guaiFENesin 600 MG TABLET.ER PO SCH ×2 (08:13→08:43)
[2017-10-01] MEDS: HEPARIN SODIUM,PORCINE 5,000 UNIT/ML 1 ML VIAL SQ SCH (08:14)
[2017-10-01 08:41] LABS: HCT 31.8 % (34.0-46.0); Hypochromasia Slight; MCH 30.5 pg (25.0-35.0); MCHC 31.4 g/dL (31.0-37.0); Platelet Count 122 k/uL (150-450); RBC 3.28 m/uL (3.80-5.40); RDW 14.8 % (11.5-15.5); WBC 6.1 k/uL (3.8-10.6)
[2017-10-01] MEDS: HYDROcodone/APAP 5-325MG 1 EACH TAB PO PRN (08:43)
[2017-10-01] MEDS: FAMOTIDINE 20 MG TAB PO SCH (08:43)
[2017-10-01] MEDS: METOPROLOL TARTRATE 12.5 MG TAB PO SCH (08:43)
[2017-10-01] MEDS: SENNOSIDES-DOCUSATE SODIUM 1 EACH TAB PO SCH (08:43)
[2017-10-01 08:44] LABS: INR 1.3 (<1.2)
--- NOTE | 2017-10-01 08:51 | P.DS ---
Providers Date of admission: 09/16/17 15:22 Expected date of discharge: 10/01/17 Attending physician: Linda Gray MD Consults: 09/16/17 14:19 Consult Physician Routine Consulting Provider: Camden Stephens Consult Reason/Comments: [place] Do you want consulting provider notified?: Yes 09/22/17 10:54 Consult Physician Urgent Consulting Provider: Asim Membreno Consult Reason/Comments: temporary dialysis catheter needed Do you want consulting provider notified?: Yes Primary care physician: Jeronimo [facility] Course: This is a 76-year-old pleasant lady patient of Dr. Noble, she has underlying history of COPD, chronic O2 dependency however she is noncompliant treated, previous tobacco, diabetes mellitus type 2, fibromyalgia morbid obesity hypertension admitted to the hospital after found abnormality on the labs. Patient had basic labs done and was called in office due to increasing creatinine. Patient states she is feeling tired, boyfriend bedside thinks patient is confused which is different from her baseline. Patient states she feels distended, complains of shortness of breath associated with cough. She denies any fever or chills. She does endorses decreased urination and frequency associated with some flank tenderness on the left for the past 1 week. She denies any blood in her urine or history of kidney stones. BMP done in the ED suggestive of BUN 78, creatinine 7.1.(Baseline creatinine 1.15 as per recent labs) vitals otherwise are stable. Metformin, glipizide, Lasix discontinued. Patient's presentation appears to be secondary to acute tubular necrosis secondary to hypoperfusion and nephrotoxic medication. Nephrology is consulted. Patient will be given 1 L of normal saline and fluids will be continued at 100 mL per hour 09/17: Repeat BUN 72 and creatinine 6.55. Patient has been seen by nephrology with recommendations for IV fluids to continue it 100 mL per hour, urine culture to be obtained, check post void residual and encourage oral intake. Repeat labs have been ordered for tomorrow. Renal ultrasound shows no hydronephrosis or nephrolithiasis. There may be cortical thinning associated with chronic medical renal disease. patient will be started on Rocephin for possible urinary tract infection. Patient has requested [facility]. 09/18: Repeat BUN is 64 and creatinine 6.3. IV fluids will be increased to 75 mL per hour. Autoimmune, hepatitis and etc. testing ordered by Dr. Stephens. Patient is complaining of fibromyalgia pain and Neurontin has been added. Blood pressure was high in the evening for which metoprolol was increased to twice daily dosing. Insulin dosing will also be decreased and insulin scale added. Urine culture is in progress. 09/19: PICC line was placed yesterday as patient had no IV access. She is currently on 0.45 saline at 100 mL per hour for hypernatremia. Repeat BUN 56 and creatinine is down to 5.96.blood sugars are uncontrolled for which NPH was decreased to 12 units and added in NovoLog with meals 4 units. 09/20:, Patient remains with IV fluids, creatinine has come down to 5.46, BUN of 54, patient was encouraged to do some ambulation, no orthostasis, patient denies any ongoing GI losses blood sugars between 74-138, NPH will be decreased to 10 units twice a day, no change in NovoLog pre-meal 4 units 09/21: Creatinine still remains to be elevated 5.18, previous of 5.46, no hypertension patient does not have any issues regarding lightheadedness and dizziness, loss blood pressure 104/51, peak of 145 systolic heart rate between 51-88 patient currently is not on any DEON inhibitor as, no other antihypertensive medications 09/22: Renal function is improving slowly with BUN 54 and creatinine 5.46. Patient complains of increased shortness of breath today and wheezing. Nebulizer treatments changed to scheduled and Pulmicort added. Additional dose of Lasix to be given this afternoon the patient does not start dialysis. Chest x -ray ordered. Dr. Stephens would like to have a CAT scan guided biopsy and patient will need to be off aspirin for 7 days. Aspirin will be discontinued now. Dr. Membreno consult was added for temporary dialysis catheter and patient started dialysis treatment. Kurtz catheter to be placed to monitor urine output. Patient has had a change in her mental status. 09/23: Dr. Membreno his placed a dialysis catheter in the right femoral vein. Patient underwent dialysis yesterday and this morning. BUN is 21 and creatinine 3. Blood blood glucose running between 95 and 198. Temperature max 100.2. Heart rate has been on the lower side running 45-51 and Lopressor decreased to 12.5 mg per day with parameters. Pulse ox 91 percent on 2 L nasal cannula. She is complaining of constipation for which Xiomara added. Echocardiogram report is pending. 09/24: BUN 24 and creatinine 3.6. Immunology testing was negative except for free Of 2.51. Acute hepatitis negative. No dialysis scheduled for today or tomorrow pending repeat lab work in the morning. Echocardiogram reveals borderline concentric left ventricular hypertrophy, EF 55-60%, L a dilated at 40 , mild aortic regurgitation, moderate aortic stenosis, mild mitral regurgitation , mild mitral stenosis, mild tricuspid regurgitation, mild pulmonary hypertension, right ventricular systolic pressure is 44. Patient's mental status is improved today although she will be able to work with physical therapy. Lasix was ordered 1 this morning. Patient encouraged to use incentive spirometry hourly. Patient states she has had a bowel movement and constipation is relieved. 09/25: BUN 28 and creatinine 3.98. Patient is undergoing hemodialysis today. Pulse ox 96% on 2 L. Yesterday, OT attempted to work with the patient but she was too fatigued. 09/26: BUN 25 and creatinine 3.9. Nephrology is planning on permanent dialysis catheter and biopsy for next week. Patient did receive her last dose of aspirin on September 24. Therapy has recommended subacute rehab. Social work is making arrangements for [facility] at the time of discharge. 09/27: Dr. Membreno has place a permanent HD catheter this morning. patient is scheduled for hemodialysis treatment today.a.m. labs are delayed as patient was gone for catheter placement. 09/28:Patient underwent hemodialysis yesterday. Patient is complaining of right foot and ankle pain that started last evening after possible injury. X-ray ordered. Request that the nurse follow up in the morning regarding scheduling of CAT scan guided biopsy of the kidney and plan for discharge on Friday to . 09/29: Patient will be on a Friday schedule for hemodialysis treatment. Dialysis center is unable to schedule her until when she is at [facility]. Patient will stay for dialysis treatment on Friday and we will try to schedule her CT-guided biopsy for Friday and then discharge to [facility] following that. Patient has no new complaints. X-ray of the foot and ankle are negative. 09/30: Repeat BUN 27, creatinine 3.77, hemoglobin 9.6. Patient is to undergo hemodialysis today. CAT scan guided biopsy of the kidneys for tomorrow. Patient will then be discharged to [facility]. 10/01: Nephrology is planning on patient me and schedule Friday for hemodialysis. Patient is on the schedule for at the half-way. CT-guided biopsy of the kidney was done this morning and patient will be resumed back on aspirin. She will be discharged to [facility] in stable condition. Discharge diagnoses: 1. Acute kidney injury likely secondary to acute tubular necrosis from hypoperfusion that was going on for 1 week. 2. Possible urinary tract infection ruled out. 3. Chronic hypoxic respiratory failure with home O2 dependence secondary to end-stage COPD 4. Fibromyalgia 5. Diabetes mellitus type 2 insulin requiring. 6. Hypertension. 7. Generalized anxiety disorder and recurrent depression. 8. Hyperlipidemia. 9. Hypothyroidism. 10. Hypernatremia. 11. Metabolic encephalopathy most likely secondary to uremia 12. Bradycardia. Lopressor was decreased. Discharge plan: [facility] under the care of Dr. Noble Impression and plan of care have been directed as dictated by the signing physician. Jodi Schwartz nurse practitioner acting as scribe for signing physician. Patient Condition at Discharge: Good Plan - Discharge Summary Discharge Rx Participant: Yes New Discharge Prescriptions: New Budesonide [Pulmicort] 0.5 mg INHALATION RT-BID nebu guaiFENesin [Mucinex] 600 mg PO Q12HR tablet.er Insulin Aspart [NovoLOG (formulary)] 4 unit SQ AC-TID vial Insulin Aspart [NovoLOG (formulary)] 0 unit SQ ACHS vial Insulin NPH [humuLIN N] 10 unit SQ AC-BID vial Ipratropium-Albuterol Nebulize [Duoneb 0.5 mg-3 mg/3 ml Soln] 3 ml INHALATION RT-QID ampul.neb Sennosides-Docusate Sodium [Senokot-S] 2 each PO DAILY tab Aspirin EC [Ecotrin Low Dose] 81 mg PO DAILY #30 tablet. Gabapentin [Neurontin] 100 mg PO HS cap Metoprolol Tartrate [Lopressor] 12.5 mg PO DAILY tab Continue Amitriptyline HCl [Elavil] 75 mg PO HS Meclizine [Antivert] 25 mg PO BID PRN PRN Reason: Vertigo Simvastatin [Zocor] 40 mg PO HS Levothyroxine Sodium [Synthroid] 50 mcg PO DAILY HYDROcodone/APAP 5-325MG [[place] 5-325] 1 tab PO DAILY PRN #60 tab PRN Reason: Pain Discontinued Aspirin [Adult Low Dose Aspirin EC] 81 mg PO DAILY Lisinopril [Zestril] 10 mg PO DAILY Insulin NPH Human Isophane [NovoLIN N] 20 units SQ AC-BID traMADol HCL [Ultram] 100 mg PO BID PRN #60 PRN Reason: Pain Metoprolol Tartrate [Lopressor] 50 mg PO DAILY Discharge Medication List Amitriptyline HCl [Elavil] 75 mg PO HS 12/09/15 [History] Meclizine [Antivert] 25 mg PO BID PRN 12/09/15 [History] Simvastatin [Zocor] 40 mg PO HS 12/09/15 [History] Levothyroxine Sodium [Synthroid] 50 mcg PO DAILY 09/16/17 [History] Budesonide [Pulmicort] 0.5 mg INHALATION RT-BID nebu 09/29/17 [Rx] HYDROcodone/APAP 5-325MG [[place] 5-325] 1 tab PO DAILY PRN #60 tab 09/29/17 [Rx] Insulin Aspart [NovoLOG (formulary)] 0 unit SQ ACHS vial 09/29/17 [Rx] Insulin Aspart [NovoLOG (formulary)] 4 unit SQ AC-TID vial 09/29/17 [Rx] Insulin NPH [humuLIN N] 10 unit SQ AC-BID vial 09/29/17 [Rx] Ipratropium-Albuterol Nebulize [Duoneb 0.5 mg-3 mg/3 ml Soln] 3 ml INHALATION RT -QID ampul.neb 09/29/17 [Rx] Sennosides-Docusate Sodium [Senokot-S] 2 each PO DAILY tab 09/29/17 [Rx] guaiFENesin [Mucinex] 600 mg PO Q12HR tablet.er 09/29/17 [Rx] Aspirin EC [Ecotrin Low Dose] 81 mg PO DAILY #30 tablet. 10/01/17 [Rx] Gabapentin [Neurontin] 100 mg PO HS cap 10/01/17 [Rx] Metoprolol Tartrate [Lopressor] 12.5 mg PO DAILY tab 10/01/17 [Rx] Follow up Appointment(s)/Referral(s): Jeronimo Noble MD [Primary Care Provider] - 1 Week Patient Instructions/Handouts: Acute Kidney Injury (DC), Urinary Tract Infection in Women (DC) Activity/Diet/Wound Care/Special Instructions: [facility] Chair time is //Sat at 6:40 AM. First Treatment day will be at 6:40AM -please arrive a half hour early on first day. Diabetic diet. PER DR. STEPHENS- PT TO HAVE KIDNEY BIOPSY NEXT WEEK. ASPIRIN BEING HELD. Activity as tolerated. Fall precautions. PER DR. NOBLE: keep PICC line in for one week and then may d/c if ok with MD. For IV access only JAZMÍN PICC line dressing due to be changed on 10/02/17, JONN dialysis catheter Discharge Disposition: TRANSFER TO SNF/ECF
[2017-10-01 08:55] LABS: Calcium 8.9 mg/dL (8.4-10.2); Potassium 3.5 mmol/L (3.5-5.1)
--- NOTE | 2017-10-01 10:39 | CT ---
EXAMINATION TYPE: CT guided core biopsy right renal cortex DATE OF EXAM: 10/01/2017 COMPARISON: NONE HISTORY: Renal funtion CT DLP: 2272mGycm PROCEDURE: The risks, applications, benefits and alternatives, were discussed with the patient and questions wer e answered. Informed consent was obtained. The patient was placed prone on the fluoroscopic table, p repped and draped in the usual sterile fashion. A 18-gauge core biopsy needle with 2 samples obtained from the right renal cortex under CT guidance. Samples were obtained with fine needle aspiration. Pathology pending. The patient was stable throughout procedure and remained stable upon discharge from radiology. All e lements of maximal barrier and sterile technique were utilized. IMPRESSION: 1. Successful core biopsy right renal cortex under CT guidance.
[2017-10-01 11:17] VITALS: PULSE 56
[2017-10-01 11:52] LABS: Glucose,Whole Blood 138 mg/dL (75-99)
[2017-10-01 14:51] VITALS: RESP 18
[2017-10-01 14:57] VITALS: BP 111/54; TEMP 97.6
== END 2017-10-01 15:17 | DRG 682 ==
LOC: EC 11:03 → 4MS4W 15:22
PROVIDERS: ADMIT Internal Medicine; ATTEND Internal Medicine
PROC: 02HV33Z Insertion of Infusion Device into Superior Vena Cava, Percutaneous Approach (ICD-10-PCS; 2017-09-19)
PROC: 5A1D70Z Performance of Urinary Filtration, Intermittent, Less than 6 Hours Per Day (ICD-10-PCS; 2017-09-24)
PROC: 06HM33Z Insertion of Infusion Device into Right Femoral Vein, Percutaneous Approach (ICD-10-PCS; 2017-09-25)
PROC: 02HV33Z Insertion of Infusion Device into Superior Vena Cava, Percutaneous Approach (ICD-10-PCS; principal; 2017-09-27 08:00)
DX: N17.0 Acute kidney failure with tubular necrosis (principal); G93.41 Metabolic encephalopathy; E87.0 Hyperosmolality and hypernatremia; J96.11 Chronic respiratory failure with hypoxia; E87.2 Acidosis; F33.9 Major depressive disorder, recurrent, unspecified; E11.22 Type 2 diabetes mellitus with diabetic chronic kidney disease; D63.1 Anemia in chronic kidney disease; E03.9 Hypothyroidism, unspecified; E78.5 Hyperlipidemia, unspecified; E87.70 Fluid overload, unspecified; F41.1 Generalized anxiety disorder; I08.3 Combined rheumatic disorders of mitral, aortic and tricuspid valves; I12.9 Hypertensive chronic kidney disease with stage 1 through stage 4 chronic kidney disease, or unspecified chronic kidney disease; I27.20 Pulmonary hypertension, unspecified; J44.9 Chronic obstructive pulmonary disease, unspecified; K59.00 Constipation, unspecified; M79.7 Fibromyalgia; N18.3 Chronic kidney disease, stage 3 (moderate); R00.1 Bradycardia, unspecified; Z79.4 Long term (current) use of insulin; Z79.82 Long term (current) use of aspirin; Z79.899 Other long term (current) drug therapy; Z80.1 Family history of malignant neoplasm of trachea, bronchus and lung; Z80.51 Family history of malignant neoplasm of kidney; Z82.62 Family history of osteoporosis; Z85.41 Personal history of malignant neoplasm of cervix uteri; Z86.73 Personal history of transient ischemic attack (TIA), and cerebral infarction without residual deficits; Z87.891 Personal history of nicotine dependence; Z90.710 Acquired absence of both cervix and uterus; Z91.19 Patient's noncompliance with other medical treatment and regimen; Z99.81 Dependence on supplemental oxygen; Z79.890 Hormone replacement therapy; Z99.2 Dependence on renal dialysis
CPT/HCPCS: 10022; 36415; 36556; 36569; 71046; 76770; 76937; 77001; 77012; 80048; 80053; 80074; 81001; 82550; 82553; 82570; 83036; 83735; 83880; 83883; 84100; 84156; 84165; 84300; 84484; 85025; 85027; 85610; 85730; 86038; 86160; 86162; 86225; 86255; 86334; 86335; 86850; 86900; 86901; 87086; 87205; 90935; 93005; 93306; 94640; 94760; 99285

== ENCOUNTER 2017-10-26 19:41 | Inpatient (IN) | payer MEDICARE, OTHER ==
[2017-10-26] MEDS ORDERED: SODIUM CHLORIDE 0.9% 1,000 ML IV ONE (20:04)
--- NOTE | 2017-10-26 20:07 | ED ---
Altered Mental Status HPI - General Stated Complaint: fall Time Seen by Provider: 10/26/17 19:50 - History of Present Illness Initial Comments: 77 years old female was recently discharged from the hospital she was in a moderate for about 15 days she been on this Friday since then she been falling pretty regularly she said she has a one or 2 falls almost every day she fell today complaining about pain in her lumbar spine she was unable to get up she lives with her family they were not able to help her up which is quite sleepy quite tired and unable to ambulate. Denies any headache denies any chest pain no shortness of breath denies any abdominal pain complaining about the back pain complaining about the both the hip pain and feels very dizzy and lethargic - Related Data Home Medications Medication Instructions Recorded Confirmed Amitriptyline HCl [Elavil] 75 mg PO HS 12/09/15 10/26/17 Meclizine [Antivert] 25 mg PO BID PRN 12/09/15 10/26/17 Simvastatin [Zocor] 40 mg PO HS 12/09/15 10/26/17 Levothyroxine Sodium [Synthroid] 50 mcg PO DAILY 09/16/17 10/26/17 Insulin Aspart [NovoLOG See Protocol SQ ACHS 10/26/17 10/26/17 (formulary)] Metoprolol Tartrate [Lopressor] 12.5 mg PO BID 10/26/17 10/26/17 Sennosides-Docusate Sodium 2 tab PO DAILY PRN 10/26/17 10/26/17 [Senokot-S] Previous Rx's Medication Instructions Recorded HYDROcodone/APAP 5-325MG [[place] 1 tab PO DAILY PRN #60 tab 09/29/17 5-325] Insulin Aspart [NovoLOG 4 unit SQ AC-TID vial 09/29/17 (formulary)] Insulin NPH [humuLIN N] 10 unit SQ AC-BID vial 09/29/17 Ipratropium-Albuterol Nebulize 3 ml INHALATION RT-QID ampul.neb 09/29/17 [Duoneb 0.5 mg-3 mg/3 ml Soln] guaiFENesin [Mucinex] 600 mg PO Q12HR tablet.er 09/29/17 Aspirin EC [Ecotrin Low Dose] 81 mg PO DAILY #30 tablet.dr 10/01/17 Gabapentin [Neurontin] 100 mg PO HS cap 10/01/17 Allergies Allergy/AdvReac Type Severity Reaction Status Date / Time No Known Allergies Allergy Verified 10/26/17 20:12 Review of Systems ROS Statement: Those systems with pertinent positive or pertinent negative responses have been documented in the HPI. ROS Other: All systems not noted in ROS Statement are negative. Past Medical History Past Medical History: Cancer, COPD, CVA/TIA, Diabetes Mellitus, Fibromyalgia, Hyperlipidemia, Hypertension, Thyroid Disorder Additional Past Medical History / Comment(s): cervical cancer 1974, home 02 2.5 liters n/c uses prn. neuropathy in feet, tia History of Any Multi-Drug Resistant Organisms: None Reported Past Surgical History: Cholecystectomy, Hysterectomy Past Anesthesia/Blood Transfusion Reactions: No Reported Reaction Past Psychological History: Anxiety Smoking Status: Former smoker Past Alcohol Use History: None Reported Past Drug Use History: None Reported - Past Family History Father Family Medical History: Cancer, Renal Disease Additional Family Medical History / Comment(s): kidney cancer- Mother Additional Family Medical History / Comment(s): severe osteoporosis Sister(s) Family Medical History: Cancer (Lung cancer) General Exam - General Exam Comments Initial Comments: General: The patient is awake and alert, in no distress, he looks sleepy though does answer questions appropriately but slowly, GCS is 15 Skin: Skin is warm and dry and no rashes or lesions are noted. Eye: Pupils are equal, round and reactive to light, extra-ocular movements are intact; there is normal conjunctiva bilaterally. Ears, nose, mouth and throat: There are moist mucous membranes and no oral lesions. Neck: The neck is supple, there is no tenderness Cardiovascular: There is a regular rate and rhythm. No murmur, rub or gallop is appreciated. Respiratory: To auscultation bilateral, decreased air exchange bilaterally Gastrointestinal: Soft, non-distended, non-tender abdomen without masses or organomegaly noted. There is no rebound or guarding present. Bowel sounds are unremarkable. Back: There is no tenderness to palpation in the midline. There is no obvious deformity. Tender in the sacrococcygeal area Musculoskeletal: Normal ROM, no tenderness, There is no pedal edema. There is no calf tenderness or swelling. No cords were appreciated. Neurological: CN II-XII intact, Cranial nerves III through XII are intact. There are no obvious motor or sensory deficits. Coordination appears grossly intact. Speech is normal. Psychiatric: Cooperative, appropriate mood & affect, normal judgment. Course Vital Signs 10/26/17 20:09 Temperature 97.7 F Pulse Rate 75 Respiratory 18 Rate Blood Pressure 141/75 O2 Sat by Pulse 99 Oximetry Medications he is normal sinus rhythm ventricular rate is 67 IN interval is 152 QRS duration is 94 QT/QTc is 440/437 review of this EKG does not reveal any ST elevation or ST depression. Eye might was discussed with the Dr. Richter that patient is having greater risk of fall and head injury or some major fractures she fell every single day she was home from or what she are to be placed rate which she could be taken care of by professional people Medical Decision Making - Lab Data Result diagrams: 10/26/17 21:08 10/26/17 21:08 Lab Results 10/26/17 10/26/17 10/26/17 Range/Units 21:08 21:08 21:08 WBC 6.8 (3.8-10.6) k/uL RBC 3.43 L (3.80-5.40) m/uL Hgb 10.4 L (11.4-16.0) gm/dL Hct 32.7 L (34.0-46.0) % MCV 95.4 (80.0-100.0) fL MCH 30.3 (25.0-35.0) pg MCHC 31.7 (31.0-37.0) g/dL RDW 14.9 (11.5-15.5) % Plt Count 165 (150-450) k/uL Neutrophils % 68 % Lymphocytes % 23 % Monocytes % 5 % Eosinophils % 2 % Basophils % 0 % Neutrophils # 4.6 (1.3-7.7) k/uL Lymphocytes # 1.6 (1.0-4.8) k/uL Monocytes # 0.3 (0-1.0) k/uL Eosinophils # 0.2 (0-0.7) k/uL Basophils # 0.0 (0-0.2) k/uL PT 10.9 (9.0-12.0) sec INR 1.1 (<1.2) APTT 26.0 (22.0-30.0) sec Sodium 139 (137-145) mmol/L Potassium 3.6 (3.5-5.1) mmol/L Chloride 96 L (98-107) mmol/L Carbon Dioxide 34 H (22-30) mmol/L Anion Gap 9 mmol/L BUN 19 H (7-17) mg/dL Creatinine 2.70 H (0.52-1.04) mg/dL Est GFR (MDRD) Af Amer 21 (>60 ml/min/1.73 sqM) Est GFR (MDRD) Non-Af 17 (>60 ml/min/1.73 sqM) Glucose 184 H (74-99) mg/dL POC Glucose (mg/dL) (75-99) mg/dL POC Glu Practice Assistant ID Calcium 9.0 (8.4-10.2) mg/dL Total Bilirubin 0.6 (0.2-1.3) mg/dL AST 29 (14-36) U/L ALT 25 (9-52) U/L Alkaline Phosphatase 196 H (38-126) U/L Total Protein 5.4 L (6.3-8.2) g/dL Albumin 3.2 L (3.5-5.0) g/dL 10/26/17 Range/Units 21:31 WBC (3.8-10.6) k/uL RBC (3.80-5.40) m/uL Hgb (11.4-16.0) gm/dL Hct (34.0-46.0) % MCV (80.0-100.0) fL MCH (25.0-35.0) pg MCHC (31.0-37.0) g/dL RDW (11.5-15.5) % Plt Count (150-450) k/uL Neutrophils % % Lymphocytes % % Monocytes % % Eosinophils % % Basophils % % Neutrophils # (1.3-7.7) k/uL Lymphocytes # (1.0-4.8) k/uL Monocytes # (0-1.0) k/uL Eosinophils # (0-0.7) k/uL Basophils # (0-0.2) k/uL PT (9.0-12.0) sec INR (<1.2) APTT (22.0-30.0) sec Sodium (137-145) mmol/L Potassium (3.5-5.1) mmol/L Chloride (98-107) mmol/L Carbon Dioxide (22-30) mmol/L Anion Gap mmol/L BUN (7-17) mg/dL Creatinine (0.52-1.04) mg/dL Est GFR (MDRD) Af Amer (>60 ml/min/1.73 sqM) Est GFR (MDRD) Non-Af (>60 ml/min/1.73 sqM) Glucose (74-99) mg/dL POC Glucose (mg/dL) 166 H (75-99) mg/dL POC Glu Practice Assistant ID Lluvia Velez Calcium (8.4-10.2) mg/dL Total Bilirubin (0.2-1.3) mg/dL AST (14-36) U/L ALT (9-52) U/L Alkaline Phosphatase (38-126) U/L Total Protein (6.3-8.2) g/dL Albumin (3.5-5.0) g/dL Disposition Clinical Impression: Multiple falls, Weakness, Unsteady gait Disposition: ADMITTED IP TO THIS [facility] Condition: Good Referrals: Jeronimo Noble MD [Primary Care Provider] - 1-2 days
--- NOTE | 2017-10-26 20:42 | XR ---
EXAMINATION TYPE: XR chest 2V DATE OF EXAM: 10/26/2017 COMPARISON: September 27, 2017 HISTORY: Confusion TECHNIQUE: Frontal and lateral views of the chest are obtained. FINDINGS: There is no heart failure nor confluent pneumonic infiltrate. There is dual lumen right ce ntral venous catheter with the tip over the right atrium. Costophrenic angles are clear. Bony thorax is intact. IMPRESSION: No active cardiopulmonary disease. No change.
--- NOTE | 2017-10-26 20:47 | XR ---
EXAMINATION TYPE: XR lumbar spine 2 or 3V DATE OF EXAM: 10/26/2017 COMPARISON: NONE HISTORY: Falls. Back pain. TECHNIQUE: 3 views FINDINGS: Lumbar vertebra have fairly normal alignment. There is a few millimeter anterior subluxatio n of L4 in relation L5. There is no spondylolysis. Abdominal aorta is atheromatous. There is L2-3 dis c space narrowing. IMPRESSION: Spondylotic changes. No fracture.
--- NOTE | 2017-10-26 20:49 | XR ---
EXAMINATION TYPE: XR Hip Bilateral Complete DATE OF EXAM: 10/26/2017 COMPARISON: NONE HISTORY: Pain TECHNIQUE: 4 views FINDINGS: AP and frog-leg views of both hips show no fracture nor dislocation. Hip joint spaces are f airly normal. There is mild acetabular spurring. IMPRESSION: Mild spurring. No fracture seen.
--- NOTE | 2017-10-26 21:02 | CT ---
EXAMINATION TYPE: CT brain wo con DATE OF EXAM: 10/26/2017 COMPARISON: 05/14/2013 HISTORY: Altered mental status. Head injury. CT DLP: mGycm Automated exposure control for dose reduction was used. FINDINGS: There is cerebral cortical atrophy. There is no mass effect nor midline shift. There is no sign of in tracranial hemorrhage. There is mild white matter hypodensity. Calvarium is intact. 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 NO ACUTE INTRACRANIAL ABNORMALITY. No change .
[2017-10-26 21:19] LABS: Basophils % (A) 0 %; Eosinophils # (A) 0.2 k/uL (0-0.7); Eosinophils % (A) 2 %; HCT 32.7 % (34.0-46.0); HGB 10.4 gm/dL (11.4-16.0); Lymphocytes # (A) 1.6 k/uL (1.0-4.8); Lymphocytes % (A) 23 %; MCH 30.3 pg (25.0-35.0); MCHC 31.7 g/dL (31.0-37.0); MCV 95.4 fL (80.0-100.0); Mean Platelet Volume 7.7; Monocytes # (A) 0.3 k/uL (0-1.0); Monocytes % (A) 5 %; Neutrophils # (A) 4.6 k/uL (1.3-7.7); Neutrophils % (A) 68 %; Platelet Count 165 k/uL (150-450); RBC 3.43 m/uL (3.80-5.40); RDW 14.9 % (11.5-15.5); WBC 6.8 k/uL (3.8-10.6)
[2017-10-26 21:27] LABS: INR 1.1 (<1.2); Prothrombin Time 10.9 sec (9.0-12.0)
[2017-10-26 21:29] LABS: Albumin 3.2 g/dL (3.5-5.0); Potassium 3.6 mmol/L (3.5-5.1); Total Bilirubin 0.6 mg/dL (0.2-1.3); Total Protein 5.4 g/dL (6.3-8.2)
[2017-10-26 21:32] LABS: Glucose,Whole Blood 166 mg/dL (75-99)
[2017-10-26] MEDS ORDERED: MORPHINE SULFATE 4 MG/ML SYRINGE IV PRN (21:55)
[2017-10-26] MEDS ORDERED: NALOXONE 0.4 MG/ML 1 ML VIAL IV PRN (21:55)
[2017-10-26] MEDS ORDERED: ONDANSETRON 4 MG/2 ML VIAL IVP PRN (21:55)
[2017-10-26] MEDS ORDERED: ACETAMINOPHEN TAB 325 MG TAB PO PRN (21:55)
[2017-10-26] MEDS ORDERED: HYDROcodone/APAP 5-325MG 1 EACH TAB PO PRN (21:59)
[2017-10-26] MEDS ORDERED: MECLIZINE 25 MG TAB PO PRN (21:59)
[2017-10-26] MEDS ORDERED: SENNOSIDES-DOCUSATE SODIUM 1 EACH TAB PO PRN (21:59)
[2017-10-26 22:00] LABS: Troponin I 0.071 ng/mL (0.000-0.034)
[2017-10-26] MEDS ORDERED: MORPHINE SULFATE 4 MG/ML SYRINGE IVP PRN (22:06)
[2017-10-26] MEDS ORDERED: NITROGLYCERIN SL TABS 0.4 MG TAB SUBLINGUAL PRN (22:06)
[2017-10-26 22:51] LABS: Appearance,Urine Cloudy (Clear); Color,Urine Amber; Hyaline Casts,Urine 23 /lpf (0-2); RBC,Urine 80 /hpf (0-5); Squamous Epithelial Cell,Urine 5 /hpf (0-4); WBC,Urine >182 /hpf (0-5)
[2017-10-26 22:52] LABS: Bilirubin,Urine 2+ (Negative); Blood,Urine Negative (Negative); Glucose,Urine (UA) Negative (Negative); Ketones,Urine Negative (Negative); Leukocyte Esterase,Urine Large (Negative); Protein,Urine 2+ (Negative); Specific Gravity,Urine 1.005 (1.001-1.035)
[2017-10-27] MEDS ORDERED: cefTRIAXone IN SWFI 1,000 MG/10 ML SYRINGE IVP STA (00:17)
[2017-10-27 03:42] LABS: Creatine Kinase MB 0.7 ng/mL (0.0-2.4)
[2017-10-27 03:47] LABS: Troponin I 0.072 ng/mL (0.000-0.034)
[2017-10-27 06:13] LABS: Glucose,Whole Blood 142 mg/dL (75-99)
[2017-10-27] MEDS: INSULIN ASPART 100 UNIT/ML 1 ML 10 ML VIAL SQ SCH ×3 (07:20→17:04)
[2017-10-27] MEDS ORDERED: INSULIN NPH 300 UNIT/3 ML VIAL SQ SCH (07:30)
[2017-10-27] MEDS: IPRATROPIUM-ALBUTEROL 3 ML NEB INHALATION SCH ×4 (08:02→20:53)
[2017-10-27] MEDS: ASPIRIN 325 MG TAB PO SCH (08:59)
[2017-10-27] MEDS: guaiFENesin 600 MG TABLET.ER PO SCH ×2 (08:59→20:46)
[2017-10-27] MEDS: LEVOTHYROXINE 50 MCG TAB PO SCH (08:59)
[2017-10-27] MEDS: METOPROLOL TARTRATE 12.5 MG TAB PO SCH ×2 (08:59→20:46)
[2017-10-27] MEDS ORDERED: NON-FORMULARY DRUG (Aspirin Ec 81 MG) PO SCH (09:00)
[2017-10-27 10:07] LABS: Cholesterol 122 mg/dL (<200); HDL Cholesterol 37 mg/dL (40-60); LDL Cholesterol,Calculated 64 mg/dL (0-99); Triglycerides 105 mg/dL (<150)
--- NOTE | 2017-10-27 10:29 | P.CRDCN ---
History of Present Illness Reason for Consult (text): Patient interviewed and examined. Recurrent dizzy spells and recent fall Known diabetes, chronic kidney disease Please see full dictation Dr. Art. Orthostatics today Avoid amitriptyline at night, orthostatic hypotension is a known complication Readjustment of medications thereafter Consider tilt table test Past Medical History Past Medical History: Cancer, COPD, CVA/TIA, Diabetes Mellitus, Fibromyalgia, Hyperlipidemia, Hypertension, Thyroid Disorder Additional Past Medical History / Comment(s): cervical cancer 1974, home 02 2.5 liters n/c uses prn. neuropathy in feet, tia History of Any Multi-Drug Resistant Organisms: None Reported Past Surgical History: Cholecystectomy, Hysterectomy Past Anesthesia/Blood Transfusion Reactions: No Reported Reaction Past Psychological History: Anxiety Additional Psychological History / Comment(s): pt lives w/sig other of years. has 1 pet cat. has home 02 2.5 liters n/c,nebulizer,shower chair, electri scooter, w/c, walker. Smoking Status: Former smoker Past Alcohol Use History: None Reported Additional Past Alcohol Use History / Comment(s): started smoking 1959- quit 1989 was smoking 2 ppd Past Drug Use History: None Reported - Past Family History Father Family Medical History: Cancer, Renal Disease Additional Family Medical History / Comment(s): kidney cancer- Mother Additional Family Medical History / Comment(s): severe osteoporosis Sister(s) Family Medical History: Cancer Medications and Allergies Home Medications Medication Instructions Recorded Confirmed Type Amitriptyline HCl [Elavil] 75 mg PO HS 12/09/15 10/26/17 History Meclizine [Antivert] 25 mg PO BID PRN 12/09/15 10/26/17 History Simvastatin [Zocor] 40 mg PO HS 12/09/15 10/26/17 History Levothyroxine Sodium [Synthroid] 50 mcg PO DAILY 09/16/17 10/26/17 History HYDROcodone/APAP 5-325MG [[place] 1 tab PO DAILY PRN #60 tab 09/29/17 10/26/17 Rx 5-325] Insulin Aspart [NovoLOG 4 unit SQ AC-TID vial 09/29/17 10/26/17 Rx (formulary)] Insulin NPH [humuLIN N] 10 unit SQ AC-BID vial 09/29/17 10/26/17 Rx Ipratropium-Albuterol Nebulize 3 ml INHALATION RT-QID ampul.neb 09/29/17 Rx [Duoneb 0.5 mg-3 mg/3 ml Soln] guaiFENesin [Mucinex] 600 mg PO Q12HR tablet.er 09/29/17 10/26/17 Rx Aspirin EC [Ecotrin Low Dose] 81 mg PO DAILY #30 tablet. 10/01/17 10/26/17 Rx Gabapentin [Neurontin] 100 mg PO HS cap 10/01/17 10/26/17 Rx Insulin Aspart [NovoLOG See Protocol SQ ACHS 10/26/17 10/26/17 History (formulary)] Metoprolol Tartrate [Lopressor] 12.5 mg PO BID 10/26/17 10/26/17 History Sennosides-Docusate Sodium 2 tab PO DAILY PRN 10/26/17 10/26/17 History [Senokot-S] Allergies Allergy/AdvReac Type Severity Reaction Status Date / Time No Known Allergies Allergy Verified 10/26/17 20:12 Physical Exam Vitals: Vital Signs Temp Pulse Pulse Resp BP BP Pulse Ox 10/27/17 08:00 99.2 F 81 18 103/47 92 L 10/27/17 04:00 98.7 F 61 18 123/62 100 10/27/17 00:36 97.1 F L 80 18 121/58 96 10/27/17 00:17 98.5 F 78 18 149/64 98 10/26/17 23:34 68 18 118/56 96 10/26/17 22:23 68 18 118/71 97 10/26/17 20:09 97.7 F 75 18 141/75 99 Intake and Output 10/26/17 10/27/17 10/27/17 22:59 06:59 14:59 Intake Total 800 Balance 800 Intake: IV 800 Sodium Chloride 0.9% 1, 800 000 ml @ 100 mls/hr IV . Q10H ONE Rx#:[id number] Other: Voiding Method Bedpan # Voids 1 Weight 90.718 kg 87.5 kg Results 10/26/17 21:08 10/26/17 21:08 Cardiac Enzymes 10/26/17 10/26/17 10/27/17 Range/Units 21:08 21:08 02:57 AST 29 (14-36) U/L CK-MB (CK-2) 1.0 0.7 (0.0-2.4) ng/mL Troponin I 0.071 H* 0.072 H* (0.000-0.034) ng/mL Coagulation 10/26/17 Range/Units 21:08 PT 10.9 (9.0-12.0) sec APTT 26.0 (22.0-30.0) sec Lipids 10/27/17 Range/Units 09:21 Triglycerides 105 (<150) mg/dL Cholesterol 122 (<200) mg/dL HDL Cholesterol 37 L (40-60) mg/dL CBC 10/26/17 Range/Units 21:08 WBC 6.8 (3.8-10.6) k/uL RBC 3.43 L (3.80-5.40) m/uL Hgb 10.4 L (11.4-16.0) gm/dL Hct 32.7 L (34.0-46.0) % Plt Count 165 (150-450) k/uL Comprehensive Metabolic Panel 10/26/17 Range/Units 21:08 Sodium 139 (137-145) mmol/L Potassium 3.6 (3.5-5.1) mmol/L Chloride 96 L (98-107) mmol/L Carbon Dioxide 34 H (22-30) mmol/L BUN 19 H (7-17) mg/dL Creatinine 2.70 H (0.52-1.04) mg/dL Glucose 184 H (74-99) mg/dL Calcium 9.0 (8.4-10.2) mg/dL AST 29 (14-36) U/L ALT 25 (9-52) U/L Alkaline Phosphatase 196 H (38-126) U/L Total Protein 5.4 L (6.3-8.2) g/dL Albumin 3.2 L (3.5-5.0) g/dL Current Medications Generic Name Dose Route Start Last Admin Trade Name Freq PRN Reason Stop Dose Admin Acetaminophen 650 mg 10/26/17 21:55 Tylenol Tab PO Q6HR PRN Mild Pain or Fever > 100.5 Hydrocodone Bitart/Acetaminophen 1 each 10/26/17 21:59 [place] 5-325 PO DAILY PRN Pain Albuterol/Ipratropium 3 ml 10/27/17 08:00 10/27/17 08:02 Duoneb 0.5 Mg-3 Mg/3 Ml Soln INHALATION Not Given RT-QID [facility] Amitriptyline HCl 75 mg 10/27/17 21:00 Elavil PO HS [facility] Aspirin 325 mg 10/27/17 09:00 10/27/17 08:59 Aspirin PO 325 mg DAILY [facility] Administration Atorvastatin Calcium 20 mg 10/27/17 21:00 Lipitor PO HS [facility] Gabapentin 100 mg 10/27/17 21:00 Neurontin PO HS [facility] Guaifenesin 600 mg 10/27/17 09:00 10/27/17 08:59 Mucinex PO 600 mg Q12HR [facility] Administration Insulin Aspart 4 unit 10/27/17 07:30 10/27/17 07:20 Novolog SQ 4 unit AC-TID [facility] Administration Insulin Human NPH 10 unit 10/27/17 07:30 10/27/17 07:20 Humulin N SQ 10 unit AC-BID [facility] Administration Levothyroxine Sodium 50 mcg 10/27/17 09:00 10/27/17 08:59 Synthroid PO 50 mcg DAILY [facility] Administration Meclizine HCl 25 mg 10/26/17 21:59 Antivert PO BID PRN Vertigo Metoprolol Tartrate 12.5 mg 10/27/17 09:00 10/27/17 08:59 Lopressor PO 12.5 mg BID [facility] Administration Morphine Sulfate 2 mg 10/26/17 21:55 10/27/17 07:19 Morphine Sulfate (Inj) IV 2 mg Q4HR PRN Administration Severe Pain Morphine Sulfate 2 mg 10/26/17 22:06 Morphine Sulfate (Inj) IVP Q5M PRN Chest Pain Naloxone HCl 0.2 mg 10/26/17 21:55 Narcan IV Q2M PRN Opioid Reversal Nitroglycerin 0.4 mg 10/26/17 22:06 Nitrostat SUBLINGUAL Q5M PRN Chest Pain Ondansetron HCl 4 mg 10/26/17 21:55 Zofran IVP Q8HR PRN Nausea And Vomiting Senna/Docusate Sodium 2 each 10/26/17 21:59 Senokot-S PO DAILY PRN Constipation Intake and Output 03/04/18 03/05/18 03/05/18 22:59 06:59 14:59 Intake Total 800 Balance 800 Intake: IV 800 Sodium Chloride 0.9% 1, 800 000 ml @ 100 mls/hr IV . Q10H ONE Rx#:[id number] Other: Voiding Method Bedpan # Voids 1 Weight 90.718 kg 87.5 kg 10/26/17 21:08 10/26/17 21:08
[2017-10-27 10:33] LABS: Creatine Kinase MB 0.6 ng/mL (0.0-2.4)
[2017-10-27 10:35] LABS: Troponin I 0.056 ng/mL (0.000-0.034)
--- NOTE | 2017-10-27 11:29 | P.CRDCN ---
History of Present Illness Consult date: 10/27/17 Requesting physician: Linda Gray Reason for Consult (text): Abnormal troponin Chief complaint: Falls History of present illness: This is a 77-year-old female with known history of COPD with home O2 use, prior nicotine dependence, diabetes, hyperlipidemia, renal failure, obesity , hypertension, who presented to the hospital after experiencing multiple falls. According to the patient, she has at least 2 falls almost every day. Patient does experience significant pain in her lumbar spine area. She states that she does get occasional mild dizziness and lightheadedness, but she does not get this with each fall. According to the patient, she does not pass out completely. She does feel lethargic however. Chest x-ray performed on arrival here did not reveal any active cardiopulmonary disease. CAT scan of the brain reveals cerebral atrophy and mild chronic small vessel ischemia with no intracranial abnormality acutely. Hip x-ray does not reveal any fracture. Lumbar spine x-ray reveals spondylitic changes with no fracture. EKG shows a normal sinus rhythm with nonspecific ST-T wave changes. White blood cell count is normal, troponins 0.071, 0.072, 0.056. hemoglobin 10.4, platelet count 165. Sodium 139, potassium 3.6, BUN 19, creatinine 2.7. Positive UTI. At the time of our examination this morning, patient denies having any episodes of chest discomfort, her breathing has been stable. She does get intermittent dizziness and lightheadedness. Blood pressure on arrival here 140/70 with a heart rate in the 70s, 99% on 4 L of oxygen. Let pressure this morning 102/47, heart rate in the 80s, 92% on 3 L of oxygen. Past Medical History Past Medical History: Cancer, COPD, CVA/TIA, Diabetes Mellitus, Fibromyalgia, Hyperlipidemia, Hypertension, Thyroid Disorder Additional Past Medical History / Comment(s): cervical cancer 1974, home 02 2.5 liters n/c uses prn. neuropathy in feet, tia History of Any Multi-Drug Resistant Organisms: None Reported Past Surgical History: Cholecystectomy, Hysterectomy Past Anesthesia/Blood Transfusion Reactions: No Reported Reaction Past Psychological History: Anxiety Additional Psychological History / Comment(s): pt lives w/sig other of years. has 1 pet cat. has home 02 2.5 liters n/c,nebulizer,shower chair, electri scooter, w/c, walker. Smoking Status: Former smoker Past Alcohol Use History: None Reported Additional Past Alcohol Use History / Comment(s): started smoking 1959- quit 1989 was smoking 2 ppd Past Drug Use History: None Reported - Past Family History Father Family Medical History: Cancer, Renal Disease Additional Family Medical History / Comment(s): kidney cancer- Mother Additional Family Medical History / Comment(s): severe osteoporosis Sister(s) Family Medical History: Cancer Medications and Allergies Home Medications Medication Instructions Recorded Confirmed Type Amitriptyline HCl [Elavil] 75 mg PO HS 12/09/15 10/26/17 History Meclizine [Antivert] 25 mg PO BID PRN 12/09/15 10/26/17 History Simvastatin [Zocor] 40 mg PO HS 12/09/15 10/26/17 History Levothyroxine Sodium [Synthroid] 50 mcg PO DAILY 09/16/17 10/26/17 History HYDROcodone/APAP 5-325MG [[place] 1 tab PO DAILY PRN #60 tab 09/29/17 10/26/17 Rx 5-325] Insulin Aspart [NovoLOG 4 unit SQ AC-TID vial 09/29/17 10/26/17 Rx (formulary)] Insulin NPH [humuLIN N] 10 unit SQ AC-BID vial 09/29/17 10/26/17 Rx Ipratropium-Albuterol Nebulize 3 ml INHALATION RT-QID ampul.neb 09/29/17 Rx [Duoneb 0.5 mg-3 mg/3 ml Soln] guaiFENesin [Mucinex] 600 mg PO Q12HR tablet.er 09/29/17 10/26/17 Rx Aspirin EC [Ecotrin Low Dose] 81 mg PO DAILY #30 tablet.dr 10/01/17 10/26/17 Rx Gabapentin [Neurontin] 100 mg PO HS cap 10/01/17 10/26/17 Rx Insulin Aspart [NovoLOG See Protocol SQ ACHS 10/26/17 10/26/17 History (formulary)] Metoprolol Tartrate [Lopressor] 12.5 mg PO BID 10/26/17 10/26/17 History Sennosides-Docusate Sodium 2 tab PO DAILY PRN 10/26/17 10/26/17 History [Senokot-S] Allergies Allergy/AdvReac Type Severity Reaction Status Date / Time No Known Allergies Allergy Verified 10/26/17 20:12 Physical Exam Vitals: Vital Signs Temp Pulse Pulse Resp BP BP Pulse Ox 10/27/17 08:00 99.2 F 81 18 103/47 92 L 10/27/17 04:00 98.7 F 61 18 123/62 100 10/27/17 00:36 97.1 F L 80 18 121/58 96 10/27/17 00:17 98.5 F 78 18 149/64 98 10/26/17 23:34 68 18 118/56 96 10/26/17 22:23 68 18 118/71 97 10/26/17 20:09 97.7 F 75 18 141/75 99 Intake and Output 10/26/17 10/27/17 10/27/17 22:59 06:59 14:59 Intake Total 800 Balance 800 Intake: IV 800 Sodium Chloride 0.9% 1, 800 000 ml @ 100 mls/hr IV . Q10H ONE Rx#:[id number] Other: Voiding Method Bedpan # Voids 1 Weight 90.718 kg 87.5 kg PHYSICAL EXAMINATION: HEENT: Head is atraumatic, normocephalic. Pupils equal, round. Neck is supple. There is no elevated jugular venous pressure. HEART EXAMINATION: Heart S1, S2 normal. No murmur or gallop heard. CHEST EXAMINATION: Lungs reveal mild diminished air entry bilaterally with expiratory wheezing noted. ABDOMEN: Soft, nontender. Bowel sounds are heard. No organomegaly noted. EXTREMITIES: 2+ peripheral pulses with no evidence of peripheral edema and no calf tenderness noted. NEUROLOGIC patient is awake, alert and oriented -3. . Results 10/26/17 21:08 10/26/17 21:08 Cardiac Enzymes 10/26/17 10/26/17 10/27/17 Range/Units 21:08 21:08 02:57 AST 29 (14-36) U/L CK-MB (CK-2) 1.0 0.7 (0.0-2.4) ng/mL Troponin I 0.071 H* 0.072 H* (0.000-0.034) ng/mL 10/27/17 Range/Units 09:21 AST (14-36) U/L CK-MB (CK-2) 0.6 (0.0-2.4) ng/mL Troponin I 0.056 H* (0.000-0.034) ng/mL Coagulation 10/26/17 Range/Units 21:08 PT 10.9 (9.0-12.0) sec APTT 26.0 (22.0-30.0) sec Lipids 10/27/17 Range/Units 09:21 Triglycerides 105 (<150) mg/dL Cholesterol 122 (<200) mg/dL HDL Cholesterol 37 L (40-60) mg/dL CBC 10/26/17 Range/Units 21:08 WBC 6.8 (3.8-10.6) k/uL RBC 3.43 L (3.80-5.40) m/uL Hgb 10.4 L (11.4-16.0) gm/dL Hct 32.7 L (34.0-46.0) % Plt Count 165 (150-450) k/uL Comprehensive Metabolic Panel 10/26/17 Range/Units 21:08 Sodium 139 (137-145) mmol/L Potassium 3.6 (3.5-5.1) mmol/L Chloride 96 L (98-107) mmol/L Carbon Dioxide 34 H (22-30) mmol/L BUN 19 H (7-17) mg/dL Creatinine 2.70 H (0.52-1.04) mg/dL Glucose 184 H (74-99) mg/dL Calcium 9.0 (8.4-10.2) mg/dL AST 29 (14-36) U/L ALT 25 (9-52) U/L Alkaline Phosphatase 196 H (38-126) U/L Total Protein 5.4 L (6.3-8.2) g/dL Albumin 3.2 L (3.5-5.0) g/dL Current Medications Generic Name Dose Route Start Last Admin Trade Name Freq PRN Reason Stop Dose Admin Acetaminophen 650 mg 10/26/17 21:55 Tylenol Tab PO Q6HR PRN Mild Pain or Fever > 100.5 Hydrocodone Bitart/Acetaminophen 1 each 10/26/17 21:59 [place] 5-325 PO DAILY PRN Pain Albuterol/Ipratropium 3 ml 10/27/17 08:00 10/27/17 08:02 Duoneb 0.5 Mg-3 Mg/3 Ml Soln INHALATION Not Given RT-QID [facility] Aspirin 325 mg 10/27/17 09:00 10/27/17 08:59 Aspirin PO 325 mg DAILY [facility] Administration Atorvastatin Calcium 20 mg 10/27/17 21:00 Lipitor PO HS [facility] Gabapentin 100 mg 10/27/17 21:00 Neurontin PO [facility] Guaifenesin 600 mg 10/27/17 09:00 10/27/17 08:59 Mucinex PO 600 mg Q12HR [facility] Administration Insulin Aspart 4 unit 10/27/17 07:30 10/27/17 07:20 Novolog SQ 4 unit AC-TID [facility] Administration Insulin Human NPH 10 unit 10/27/17 07:30 10/27/17 07:20 Humulin N SQ 10 unit AC-BID [facility] Administration Levothyroxine Sodium 50 mcg 10/27/17 09:00 10/27/17 08:59 Synthroid PO 50 mcg DAILY [facility] Administration Meclizine HCl 25 mg 10/26/17 21:59 Antivert PO BID PRN Vertigo Metoprolol Tartrate 12.5 mg 10/27/17 09:00 10/27/17 08:59 Lopressor PO 12.5 mg BID [facility] Administration Morphine Sulfate 2 mg 10/26/17 21:55 10/27/17 07:19 Morphine Sulfate (Inj) IV 2 mg Q4HR PRN Administration Severe Pain Morphine Sulfate 2 mg 10/26/17 22:06 Morphine Sulfate (Inj) IVP Q5M PRN Chest Pain Naloxone HCl 0.2 mg 10/26/17 21:55 Narcan IV Q2M PRN Opioid Reversal Nitroglycerin 0.4 mg 10/26/17 22:06 Nitrostat SUBLINGUAL Q5M PRN Chest Pain Ondansetron HCl 4 mg 10/26/17 21:55 Zofran IVP Q8HR PRN Nausea And Vomiting Senna/Docusate Sodium 2 each 10/26/17 21:59 Senokot-S PO DAILY PRN Constipation Intake and Output 10/26/17 10/27/17 10/27/17 22:59 06:59 14:59 Intake Total 800 Balance 800 Intake: IV 800 Sodium Chloride 0.9% 1, 800 000 ml @ 100 mls/hr IV . Q10H ONE Rx#:[id number] Other: Voiding Method Bedpan # Voids 1 Weight 90.718 kg 87.5 kg 10/26/17 21:08 10/26/17 21:08 EKG Interpretations (text) EKG shows normal sinus rhythm with nonspecific ST-T wave changes Assessment and Plan Plan: Assessment and plan #1 frequent falls, with associated mild dizziness and lightheadedness. Rule out orthostatic hypotension #2 acute on chronic kidney failure, on hemodialysis #3 UTI #4 end-stage COPD, on home O2. #5 diabetes #6 hypertension #7 hyperlipidemia #8 hypothyroidism #9 generalized anxiety disorder and recurrent depression Plan Patient recently had an echocardiogram with Doppler study performed which revealed a normal left ventricular systolic function. Moderate aortic stenosis. Therefore we will not repeat an echo on this admission. We will check orthostatic heart rate and blood pressure every shift. Continue to monitor for any tachycardia or bradycardia arrhythmias. Avoid amitriptyline at night, orthostatic hypotension is a known complication. Patient may require a tilt table test. Further recommendations to follow. DNP note has been reviewed, I agree with a documented findings and plan of care. Patient was seen and examined.
[2017-10-27 12:12] LABS: Glucose,Whole Blood 121 mg/dL (75-99)
--- NOTE | 2017-10-27 14:56 | P.HPIM ---
History of Present Illness H&P Date: 10/27/17 Chief Complaint: falls This is a 76-year-old pleasant lady patient of Dr. Noble, she has underlying history of COPD, chronic O2 2.5-3 L dependency however she is noncompliant treated, previous tobacco, diabetes mellitus type 2, fibromyalgia morbid obesity hypertension admitted to the hospital with multiple falls and generalized weakness. Patient was last admitted on 09/16 for acute kidney injury likely multifactorial and was initiated on dialysis prior to discharge. Apparently, patient is having multiple falls every day with history of dizziness. She is complaining of significant pain in her lumbar spine as well as buttocks and lower extremity. Patient is unable to ambulate due to increased weakness. On evaluation in the morning, patient was unable to stand for a few seconds to check for orthostatic hypotension. She complains of flank pain associated with lightheadedness. Patient also endorses shortness of breath on exertion. Labs done in the ER suggestive of increase troponin 0.072 0.056. Urinalysis positive for 182 WBCs with 23 hyaline cast. CBC was negative for any leukocytosis. Creatinine 2.7 BUN 19 which is patient's baseline since last admission. Orthostatic could not be obtained. Patient's heart rate fluctuates between 50-81. Patient is admitted for hypotension, dizziness, multiple falls, urinary tract infection, generalized debility and possible rehab. Review of Systems Constitutional: Denies chills, Denies fever, endorses lethargy, endorses malaise, Denies poor appetite, endorses weakness, Denies weight loss Eyes: denies decreased vision, denies diplopia, denies discharge, denies pain Ears: deny: decreased hearing Ears, nose, mouth and throat: Denies dental pain, Denies headache, Denies nasal discharge, Denies nose pain Cardiovascular: Denies chest pain, endorses decreased exercise tolerance, Denies edema, Denies high blood pressure, Denies irregular heart beat, Denies palpitations, Denies paroxysmal nocturnal dyspnea, Denies rapid heart beat, endorses shortness of breath Respiratory: Denies congestion, Denies cough, Denies cough with sputum, endorses home oxygen, Denies wheezing Gastrointestinal: Denies abdominal pain, Denies change in bowel habits, Denies coffee ground emesis, Denies early satiety, Denies excessive gas, Denies heartburn, Denies hematemesis, Denies hematochezia, Denies loss of appetite, Denies nausea, Denies vomiting Genitourinary: Denies dysuria, endorses flank pain, Denies kidney stones, Denies menorrhagia, Denies urgency, Denies urinary frequency endorses back pain and flank pain Musculoskeletal: Endorses gait dysfunction, endorses limitation of motion, Denies morning stiffness, Denies muscle cramps Integumentary: Denies rash, Denies wounds, Denies brittle nails, Denies change in hair/nails, Denies darkening of skin Neurological: Endorses balance difficulties, Denies change in speech, Denies double vision, endorses gait dysfunction, Denies loss of vision, endorses motor disturbance, Denies numbness, Denies paralysis, Denies paresthesias, Denies seizures Psychiatric: Denies anxiety, Denies depression Endocrine: Denies excessive sweating, Denies excessive thirst, Denies high blood sugars, Denies palpitations Hematologic/Lymphatic: Denies easy bruising, Denies lymphadenopathy Past Medical History Past Medical History: Cancer, COPD, CVA/TIA, Diabetes Mellitus, Fibromyalgia, Hyperlipidemia, Hypertension, Thyroid Disorder Additional Past Medical History / Comment(s): cervical cancer 1974, home 02 2.5 liters n/c uses prn. neuropathy in feet, tia History of Any Multi-Drug Resistant Organisms: None Reported Past Surgical History: Cholecystectomy, Hysterectomy Past Anesthesia/Blood Transfusion Reactions: No Reported Reaction Past Psychological History: Anxiety Additional Psychological History / Comment(s): pt lives w/sig other of years. has 1 pet cat. has home 02 2.5 liters n/c,nebulizer,shower chair, electri scooter, w/c, walker. Smoking Status: Former smoker Past Alcohol Use History: None Reported Additional Past Alcohol Use History / Comment(s): started smoking 1959- quit 1989 was smoking 2 ppd Past Drug Use History: None Reported - Past Family History Father Family Medical History: Cancer, Renal Disease Additional Family Medical History / Comment(s): kidney cancer- Mother Additional Family Medical History / Comment(s): severe osteoporosis Sister(s) Family Medical History: Cancer Medications and Allergies Home Medications Medication Instructions Recorded Confirmed Type Amitriptyline HCl [Elavil] 75 mg PO HS 12/09/15 10/26/17 History Meclizine [Antivert] 25 mg PO BID PRN 12/09/15 10/26/17 History Simvastatin [Zocor] 40 mg PO HS 12/09/15 10/26/17 History Levothyroxine Sodium [Synthroid] 50 mcg PO DAILY 09/16/17 10/26/17 History HYDROcodone/APAP 5-325MG [[place] 1 tab PO DAILY PRN #60 tab 09/29/17 10/26/17 Rx 5-325] Insulin Aspart [NovoLOG 4 unit SQ AC-TID vial 09/29/17 10/26/17 Rx (formulary)] Insulin NPH [humuLIN N] 10 unit SQ AC-BID vial 09/29/17 10/26/17 Rx Ipratropium-Albuterol Nebulize 3 ml INHALATION RT-QID ampul.neb 09/29/17 Rx [Duoneb 0.5 mg-3 mg/3 ml Soln] guaiFENesin [Mucinex] 600 mg PO Q12HR tablet.er 09/29/17 10/26/17 Rx Aspirin EC [Ecotrin Low Dose] 81 mg PO DAILY #30 tablet. 10/01/17 10/26/17 Rx Gabapentin [Neurontin] 100 mg PO HS cap 10/01/17 10/26/17 Rx Insulin Aspart [NovoLOG See Protocol SQ ACHS 10/26/17 10/26/17 History (formulary)] Metoprolol Tartrate [Lopressor] 12.5 mg PO BID 10/26/17 10/26/17 History Sennosides-Docusate Sodium 2 tab PO DAILY PRN 10/26/17 10/26/17 History [Senokot-S] Allergies Allergy/AdvReac Type Severity Reaction Status Date / Time No Known Allergies Allergy Verified 10/26/17 20:12 Physical Exam Vitals: Vital Signs Temp Pulse Pulse Resp BP BP BP 10/27/17 13:06 50 L 16 114/58 115/51 10/27/17 12:00 97.9 F 67 16 10/27/17 08:00 99.2 F 81 18 10/27/17 04:00 98.7 F 61 18 10/27/17 00:36 97.1 F L 80 18 10/27/17 00:17 98.5 F 78 18 149/64 10/26/17 23:34 68 18 118/56 10/26/17 22:23 68 18 118/71 10/26/17 20:09 97.7 F 75 18 141/75 BP Pulse Ox 10/27/17 13:06 95 10/27/17 12:00 117/53 95 10/27/17 08:00 103/47 92 L 10/27/17 04:00 123/62 100 10/27/17 00:36 121/58 96 10/27/17 00:17 98 10/26/17 23:34 96 10/26/17 22:23 97 10/26/17 20:09 99 Intake and Output 10/26/17 10/27/17 10/27/17 22:59 06:59 14:59 Intake Total 800 Balance 800 Intake: IV 800 Sodium Chloride 0.9% 1, 800 000 ml @ 100 mls/hr IV . Q10H ONE Rx#:[id number] Other: Voiding Method Bedpan # Voids 1 Weight 90.718 kg 87.5 kg 87.5 kg Patient Weight 10/28/17 06:59 Weight 87.5 kg - Constitutional General appearance: average body habitus, cooperative, mild distress - EENT Eyes: EOMI, PERRLA, no photophobia, no ptosis, no scleral icterus ENT: normal oropharynx, no pharyngeal erythema, no tonsillar swelling Ears: bilateral: normal - Neck Neck: no lymphadenopathy, normal ROM, no rigidity Carotids: bilateral: upstroke diminished - Respiratory Respiratory: bilateral: CTA, negative: diminished, dullness, rales, rhonchi - Cardiovascular Rhythm: regular Heart sounds: normal: S1, S2 Abnormal Heart Sounds: no systolic murmur, no diastolic murmur, no rub, no S3 Gallop, no S4 Gallop ankle Peripheral Edema: absent: None dorsalis pedis Peripheral Pulses: bilateral: Normal - Gastrointestinal General gastrointestinal: normal bowel sounds, soft, no tenderness - Integumentary Integumentary: no cellulitis, no jaundiced, normal turgor - Neurologic Neurologic: CNII-XII intact - Musculoskeletal Musculoskeletal: generalized weakness, strength equal bilaterally - Psychiatric Psychiatric: A&O x's 3, appropriate affect Results CBC & Chem 7: 10/26/17 21:08 10/26/17 21:08 Labs: Abnormal Lab Results - Last 24 Hours (Table) 10/26/17 10/26/17 10/26/17 Range/Units 21:08 21:08 21:08 RBC 3.43 L (3.80-5.40) m/uL Hgb 10.4 L (11.4-16.0) gm/dL Hct 32.7 L (34.0-46.0) % Chloride 96 L (98-107) mmol/L Carbon Dioxide 34 H (22-30) mmol/L BUN 19 H (7-17) mg/dL Creatinine 2.70 H (0.52-1.04) mg/dL Glucose 184 H (74-99) mg/dL POC Glucose (mg/dL) (75-99) mg/dL Alkaline Phosphatase 196 H (38-126) U/L Troponin I 0.071 H* (0.000-0.034) ng/mL Total Protein 5.4 L (6.3-8.2) g/dL Albumin 3.2 L (3.5-5.0) g/dL HDL Cholesterol (40-60) mg/dL Urine Appearance (Clear) Urine Bilirubin (Negative) Urine RBC (0-5) /hpf Urine WBC (0-5) /hpf Urine WBC Clumps (None) /hpf Ur Squamous Epith Cells (0-4) /hpf Hyaline Casts (0-2) /lpf 10/26/17 10/26/17 10/27/17 Range/Units 21:31 22:27 02:57 RBC (3.80-5.40) m/uL Hgb (11.4-16.0) gm/dL Hct (34.0-46.0) % Chloride (98-107) mmol/L Carbon Dioxide (22-30) mmol/L BUN (7-17) mg/dL Creatinine (0.52-1.04) mg/dL Glucose (74-99) mg/dL POC Glucose (mg/dL) 166 H (75-99) mg/dL Alkaline Phosphatase (38-126) U/L Troponin I 0.072 H* (0.000-0.034) ng/mL Total Protein (6.3-8.2) g/dL Albumin (3.5-5.0) g/dL HDL Cholesterol (40-60) mg/dL Urine Appearance Cloudy H (Clear) Urine Bilirubin 2+ H (Negative) Urine RBC 80 H (0-5) /hpf Urine WBC >182 H (0-5) /hpf Urine WBC Clumps Many H (None) /hpf Ur Squamous Epith Cells 5 H (0-4) /hpf Hyaline Casts 23 H (0-2) /lpf 10/27/17 10/27/17 10/27/17 Range/Units 06:04 09:21 09:21 RBC (3.80-5.40) m/uL Hgb (11.4-16.0) gm/dL Hct (34.0-46.0) % Chloride (98-107) mmol/L Carbon Dioxide (22-30) mmol/L BUN (7-17) mg/dL Creatinine (0.52-1.04) mg/dL Glucose (74-99) mg/dL POC Glucose (mg/dL) 142 H (75-99) mg/dL Alkaline Phosphatase (38-126) U/L Troponin I 0.056 H* (0.000-0.034) ng/mL Total Protein (6.3-8.2) g/dL Albumin (3.5-5.0) g/dL HDL Cholesterol 37 L (40-60) mg/dL Urine Appearance (Clear) Urine Bilirubin (Negative) Urine RBC (0-5) /hpf Urine WBC (0-5) /hpf Urine WBC Clumps (None) /hpf Ur Squamous Epith Cells (0-4) /hpf Hyaline Casts (0-2) /f 10/27/17 Range/Units 11:51 RBC (3.80-5.40) m/uL Hgb (11.4-16.0) gm/dL Hct (34.0-46.0) % Chloride (98-107) mmol/L Carbon Dioxide (22-30) mmol/L BUN (7-17) mg/dL Creatinine (0.52-1.04) mg/dL Glucose (74-99) mg/dL POC Glucose (mg/dL) 121 H (75-99) mg/dL Alkaline Phosphatase (38-126) U/L Troponin I (0.000-0.034) ng/mL Total Protein (6.3-8.2) g/dL Albumin (3.5-5.0) g/dL HDL Cholesterol (40-60) mg/dL Urine Appearance (Clear) Urine Bilirubin (Negative) Urine RBC (0-5) /hpf Urine WBC (0-5) /hpf Urine WBC Clumps (None) /hpf Ur Squamous Epith Cells (0-4) /hpf Hyaline Casts (0-2) /lpf Thrombosis Risk Factor Assmnt - DVT/VTE Prophylaxis DVT/VTE Prophylaxis: Pharmacologic Prophylaxis ordered - Choose All That Apply Each Factor Represents 1 point: Obesity (BMI >25) Each Risk Factor Represents 3 Points: Age 75 years or older Thrombosis Risk Factor Assessment Total Risk Factor Score: 4 Thrombosis Risk Factor Assessment Level: Moderate Risk Assessment and Plan Plan: #1 frequent falls likely secondary to hypotension from hypovolemia associated with dizziness and lightheadedness. Orthostatic vitals every shift. Continue fluids at 100 mL/h.Echocardiogram from last visit suggested borderline concentric left ventricular hypertrophy, EF 55-60%, L a dilated at 40, mild aortic regurgitation, moderate aortic stenosis, mild mitral regurgitation, mild mitral stenosis, mild tricuspid regurgitation, mild pulmonary hypertension, right ventricular systolic pressure is 44. Continue meclizine. Hold amitriptyline for orthostatic hypotension.. PTOT consult for general debility #2 urinary tract infection associated with flank pain. Ultrasound retroperitoneal to rule out viral nephritis. Continue Rocephin and 1 g every 24 hours with IV fluids. #3 end-stage renal disease on hemodialysis. Baseline creatinine 2.7. Patient gets dialysis Friday and Friday. Nephrology consult #4 COPD on home 2.5-3 L of oxygen. Patient currently at baseline. Did suggest some mild shortness of breath. Continue duo nebs as needed. No wheezing on examination not in COPD exacerbation #5 hypertension continue metoprolol 12.5 mg twice a day hold if heart rate less than 50 with systolic blood pressure less than 90 #6 history of what to go continue meclizine 25 mg twice daily #7 type 2 diabetes continue NPH and aspart. Reduce NPH to 7 units twice daily along with aspart 2 units 3 times a day. Continue gabapentin #8 hyperlipidemia continue Lipitor 20 mg daily at bedtime #9 DVT prophylaxis with heparin 5000 every 12 #10 GI prophylaxis with absolute 20 mg daily #11 generalized debility PTOT consult placed #12 hypothyroidism continue levothyroxine #13 depression and generalized anxiety disorder hold amitriptyline for orthostatic hypotension CODE STATUS full code Disposition patient need 1-2 inpatient nights
[2017-10-27] MEDS ORDERED: MORPHINE ORAL SOLN 10 MG/5 ML CUP PO PRN (15:14)
--- NOTE | 2017-10-27 15:27 | US ---
EXAMINATION TYPE: US renals and bladder DATE OF EXAM: 10/27/2017 COMPARISON: US 2018 CLINICAL HISTORY: pyelonephritis. Bilateral flank pain, exam done portable EXAM MEASUREMENTS: Right Kidney: 10.3 x 4.6 x 5.8 cm Left Kidney: 11.5 x 4.7 x 5.4 cm Difficult and limited study due to patient body habitus Right Kidney: no hydro or masses seen Left Kidney: no hydro or masses seen Bladder: thin hyperechoic septation appearing area along posterior wall Bilateral Jets seen: no Spleen: enlarged at 18.0cm There is no evidence for hydronephrosis at this point in time. No nephrolithiasis is seen. No terrence s are identified. Cortical thinning in kidneys, cortical medullary differentiation is maintained. The spleen is enlarge d. IMPRESSION: Septation in bladder is indeterminate. Bilateral cortical thinning of kidneys. Splenomegaly.
[2017-10-27 16:54] LABS: Glucose,Whole Blood 155 mg/dL (75-99)
[2017-10-27] MEDS: INSULIN NPH 300 UNIT/3 ML VIAL SQ SCH (17:03)
[2017-10-27] MEDS: cefTRIAXone IN SWFI 1,000 MG/10 ML SYRINGE IVP SCH (20:44)
[2017-10-27] MEDS: HEPARIN SODIUM,PORCINE 5,000 UNIT/ML 1 ML VIAL SQ SCH (20:46)
[2017-10-27] MEDS: ATORVASTATIN 20 MG TAB PO SCH (20:46)
[2017-10-27] MEDS ORDERED: GABAPENTIN 100 MG CAP PO SCH (21:00)
[2017-10-27] MEDS ORDERED: AMITRIPTYLINE HCL 25 MG TAB PO SCH (21:00)
[2017-10-27 21:32] LABS: Glucose,Whole Blood 211 mg/dL (75-99)
[2017-10-28 05:58] LABS: Glucose,Whole Blood 190 mg/dL (75-99)
[2017-10-28 06:43] LABS: Basophils % (A) 1 %; Eosinophils # (A) 0.2 k/uL (0-0.7); Eosinophils % (A) 4 %; HCT 29.4 % (34.0-46.0); HGB 9.8 gm/dL (11.4-16.0); Lymphocytes # (A) 1.4 k/uL (1.0-4.8); Lymphocytes % (A) 25 %; MCH 31.8 pg (25.0-35.0); MCHC 33.2 g/dL (31.0-37.0); MCV 95.9 fL (80.0-100.0); Mean Platelet Volume 7.9; Monocytes # (A) 0.3 k/uL (0-1.0); Monocytes % (A) 4 %; Neutrophils # (A) 3.5 k/uL (1.3-7.7); Neutrophils % (A) 63 %; Platelet Count 154 k/uL (150-450); RBC 3.07 m/uL (3.80-5.40); RDW 14.8 % (11.5-15.5); WBC 5.6 k/uL (3.8-10.6)
[2017-10-28 06:55] LABS: Albumin 2.6 g/dL (3.5-5.0); Calcium 8.7 mg/dL (8.4-10.2); Potassium 3.8 mmol/L (3.5-5.1); Total Bilirubin 0.3 mg/dL (0.2-1.3); Total Protein 4.8 g/dL (6.3-8.2)
[2017-10-28] MEDS: INSULIN ASPART 100 UNIT/ML 1 ML 10 ML VIAL SQ SCH ×3 (08:21→18:15)
[2017-10-28] MEDS: INSULIN NPH 300 UNIT/3 ML VIAL SQ SCH ×2 (08:21→18:16)
[2017-10-28] MEDS: ASPIRIN 325 MG TAB PO SCH (08:25)
[2017-10-28] MEDS: LEVOTHYROXINE 50 MCG TAB PO SCH (08:25)
[2017-10-28] MEDS: FAMOTIDINE 20 MG TAB PO SCH (08:25)
[2017-10-28] MEDS: HEPARIN SODIUM,PORCINE 5,000 UNIT/ML 1 ML VIAL SQ SCH ×2 (08:25→22:59)
[2017-10-28] MEDS: guaiFENesin 600 MG TABLET.ER PO SCH ×2 (08:25→22:58)
[2017-10-28] MEDS: METOPROLOL TARTRATE 12.5 MG TAB PO SCH ×2 (08:29→23:00)
[2017-10-28] MEDS: IPRATROPIUM-ALBUTEROL 3 ML NEB INHALATION SCH ×4 (09:19→20:54)
[2017-10-28 12:14] LABS: Glucose,Whole Blood 213 mg/dL (75-99)
--- NOTE | 2017-10-28 13:32 | P.PN ---
Subjective Progress Note Date: 10/28/17 This is a 76-year-old pleasant lady patient of Dr. Noble, she has underlying history of COPD, chronic O2 2.5-3 L dependency however she is noncompliant treated, previous tobacco, diabetes mellitus type 2, fibromyalgia morbid obesity hypertension admitted to the hospital with multiple falls and generalized weakness. Patient was last admitted on 09/16 for acute kidney injury likely multifactorial and was initiated on dialysis prior to discharge. Apparently, patient is having multiple falls every day with history of dizziness. She is complaining of significant pain in her lumbar spine as well as buttocks and lower extremity. Patient is unable to ambulate due to increased weakness. On evaluation in the morning, patient was unable to stand for a few seconds to check for orthostatic hypotension. She complains of flank pain associated with lightheadedness. Patient also endorses shortness of breath on exertion. Labs done in the ER suggestive of increase troponin 0.072 0.056. Urinalysis positive for 182 WBCs with 23 hyaline cast. CBC was negative for any leukocytosis. Creatinine 2.7 BUN 19 which is patient's baseline since last admission. Orthostatic could not be obtained. Patient's heart rate fluctuates between 50-81. Patient is admitted for hypotension, dizziness, multiple falls, urinary tract infection, generalized debility and possible rehab. 10/28: Patient has been seen by cardiology with recommendations to avoid amitriptyline at night and patient may need tilt table test. Patient recently had echocardiogram with normal left ventricular systolic function, moderate aortic stenosis. Orthostatics done this morning are negative. Heart rate has been running 48-60. We will have cardiology evaluate heart rate and a half cleared, patient will be transferred to [facility] floor. Renal ultrasound shows septation and bladder is indeterminate. Bilateral cortical thinning of the kidneys. Splenomegaly. Hemoglobin is 9.8, BUN 26 and creatinine 3.49. Blood glucose running between 190 and 211. Alkaline phosphatase is 175. Patient is due for hemodialysis today. Nephrology is on consult. Patient is complaining of feeling sleepy and tired. She states she has dizziness and balance problems with walking and is afraid of falling. She is planning to go to subacute rehab which most likely will occur tomorrow. Patient has generalized aches and pains especially in the back and shoulder areas is likely secondary to her fibromyalgia. Patient denies having previous test for obstructive sleep apnea which may be needed as an outpatient. Objective - Vital Signs Vital signs: Vital Signs Temp 97.6 F 10/28/17 07:43 Pulse 48 L 10/28/17 07:43 Resp 18 10/28/17 07:43 BP 135/63 10/28/17 07:43 Pulse Ox 97 10/28/17 07:43 Intake & Output 10/27/17 10/28/17 10/28/17 18:59 06:59 18:59 Intake Total 660 Balance 660 Weight 87.5 kg 87 kg Intake: Oral 660 Other: Voiding Method Bedpan Bedpan # Voids 0 0 - Exam General appearance: average body habitus, cooperative, mild distress - EENT Eyes: EOMI, PERRLA, no photophobia, no ptosis, no scleral icterus ENT: normal oropharynx, no pharyngeal erythema, no tonsillar swelling Ears: bilateral: normal - Neck Neck: no lymphadenopathy, normal ROM, no rigidity Carotids: bilateral: upstroke diminished - Respiratory Respiratory: bilateral: CTA, negative: diminished, dullness, rales, rhonchi - Cardiovascular Rhythm: regular Heart sounds: normal: S1, S2 Abnormal Heart Sounds: no systolic murmur, no diastolic murmur, no rub, no S3 Gallop, no S4 Gallop ankle Peripheral Edema: absent: None dorsalis pedis Peripheral Pulses: bilateral: Normal - Gastrointestinal General gastrointestinal: normal bowel sounds, soft, no tenderness - Integumentary Integumentary: no cellulitis, no jaundiced, normal turgor - Neurologic Neurologic: CNII-XII intact - Musculoskeletal Musculoskeletal: generalized weakness, strength equal bilaterally - Psychiatric Psychiatric: A&O x's 3, appropriate affect - Labs CBC & Chem 7: 10/28/17 06:01 10/28/17 06:01 Labs: Abnormal Lab Results - Last 24 Hours (Table) 10/27/17 10/27/17 10/27/17 Range/Units 09:21 09:21 11:51 RBC (3.80-5.40) m/uL Hgb (11.4-16.0) gm/dL Hct (34.0-46.0) % Carbon Dioxide (22-30) mmol/L BUN (7-17) mg/dL Creatinine (0.52-1.04) mg/dL Glucose (74-99) mg/dL POC Glucose (mg/dL) 121 H (75-99) mg/dL Alkaline Phosphatase (38-126) U/L Troponin I 0.056 H* (0.000-0.034) ng/mL Total Protein (6.3-8.2) g/dL Albumin (3.5-5.0) g/dL HDL Cholesterol 37 L (40-60) mg/dL 10/27/17 10/27/17 10/28/17 Range/Units 16:28 21:18 05:54 RBC (3.80-5.40) m/uL Hgb (11.4-16.0) gm/dL Hct (34.0-46.0) % Carbon Dioxide (22-30) mmol/L BUN (7-17) mg/dL Creatinine (0.52-1.04) mg/dL Glucose (74-99) mg/dL POC Glucose (mg/dL) 155 H 211 H 190 H (75-99) mg/dL Alkaline Phosphatase (38-126) U/L Troponin I (0.000-0.034) ng/mL Total Protein (6.3-8.2) g/dL Albumin (3.5-5.0) g/dL HDL Cholesterol (40-60) mg/dL 10/28/17 10/28/17 Range/Units 06:01 06:01 RBC 3.07 L (3.80-5.40) m/uL Hgb 9.8 L (11.4-16.0) gm/dL Hct 29.4 L (34.0-46.0) % Carbon Dioxide 33 H (22-30) mmol/L BUN 26 H (7-17) mg/dL Creatinine 3.49 H (0.52-1.04) mg/dL Glucose 198 H (74-99) mg/dL POC Glucose (mg/dL) (75-99) mg/dL Alkaline Phosphatase 175 H (38-126) U/L Troponin I (0.000-0.034) ng/mL Total Protein 4.8 L (6.3-8.2) g/dL Albumin 2.6 L (3.5-5.0) g/dL HDL Cholesterol (40-60) mg/dL Assessment and Plan Plan: 1 frequent falls likely secondary to hypotension from hypovolemia associated with dizziness and lightheadedness. Orthostatic vitals every shift. Continue fluids at 100 mL/h. Continue meclizine. Hold amitriptyline for orthostatic hypotension.. PTOT consult for general debility #2 urinary tract infection associated with flank pain. Ultrasound retroperitoneal as above. Continue Rocephin and 1 g every 24 hours with IV fluids. #3 end-stage renal disease on hemodialysis. Baseline creatinine 2.7. Patient gets dialysis Friday and Friday. Nephrology consult #4 COPD with chronic hypoxic respiratory failure on home oxygen at 2.5-3 L of oxygen, without exacerbation. Did suggest some mild shortness of breath. Continue duo nebs as needed. #5 hypertension continue metoprolol 12.5 mg twice a day hold if heart rate less than 50 with systolic blood pressure less than 90 #6 history of vertigo continue meclizine 25 mg twice daily #7 type 2 diabetes continue NPH and aspart. Reduce NPH to 7 units twice daily along with aspart 2 units 3 times a day. Continue gabapentin #8 hyperlipidemia continue Lipitor 20 mg daily at bedtime #9 DVT prophylaxis with heparin 5000 every 12 #10 GI prophylaxis with absolute 20 mg daily #11 generalized debility PTOT consult placed #12 hypothyroidism continue levothyroxine #13 recurrent depression and generalized anxiety disorder hold amitriptyline for orthostatic hypotension CODE STATUS full code Discharge plan: [place] under the care of Dr. Noble on Friday Impression and plan of care have been directed as dictated by the signing physician. Jodi Schwartz nurse practitioner acting as scribe for signing physician.
--- NOTE | 2017-10-28 13:36 | P.DS ---
Providers Date of admission: 10/26/17 21:59 Expected date of discharge: 10/29/17 Attending physician: Linda Gray MD Consults: 10/26/17 22:06 Consult Physician Urgent Consulting Provider: Fco Busby Consult Reason/Comments: Elevated troponin Do you want consulting provider notified?: Yes 10/27/17 10:29 Consult Physician Urgent Consulting Provider: Juanita Bellamy Consult Reason/Comments: Hemodialysis patient, Tu/Th/Sat. schedule Do you want consulting provider notified?: Yes Primary care physician: [facility] Course: This is a 76-year-old pleasant lady patient of Dr. Noble, she has underlying history of COPD, chronic O2 2.5-3 L dependency however she is noncompliant treated, previous tobacco, diabetes mellitus type 2, fibromyalgia morbid obesity hypertension admitted to the hospital with multiple falls and generalized weakness. Patient was last admitted on 09/16 for acute kidney injury likely multifactorial and was initiated on dialysis prior to discharge. Apparently, patient is having multiple falls every day with history of dizziness. She is complaining of significant pain in her lumbar spine as well as buttocks and lower extremity. Patient is unable to ambulate due to increased weakness. On evaluation in the morning, patient was unable to stand for a few seconds to check for orthostatic hypotension. She complains of flank pain associated with lightheadedness. Patient also endorses shortness of breath on exertion. Labs done in the ER suggestive of increase troponin 0.072 0.056. Urinalysis positive for 182 WBCs with 23 hyaline cast. CBC was negative for any leukocytosis. Creatinine 2.7 BUN 19 which is patient's baseline since last admission. Orthostatic could not be obtained. Patient's heart rate fluctuates between 50-81. Patient is admitted for hypotension, dizziness, multiple falls, urinary tract infection, generalized debility and possible rehab. 10/28: Patient has been seen by cardiology with recommendations to avoid amitriptyline at night and patient may need tilt table test. Patient recently had echocardiogram with normal left ventricular systolic function, moderate aortic stenosis. Orthostatics done this morning are negative. Heart rate has been running 48-60. We will have cardiology evaluate heart rate and a half cleared, patient will be transferred to [facility] floor. Renal ultrasound shows septation and bladder is indeterminate. Bilateral cortical thinning of the kidneys. Splenomegaly. Hemoglobin is 9.8, BUN 26 and creatinine 3.49. Blood glucose running between 190 and 211. Alkaline phosphatase is 175. Patient is due for hemodialysis today. Nephrology is on consult. Patient is complaining of feeling sleepy and tired. She states she has dizziness and balance problems with walking and is afraid of falling. She is planning to go to subacute rehab which most likely will occur tomorrow. Patient has generalized aches and pains especially in the back and shoulder areas is likely secondary to her fibromyalgia. Patient denies having previous test for obstructive sleep apnea which may be needed as an outpatient. 10/29: We have started the patient on vitamin B12. Patient has been started on Florinef by cardiology. Discharge diagnoses: 1 frequent falls likely secondary to hypotension from hypovolemia associated with dizziness and lightheadedness. 2 urinary tract infection associated with flank pain. 3 end-stage renal disease on hemodialysis. Baseline creatinine 2.7. Patient gets dialysis Friday and Friday. 4 COPD with chronic hypoxic respiratory failure on home oxygen at 2.5-3 L of oxygen, without exacerbation. 5 hypertension 6 history of vertigo 7 type 2 diabetes 8 hyperlipidemia 9 generalized debility 10 hypothyroidism continue levothyroxine 11 recurrent depression and generalized anxiety disorder hold amitriptyline for orthostatic hypotension Discharge plan: [place] under the care of Dr. Noble on Friday Impression and plan of care have been directed as dictated by the signing physician. Jodi Schwartz nurse practitioner acting as scribe for signing physician. Patient Condition at Discharge: Good Plan - Discharge Summary Discharge Rx Participant: No New Discharge Prescriptions: No Action Amitriptyline HCl [Elavil] 75 mg PO HS Meclizine [Antivert] 25 mg PO BID PRN PRN Reason: Vertigo Simvastatin [Zocor] 40 mg PO HS Levothyroxine Sodium [Synthroid] 50 mcg PO DAILY guaiFENesin [Mucinex] 600 mg PO Q12HR tablet.er Insulin Aspart [NovoLOG (formulary)] 4 unit SQ AC-TID vial Insulin NPH [humuLIN N] 10 unit SQ AC-BID vial Ipratropium-Albuterol Nebulize [Duoneb 0.5 mg-3 mg/3 ml Soln] 3 ml INHALATION RT-QID ampul.neb HYDROcodone/APAP 5-325MG [Walpole 5-325] 1 tab PO DAILY PRN #60 tab PRN Reason: Pain Aspirin EC [Ecotrin Low Dose] 81 mg PO DAILY #30 tablet. Gabapentin [Neurontin] 100 mg PO HS cap Metoprolol Tartrate [Lopressor] 12.5 mg PO BID Sennosides-Docusate Sodium [Senokot-S] 2 tab PO DAILY PRN PRN Reason: Constipation Insulin Aspart [NovoLOG (formulary)] See Protocol SQ ACHS Discharge Medication List Amitriptyline HCl [Elavil] 75 mg PO HS 12/09/15 [History] Meclizine [Antivert] 25 mg PO BID PRN 12/09/15 [History] Simvastatin [Zocor] 40 mg PO HS 12/09/15 [History] Levothyroxine Sodium [Synthroid] 50 mcg PO DAILY 09/16/17 [History] HYDROcodone/APAP 5-325MG [Walpole 5-325] 1 tab PO DAILY PRN #60 tab 09/29/17 [Rx] Insulin Aspart [NovoLOG (formulary)] 4 unit SQ AC-TID vial 09/29/17 [Rx] Insulin NPH [humuLIN N] 10 unit SQ AC-BID vial 09/29/17 [Rx] Ipratropium-Albuterol Nebulize [Duoneb 0.5 mg-3 mg/3 ml Soln] 3 ml INHALATION RT -QID ampul.neb 09/29/17 [Rx] guaiFENesin [Mucinex] 600 mg PO Q12HR tablet.er 09/29/17 [Rx] Aspirin EC [Ecotrin Low Dose] 81 mg PO DAILY #30 tablet. 10/01/17 [Rx] Gabapentin [Neurontin] 100 mg PO HS cap 10/01/17 [Rx] Insulin Aspart [NovoLOG (formulary)] See Protocol SQ ACHS 10/26/17 [History] Metoprolol Tartrate [Lopressor] 12.5 mg PO BID 10/26/17 [History] Sennosides-Docusate Sodium [Senokot-S] 2 tab PO DAILY PRN 10/26/17 [History] Follow up Appointment(s)/Referral(s): Jeronimo Noble MD [Primary Care Provider] - 1-2 days
--- NOTE | 2017-10-28 13:41 | P.PN ---
Subjective Progress Note Date: 10/28/17 This is a 77-year-old female with known history of COPD with home O2 use, prior nicotine dependence, diabetes, hyperlipidemia, renal failure, obesity , hypertension, who presented to the hospital after experiencing multiple falls. According to the patient, she has at least 2 falls almost every day. Patient does experience significant pain in her lumbar spine area. She states that she does get occasional mild dizziness and lightheadedness, but she does not get this with each fall. According to the patient, she does not pass out completely. She does feel lethargic however. Chest x-ray performed on arrival here did not reveal any active cardiopulmonary disease. CAT scan of the brain reveals cerebral atrophy and mild chronic small vessel ischemia with no intracranial abnormality acutely. Hip x-ray does not reveal any fracture. Lumbar spine x-ray reveals spondylitic changes with no fracture. EKG shows a normal sinus rhythm with nonspecific ST-T wave changes. White blood cell count is normal, troponins 0.071, 0.072, 0.056. hemoglobin 10.4, platelet count 165. Sodium 139, potassium 3.6, BUN 19, creatinine 2.7. Positive UTI. At the time of our examination this morning, patient denies having any episodes of chest discomfort, her breathing has been stable. She does get intermittent dizziness and lightheadedness. Blood pressure on arrival here 140/70 with a heart rate in the 70s, 99% on 4 L of oxygen. Let pressure this morning 102/47, heart rate in the 80s, 92% on 3 L of oxygen. 10/28/2017 Patient was seen and examined this morning, current blood pressure in the 1:30 systolic range. No significant orthostatics. Upon review of blood pressures, it is noted that the patient's blood pressure runs in the high 90s to low 100s. Heart rate in the 50s most of the time. We will start the patient on a dose of Florinef today. Objective - Vital Signs Vital signs: Vital Signs Temp 97.5 F L 10/28/17 11:29 Pulse 51 L 10/28/17 11:29 Resp 18 10/28/17 11:29 BP 135/63 10/28/17 07:43 Pulse Ox 96 10/28/17 11:29 Intake & Output 10/27/17 10/28/17 10/28/17 18:59 06:59 18:59 Intake Total 660 180 Balance 660 180 Weight 87.5 kg 87 kg Intake: Oral 660 180 Other: Voiding Method Bedpan Bedpan Bedpan # Voids 0 0 0 - Exam PHYSICAL EXAMINATION: HEENT: Head is atraumatic, normocephalic. Pupils equal, round. Neck is supple. There is no elevated jugular venous pressure. HEART EXAMINATION: Heart S1, S2 normal. No murmur or gallop heard. CHEST EXAMINATION: Lungs reveal mild diminished air entry bilaterally with expiratory wheezing noted. ABDOMEN: Soft, nontender. Bowel sounds are heard. No organomegaly noted. EXTREMITIES: 2+ peripheral pulses with no evidence of peripheral edema and no calf tenderness noted. NEUROLOGIC patient is awake, alert and oriented -3. - Labs CBC & Chem 7: 10/28/17 06:01 10/28/17 06:01 Labs: Abnormal Lab Results - Last 24 Hours (Table) 10/27/17 10/27/17 10/28/17 Range/Units 16:28 21:18 05:54 RBC (3.80-5.40) m/uL Hgb (11.4-16.0) gm/dL Hct (34.0-46.0) % Carbon Dioxide (22-30) mmol/L BUN (7-17) mg/dL Creatinine (0.52-1.04) mg/dL Glucose (74-99) mg/dL POC Glucose (mg/dL) 155 H 211 H 190 H (75-99) mg/dL Alkaline Phosphatase (38-126) U/L Total Protein (6.3-8.2) g/dL Albumin (3.5-5.0) g/dL 10/28/17 10/28/17 10/28/17 Range/Units 06:01 06:01 11:57 RBC 3.07 L (3.80-5.40) m/uL Hgb 9.8 L (11.4-16.0) gm/dL Hct 29.4 L (34.0-46.0) % Carbon Dioxide 33 H (22-30) mmol/L BUN 26 H (7-17) mg/dL Creatinine 3.49 H (0.52-1.04) mg/dL Glucose 198 H (74-99) mg/dL POC Glucose (mg/dL) 213 H (75-99) mg/dL Alkaline Phosphatase 175 H (38-126) U/L Total Protein 4.8 L (6.3-8.2) g/dL Albumin 2.6 L (3.5-5.0) g/dL Assessment and Plan Plan: Assessment and plan #1 frequent falls, with associated mild dizziness and lightheadedness. Rule out orthostatic hypotension #2 acute on chronic kidney failure, on hemodialysis #3 UTI #4 end-stage COPD, on home O2. #5 diabetes #6 hypertension #7 hyperlipidemia #8 hypothyroidism #9 generalized anxiety disorder and recurrent depression Plan Patient recently had an echocardiogram with Doppler study performed which revealed a normal left ventricular systolic function. Moderate aortic stenosis. Therefore we will not repeat an echo on this admission. No significant orthostasis documented. Blood pressure in the 90s systolic. Heart rate in the 50s. We will add Florinef to the patient's medication regime. She may be able to be transferred to [facility] from cardiology's perspective. DNP note has been reviewed, I agree with a documented findings and plan of care. Patient was seen and examined.
[2017-10-28] MEDS: CYANOCOBALAMIN 500 MCG TAB PO SCH (15:40)
[2017-10-28 17:01] LABS: Glucose,Whole Blood 207 mg/dL (75-99)
[2017-10-28 20:20] LABS: Glucose,Whole Blood 155 mg/dL (75-99)
--- NOTE | 2017-10-28 22:39 | CONS ---
CONSULTATION REASON FOR CONSULT: End-stage renal disease. HISTORY OF PRESENT ILLNESS: The patient is a 77-year-old female who is currently maintained on hemodialysis. She was started on dialysis after a recent hospitalization as acute kidney injury who remained dialysis-dependent. The patient had started to have increased urine output as outpatient. However, her creatinine remained elevated at about 4 to 5 mg/dL as outpatient. Therefore she continues with renal replacement therapy at this time. This admission was mainly for weakness and history of falls. Blood pressure was low at 95/53 on admission; currently about 130 mmHg systolic. The patient was initially discharged to rehab; however, she is now home with her significant other. No history of fevers, chills, nausea, vomiting. Patient has been coming to dialysis treatments regularly. PAST MEDICAL HISTORY: 1. Renal failure with recent initiation of dialysis for persistent acute kidney injury. 2. History of COPD. 3. History of CVA/TIA. 4. Type 2 diabetes. 5. Fibromyalgia. 6. Hyperlipidemia. 7. Hypertension. 8. Hypothyroidism. 9. History of cervical cancer. 10.Neuropathy. PAST SURGICAL HISTORY: 1. Cholecystectomy. 2. Hysterectomy. 3. Recent IJ PermCath placement for dialysis. SOCIAL HISTORY: Patient is a former smoker. MEDICATIONS: Medications prior to admission included: 1. Elavil. 2. Antivert. 3. Zocor. 4. Synthroid. 5. Sanford. 6. Insulin. 7. Mucinex. 8. Neurontin. 9. Lopressor. 10.Senokot. ALLERGIES: NONE. PHYSICAL EXAMINATION: Patient is comfortable, awake. She is not in any acute distress. Blood pressure is 135/68, heart rate 61 per minute. Patient is afebrile. EXAMINATION OF THE HEART: S1, S2. EXAMINATION OF LUNGS: Bilateral breath sounds are heard. No crackles or wheezing is heard. ABDOMEN: Soft, non-tender. Examination of lower extremities shows no evidence of edema. TRAUMA SURGEON exam is grossly intact. LABS: Sodium 140, potassium 3.8, hemoglobin 9.8 g/dL. Albumin was 2.6. Chest x-ray on admission showed no active pulmonary disease. PLAN: Hemodialysis today. Decrease UF to about 1 L or less. Patient is maintained on very low dose of Lopressor. She is also on Florinef. We will follow her as outpatient and probably start her on midodrine if she remains hypotensive. We will need to continue to monitor for recovery of renal function. However, I doubt it at this time. Thank you for this consultation. Will continue to follow the patient with you during her hospitalization. CALVIN / CAMILLE: [id number] /
[2017-10-28] MEDS: ATORVASTATIN 20 MG TAB PO SCH (22:58)
[2017-10-28] MEDS: cefTRIAXone IN SWFI 1,000 MG/10 ML SYRINGE IVP SCH (22:59)
[2017-10-29 07:23] LABS: Glucose,Whole Blood 221 mg/dL (75-99)
[2017-10-29] MEDS: IPRATROPIUM-ALBUTEROL 3 ML NEB INHALATION SCH ×4 (07:27→20:29)
[2017-10-29] MEDS: guaiFENesin 600 MG TABLET.ER PO SCH ×2 (07:31→20:53)
[2017-10-29] MEDS: ASPIRIN 325 MG TAB PO SCH (07:31)
[2017-10-29] MEDS: INSULIN ASPART 100 UNIT/ML 1 ML 10 ML VIAL SQ SCH ×3 (07:31→18:34)
[2017-10-29] MEDS: FLUDROCORTISONE 0.1 MG TAB PO SCH (07:32)
[2017-10-29] MEDS: FAMOTIDINE 20 MG TAB PO SCH (07:32)
[2017-10-29] MEDS: METOPROLOL TARTRATE 12.5 MG TAB PO SCH (07:32)
[2017-10-29] MEDS: HEPARIN SODIUM,PORCINE 5,000 UNIT/ML 1 ML VIAL SQ SCH ×2 (07:32→20:53)
[2017-10-29] MEDS: LEVOTHYROXINE 50 MCG TAB PO SCH (07:34)
[2017-10-29] MEDS: INSULIN NPH 300 UNIT/3 ML VIAL SQ SCH ×2 (07:35→18:36)
[2017-10-29 08:59] LABS: Basophils % (A) 1 %; Eosinophils # (A) 0.2 k/uL (0-0.7); Eosinophils % (A) 3 %; HCT 33.1 % (34.0-46.0); HGB 10.5 gm/dL (11.4-16.0); Hypochromasia Moderate; Lymphocytes # (A) 2.2 k/uL (1.0-4.8); Lymphocytes % (A) 29 %; MCHC 31.6 g/dL (31.0-37.0); MCV 97.9 fL (80.0-100.0); Mean Platelet Volume 8.3; Monocytes # (A) 0.4 k/uL (0-1.0); Monocytes % (A) 5 %; Neutrophils # (A) 4.8 k/uL (1.3-7.7); Neutrophils % (A) 62 %; Platelet Count 185 k/uL (150-450); RBC 3.38 m/uL (3.80-5.40); RDW 14.8 % (11.5-15.5); WBC 7.7 k/uL (3.8-10.6)
[2017-10-29 09:12] LABS: Albumin 3.1 g/dL (3.5-5.0); Calcium 8.8 mg/dL (8.4-10.2); Potassium 3.9 mmol/L (3.5-5.1); Total Bilirubin 0.5 mg/dL (0.2-1.3); Total Protein 5.5 g/dL (6.3-8.2)
[2017-10-29 11:21] LABS: Glucose,Whole Blood 194 mg/dL (75-99)
[2017-10-29] MEDS: CYANOCOBALAMIN 500 MCG TAB PO SCH (11:22)
[2017-10-29] MEDS ORDERED: Acetaminophen-Codeine 300-30mg TAB PO PRN (11:56)
--- NOTE | 2017-10-29 15:51 | PN ---
PROGRESS NOTE The patient is seen for followup for acute kidney injury, currently dialysis dependent, possibly underlying end-stage renal disease now. The patient has not had much urine output. She remains dialysis dependent. She was admitted with weakness. History of falls. Her blood pressure had been on the lower side. We did not remove much fluid yesterday with dialysis. Currently, she is lying in bed. She has been confused. A sitter is present. Blood pressure was 109/52, heart rate 52 per minute. She is afebrile. Examination of the heart S1, S2. Examination of the lungs decreased breath sounds bases abdomen is soft, nontender. Exam of lower extremities shows no evidence of edema. GUIDANCE SECRETARY exam is grossly intact. LAB: Show sodium 138, potassium 3.9, serum creatinine 2.6, hemoglobin 10.5 g/dL. ASSESSMENT: 1. Acute kidney injury, currently dialysis dependent, most likely patient will remain dialysis dependent as she does not have much urine output. Her creatinine remains elevated as outpatient. She did have a component of ATN on her kidney biopsy. 2. Hypotension possibly associated with hypovolemia. We have not removed much fluid with dialysis yesterday. The patient is maintained on Florinef. I will also add midodrine if she remains hypotensive, Lopressor was initially decreased, now it is discontinued. 3. Generalized debility. 4. Underlying dementia. 5. Chronic obstructive pulmonary disease. PLAN: Continue with dialysis. We will continue to monitor for possible recovery of renal function as outpatient, although I doubt it. The patient is stable for discharge from Nephrology standpoint. MMODL / IJN: [id number] /
--- NOTE | 2017-10-29 16:33 | P.PN ---
Subjective Progress Note Date: 10/29/17 This is a 76-year-old pleasant lady patient of Dr. Noble, she has underlying history of COPD, chronic O2 2.5-3 L dependency however she is noncompliant treated, previous tobacco, diabetes mellitus type 2, fibromyalgia morbid obesity hypertension admitted to the hospital with multiple falls and generalized weakness. Patient was last admitted on 09/16 for acute kidney injury likely multifactorial and was initiated on dialysis prior to discharge. Apparently, patient is having multiple falls every day with history of dizziness. She is complaining of significant pain in her lumbar spine as well as buttocks and lower extremity. Patient is unable to ambulate due to increased weakness. On evaluation in the morning, patient was unable to stand for a few seconds to check for orthostatic hypotension. She complains of flank pain associated with lightheadedness. Patient also endorses shortness of breath on exertion. Labs done in the ER suggestive of increase troponin 0.072 0.056. Urinalysis positive for 182 WBCs with 23 hyaline cast. CBC was negative for any leukocytosis. Creatinine 2.7 BUN 19 which is patient's baseline since last admission. Orthostatic could not be obtained. Patient's heart rate fluctuates between 50-81. Patient is admitted for hypotension, dizziness, multiple falls, urinary tract infection, generalized debility and possible rehab. 10/28: Patient has been seen by cardiology with recommendations to avoid amitriptyline at night and patient may need tilt table test. Patient recently had echocardiogram with normal left ventricular systolic function, moderate aortic stenosis. Orthostatics done this morning are negative. Heart rate has been running 48-60. We will have cardiology evaluate heart rate and a half cleared, patient will be transferred to [facility] floor. Renal ultrasound shows septation and bladder is indeterminate. Bilateral cortical thinning of the kidneys. Splenomegaly. Hemoglobin is 9.8, BUN 26 and creatinine 3.49. Blood glucose running between 190 and 211. Alkaline phosphatase is 175. Patient is due for hemodialysis today. Nephrology is on consult. Patient is complaining of feeling sleepy and tired. She states she has dizziness and balance problems with walking and is afraid of falling. She is planning to go to subacute rehab which most likely will occur tomorrow. Patient has generalized aches and pains especially in the back and shoulder areas is likely secondary to her fibromyalgia. Patient denies having previous test for obstructive sleep apnea which may be needed as an outpatient. 10/29 patient is more awake today. Answering questions. Nurse at bedside evaluate the patient's family found her confused intermittently. Hold taking Tilly, starting patient on Tylenol 3. He'll likely medication effect. We will hold on amitriptyline. Metoprolol held due to bradycardia. SGOT does increase to 4 mg 3 times a day with NPH increased to 10 units twice a day Objective - Vital Signs Vital signs: Vital Signs Temp 98.0 F 10/29/17 08:00 Pulse 52 L 10/29/17 16:15 Resp 16 10/29/17 08:00 BP 109/52 10/29/17 08:00 Pulse Ox 100 10/29/17 08:00 Intake & Output 10/28/17 10/29/17 10/29/17 18:59 06:59 18:59 Intake Total 180 400 Output Total 300 300 Balance -120 100 Weight 86.9 kg 86.9 kg Intake: Oral 180 400 Output: Urine 300 300 Other: Voiding Method Bedpan Diaper Diaper Incontinent Incontinent # Voids 0 1 1 - Exam General appearance: average body habitus, cooperative, mild distress sleepy on examination - EENT Eyes: EOMI, PERRLA, no photophobia, no ptosis, no scleral icterus ENT: normal oropharynx, no pharyngeal erythema, no tonsillar swelling Ears: bilateral: normal - Neck Neck: no lymphadenopathy, normal ROM, no rigidity Carotids: bilateral: upstroke diminished - Respiratory Respiratory: bilateral: CTA, negative: diminished, dullness, rales, rhonchi - Cardiovascular Rhythm: regular Heart sounds: normal: S1, S2 Abnormal Heart Sounds: no systolic murmur, no diastolic murmur, no rub, no S3 Gallop, no S4 Gallop ankle Peripheral Edema: absent: None dorsalis pedis Peripheral Pulses: bilateral: Normal - Gastrointestinal General gastrointestinal: normal bowel sounds, soft, no tenderness - Integumentary Integumentary: no cellulitis, no jaundiced, normal turgor - Neurologic Neurologic: CNII-XII intact - Musculoskeletal Musculoskeletal: generalized weakness, strength equal bilaterally - Psychiatric Psychiatric: A&O x's 3, appropriate affect - Labs CBC & Chem 7: 10/29/17 08:23 03/07/18 08:23 Labs: Abnormal Lab Results - Last 24 Hours (Table) 10/28/17 10/28/17 10/28/17 Range/Units 06:01 16:55 20:16 RBC (3.80-5.40) m/uL Hgb (11.4-16.0) gm/dL Hct (34.0-46.0) % BUN (7-17) mg/dL Creatinine (0.52-1.04) mg/dL Glucose (74-99) mg/dL POC Glucose (mg/dL) 207 H 155 H (75-99) mg/dL Alkaline Phosphatase (38-126) U/L Total Protein (6.3-8.2) g/dL Albumin (3.5-5.0) g/dL Vitamin B12 2829.0 H (200.0-944.0) pg/mL 10/29/17 10/29/17 10/29/17 Range/Units 07:21 08:23 08:23 RBC 3.38 L (3.80-5.40) m/uL Hgb 10.5 L (11.4-16.0) gm/dL Hct 33.1 L (34.0-46.0) % BUN 19 H (7-17) mg/dL Creatinine 2.61 H (0.52-1.04) mg/dL Glucose 202 H (74-99) mg/dL POC Glucose (mg/dL) 221 H (75-99) mg/dL Alkaline Phosphatase 227 H (38-126) U/L Total Protein 5.5 L (6.3-8.2) g/dL Albumin 3.1 L (3.5-5.0) g/dL Vitamin B12 (200.0-944.0) pg/mL 10/29/17 Range/Units 11:12 RBC (3.80-5.40) m/uL Hgb (11.4-16.0) gm/dL Hct (34.0-46.0) % BUN (7-17) mg/dL Creatinine (0.52-1.04) mg/dL Glucose (74-99) mg/dL POC Glucose (mg/dL) 194 H (75-99) mg/dL Alkaline Phosphatase (38-126) U/L Total Protein (6.3-8.2) g/dL Albumin (3.5-5.0) g/dL Vitamin B12 (200.0-944.0) pg/mL Assessment and Plan Plan: #1 frequent falls likely secondary to hypotension from hypovolemia associated with dizziness and lightheadedness. Orthostatic vitals every shift. .Echocardiogram from last visit suggested borderline concentric left ventricular hypertrophy, EF 55-60%, L a dilated at 40, mild aortic regurgitation , moderate aortic stenosis, mild mitral regurgitation, mild mitral stenosis, mild tricuspid regurgitation, mild pulmonary hypertension, right ventricular systolic pressure is 44. Continue meclizine. Hold amitriptyline for orthostatic hypotension.. PTOT consult for general debility #2 urinary tract infection associated with flank pain. Ultrasound retroperitoneal to rule out viral nephritis. Continue Rocephin and 1 g every 24 hours #3 end-stage renal disease on hemodialysis. Baseline creatinine 2.7. Patient gets dialysis Friday and Friday. Nephrology consult #4 COPD on home 2.5-3 L of oxygen. Patient currently at baseline. Did suggest some mild shortness of breath. Continue duo nebs as needed. No wheezing on examination not in COPD exacerbation #5 hypertension continue metoprolol 12.5 mg twice a day hold if heart rate less than 50 with systolic blood pressure less than 90 #6 history of what to go continue meclizine 25 mg twice daily #7 type 2 diabetes continue NPH and aspart. Reduce NPH to 7 units twice daily along with aspart 2 units 3 times a day. Continue gabapentin #8 hyperlipidemia continue Lipitor 20 mg daily at bedtime #9 DVT prophylaxis with heparin 5000 every 12 #10 GI prophylaxis with absolute 20 mg daily #11 generalized debility PTOT consult placed #12 hypothyroidism continue levothyroxine #13 depression and generalized anxiety disorder hold amitriptyline for orthostatic hypotension #14 metabolic encephalopathy likely secondary to medication was stopped for Tilly and amitriptyline #15 sinus bradycardia hold metoprolol CODE STATUS full code Disposition patient need 1-2 inpatient nights
[2017-10-29 17:17] LABS: Glucose,Whole Blood 241 mg/dL (75-99)
[2017-10-29 20:10] LABS: Glucose,Whole Blood 209 mg/dL (75-99)
[2017-10-29] MEDS: ATORVASTATIN 20 MG TAB PO SCH (20:48)
[2017-10-29] MEDS: cefTRIAXone IN SWFI 1,000 MG/10 ML SYRINGE IVP SCH (20:53)
[2017-10-30] MEDS: IPRATROPIUM-ALBUTEROL 3 ML NEB INHALATION SCH ×4 (07:00→19:54)
[2017-10-30 07:13] LABS: Glucose,Whole Blood 175 mg/dL (75-99)
[2017-10-30 07:44] LABS: Basophils % (A) 1 %; Eosinophils # (A) 0.1 k/uL (0-0.7); Eosinophils % (A) 3 %; HCT 29.7 % (34.0-46.0); HGB 9.6 gm/dL (11.4-16.0); Lymphocytes # (A) 1.7 k/uL (1.0-4.8); Lymphocytes % (A) 38 %; MCH 30.7 pg (25.0-35.0); MCHC 32.5 g/dL (31.0-37.0); MCV 94.5 fL (80.0-100.0); Mean Platelet Volume 7.8; Monocytes # (A) 0.2 k/uL (0-1.0); Monocytes % (A) 5 %; Neutrophils # (A) 2.3 k/uL (1.3-7.7); Neutrophils % (A) 52 %; Platelet Count 171 k/uL (150-450); RBC 3.14 m/uL (3.80-5.40); RDW 14.7 % (11.5-15.5); WBC 4.4 k/uL (3.8-10.6)
[2017-10-30 08:01] LABS: Albumin 2.7 g/dL (3.5-5.0); Calcium 8.7 mg/dL (8.4-10.2); Potassium 3.9 mmol/L (3.5-5.1); Total Bilirubin 0.3 mg/dL (0.2-1.3); Total Protein 4.8 g/dL (6.3-8.2)
[2017-10-30] MEDS: FLUDROCORTISONE 0.1 MG TAB PO SCH (08:13)
[2017-10-30] MEDS: INSULIN NPH 300 UNIT/3 ML VIAL SQ SCH ×2 (08:14→17:38)
[2017-10-30] MEDS: ASPIRIN 325 MG TAB PO SCH (08:14)
[2017-10-30] MEDS: LEVOTHYROXINE 50 MCG TAB PO SCH (08:14)
[2017-10-30] MEDS: guaiFENesin 600 MG TABLET.ER PO SCH ×2 (08:14→20:39)
[2017-10-30] MEDS: FAMOTIDINE 20 MG TAB PO SCH (08:14)
[2017-10-30] MEDS: HEPARIN SODIUM,PORCINE 5,000 UNIT/ML 1 ML VIAL SQ SCH ×2 (08:14→20:40)
[2017-10-30] MEDS: INSULIN ASPART 100 UNIT/ML 1 ML 10 ML VIAL SQ SCH ×3 (08:15→17:38)
[2017-10-30] MEDS ORDERED: METOPROLOL TARTRATE 12.5 MG TAB PO SCH (09:00)
[2017-10-30 11:06] LABS: Glucose,Whole Blood 249 mg/dL (75-99)
--- NOTE | 2017-10-30 12:06 | P.DS ---
Providers Date of admission: 10/26/17 21:59 Expected date of discharge: 10/30/17 Attending physician: Linda Gray MD Consults: 10/26/17 22:06 Consult Physician Urgent Consulting Provider: Fco Busby Consult Reason/Comments: Elevated troponin Do you want consulting provider notified?: Yes 10/27/17 10:29 Consult Physician Urgent Consulting Provider: Juanita Bellamy Consult Reason/Comments: Hemodialysis patient, Tu/Th/Sat. schedule Do you want consulting provider notified?: Yes Primary care physician: [facility] Course: This is a 76-year-old pleasant lady patient of Dr. Noble, she has underlying history of COPD, chronic O2 2.5-3 L dependency however she is noncompliant treated, previous tobacco, diabetes mellitus type 2, fibromyalgia morbid obesity hypertension admitted to the hospital with multiple falls and generalized weakness. Patient was last admitted on 09/16 for acute kidney injury likely multifactorial and was initiated on dialysis prior to discharge. Apparently, patient is having multiple falls every day with history of dizziness. She is complaining of significant pain in her lumbar spine as well as buttocks and lower extremity. Patient is unable to ambulate due to increased weakness. On evaluation in the morning, patient was unable to stand for a few seconds to check for orthostatic hypotension. She complains of flank pain associated with lightheadedness. Patient also endorses shortness of breath on exertion. Labs done in the ER suggestive of increase troponin 0.072 0.056. Urinalysis positive for 182 WBCs with 23 hyaline cast. CBC was negative for any leukocytosis. Creatinine 2.7 BUN 19 which is patient's baseline since last admission. Orthostatic could not be obtained. Patient's heart rate fluctuates between 50-81. Patient is admitted for hypotension, dizziness, multiple falls, urinary tract infection, generalized debility and possible rehab. 10/28: Patient has been seen by cardiology with recommendations to avoid amitriptyline at night and patient may need tilt table test. Patient recently had echocardiogram with normal left ventricular systolic function, moderate aortic stenosis. Orthostatics done this morning are negative. Heart rate has been running 48-60. We will have cardiology evaluate heart rate and a half cleared, patient will be transferred to [facility] floor. Renal ultrasound shows septation and bladder is indeterminate. Bilateral cortical thinning of the kidneys. Splenomegaly. Hemoglobin is 9.8, BUN 26 and creatinine 3.49. Blood glucose running between 190 and 211. Alkaline phosphatase is 175. Patient is due for hemodialysis today. Nephrology is on consult. Patient is complaining of feeling sleepy and tired. She states she has dizziness and balance problems with walking and is afraid of falling. She is planning to go to subacute rehab which most likely will occur tomorrow. Patient has generalized aches and pains especially in the back and shoulder areas is likely secondary to her fibromyalgia. Patient denies having previous test for obstructive sleep apnea which may be needed as an outpatient. 10/29 patient is more awake today. Answering questions. Nurse at bedside evaluate the patient's family found her confused intermittently. Hold taking [place], starting patient on Tylenol 3, most likely medication effect. We will hold on amitriptyline. Metoprolol held due to bradycardia. SGOT does increase to 4 mg 3 times a day with NPH increased to 10 units twice a day. 10/30 today the patient was seen and evaluated, she continues to be more awake and answering questions appropriately. She'll be transferred to [facility] for rehab. Discharge diagnoses: 1 frequent falls likely secondary to hypotension from hypovolemia associated with dizziness and lightheadedness. 2 urinary tract infection associated with flank pain. 3 end-stage renal disease on hemodialysis. Baseline creatinine 2.7. Patient gets dialysis Friday and Friday. 4 COPD with chronic hypoxic respiratory failure on home oxygen at 2.5-3 L of oxygen, without exacerbation. 5 hypertension 6 history of vertigo 7 type 2 diabetes 8 hyperlipidemia 9 generalized debility 10 hypothyroidism continue levothyroxine 11 recurrent depression and generalized anxiety disorder hold amitriptyline for orthostatic hypotension Discharge plan: [facility] under the care of Dr. Noble on Friday The above impression and plan of care have been discussed and directed by signing physician. Rebecca Guo nurse practitioner acting as scribe for signing physician. Patient Condition at Discharge: Good Plan - Discharge Summary Discharge Rx Participant: No New Discharge Prescriptions: New Acetaminophen-Codeine 300-30mg [Tylenol w/codeine #3] 1 each PO Q4HR PRN #20 tab PRN Reason: Pain Cyanocobalamin [Vitamin B-12] 1,000 mcg PO DAILY@1200 tab Fludrocortisone [Florinef] 0.05 mg PO DAILY #0 tab Continue Meclizine [Antivert] 25 mg PO BID PRN PRN Reason: Vertigo Simvastatin [Zocor] 40 mg PO HS Levothyroxine Sodium [Synthroid] 50 mcg PO DAILY guaiFENesin [Mucinex] 600 mg PO Q12HR tablet.er Insulin Aspart [NovoLOG (formulary)] 4 unit SQ AC-TID vial Insulin NPH [humuLIN N] 10 unit SQ AC-BID vial Ipratropium-Albuterol Nebulize [Duoneb 0.5 mg-3 mg/3 ml Soln] 3 ml INHALATION RT-QID ampul.neb Aspirin EC [Ecotrin Low Dose] 81 mg PO DAILY #30 tablet.dr Posada-Docusate Sodium [Senokot-S] 2 tab PO DAILY PRN PRN Reason: Constipation Insulin Aspart [NovoLOG (formulary)] See Protocol SQ ACHS Discontinued Amitriptyline HCl [Elavil] 75 mg PO HS HYDROcodone/APAP 5-325MG [[place] 5-325] 1 tab PO DAILY PRN #60 tab PRN Reason: Pain Gabapentin [Neurontin] 100 mg PO HS cap Metoprolol Tartrate [Lopressor] 12.5 mg PO BID Discharge Medication List Meclizine [Antivert] 25 mg PO BID PRN 12/09/15 [History] Simvastatin [Zocor] 40 mg PO HS 12/09/15 [History] Levothyroxine Sodium [Synthroid] 50 mcg PO DAILY 09/16/17 [History] Insulin Aspart [NovoLOG (formulary)] 4 unit SQ AC-TID vial 09/29/17 [Rx] Insulin NPH [humuLIN N] 10 unit SQ AC-BID vial 09/29/17 [Rx] Ipratropium-Albuterol Nebulize [Duoneb 0.5 mg-3 mg/3 ml Soln] 3 ml INHALATION RT -QID ampul.neb 09/29/17 [Rx] guaiFENesin [Mucinex] 600 mg PO Q12HR tablet.er 09/29/17 [Rx] Aspirin EC [Ecotrin Low Dose] 81 mg PO DAILY #30 tablet. 10/01/17 [Rx] Insulin Aspart [NovoLOG (formulary)] See Protocol SQ ACHS 10/26/17 [History] Sennosides-Docusate Sodium [Senokot-S] 2 tab PO DAILY PRN 10/26/17 [History] Acetaminophen-Codeine 300-30mg [Tylenol w/codeine #3] 1 each PO Q4HR PRN #20 tab 10/30/17 [Rx] Cyanocobalamin [Vitamin B-12] 1,000 mcg PO DAILY@1200 tab 10/30/17 [Rx] Fludrocortisone [Florinef] 0.05 mg PO DAILY #0 tab 10/30/17 [Rx] Follow up Appointment(s)/Referral(s): Jeronimo Noble MD [Primary Care Provider] - 1-2 days Discharge Disposition: TRANSFER TO SNF/ECF
[2017-10-30] MEDS: CYANOCOBALAMIN 500 MCG TAB PO SCH (12:28)
--- NOTE | 2017-10-30 16:14 | PN ---
PROGRESS NOTE The patient is seen for followup for CKD injury who is dialysis dependent. The patient has had some urine output and she was dialyzed on Friday. Patient is scheduled for hemodialysis today. She is awake and comfortable, not in any acute distress. Blood pressure is 99/42, heart rate 63 per minute. Patient is afebrile. Examination of the heart: S1, S2. Examination lungs: Decreased breath sounds bases. Abdomen is soft, nontender. Exam lower extremities shows no evidence of edema. LAB: Show sodium 138, potassium 3.9, hemoglobin 9.6 g/dL. ASSESSMENT: 1. Acute kidney injury currently hemodialysis dependent. Will continue with dialysis for now and continue to monitor for recovery of renal function as outpatient. She definitely does not need a lot of ultrafiltration. Will been given minimal ultrafiltration today with dialysis. 2. Hypotension. The patient remains mildly hypotensive. She is maintained on Florinef and midodrine 5 mg daily. No evidence of sepsis. Serum cortisone was not checked this admission. We will order a random cortisol level today. 3. Anemia of chronic disease. No active bleeding noted. We will maintain patient on Aranesp. PLAN: Random cortisol level, add midodrine and will plan for minimal ultrafiltration with hemodialysis today and we will continue to monitor for recovery of renal functions as outpatient. MMODL / IJN: [id number] /
[2017-10-30 16:54] LABS: Glucose,Whole Blood 194 mg/dL (75-99)
[2017-10-30] MEDS: MIDODRINE 5 MG TAB PO SCH (18:09)
[2017-10-30] MEDS: ATORVASTATIN 20 MG TAB PO SCH (20:38)
[2017-10-30] MEDS: cefTRIAXone IN SWFI 1,000 MG/10 ML SYRINGE IVP SCH (20:38)
[2017-10-30 20:43] LABS: Glucose,Whole Blood 173 mg/dL (75-99)
[2017-10-31 07:18] LABS: Glucose,Whole Blood 215 mg/dL (75-99)
[2017-10-31 08:05] VITALS: BP 93/45; TEMP 97.3
[2017-10-31] MEDS: IPRATROPIUM-ALBUTEROL 3 ML NEB INHALATION SCH ×2 (08:15→11:02)
[2017-10-31 08:18] VITALS: RESP 14
[2017-10-31] MEDS: LEVOTHYROXINE 50 MCG TAB PO SCH (08:37)
[2017-10-31] MEDS: FLUDROCORTISONE 0.1 MG TAB PO SCH (08:37)
[2017-10-31] MEDS: MIDODRINE 5 MG TAB PO SCH (08:37)
[2017-10-31] MEDS: guaiFENesin 600 MG TABLET.ER PO SCH (08:37)
[2017-10-31] MEDS: FAMOTIDINE 20 MG TAB PO SCH (08:37)
[2017-10-31] MEDS: ASPIRIN 325 MG TAB PO SCH (08:37)
[2017-10-31] MEDS: INSULIN NPH 300 UNIT/3 ML VIAL SQ SCH (08:37)
[2017-10-31] MEDS: INSULIN ASPART 100 UNIT/ML 1 ML 10 ML VIAL SQ SCH ×2 (08:38→12:34)
[2017-10-31] MEDS: HEPARIN SODIUM,PORCINE 5,000 UNIT/ML 1 ML VIAL SQ SCH (08:42)
[2017-10-31 09:34] VITALS: PULSE 73
[2017-10-31 09:36] VITALS: BMI 35.6
[2017-10-31 11:32] LABS: Glucose,Whole Blood 274 mg/dL (75-99)
[2017-10-31] MEDS: CYANOCOBALAMIN 500 MCG TAB PO SCH (12:33)
--- NOTE | 2017-10-31 15:30 | PN ---
PROGRESS NOTE Patient is seen for followup for acute kidney injury which is hemodialysis-dependent from her last admission. The patient is awaiting discharge and placement to a facility, as she is not able to go home. She is maintained on a Friday, , Friday schedule. Kidney biopsy showed an element of acute tubular injury and interstitial nephritis as well. Her serum creatinine, although slightly improved, is still staying at about 3 mg/dL with dialysis. Patient will be dialyzed tomorrow and we will continue to monitor for recovery of renal function as outpatient. On examination today, patient is awake, comfortable. She is not in any acute distress. Blood pressure is 93/45, heart rate 71 per minute. She is afebrile. EXAMINATION OF THE HEART: S1, S2. EXAMINATION OF LUNGS: Bilateral breath sounds are heard. ABDOMEN: Soft, non-tender, obese. Examination of lower extremities shows no evidence of edema. [employer] exam is grossly intact. Patient moving all 4 extremities. Labs show sodium 138 from yesterday. Serum creatinine was 2.84 yesterday, hemoglobin 9.6 g/dL. ASSESSMENT: 1. Acute kidney injury, currently hemodialysis-dependent. Will continue to maintain patient on dialysis as outpatient and will continue to monitor for recovery of renal function. Kidney biopsy done on last admission showed some element of acute interstitial nephritis but mostly chronic changes with chronic scarring. 2. Hypotension on initial admission, currently improved. Patient is maintained on midodrine. 3. Type 2 diabetes. 4. Generalized debility. 5. Anemia of chronic disease. PLAN: Patient can be discharged. We will follow her up as outpatient and continue to monitor for recovery of renal function. MMODL / IJN: [id number] /
--- NOTE | 2017-10-31 17:15 | P.DS ---
Providers Date of admission: 10/26/17 21:59 Attending physician: Linda Gray MD Consults: 10/26/17 22:06 Consult Physician Urgent Consulting Provider: Fco Busby Consult Reason/Comments: Elevated troponin Do you want consulting provider notified?: Yes 10/27/17 10:29 Consult Physician Urgent Consulting Provider: Juanita Bellamy Consult Reason/Comments: Hemodialysis patient, Tu/Th/Sat. schedule Do you want consulting provider notified?: Yes Primary care physician: [facility] Course: This is a 76-year-old pleasant lady patient of Dr. Noble, she has underlying history of COPD, chronic O2 2.5-3 L dependency however she is noncompliant treated, previous tobacco, diabetes mellitus type 2, fibromyalgia morbid obesity hypertension admitted to the hospital with multiple falls and generalized weakness. Patient was last admitted on 09/16 for acute kidney injury likely multifactorial and was initiated on dialysis prior to discharge. Apparently, patient is having multiple falls every day with history of dizziness. She is complaining of significant pain in her lumbar spine as well as buttocks and lower extremity. Patient is unable to ambulate due to increased weakness. On evaluation in the morning, patient was unable to stand for a few seconds to check for orthostatic hypotension. She complains of flank pain associated with lightheadedness. Patient also endorses shortness of breath on exertion. Labs done in the ER suggestive of increase troponin 0.072 0.056. Urinalysis positive for 182 WBCs with 23 hyaline cast. CBC was negative for any leukocytosis. Creatinine 2.7 BUN 19 which is patient's baseline since last admission. Orthostatic could not be obtained. Patient's heart rate fluctuates between 50-81. Patient is admitted for hypotension, dizziness, multiple falls, urinary tract infection, generalized debility and possible rehab. 10/28: Patient has been seen by cardiology with recommendations to avoid amitriptyline at night and patient may need tilt table test. Patient recently had echocardiogram with normal left ventricular systolic function, moderate aortic stenosis. Orthostatics done this morning are negative. Heart rate has been running 48-60. We will have cardiology evaluate heart rate and a half cleared, patient will be transferred to [facility] floor. Renal ultrasound shows septation and bladder is indeterminate. Bilateral cortical thinning of the kidneys. Splenomegaly. Hemoglobin is 9.8, BUN 26 and creatinine 3.49. Blood glucose running between 190 and 211. Alkaline phosphatase is 175. Patient is due for hemodialysis today. Nephrology is on consult. Patient is complaining of feeling sleepy and tired. She states she has dizziness and balance problems with walking and is afraid of falling. She is planning to go to subacute rehab which most likely will occur tomorrow. Patient has generalized aches and pains especially in the back and shoulder areas is likely secondary to her fibromyalgia. Patient denies having previous test for obstructive sleep apnea which may be needed as an outpatient. 10/29 patient is more awake today. Answering questions. Nurse at bedside evaluate the patient's family found her confused intermittently. Hold taking [place], starting patient on Tylenol 3, most likely medication effect. We will hold on amitriptyline. Metoprolol held due to bradycardia. SGOT does increase to 4 mg 3 times a day with NPH increased to 10 units twice a day. 10/30 today the patient was seen and evaluated, she continues to be more awake and answering questions appropriately. She'll be transferred to [facility] for rehab. Discharge diagnoses: 1 frequent falls likely secondary to hypotension from hypovolemia associated with dizziness and lightheadedness. 2 urinary tract infection associated with flank pain. 3 end-stage renal disease on hemodialysis. Baseline creatinine 2.7. Patient gets dialysis Friday and Friday. 4 COPD with chronic hypoxic respiratory failure on home oxygen at 2.5-3 L of oxygen, without exacerbation. 5 hypertension 6 history of vertigo 7 type 2 diabetes 8 hyperlipidemia 9 generalized debility 10 hypothyroidism continue levothyroxine 11 recurrent depression and generalized anxiety disorder hold amitriptyline for orthostatic hypotension Discharge plan: [facility] under the care of Dr. Noble Patient Condition at Discharge: Good Plan - Discharge Summary Discharge Rx Participant: No New Discharge Prescriptions: New Acetaminophen-Codeine 300-30mg [Tylenol w/codeine #3] 1 each PO Q4HR PRN #20 tab PRN Reason: Pain Cyanocobalamin [Vitamin B-12] 1,000 mcg PO DAILY@1200 tab Fludrocortisone [Florinef] 0.05 mg PO DAILY #0 tab Continue Meclizine [Antivert] 25 mg PO BID PRN PRN Reason: Vertigo Simvastatin [Zocor] 40 mg PO HS Levothyroxine Sodium [Synthroid] 50 mcg PO DAILY guaiFENesin [Mucinex] 600 mg PO Q12HR tablet.er Insulin Aspart [NovoLOG (formulary)] 4 unit SQ AC-TID vial Insulin NPH [humuLIN N] 10 unit SQ AC-BID vial Ipratropium-Albuterol Nebulize [Duoneb 0.5 mg-3 mg/3 ml Soln] 3 ml INHALATION RT-QID ampul.neb Aspirin EC [Ecotrin Low Dose] 81 mg PO DAILY #30 tablet.dr [place]-Docusate Sodium [Senokot-S] 2 tab PO DAILY PRN PRN Reason: Constipation Insulin Aspart [NovoLOG (formulary)] See Protocol SQ ACHS Discontinued Amitriptyline HCl [Elavil] 75 mg PO HS HYDROcodone/APAP 5-325MG [[place] 5-325] 1 tab PO DAILY PRN #60 tab PRN Reason: Pain Gabapentin [Neurontin] 100 mg PO HS cap Metoprolol Tartrate [Lopressor] 12.5 mg PO BID Discharge Medication List Meclizine [Antivert] 25 mg PO BID PRN 12/09/15 [History] Simvastatin [Zocor] 40 mg PO HS 12/09/15 [History] Levothyroxine Sodium [Synthroid] 50 mcg PO DAILY 09/16/17 [History] Insulin Aspart [NovoLOG (formulary)] 4 unit SQ AC-TID vial 09/29/17 [Rx] Insulin NPH [humuLIN N] 10 unit SQ AC-BID vial 09/29/17 [Rx] Ipratropium-Albuterol Nebulize [Duoneb 0.5 mg-3 mg/3 ml Soln] 3 ml INHALATION RT -QID ampul.neb 09/29/17 [Rx] guaiFENesin [Mucinex] 600 mg PO Q12HR tablet.er 09/29/17 [Rx] Aspirin EC [Ecotrin Low Dose] 81 mg PO DAILY #30 tablet. 10/01/17 [Rx] Insulin Aspart [NovoLOG (formulary)] See Protocol SQ ACHS 10/26/17 [History] Sennosides-Docusate Sodium [Senokot-S] 2 tab PO DAILY PRN 10/26/17 [History] Acetaminophen-Codeine 300-30mg [Tylenol w/codeine #3] 1 each PO Q4HR PRN #20 tab 10/30/17 [Rx] Cyanocobalamin [Vitamin B-12] 1,000 mcg PO DAILY@1200 tab 10/30/17 [Rx] Fludrocortisone [Florinef] 0.05 mg PO DAILY #0 tab 10/30/17 [Rx] Follow up Appointment(s)/Referral(s): Jeronimo Noble MD [Primary Care Provider] - 1-2 days Discharge Disposition: TRANSFER TO SNF/ECF
== END 2017-10-31 14:25 | DRG 312 ==
LOC: EC 19:41 → 6SEL 21:59 → 5MS5E 10-28 21:04
PROVIDERS: ADMIT Internal Medicine; ATTEND Internal Medicine
PROC: 5A1D70Z Performance of Urinary Filtration, Intermittent, Less than 6 Hours Per Day (ICD-10-PCS; principal; 2017-10-26)
DX: I95.1 Orthostatic hypotension (principal); G92 Toxic encephalopathy; J96.11 Chronic respiratory failure with hypoxia; E11.22 Type 2 diabetes mellitus with diabetic chronic kidney disease; N18.6 End stage renal disease; F33.9 Major depressive disorder, recurrent, unspecified; I12.0 Hypertensive chronic kidney disease with stage 5 chronic kidney disease or end stage renal disease; N39.0 Urinary tract infection, site not specified; D63.8 Anemia in other chronic diseases classified elsewhere; E03.9 Hypothyroidism, unspecified; E66.9 Obesity, unspecified; E78.5 Hyperlipidemia, unspecified; E86.1 Hypovolemia; F03.90 Unspecified dementia, unspecified severity, without behavioral disturbance, psychotic disturbance, mood disturbance, and anxiety; F41.1 Generalized anxiety disorder; I35.0 Nonrheumatic aortic (valve) stenosis; J44.9 Chronic obstructive pulmonary disease, unspecified; M79.7 Fibromyalgia; R29.6 Repeated falls; Z79.4 Long term (current) use of insulin; Z79.899 Other long term (current) drug therapy; Z80.1 Family history of malignant neoplasm of trachea, bronchus and lung; Z80.51 Family history of malignant neoplasm of kidney; Z82.62 Family history of osteoporosis; Z85.41 Personal history of malignant neoplasm of cervix uteri; Z86.73 Personal history of transient ischemic attack (TIA), and cerebral infarction without residual deficits; Z87.891 Personal history of nicotine dependence; Z90.710 Acquired absence of both cervix and uterus; Z91.19 Patient's noncompliance with other medical treatment and regimen; Z91.81 History of falling; Z99.2 Dependence on renal dialysis; Z99.81 Dependence on supplemental oxygen; T40.605A Adverse effect of unspecified narcotics, initial encounter
CPT/HCPCS: 36415; 70450; 71046; 72100; 73521; 76770; 80053; 80061; 81001; 82533; 82550; 82553; 82607; 84484; 85025; 85610; 85730; 90935; 93005; 94640; 94760; 96360; 99285

== ENCOUNTER 2017-12-23 15:32 | Inpatient (IN) | payer MEDICARE, OTHER ==
[2017-12-23 17:23] LABS: Appearance,Urine Turbid (Clear); Bacteria,Urine Many /hpf; Bilirubin,Urine Negative (Negative); Blood,Urine Moderate (Negative); Color,Urine Yellow; Glucose,Urine (UA) Negative (Negative); Ketones,Urine Negative (Negative); Leukocyte Esterase,Urine Large (Negative); Nitrite,Urine Positive (Negative); Protein,Urine 2+ (Negative); RBC,Urine 83 /hpf (0-5); Urobilinogen,Urine <2.0 mg/dL (<2.0); WBC,Urine >182 /hpf (0-5)
[2017-12-23 17:27] LABS: Specific Gravity,Urine 1.011 (1.001-1.035)
[2017-12-23] MEDS ORDERED: cefTRIAXone IN SWFI 1,000 MG/10 ML SYRINGE IVP STA (17:35)
[2017-12-23] MEDS ORDERED: SODIUM CHLORIDE 0.9% 1,000 ML IV STA (17:35)
--- NOTE | 2017-12-23 17:49 | ED ---
General Adult HPI - General Chief complaint: Recheck/Abnormal Lab/Rx Stated complaint: High blood pressure Time Seen by Provider: 12/23/17 17:21 Source: patient, RN notes reviewed Mode of arrival: wheelchair Limitations: no limitations - History of Present Illness Initial comments: Patient 77-year-old female presents to the emergency room today with a chief complaint of weakness. She does admit that she has had a urinary tract infection recently. She states she finished antibiotics approximately a week ago of Ceftin. She states that she was feeling better. She states she has been having some and feeling tired over the last few days. She states that her home care nurse came out today noticed that her blood pressure was elevated was advised coming here to the emergency room. Patient denies any other complaints. Denies any pain. Patient denies any recent fever, chills, shortness of breath, chest pain, back pain, abdominal pain, nausea or vomiting, numbness or tingling, constipation or diarrhea, headaches or visual changes, or any other complaints. - Related Data Home Medications Medication Instructions Recorded Confirmed Meclizine [Antivert] 25 mg PO BID PRN 12/09/15 12/23/17 Simvastatin [Zocor] 40 mg PO HS 12/09/15 12/23/17 Levothyroxine Sodium [Synthroid] 50 mcg PO DAILY 09/16/17 12/23/17 Insulin Aspart [NovoLOG See Protocol SQ ACHS 10/26/17 12/23/17 (formulary)] Sennosides-Docusate Sodium 2 tab PO DAILY PRN 10/26/17 12/23/17 [Senokot-S] Acetaminophen-Codeine 300-30mg 1 tab PO Q4HR PRN 12/23/17 12/23/17 [Tylenol w/codeine #3] Artificial Tears-Hypromellose 1 drops BOTH EYES Q4H PRN 12/23/17 12/23/17 [Artificial Tear Drops] Cefuroxime [Ceftin] 250 mg PO BID 12/23/17 12/23/17 Gabapentin [Neurontin] 100 mg PO HS 12/23/17 12/23/17 Midodrine HCl [ProAmatine] 5 mg PO DAILY 12/23/17 12/23/17 Previous Rx's Medication Instructions Recorded Insulin Aspart [NovoLOG 4 unit SQ AC-TID vial 09/29/17 (formulary)] Insulin NPH [humuLIN N] 10 unit SQ AC-BID vial 09/29/17 Ipratropium-Albuterol Nebulize 3 ml INHALATION RT-QID ampul.neb 09/29/17 [Duoneb 0.5 mg-3 mg/3 ml Soln] guaiFENesin [Mucinex] 600 mg PO Q12HR tablet.er 09/29/17 Aspirin EC [Ecotrin Low Dose] 81 mg PO DAILY #30 tablet. 10/01/17 Cyanocobalamin [Vitamin B-12] 1,000 mcg PO DAILY@1200 tab 10/30/17 Allergies Allergy/AdvReac Type Severity Reaction Status Date / Time No Known Allergies Allergy Verified 12/23/17 17:14 Review of Systems ROS Statement: Those systems with pertinent positive or pertinent negative responses have been documented in the HPI. ROS Other: All systems not noted in ROS Statement are negative. Past Medical History Past Medical History: Cancer, COPD, CVA/TIA, Diabetes Mellitus, Fibromyalgia, Hyperlipidemia, Hypertension, Thyroid Disorder Additional Past Medical History / Comment(s): cervical cancer 1974, home 02 2.5 liters n/c uses prn. neuropathy in feet, tia, dialysis port History of Any Multi-Drug Resistant Organisms: VRE Date of last positivie culture/infection: 11/09/17 MDRO Source:: URINE Past Surgical History: Cholecystectomy, Hysterectomy Past Anesthesia/Blood Transfusion Reactions: No Reported Reaction Past Psychological History: Anxiety Smoking Status: Former smoker Past Alcohol Use History: None Reported Past Drug Use History: None Reported - Past Family History Father Family Medical History: Cancer, Renal Disease Additional Family Medical History / Comment(s): kidney cancer- Mother Additional Family Medical History / Comment(s): severe osteoporosis Sister(s) Family Medical History: Cancer General Exam - General Exam Comments Initial Comments: General: The patient is awake and alert, in no distress, and does not appear acutely ill. Eye: Pupils are equal, round and reactive to light, extra-ocular movements are intact. No nystagmus. There is normal conjunctiva bilaterally. No signs of icterus. Ears, nose, mouth and throat: There are moist mucous membranes and no oral lesions. Neck: The neck is supple, there is no tenderness or JVD. Cardiovascular: There is a regular rate and rhythm. No murmur, rub or gallop is appreciated. Respiratory: Lungs are clear to auscultation, respirations are non-labored, breath sounds are equal. No wheezes, stridor, rales, or rhonchi. Gastrointestinal: Soft, non-distended, non-tender abdomen without masses or organomegaly noted. There is no rebound or guarding present. No CVA tenderness. Musculoskeletal: Normal ROM, no tenderness. Strength 5/5. Sensation intact. Pulses equal bilaterally 2+. Neurological: A&O x 3. CN II-XII intact, There are no obvious motor or sensory deficits. Coordination appears grossly intact. Speech is normal. Skin: Skin is warm and dry and no rashes or lesions are noted. Psychiatric: Cooperative, appropriate mood & affect, normal judgment. Limitations: no limitations Course Vital Signs 12/23/17 12/23/17 15:37 17:22 Temperature 97.8 F 98.8 F Pulse Rate 64 58 L Respiratory 18 18 Rate Blood Pressure 153/83 142/86 O2 Sat by Pulse 96 95 Oximetry EKG Findings - EKG Comments: EKG Findings:: EKG performed at 1848: Shows sinus bradycardia 56 bpm. OK interval 94. QRS 82. QT/QTC 350/337. No acute ST changes. Medical Decision Making - Medical Decision Making Patient's labs reviewed does show urinary tract infection. Patient was recently treated for UTI was on Ceftin one week ago. Patient was given a dose of Rocephin here in the emergency room also be started on Zosyn to cover for infection. Patient's kidney function mildly elevated but does show improvement from previous. Patient was on dialysis the past she states. Patient's troponin mildly elevated 0.039.. Most likely due to kidney function. This will continue to be trended. Patient admits to some generalized weakness has no pain. Will be admitted for IV antibiotics. - Lab Data Result diagrams: 12/23/17 18:08 12/23/17 18:08 Lab Results 12/23/17 12/23/17 12/23/17 Range/Units 17:09 18:08 18:08 WBC 9.4 (3.8-10.6) k/uL RBC 4.29 (3.80-5.40) m/uL Hgb 12.9 D (11.4-16.0) gm/dL Hct 39.5 (34.0-46.0) % MCV 92.0 (80.0-100.0) fL MCH 30.0 (25.0-35.0) pg MCHC 32.6 (31.0-37.0) g/dL RDW 13.4 (11.5-15.5) % Plt Count 149 L (150-450) k/uL Neutrophils % 66 % Lymphocytes % 26 % Monocytes % 6 % Eosinophils % 2 % Basophils % 0 % Neutrophils # 6.2 (1.3-7.7) k/uL Lymphocytes # 2.4 (1.0-4.8) k/uL Monocytes # 0.5 (0-1.0) k/uL Eosinophils # 0.2 (0-0.7) k/uL Basophils # 0.0 (0-0.2) k/uL PT (9.0-12.0) sec INR (<1.2) APTT (22.0-30.0) sec Sodium 143 (137-145) mmol/L Potassium 3.4 L (3.5-5.1) mmol/L Chloride 106 (98-107) mmol/L Carbon Dioxide 27 (22-30) mmol/L Anion Gap 10 mmol/L BUN 27 H (7-17) mg/dL Creatinine 1.63 H (0.52-1.04) mg/dL Est GFR (CKD-EPI)AfAm 35 (>60 ml/min/1.73 sqM) Est GFR (CKD-EPI)NonAf 30 (>60 ml/min/1.73 sqM) Glucose 121 H (74-99) mg/dL Calcium 9.1 (8.4-10.2) mg/dL Total Bilirubin 0.9 (0.2-1.3) mg/dL AST 49 H (14-36) U/L ALT 77 H (9-52) U/L Alkaline Phosphatase 191 H (38-126) U/L Troponin I (0.000-0.034) ng/mL Total Protein 5.4 L (6.3-8.2) g/dL Albumin 3.4 L (3.5-5.0) g/dL Urine Color Yellow Urine Appearance Turbid H (Clear) Urine pH 6.0 (5.0-8.0) Ur Specific [place] 1.011 (1.001-1.035) Urine Protein 2+ H (Negative) Urine Glucose (UA) Negative (Negative) Urine Ketones Negative (Negative) Urine Blood Moderate H (Negative) Urine Nitrite Positive H (Negative) Urine Bilirubin Negative (Negative) Urine Urobilinogen <2.0 (<2.0) mg/dL Ur Leukocyte Esterase Large H (Negative) Urine RBC 83 H (0-5) /hpf Urine WBC >182 H (0-5) /hpf Urine WBC Clumps Many H (None) /hpf Urine Bacteria Many H (None) /hpf 12/23/17 12/23/17 Range/Units 18:08 18:08 WBC (3.8-10.6) k/uL RBC (3.80-5.40) m/uL Hgb (11.4-16.0) gm/dL Hct (34.0-46.0) % MCV (80.0-100.0) fL MCH (25.0-35.0) pg MCHC (31.0-37.0) g/dL RDW (11.5-15.5) % Plt Count (150-450) k/uL Neutrophils % % Lymphocytes % % Monocytes % % Eosinophils % % Basophils % % Neutrophils # (1.3-7.7) k/uL Lymphocytes # (1.0-4.8) k/uL Monocytes # (0-1.0) k/uL Eosinophils # (0-0.7) k/uL Basophils # (0-0.2) k/uL PT 11.4 (9.0-12.0) sec INR 1.2 H (<1.2) APTT 23.3 (22.0-30.0) sec Sodium (137-145) mmol/L Potassium (3.5-5.1) mmol/L Chloride (98-107) mmol/L Carbon Dioxide (22-30) mmol/L Anion Gap mmol/L BUN (7-17) mg/dL Creatinine (0.52-1.04) mg/dL Est GFR (CKD-EPI)AfAm (>60 ml/min/1.73 sqM) Est GFR (CKD-EPI)NonAf (>60 ml/min/1.73 sqM) Glucose (74-99) mg/dL Calcium (8.4-10.2) mg/dL Total Bilirubin (0.2-1.3) mg/dL AST (14-36) U/L ALT (9-52) U/L Alkaline Phosphatase (38-126) U/L Troponin I 0.039 H* (0.000-0.034) ng/mL Total Protein (6.3-8.2) g/dL Albumin (3.5-5.0) g/dL Urine Color Urine Appearance (Clear) Urine pH (5.0-8.0) Ur Specific [place] (1.001-1.035) Urine Protein (Negative) Urine Glucose (UA) (Negative) Urine Ketones (Negative) Urine Blood (Negative) Urine Nitrite (Negative) Urine Bilirubin (Negative) Urine Urobilinogen (<2.0) mg/dL Ur Leukocyte Esterase (Negative) Urine RBC (0-5) /hpf Urine WBC (0-5) /hpf Urine WBC Clumps (None) /hpf Urine Bacteria (None) /hpf Disposition Clinical Impression: UTI (urinary tract infection), Failure of outpatient treatment, Elevated troponin, Renal disease Disposition: ADMITTED IP TO THIS HOSP Condition: Stable Is patient prescribed a controlled substance at d/c from ED?: No Referrals: Jeronimo Noble MD [Primary Care Provider] - 1-2 days Time of Disposition: 19:33
[2017-12-23 18:21] LABS: Basophils % (A) 0 %; Eosinophils # (A) 0.2 k/uL (0-0.7); Eosinophils % (A) 2 %; HCT 39.5 % (34.0-46.0); Lymphocytes # (A) 2.4 k/uL (1.0-4.8); Lymphocytes % (A) 26 %; MCHC 32.6 g/dL (31.0-37.0); Mean Platelet Volume 8.8; Monocytes # (A) 0.5 k/uL (0-1.0); Monocytes % (A) 6 %; Neutrophils # (A) 6.2 k/uL (1.3-7.7); Neutrophils % (A) 66 %; Platelet Count 149 k/uL (150-450); RBC 4.29 m/uL (3.80-5.40); RDW 13.4 % (11.5-15.5); WBC 9.4 k/uL (3.8-10.6)
[2017-12-23 18:28] LABS: Albumin 3.4 g/dL (3.5-5.0); Calcium 9.1 mg/dL (8.4-10.2); HGB 12.9 gm/dL (11.4-16.0); Potassium 3.4 mmol/L (3.5-5.1); Total Bilirubin 0.9 mg/dL (0.2-1.3); Total Protein 5.4 g/dL (6.3-8.2)
[2017-12-23 18:29] LABS: INR 1.2 (<1.2); Partial Thromboplastin Time 23.3 sec (22.0-30.0); Prothrombin Time 11.4 sec (9.0-12.0)
[2017-12-23] MEDS ORDERED: PIPERACILLIN-TAZOBACTAM 3.375 GM in DEXTROSE/WATER 1 50ML.BAG IVPB STA (19:17)
--- NOTE | 2017-12-23 19:29 | XR ---
EXAMINATION TYPE: XR chest 2V DATE OF EXAM: 12/23/2017 COMPARISON: 10/26/2017 HISTORY: Shortness of breath TECHNIQUE: Frontal and lateral views of the chest are obtained. FINDINGS: Scattered senescent parenchymal changes noted. No evidence for infiltrate. No evidence for atelectasis. Heart size is stable. Mediastinal structures are stable and grossly unremarkable. No evidence for hilar prominence. Degenerative changes dorsal spine. IMPRESSION: 1. No evidence for acute pulmonary disease.
[2017-12-23] MEDS ORDERED: ACETAMINOPHEN TAB 325 MG TAB PO PRN (19:33)
[2017-12-23] MEDS ORDERED: NALOXONE 0.4 MG/ML 1 ML VIAL IV PRN (19:33)
[2017-12-23] MEDS ORDERED: ONDANSETRON 4 MG/2 ML VIAL IVP PRN (19:33)
[2017-12-23] MEDS ORDERED: SODIUM CHLORIDE 0.9% 1,000 ML IV ONE (19:33)
[2017-12-23 22:24] VITALS: BMI 32.8
[2017-12-24 01:01] LABS: Creatine Kinase MB 0.8 ng/mL (0.0-2.4)
[2017-12-24 01:07] LABS: Troponin I 0.039 ng/mL (0.000-0.034)
[2017-12-24 07:10] LABS: Basophils % (A) 0 %; Eosinophils # (A) 0.1 k/uL (0-0.7); Eosinophils % (A) 2 %; HCT 36.1 % (34.0-46.0); HGB 11.5 gm/dL (11.4-16.0); Lymphocytes # (A) 1.5 k/uL (1.0-4.8); Lymphocytes % (A) 27 %; MCH 29.9 pg (25.0-35.0); MCHC 31.9 g/dL (31.0-37.0); MCV 93.8 fL (80.0-100.0); Mean Platelet Volume 8.6; Monocytes # (A) 0.3 k/uL (0-1.0); Monocytes % (A) 5 %; Neutrophils # (A) 3.6 k/uL (1.3-7.7); Neutrophils % (A) 65 %; Platelet Count 115 k/uL (150-450); RBC 3.85 m/uL (3.80-5.40); RDW 13.1 % (11.5-15.5); WBC 5.6 k/uL (3.8-10.6)
[2017-12-24 07:20] LABS: Glucose,Whole Blood 232 mg/dL (75-99)
[2017-12-24 07:54] LABS: Creatine Kinase MB 0.8 ng/mL (0.0-2.4); Troponin I 0.052 ng/mL (0.000-0.034)
[2017-12-24 07:55] LABS: Albumin 2.7 g/dL (3.5-5.0); Calcium 8.5 mg/dL (8.4-10.2); Potassium 3.5 mmol/L (3.5-5.1); Total Bilirubin 0.8 mg/dL (0.2-1.3); Total Protein 4.6 g/dL (6.3-8.2)
[2017-12-24] MEDS: PIPERACILLIN-TAZOBACTAM 3.375 GM in DEXTROSE/WATER 1 50ML.BAG IVPB SCH ×2 (09:07→15:08)
[2017-12-24 11:21] LABS: Glucose,Whole Blood 159 mg/dL (75-99)
[2017-12-24] MEDS ORDERED: Acetaminophen-Codeine 300-30mg TAB PO PRN (11:52)
[2017-12-24] MEDS ORDERED: MECLIZINE 25 MG TAB PO PRN (11:52)
[2017-12-24] MEDS ORDERED: SENNOSIDES-DOCUSATE SODIUM 1 EACH TAB PO PRN (11:52)
[2017-12-24] MEDS ORDERED: ARTIFICIAL TEARS-HYPROMELLOSE DROPS 15 ML BTL BOTH EYES PRN (11:52)
[2017-12-24] MEDS: IPRATROPIUM-ALBUTEROL 3 ML NEB INHALATION SCH ×3 (12:20→20:55)
--- NOTE | 2017-12-24 12:34 | P.CRDCN ---
History of Present Illness Consult date: 12/24/17 History of present illness: Mrs. Islas is a pleasant 77-year-old female past medical history significant for diabetes, hypertension, dyslipidemia, chronic renal failure, COPD, obesity and frequent falls. She denies history of coronary artery disease and states she does not follow with a cashier or checker stock clerk for any reason. We have been asked to see her in consultation for elevation in her troponin. She is currently admitted to the hospital being treated for urinary tract infection. She was discharged from the hospital and discharged to [facility] for frequent falls and urinary tract infection. She returned yesterday for symptoms of weakness and fatigue. Labs obtained revealed a mild troponin elevation and for this reason we were asked to evaluate her. She denies symptoms of chest pain , shortness of breath, dizziness, palpitations, nausea, vomiting or diaphoresis. She also denies symptoms of PND or orthopnea. On last admission there was also a similar troponin elevation that was related to kidney disease and not indicative of an acute coronary syndrome. EKG on arrival reveals sinus bradycardia heart rate 56 with non-specific T-wave abnormalities. Consistent with old EKG. Chest xray is negative for an acute cardiopulmonary process. Laboratory data reviewed, hgb 11.5, plt 115, sodium 144, potassium 3.5, creatinine 1.7, troponin 0.039, 0.039 and 0.052, LDL 87, HDL 36. Current cardiac medications include simvastatin 40 mg daily, aspirin 81 mg daily and Minitran 5 mg daily. She also takes gabapentin, Antivert, Tylenol 3, Ceftin, Mucinex, Senokot and levothyroxine. Most recent echocardiogram performed August 2017 reveals preserved left ventricular systolic function with ejection fraction 55-60%, severely dilated left atrium, mild aortic regurgitation, moderate aortic stenosis with a peak/ mean gradient of 45/25.28 mmHg, moderate mitral calcification with mild mitral regurgitation is present as well with mild mitral stenosis peak/mean gradient 11 /3 mmHg, mild TR and mild pulmonary hypertension with an RVSP of 44 mmHg. Review of Systems At the time of my exam: CONSTITUTIONAL: Denies fever. Denies chills. EYES: Denies blurred vision. Denies vision changes. Denies eye pain. EARS, NOSE, MOUTH & THROAT: Denies headache. Denies sore throat. Denies ear pain. CARDIOVASCULAR: Denies chest pain. Denies shortness of breath. Denies orthopnea. Denies PND. Denies palpitations. RESPIRATORY: Denies cough. GASTROINTESTINAL: Denies abdominal pain. Denies diarrhea. Denies constipation. Denies nausea. Denies vomiting. MUSCULOSKELETAL: Denies myalgias. INTEGUMENTARY: Denies pruitis. Denies rash. NEUROLOGIC: Denies numbness. Denies tingling. Denies weakness. PSYCHIATRIC: Denies anxiety. Denies depression. ENDOCRINE: Denies fatigue. Denies weight change. Denies polydipsia. Denies polyurina. GENITOURINARY: Denies burning, hematuria or urgency with micturation. HEMATOLOGIC: Denies history of anemia. Denies bleeding. Past Medical History Past Medical History: Cancer, COPD, CVA/TIA, Diabetes Mellitus, Fibromyalgia, Hyperlipidemia, Hypertension, Thyroid Disorder Additional Past Medical History / Comment(s): cervical cancer 1974, home 02 2.5 liters n/c uses prn. neuropathy in feet, tia, dialysis port History of Any Multi-Drug Resistant Organisms: VRE Date of last positivie culture/infection: 11/09/17 MDRO Source:: URINE Past Surgical History: Cholecystectomy, Hysterectomy Past Anesthesia/Blood Transfusion Reactions: No Reported Reaction Past Psychological History: Anxiety Additional Psychological History / Comment(s): pt lives w/sig other of years. has 1 pet cat. has home 02 2.5 liters n/c,nebulizer,shower chair, electri scooter, w/c, walker. Smoking Status: Former smoker Past Alcohol Use History: None Reported Additional Past Alcohol Use History / Comment(s): started smoking 1959- quit 1989 was smoking 2 ppd Past Drug Use History: None Reported - Past Family History Father Family Medical History: Cancer, Renal Disease Additional Family Medical History / Comment(s): kidney cancer- Mother Additional Family Medical History / Comment(s): severe osteoporosis Sister(s) Family Medical History: Cancer Medications and Allergies Home Medications Medication Instructions Recorded Confirmed Type Meclizine [Antivert] 25 mg PO BID PRN 12/09/15 12/23/17 History Simvastatin [Zocor] 40 mg PO HS 12/09/15 12/23/17 History Levothyroxine Sodium [Synthroid] 50 mcg PO DAILY 09/16/17 12/23/17 History Insulin Aspart [NovoLOG 4 unit SQ AC-TID vial 09/29/17 12/23/17 Rx (formulary)] Insulin NPH [humuLIN N] 10 unit SQ AC-BID vial 09/29/17 12/23/17 Rx Ipratropium-Albuterol Nebulize 3 ml INHALATION RT-QID ampul.neb 09/29/17 Rx [Duoneb 0.5 mg-3 mg/3 ml Soln] guaiFENesin [Mucinex] 600 mg PO Q12HR tablet.er 09/29/17 12/23/17 Rx Aspirin EC [Ecotrin Low Dose] 81 mg PO DAILY #30 tablet.dr 10/01/17 12/23/17 Rx Insulin Aspart [NovoLOG See Protocol SQ ACHS 10/26/17 12/23/17 History (formulary)] Sennosides-Docusate Sodium 2 tab PO DAILY PRN 10/26/17 12/23/17 History [Senokot-S] Cyanocobalamin [Vitamin B-12] 1,000 mcg PO DAILY@1200 tab 10/30/17 12/23/17 Rx Acetaminophen-Codeine 300-30mg 1 tab PO Q4HR PRN 12/23/17 12/23/17 History [Tylenol w/codeine #3] Artificial Tears-Hypromellose 1 drops BOTH EYES Q4H PRN 12/23/17 12/23/17 History [Artificial Tear Drops] Cefuroxime [Ceftin] 250 mg PO BID 12/23/17 12/23/17 History Gabapentin [Neurontin] 100 mg PO HS 12/23/17 12/23/17 History Midodrine HCl [ProAmatine] 5 mg PO DAILY 12/23/17 12/23/17 History Allergies Allergy/AdvReac Type Severity Reaction Status Date / Time No Known Allergies Allergy Verified 12/23/17 17:14 Physical Exam Vitals: Vital Signs Temp Pulse Pulse Resp BP BP Pulse Ox 12/24/17 00:35 97.5 F L 66 14 165/67 95 12/23/17 22:10 99.5 F 65 16 178/78 92 L 12/23/17 20:40 98 F 52 L 18 166/77 93 L 12/23/17 17:22 98.8 F 58 L 18 142/86 95 05/01/18 15:37 97.8 F 64 18 153/83 96 Intake and Output 12/23/17 12/24/17 12/24/17 22:59 06:59 14:59 Intake Total 600 150 Balance 600 150 Intake: Intake, IV Titration 600 Amount Sodium Chloride 0.9% 1, 600 000 ml @ 75 mls/hr IV . [id number] Rx#:[id number] Oral 150 Other: # Voids 1 Weight 89.358 kg Blood pressure 165/67 heart rate 66 afebrile maintaining oxygen saturation on room air GENERAL: This is a 77-year-old female in no apparent distress at the time of my examination. Obese. HEENT: Head is atraumatic, normocephalic. Pupils are equal, round. Sclerae anicteric. Conjunctivae are clear. Mucous membranes of the mouth are moist. Neck is supple. There is no jugular venous distention. No carotid bruit is heard. LUNGS: Clear to auscultation no wheezes, rales or rhonchi. No chest wall tenderness is noted on palpation or with deep breathing. HEART: Regular rate and rhythm with systolic murmur at the base as well as the apex into the axilla, no rubs or gallops. S1 and S2 heard. ABDOMEN: Soft, nontender. Bowel sounds are heard. No organomegaly noted. EXTREMITIES: No evidence of peripheral edema and no calf tenderness noted. VASCULAR: Radial and dorsalis pedis pulses palpated, no evidence of clubbing. NEUROLOGIC: Patient is awake, alert and oriented x3. Results 12/24/17 06:49 12/24/17 06:49 Cardiac Enzymes 12/23/17 12/23/17 12/24/17 Range/Units 18:08 18:08 00:11 AST 49 H (14-36) U/L CK-MB (CK-2) 0.8 (0.0-2.4) ng/mL Troponin I 0.039 H* 0.039 H* (0.000-0.034) ng/mL 12/24/17 12/24/17 Range/Units 06:49 06:49 AST 48 H (14-36) U/L CK-MB (CK-2) 0.8 (0.0-2.4) ng/mL Troponin I 0.052 H* (0.000-0.034) ng/mL Coagulation 12/23/17 Range/Units 18:08 PT 11.4 (9.0-12.0) sec APTT 23.3 (22.0-30.0) sec Lipids 12/24/17 Range/Units 06:49 Triglycerides 108 (<150) mg/dL Cholesterol 145 (<200) mg/dL HDL Cholesterol 36 L (40-60) mg/dL CBC 12/23/17 12/24/17 Range/Units 18:08 06:49 WBC 9.4 5.6 (3.8-10.6) k/uL RBC 4.29 3.85 (3.80-5.40) m/uL Hgb 12.9 D 11.5 (11.4-16.0) gm/dL Hct 39.5 36.1 (34.0-46.0) % Plt Count 149 L 115 L (150-450) k/uL Comprehensive Metabolic Panel 12/23/17 12/24/17 Range/Units 18:08 06:49 Sodium 143 144 (137-145) mmol/L Potassium 3.4 L 3.5 (3.5-5.1) mmol/L Chloride 106 107 (98-107) mmol/L Carbon Dioxide 27 29 (22-30) mmol/L BUN 27 H 25 H (7-17) mg/dL Creatinine 1.63 H 1.70 H (0.52-1.04) mg/dL Glucose 121 H 156 H (74-99) mg/dL Calcium 9.1 8.5 (8.4-10.2) mg/dL AST 49 H 48 H (14-36) U/L ALT 77 H 62 H (9-52) U/L Alkaline Phosphatase 191 H 167 H (38-126) U/L Total Protein 5.4 L 4.6 L (6.3-8.2) g/dL Albumin 3.4 L 2.7 L (3.5-5.0) g/dL Current Medications Generic Name Dose Route Start Last Admin Trade Name Freq PRN Reason Stop Dose Admin Acetaminophen 650 mg 12/23/17 19:33 Tylenol Tab PO Q6HR PRN Mild Pain or Fever > 100.5 Acetaminophen/Codeine Phosphate 1 each 12/24/17 11:52 Tylenol #3 PO Q4HR PRN Moderate Pain Albuterol/Ipratropium 3 ml 12/24/17 12:00 Duoneb 0.5 Mg-3 Mg/3 Ml Soln INHALATION RT-QID [facility] Artificial Tears 1 drops 12/24/17 11:52 Artificial Tear Drops BOTH EYES Q4H PRN Dry Eye(s) Aspirin 81 mg 12/24/17 12:00 Aspirin PO DAILY [facility] Atorvastatin Calcium 20 mg 12/24/17 21:00 Lipitor PO HS [facility] Cyanocobalamin 1,000 mcg 12/24/17 12:00 Vitamin B-12 PO DAILY@1200 [facility] Gabapentin 100 mg 12/24/17 21:00 Neurontin PO HS [facility] Piperacillin/Tazobactam/ 50 mls @ 12.5 mls/hr 12/24/17 08:00 12/24/17 09:07 Dextrose 3.375 gm/ IV Solution IVPB 12.5 mls/hr Q8HR [facility] Administration Insulin Aspart 4 unit 12/24/17 12:30 Novolog SQ AC-TID [facility] Insulin Human NPH 10 unit 12/24/17 17:30 Humulin N SQ AC-BID [facility] Levothyroxine Sodium 50 mcg 12/25/17 06:30 Synthroid PO 0630 [facility] Meclizine HCl 25 mg 12/24/17 11:52 Antivert PO BID PRN Vertigo Midodrine 5 mg 12/25/17 09:00 Proamatine PO DAILY [facility] Naloxone HCl 0.2 mg 12/23/17 19:33 Narcan IV Q2M PRN Opioid Reversal Ondansetron HCl 4 mg 12/23/17 19:33 Zofran IVP Q8HR PRN Nausea And Vomiting Senna/Docusate Sodium 2 each 12/24/17 11:52 Senokot-S PO DAILY PRN Constipation Intake and Output 12/23/17 12/24/17 12/24/17 22:59 06:59 14:59 Intake Total 600 150 Balance 600 150 Intake: Intake, IV Titration 600 Amount Sodium Chloride 0.9% 1, 600 000 ml @ 75 mls/hr IV . [id number] Rx#:[id number] Oral 150 Other: # Voids 1 Weight 89.358 kg 12/24/17 06:49 12/24/17 06:49 Assessment and Plan Assessment: ASSESSMENT 1. Mild troponin leak not indicative of an acute coronary event. 2. Hypertension, currently not on anti-hypertensive therapy secondary to orthostatic hypotension on midodrine 3. Diabetes mellitus 4. Dyslipidemia 5. Aortic stenosis 6. COPD 7. Urinary tract infection 8. Chronic kidney disease, GFR 29, Stage 3B 9. Obesity PLAN Recommend discontinuation of midodrine for elevated blood pressures. Check for orthostatic changes. We will not repeat an echocardiogram since she had one in August. Continue with aspirin and atorvastatin as was previously ordered. Will recommend outpatient stress testing in a patient with multiple risk factors once she is discharged from the hospital. Thank you kindly for this consultation. Nurse Practitioner note has been reviewed, I agree with a documented findings and plan of care. Patient was seen and examined.
[2017-12-24] MEDS: INSULIN ASPART 100 UNIT/ML 1 ML 10 ML VIAL SQ SCH ×2 (13:15→18:29)
--- NOTE | 2017-12-24 13:51 | P.HPIM ---
History of Present Illness H&P Date: 12/24/17 Chief Complaint: UTI with sepsis. This is a 77-year-old female one of Dr. Noble with a piece medical history significant for hypertension and hypertensive cardio vascular disease with left ventricular hypertrophy, history of the fiber myalgia, hyperlipidemia , history of hypothyroidism, COPD, CVA/TIA, history of cervical cancer back in 1974 status post hysterectomy, history of chronic kidney disease stage III with a prior history of acute kidney injury requiring dialysis in the past, diabetes mellitus type 2, patient was brought into the emergency department at [facility] because of generalized weakness and not feeling well she just finished a seven-day course of oral antibiotic in the form of Ceftin that was prescribed by her primary care physician Dr. Noble, and the patient was found to have a significant UTI she was extremely weak and not able template for as well as she had leukocytosis, she was admitted to the hospital for acute UTI with sepsis failed outpatient management. Review of Systems Constitutional: Reports malaise, Reports weakness, Denies chills, Denies chronic headaches Eyes: denies blurred vision, denies bulging eye, denies decreased vision Ears: deny: decreased hearing Ears, nose, mouth and throat: Denies dysphagia, Denies neck lump, Denies swelling in throat, Denies sore throat Cardiovascular: Reports high blood pressure, Reports shortness of breath, Denies chest pain, Denies dyspnea on exertion, Denies edema, Denies phlebitis, Denies rapid heart beat, Denies syncope Respiratory: Denies congestion, Denies cough with sputum, Denies home oxygen, Denies sleep apnea, Denies snoring, Denies wheezing Gastrointestinal: Denies abdominal pain, Denies bloating, Denies heartburn, Denies melena, Denies nausea, Denies vomiting Genitourinary: Reports dysuria, Reports nocturia, Reports urgency Menstruation: Reports post hysterectomy, Reports postmenopausal Musculoskeletal: Reports gait dysfunction, Denies myalgias Musculoskeletal: absent: ankle pain, ankle stiffness, ankle swelling, elbow pain , elbow stiffness, elbow swelling, foot pain, foot stiffness, foot swelling, hand pain, hand stiffness, hand swelling, hip pain, hip stiffness, hip swelling , knee pain, knee stiffness, knee swelling, shoulder pain, shoulder stiffness, shoulder swelling, wrist pain, wrist stiffness, wrist swelling Integumentary: Denies pruritus, Denies rash Neurological: Denies numbness, Denies weakness Psychiatric: Denies anxiety, Denies depression Endocrine: Denies fatigue, Denies weight change Past Medical History Past Medical History: Cancer, COPD, CVA/TIA, Diabetes Mellitus, Fibromyalgia, GERD/Reflux, Hyperlipidemia, Hypertension, Osteoarthritis (OA), Renal Disease, Thyroid Disorder Additional Past Medical History / Comment(s): cervical cancer 1974, home 02 2.5 liters n/c uses prn. neuropathy in feet, tia, dialysis port History of Any Multi-Drug Resistant Organisms: VRE Date of last positivie culture/infection: 11/09/17 MDRO Source:: URINE Past Surgical History: Cholecystectomy, Hysterectomy Past Anesthesia/Blood Transfusion Reactions: No Reported Reaction Past Psychological History: Anxiety Additional Psychological History / Comment(s): pt lives w/sig other of years. has 1 pet cat. has home 02 2.5 liters n/c,nebulizer,shower chair, electri scooter, w/c, walker. Smoking Status: Former smoker (patient used to smoke about a pack every day she smoked from [id number] she smoked for about 35 years.) Past Alcohol Use History: None Reported Additional Past Alcohol Use History / Comment(s): started smoking 1959- quit 1989 was smoking 2 ppd Past Drug Use History: None Reported - Past Family History Father Family Medical History: Cancer (father at age of 70 from prostate cancer as well as renal cancer.), Renal Disease Additional Family Medical History / Comment(s): kidney cancer- Mother Family Medical History: Musculoskeletal Disorder (mother at age of 78 she had severe history of Cipro spray) Additional Family Medical History / Comment(s): severe osteoporosis Sister(s) Family Medical History: Cancer (patient had one sister who from lung cancer she smoked for about 45 years.) Brother(s) Family Medical History: Unable to Obtain (patient has one brother who of unknown in etiology.) Daughter(s) Family Medical History: Musculoskeletal Disorder (patient has 2 daughters one of them with psoriatic arthritis.) Son(s) Family Medical History: No Reported History (patient has one son with pelvis and shingles.) Medications and Allergies Home Medications Medication Instructions Recorded Confirmed Type Meclizine [Antivert] 25 mg PO BID PRN 12/09/15 12/23/17 History Simvastatin [Zocor] 40 mg PO HS 12/09/15 12/23/17 History Levothyroxine Sodium [Synthroid] 50 mcg PO DAILY 09/16/17 12/23/17 History Insulin Aspart [NovoLOG 4 unit SQ AC-TID vial 09/29/17 12/23/17 Rx (formulary)] Insulin NPH [humuLIN N] 10 unit SQ AC-BID vial 09/29/17 12/23/17 Rx Ipratropium-Albuterol Nebulize 3 ml INHALATION RT-QID ampul.neb 09/29/17 Rx [Duoneb 0.5 mg-3 mg/3 ml Soln] guaiFENesin [Mucinex] 600 mg PO Q12HR tablet.er 09/29/17 12/23/17 Rx Aspirin EC [Ecotrin Low Dose] 81 mg PO DAILY #30 tablet. 10/01/17 12/23/17 Rx Insulin Aspart [NovoLOG See Protocol SQ ACHS 10/26/17 12/23/17 History (formulary)] Sennosides-Docusate Sodium 2 tab PO DAILY PRN 10/26/17 12/23/17 History [Senokot-S] Cyanocobalamin [Vitamin B-12] 1,000 mcg PO DAILY@1200 tab 10/30/17 12/23/17 Rx Acetaminophen-Codeine 300-30mg 1 tab PO Q4HR PRN 12/23/17 12/23/17 History [Tylenol w/codeine #3] Artificial Tears-Hypromellose 1 drops BOTH EYES Q4H PRN 12/23/17 12/23/17 History [Artificial Tear Drops] Cefuroxime [Ceftin] 250 mg PO BID 12/23/17 12/23/17 History Gabapentin [Neurontin] 100 mg PO HS 12/23/17 12/23/17 History Midodrine HCl [ProAmatine] 5 mg PO DAILY 12/23/17 12/23/17 History Allergies Allergy/AdvReac Type Severity Reaction Status Date / Time No Known Allergies Allergy Verified 12/23/17 17:14 Physical Exam Vitals: Vital Signs Temp Pulse Pulse Resp BP BP Pulse Ox 12/24/17 00:35 97.5 F L 66 14 165/67 95 12/23/17 22:10 99.5 F 65 16 178/78 92 L 12/23/17 20:40 98 F 52 L 18 166/77 93 L 12/23/17 17:22 98.8 F 58 L 18 142/86 95 12/23/17 15:37 97.8 F 64 18 153/83 96 Intake and Output 12/23/17 12/24/17 12/24/17 22:59 06:59 14:59 Intake Total 600 150 Balance 600 150 Intake: Intake, IV Titration 600 Amount Sodium Chloride 0.9% 1, 600 000 ml @ 75 mls/hr IV . [id number] ONE Rx#:[id number] Oral 150 Other: # Voids 1 1 Weight 89.358 kg - Constitutional General appearance: mild distress, obese - EENT Eyes: anicteric sclerae, EOMI, PERRLA, no ptosis, no scleral icterus, normal appearance ENT: hearing grossly normal, NA/AT, normal oropharynx, no thrush Ears: bilateral: normal - Neck Neck: no lymphadenopathy, normal ROM, no rigidity, no stridor, no thyromegaly Carotids: bilateral: upstroke normal Thyroid: right: enlarged - Respiratory Respiratory: bilateral: diminished, rhonchi, wheezing, prolonged expiration, negative: dullness, rales - Cardiovascular Rhythm: regular Heart sounds: normal: S1, S2 Abnormal Heart Sounds: systolic murmur - Gastrointestinal General gastrointestinal: normal bowel sounds, soft, no splenomegaly, no tenderness, no umbilical hernia - Integumentary Integumentary: normal, normal turgor - Neurologic Neurologic: CNII-XII intact - Musculoskeletal Musculoskeletal: generalized weakness, left sided weakness - Psychiatric Psychiatric: A&O x's 3, appropriate affect, intact judgment & insight Results CBC & Chem 7: 12/24/17 06:49 12/24/17 06:49 Labs: Abnormal Lab Results - Last 24 Hours (Table) 12/23/17 12/23/17 12/23/17 Range/Units 17:09 18:08 18:08 Plt Count 149 L (150-450) k/uL INR (<1.2) Potassium 3.4 L (3.5-5.1) mmol/L BUN 27 H (7-17) mg/dL Creatinine 1.63 H (0.52-1.04) mg/dL Glucose 121 H (74-99) mg/dL POC Glucose (mg/dL) (75-99) mg/dL AST 49 H (14-36) U/L ALT 77 H (9-52) U/L Alkaline Phosphatase 191 H (38-126) U/L Total Creatine Kinase (30-135) U/L Troponin I (0.000-0.034) ng/mL Total Protein 5.4 L (6.3-8.2) g/dL Albumin 3.4 L (3.5-5.0) g/dL HDL Cholesterol (40-60) mg/dL Urine Appearance Turbid H (Clear) Urine Protein 2+ H (Negative) Urine Blood Moderate H (Negative) Urine Nitrite Positive H (Negative) Ur Leukocyte Esterase Large H (Negative) Urine RBC 83 H (0-5) /hpf Urine WBC >182 H (0-5) /hpf Urine WBC Clumps Many H (None) /hpf Urine Bacteria Many H (None) /hpf 12/23/17 12/23/17 12/24/17 Range/Units 18:08 18:08 00:11 Plt Count (150-450) k/uL INR 1.2 H (<1.2) Potassium (3.5-5.1) mmol/L BUN (7-17) mg/dL Creatinine (0.52-1.04) mg/dL Glucose (74-99) mg/dL POC Glucose (mg/dL) (75-99) mg/dL AST (14-36) U/L ALT (9-52) U/L Alkaline Phosphatase (38-126) U/L Total Creatine Kinase 27 L (30-135) U/L Troponin I 0.039 H* 0.039 H* (0.000-0.034) ng/mL Total Protein (6.3-8.2) g/dL Albumin (3.5-5.0) g/dL HDL Cholesterol (40-60) mg/dL Urine Appearance (Clear) Urine Protein (Negative) Urine Blood (Negative) Urine Nitrite (Negative) Ur Leukocyte Esterase (Negative) Urine RBC (0-5) /hpf Urine WBC (0-5) /hpf Urine WBC Clumps (None) /hpf Urine Bacteria (None) /hpf 12/24/17 12/24/17 12/24/17 Range/Units 06:49 06:49 06:49 Plt Count 115 L (150-450) k/uL INR (<1.2) Potassium (3.5-5.1) mmol/L BUN 25 H (7-17) mg/dL Creatinine 1.70 H (0.52-1.04) mg/dL Glucose 156 H (74-99) mg/dL POC Glucose (mg/dL) (75-99) mg/dL AST 48 H (14-36) U/L ALT 62 H (9-52) U/L Alkaline Phosphatase 167 H (38-126) U/L Total Creatine Kinase 28 L (30-135) U/L Troponin I 0.052 H* (0.000-0.034) ng/mL Total Protein 4.6 L (6.3-8.2) g/dL Albumin 2.7 L (3.5-5.0) g/dL HDL Cholesterol 36 L (40-60) mg/dL Urine Appearance (Clear) Urine Protein (Negative) Urine Blood (Negative) Urine Nitrite (Negative) Ur Leukocyte Esterase (Negative) Urine RBC (0-5) /hpf Urine WBC (0-5) /hpf Urine WBC Clumps (None) /hpf Urine Bacteria (None) /hpf 12/24/17 12/24/17 Range/Units 06:58 11:18 Plt Count (150-450) k/uL INR (<1.2) Potassium (3.5-5.1) mmol/L BUN (7-17) mg/dL Creatinine (0.52-1.04) mg/dL Glucose (74-99) mg/dL POC Glucose (mg/dL) 232 H 159 H (75-99) mg/dL AST (14-36) U/L ALT (9-52) U/L Alkaline Phosphatase (38-126) U/L Total Creatine Kinase (30-135) U/L Troponin I (0.000-0.034) ng/mL Total Protein (6.3-8.2) g/dL Albumin (3.5-5.0) g/dL HDL Cholesterol (40-60) mg/dL Urine Appearance (Clear) Urine Protein (Negative) Urine Blood (Negative) Urine Nitrite (Negative) Ur Leukocyte Esterase (Negative) Urine RBC (0-5) /hpf Urine WBC (0-5) /hpf Urine WBC Clumps (None) /hpf Urine Bacteria (None) /hpf Microbiology - Last 24 Hours (Table) 12/23/17 17:09 Urine Culture - Preliminary Urine,Clean Catch Thrombosis Risk Factor Assmnt - DVT/VTE Prophylaxis DVT/VTE Prophylaxis: Pharmacologic Prophylaxis ordered, Mechanical Prophylaxis ordered - Choose All That Apply Each Risk Factor Represents 3 Points: Age 75 years or older Thrombosis Risk Factor Assessment Total Risk Factor Score: 3 Thrombosis Risk Factor Assessment Level: Moderate Risk Assessment and Plan Assessment: Assessment and plan: 1. UTI with sepsis. Urine culture, blood culture, start the patient on Zosyn 3.375 g IV piggyback every 8 hours, continue IV fluid resuscitation, monitor the patient very closely. 2. Elevated troponin thought to be due to sepsis. Cardiology evaluation appreciated no further intervention is needed patient had an echocardiogram in August of this year stable at this time. 3. Fibromyalgia. Continue patient on gabapentin 100 mg orally once every day. 4. Hypothyroidism. Continue Synthroid 50 g orally once every day. 5. Hyperlipidemia. Continue patient on Lipitor 20 mg orally once every day. 6. Diabetes mellitus type 2. Continue consistent carbohydrate diet, continue patient on Humulin N 10 units twice every day along with the Humalog 4 units before each meal along with a sliding scale insulin, continue the patient on BGM before each meal and at bedtime. 7. Peripheral dizziness. Continue patient on Antivert 25 mg orally twice every day. 8. COPD. Continue patient on DuoNeb the pleasure 4 times every day. 9. DVT prophylaxis. Continue Lovenox 30 mg subcu venously every 24 hours. 10. GI prophylaxis. Continue PPI. 11. Admitted to inpatient. Estimate length of stay 2 midnights. 12. Patient is full code.
[2017-12-24] MEDS: ASPIRIN 81 MG PO SCH (15:08)
[2017-12-24] MEDS: CYANOCOBALAMIN 500 MCG TAB PO SCH (15:08)
[2017-12-24 17:38] LABS: Glucose,Whole Blood 162 mg/dL (75-99)
[2017-12-24 20:52] LABS: Glucose,Whole Blood 153 mg/dL (75-99)
[2017-12-24] MEDS: INSULIN NPH 300 UNIT/3 ML VIAL SQ SCH (22:02)
[2017-12-24] MEDS: ATORVASTATIN 20 MG TAB PO SCH (22:03)
[2017-12-24] MEDS: GABAPENTIN 100 MG CAP PO SCH (22:05)
[2017-12-25] MEDS: PIPERACILLIN-TAZOBACTAM 3.375 GM in DEXTROSE/WATER 1 50ML.BAG IVPB SCH ×3 (00:58→15:55)
[2017-12-25] MEDS: LEVOTHYROXINE 50 MCG TAB PO SCH (05:50)
[2017-12-25 07:21] LABS: Glucose,Whole Blood 138 mg/dL (75-99)
[2017-12-25 08:14] LABS: Basophils % (A) 1 %; Eosinophils # (A) 0.1 k/uL (0-0.7); Eosinophils % (A) 3 %; HGB 11.9 gm/dL (11.4-16.0); Lymphocytes # (A) 1.9 k/uL (1.0-4.8); Lymphocytes % (A) 33 %; MCH 29.8 pg (25.0-35.0); MCHC 32.1 g/dL (31.0-37.0); MCV 92.9 fL (80.0-100.0); Mean Platelet Volume 8.4; Monocytes # (A) 0.3 k/uL (0-1.0); Monocytes % (A) 6 %; Neutrophils # (A) 3.3 k/uL (1.3-7.7); Neutrophils % (A) 57 %; Platelet Count 115 k/uL (150-450); RBC 3.98 m/uL (3.80-5.40); RDW 13.2 % (11.5-15.5); WBC 5.7 k/uL (3.8-10.6)
[2017-12-25] MEDS: IPRATROPIUM-ALBUTEROL 3 ML NEB INHALATION SCH ×4 (08:33→21:11)
[2017-12-25] MEDS: ASPIRIN 81 MG PO SCH (08:37)
[2017-12-25] MEDS: INSULIN NPH 300 UNIT/3 ML VIAL SQ SCH ×2 (08:38→18:01)
[2017-12-25] MEDS: INSULIN ASPART 100 UNIT/ML 1 ML 10 ML VIAL SQ SCH ×3 (08:38→18:11)
[2017-12-25] MEDS: ENOXAPARIN 30 MG/0.3 ML SYRINGE SQ SCH (08:39)
[2017-12-25] MEDS: PANTOPRAZOLE 40 MG TABLET PO SCH (08:39)
[2017-12-25] MEDS ORDERED: MIDODRINE 5 MG TAB PO SCH (09:00)
[2017-12-25 09:31] LABS: Calcium 8.7 mg/dL (8.4-10.2); Potassium 3.5 mmol/L (3.5-5.1); Total Bilirubin 0.7 mg/dL (0.2-1.3)
[2017-12-25 11:46] LABS: Glucose,Whole Blood 208 mg/dL (75-99)
[2017-12-25] MEDS: CYANOCOBALAMIN 500 MCG TAB PO SCH (13:04)
--- NOTE | 2017-12-25 14:58 | P.PN ---
Subjective Progress Note Date: 12/25/17 This is a 77-year-old female one of Dr. Noble with a piece medical history significant for hypertension and hypertensive cardio vascular disease with left ventricular hypertrophy, history of the fiber myalgia, hyperlipidemia , history of hypothyroidism, COPD, CVA/TIA, history of cervical cancer back in 1974 status post hysterectomy, history of chronic kidney disease stage III with a prior history of acute kidney injury requiring dialysis in the past, diabetes mellitus type 2, patient was brought into the emergency department at [facility] because of generalized weakness and not feeling well she just finished a seven-day course of oral antibiotic in the form of Ceftin that was prescribed by her primary care physician Dr. Noble, and the patient was found to have a significant UTI she was extremely weak and not able template for as well as she had leukocytosis, she was admitted to the hospital for acute UTI with sepsis failed outpatient management. 12/25: Urine culture is showing greater than 100,000 colonies of gram-negative bacilli. Patient states she is not eating very much and still is feeling tired but states that she has 100% better. Yesterday antibiotics were changed to Zosyn. PT and OT have recommended home with home care. Anticipate discharge home tomorrow. Objective - Vital Signs Vital signs: Vital Signs Temp 98.0 F 12/24/17 23:00 Pulse 62 12/24/17 23:00 Resp 16 12/24/17 23:00 BP 157/65 12/24/17 23:00 Pulse Ox 91 L 12/24/17 23:00 Intake & Output 12/24/17 12/25/17 12/25/17 18:59 06:59 18:59 Intake Total 1605 100 Balance 1605 100 Weight 89.358 kg Intake: Intake, IV Titration 775 Amount Piperacillin-Tazobactam 3 50 .375 gm In Dextrose/Water 1 50ml.bag @ 12.5 mls/hr IVPB ONCE STA Rx#: [id number] Piperacillin-Tazobactam 3 50 .375 gm In Dextrose/Water 1 50ml.bag @ 12.5 mls/hr IVPB Q8HR [facility] Rx#: [id number] Sodium Chloride 0.9% 1, 675 000 ml @ 75 mls/hr IV . [id number] ONE Rx#:[id number] Oral 830 100 Other: Voiding Method Diaper Diaper # Voids 1 1 - Exam General appearance: mild distress, obese - EENT Eyes: anicteric sclerae, EOMI, PERRLA, no ptosis, no scleral icterus, normal appearance ENT: hearing grossly normal, NA/AT, normal oropharynx, no thrush Ears: bilateral: normal - Neck Neck: no lymphadenopathy, normal ROM, no rigidity, no stridor, no thyromegaly Carotids: bilateral: upstroke normal Thyroid: right: enlarged - Respiratory Respiratory: bilateral: diminished, rhonchi, wheezing, prolonged expiration, negative: dullness, rales - Cardiovascular Rhythm: regular Heart sounds: normal: S1, S2 Abnormal Heart Sounds: systolic murmur - Gastrointestinal General gastrointestinal: normal bowel sounds, soft, no splenomegaly, no tenderness, no umbilical hernia - Integumentary Integumentary: normal, normal turgor - Neurologic Neurologic: CNII-XII intact - Musculoskeletal Musculoskeletal: generalized weakness, left sided weakness - Psychiatric Psychiatric: A&O x's 3, appropriate affect, intact judgment & insight - Labs CBC & Chem 7: 12/25/17 07:48 12/25/17 07:48 Labs: Abnormal Lab Results - Last 24 Hours (Table) 12/24/17 12/24/17 12/24/17 Range/Units 11:18 17:29 20:50 Plt Count (150-450) k/uL BUN (7-17) mg/dL Creatinine (0.52-1.04) mg/dL Glucose (74-99) mg/dL POC Glucose (mg/dL) 159 H 162 H 153 H (75-99) mg/dL AST (14-36) U/L ALT (9-52) U/L Alkaline Phosphatase (38-126) U/L Total Protein (6.3-8.2) g/dL Albumin (3.5-5.0) g/dL 12/25/17 12/25/17 12/25/17 Range/Units 07:16 07:48 07:48 Plt Count 115 L (150-450) k/uL BUN 21 H (7-17) mg/dL Creatinine 1.70 H (0.52-1.04) mg/dL Glucose 140 H (74-99) mg/dL POC Glucose (mg/dL) 138 H (75-99) mg/dL AST 41 H (14-36) U/L ALT 59 H (9-52) U/L Alkaline Phosphatase 175 H (38-126) U/L Total Protein 5.0 L (6.3-8.2) g/dL Albumin 3.0 L (3.5-5.0) g/dL Microbiology - Last 24 Hours (Table) 12/23/17 17:09 Urine Culture - Preliminary Urine,Clean Catch Gram Neg Bacilli Assessment and Plan Plan: 1. UTI with sepsis ruled out. Urine culture, blood culture, start the patient on Zosyn 3.375 g IV piggyback every 8 hours, continue IV fluid resuscitation, monitor the patient very closely. 2. Elevated troponin thought to be due to sepsis. Cardiology evaluation appreciated no further intervention is needed patient had an echocardiogram in August of this year stable at this time. 3. Fibromyalgia. Continue patient on gabapentin 100 mg orally once every day. 4. Hypothyroidism. Continue Synthroid 50 g orally once every day. 5. Hyperlipidemia. Continue patient on Lipitor 20 mg orally once every day. 6. Diabetes mellitus type 2. Continue consistent carbohydrate diet, continue patient on Humulin N 10 units twice every day along with the Humalog 4 units before each meal along with a sliding scale insulin, continue the patient on BGM before each meal and at bedtime. 7. Peripheral dizziness. Continue patient on Antivert 25 mg orally twice every day. 8. COPD. Continue patient on DuoNeb the pleasure 4 times every day. 9. DVT prophylaxis. Continue Lovenox 30 mg subcu venously every 24 hours. 10. GI prophylaxis. Continue PPI. Patient is full code. Discharge Plan: Home with [facility] Impression and plan of care have been directed as dictated by the signing physician. Jodi Schwartz nurse practitioner acting as scribe for signing physician.
[2017-12-25 17:28] LABS: Glucose,Whole Blood 242 mg/dL (75-99)
[2017-12-25] MEDS ORDERED: hydrALAZINE HCL 20 MG/ML 1 ML VIAL IVP PRN (19:47)
[2017-12-25] MEDS: ATORVASTATIN 20 MG TAB PO SCH (20:40)
[2017-12-25] MEDS: GABAPENTIN 100 MG CAP PO SCH (20:40)
[2017-12-25] MEDS: amLODIPine 5 MG TAB PO SCH (20:40)
[2017-12-25 20:42] LABS: Glucose,Whole Blood 197 mg/dL (75-99)
[2017-12-26] MEDS: PIPERACILLIN-TAZOBACTAM 3.375 GM in DEXTROSE/WATER 1 50ML.BAG IVPB SCH ×2 (00:15→10:04)
[2017-12-26 02:47] VITALS: RESP 16
[2017-12-26] MEDS: LEVOTHYROXINE 50 MCG TAB PO SCH (05:34)
[2017-12-26] MEDS: IPRATROPIUM-ALBUTEROL 3 ML NEB INHALATION SCH ×2 (07:31→11:17)
[2017-12-26 07:55] LABS: Glucose,Whole Blood 128 mg/dL (75-99)
[2017-12-26 08:09] VITALS: BP 121/47; PULSE 52; TEMP 98.8
[2017-12-26] MEDS: INSULIN ASPART 100 UNIT/ML 1 ML 10 ML VIAL SQ SCH ×2 (08:15→12:42)
[2017-12-26] MEDS: ASPIRIN 81 MG PO SCH (10:03)
[2017-12-26] MEDS: ENOXAPARIN 30 MG/0.3 ML SYRINGE SQ SCH (10:03)
[2017-12-26] MEDS: PANTOPRAZOLE 40 MG TABLET PO SCH (10:04)
[2017-12-26] MEDS: amLODIPine 5 MG TAB PO SCH (10:04)
[2017-12-26] MEDS: INSULIN NPH 300 UNIT/3 ML VIAL SQ SCH (10:04)
[2017-12-26 11:57] LABS: Glucose,Whole Blood 268 mg/dL (75-99)
--- NOTE | 2017-12-26 14:18 | P.DS ---
Providers Date of admission: 12/23/17 19:31 Expected date of discharge: 12/26/17 Attending physician: Faviola Sheffield Consults: 12/23/17 19:33 Consult Physician Stat Consulting Provider: Ran Menjivar Consult Reason/Comments: Elevated troponin Do you want consulting provider notified?: Already Contacted Primary care physician: Jeronimo Noble [facility] Course: This is a 77-year-old female one of Dr. Noble with a piece medical history significant for hypertension and hypertensive cardio vascular disease with left ventricular hypertrophy, history of the fiber myalgia, hyperlipidemia , history of hypothyroidism, COPD, CVA/TIA, history of cervical cancer back in 1974 status post hysterectomy, history of chronic kidney disease stage III with a prior history of acute kidney injury requiring dialysis in the past, diabetes mellitus type 2, patient was brought into the emergency department at [facility] because of generalized weakness and not feeling well she just finished a seven-day course of oral antibiotic in the form of Ceftin that was prescribed by her primary care physician Dr. Noble, and the patient was found to have a significant UTI she was extremely weak and not able template for as well as she had leukocytosis, she was admitted to the hospital for acute UTI with sepsis failed outpatient management. 53: Urine culture is showing greater than 100,000 colonies of gram-negative bacilli. Patient states she is not eating very much and still is feeling tired but states that she has 100% better. Yesterday antibiotics were changed to Zosyn. PT and OT have recommended home with home care. Anticipate discharge home tomorrow. 12/26: Patient's blood pressure was elevated last night and she was started on Norvasc 5 mg daily. Patient has been off midodrine since admission. Urine culture is positive for Enterobacter cloacae. Patient will be placed on Levaquin every other day for 10 tablets. BUN is 21 and creatinine 1.7. Patient will be discharged home today in stable condition. Discharge diagnoses: 1. UTI with sepsis ruled out. 2. Elevated troponin thought to be due to sepsis. 3. Fibromyalgia. 4. Hypothyroidism. 5. Hyperlipidemia. 6. Diabetes mellitus type 2. 7. Peripheral dizziness. 8. COPD. Discharge Plan: Home with [facility] Impression and plan of care have been directed as dictated by the signing physician. Jodi Schwartz nurse practitioner acting as scribe for signing physician. Patient Condition at Discharge: Good Plan - Discharge Summary Discharge Rx Participant: No New Discharge Prescriptions: New amLODIPine [Norvasc] 5 mg PO DAILY #30 tab Levofloxacin [Levaquin] 500 mg PO Q48H #10 tab Continue Meclizine [Antivert] 25 mg PO BID PRN PRN Reason: Vertigo Simvastatin [Zocor] 40 mg PO HS Levothyroxine Sodium [Synthroid] 50 mcg PO DAILY guaiFENesin [Mucinex] 600 mg PO Q12HR tablet.er Insulin Aspart [NovoLOG (formulary)] 4 unit SQ AC-TID vial Insulin NPH [humuLIN N] 10 unit SQ AC-BID vial Ipratropium-Albuterol Nebulize [Duoneb 0.5 mg-3 mg/3 ml Soln] 3 ml INHALATION RT-QID ampul.neb Aspirin EC [Ecotrin Low Dose] 81 mg PO DAILY #30 tablet.dr Posada-Docusate Sodium [Senokot-S] 2 tab PO DAILY PRN PRN Reason: Constipation Insulin Aspart [NovoLOG (formulary)] See Protocol SQ ACHS Cyanocobalamin [Vitamin B-12] 1,000 mcg PO DAILY@1200 tab Artificial Tears-Hypromellose [Artificial Tear Drops] 1 drops BOTH EYES Q4H PRN PRN Reason: Dry Eye(S) Gabapentin [Neurontin] 100 mg PO HS Acetaminophen-Codeine 300-30mg [Tylenol w/codeine #3] 1 tab PO Q4HR PRN PRN Reason: Pain Discontinued Cefuroxime [Ceftin] 250 mg PO BID Midodrine HCl [ProAmatine] 5 mg PO DAILY Discharge Medication List Meclizine [Antivert] 25 mg PO BID PRN 12/09/15 [History] Simvastatin [Zocor] 40 mg PO HS 12/09/15 [History] Levothyroxine Sodium [Synthroid] 50 mcg PO DAILY 09/16/17 [History] Insulin Aspart [NovoLOG (formulary)] 4 unit SQ AC-TID vial 09/29/17 [Rx] Insulin NPH [humuLIN N] 10 unit SQ AC-BID vial 09/29/17 [Rx] Ipratropium-Albuterol Nebulize [Duoneb 0.5 mg-3 mg/3 ml Soln] 3 ml INHALATION RT -QID ampul.neb 09/29/17 [Rx] guaiFENesin [Mucinex] 600 mg PO Q12HR tablet.er 09/29/17 [Rx] Aspirin EC [Ecotrin Low Dose] 81 mg PO DAILY #30 tablet. 10/01/17 [Rx] Insulin Aspart [NovoLOG (formulary)] See Protocol SQ ACHS 10/26/17 [History] Sennosides-Docusate Sodium [Senokot-S] 2 tab PO DAILY PRN 10/26/17 [History] Cyanocobalamin [Vitamin B-12] 1,000 mcg PO DAILY@1200 tab 10/30/17 [Rx] Acetaminophen-Codeine 300-30mg [Tylenol w/codeine #3] 1 tab PO Q4HR PRN [History] Artificial Tears-Hypromellose [Artificial Tear Drops] 1 drops BOTH EYES Q4H PRN 12/23/17 [History] Gabapentin [Neurontin] 100 mg PO HS 12/23/17 [History] Levofloxacin [Levaquin] 500 mg PO Q48H #10 tab 12/26/17 [Rx] amLODIPine [Norvasc] 5 mg PO DAILY #30 tab 12/26/17 [Rx] Follow up Appointment(s)/Referral(s): Ran Menjivar MD [STAFF PHYSICIAN] - 2 Weeks (left ms. Please call on Friday to make appointment) Jeronimo Noble MD [Primary Care Provider] - 12/30/17 1:30 pm (With HEAD OF PHYSICS ) Patient Instructions/Handouts: Urinary Tract Infection in Women (DC) Discharge Disposition: HOME SELF-CARE
== END 2017-12-26 14:45 | disposition home or self-care (01) | DRG 690 ==
LOC: EC 15:32 → 3SUR 19:31
PROVIDERS: ADMIT Internal Medicine; ATTEND Internal Medicine
DX: N39.0 Urinary tract infection, site not specified (principal); N18.3 Chronic kidney disease, stage 3 (moderate); M79.7 Fibromyalgia; R29.6 Repeated falls; I27.20 Pulmonary hypertension, unspecified; I95.1 Orthostatic hypotension; J44.9 Chronic obstructive pulmonary disease, unspecified; K21.9 Gastro-esophageal reflux disease without esophagitis; Z79.4 Long term (current) use of insulin; Z79.82 Long term (current) use of aspirin; Z79.899 Other long term (current) drug therapy; E03.9 Hypothyroidism, unspecified; E11.22 Type 2 diabetes mellitus with diabetic chronic kidney disease; E66.9 Obesity, unspecified; Z68.26 Body mass index [BMI] 26.0-26.9, adult; E78.5 Hyperlipidemia, unspecified; F41.9 Anxiety disorder, unspecified; I08.3 Combined rheumatic disorders of mitral, aortic and tricuspid valves; I12.9 Hypertensive chronic kidney disease with stage 1 through stage 4 chronic kidney disease, or unspecified chronic kidney disease; Z80.51 Family history of malignant neoplasm of kidney; Z82.62 Family history of osteoporosis; Z85.41 Personal history of malignant neoplasm of cervix uteri; Z86.73 Personal history of transient ischemic attack (TIA), and cerebral infarction without residual deficits; Z87.440 Personal history of urinary (tract) infections; Z87.891 Personal history of nicotine dependence; Z90.710 Acquired absence of both cervix and uterus; R74.8 Abnormal levels of other serum enzymes; Z82.61 Family history of arthritis; R42 Dizziness and giddiness; Z79.890 Hormone replacement therapy
CPT/HCPCS: 36415; 71046; 80053; 80061; 81001; 82550; 82553; 84484; 85025; 85610; 85730; 87040; 87077; 87086; 87186; 93005; 94640; 96361; 96365; 96375; 99284

== ENCOUNTER 2017-12-30 14:34 | Emergency (ER) | payer MEDICARE, OTHER ==
[2017-12-30 14:52] VITALS: RESP 18
--- NOTE | 2017-12-30 16:09 | ED ---
Female Urogenital HPI - General Chief complaint: Urogenital Stated complaint: cannot urinate Time Seen by Provider: 12/30/17 15:52 Source: patient Mode of arrival: wheelchair Limitations: physical limitation - History of Present Illness Initial comments: Patient is a 77 year old female who presents with a CC of decreased urine output. the patient states that she has not urinated for 2 days. patient cannot identify an inciting factors, there are no aggravating or alleviating factors. timing is constant. patient states she does not have any bladder discomfort or urges to go the bathroom. she states that if she strains hard to have a bowel movement she can get minimal urine out. she has a past medical history of renal failure and was temporarily on dialysis. she states that since that time her dialysis port was removed and she was told she no longer needs dialysis. - Related Data Home Medications Medication Instructions Recorded Confirmed Meclizine [Antivert] 25 mg PO BID PRN 12/09/15 12/30/17 Simvastatin [Zocor] 40 mg PO HS 12/09/15 12/30/17 Levothyroxine Sodium [Synthroid] 50 mcg PO DAILY 09/16/17 12/30/17 Insulin Aspart [NovoLOG See Protocol SQ ACHS 10/26/17 12/30/17 (formulary)] Sennosides-Docusate Sodium 2 tab PO DAILY PRN 10/26/17 12/30/17 [Senokot-S] Acetaminophen-Codeine 300-30mg 1 tab PO Q4HR PRN 12/23/17 12/30/17 [Tylenol w/codeine #3] Artificial Tears-Hypromellose 1 drops BOTH EYES Q4H PRN 12/23/17 12/30/17 [Artificial Tear Drops] Gabapentin [Neurontin] 100 mg PO HS 12/23/17 12/30/17 Previous Rx's Medication Instructions Recorded Insulin Aspart [NovoLOG 4 unit SQ AC-TID vial 09/29/17 (formulary)] Insulin NPH [humuLIN N] 10 unit SQ AC-BID vial 09/29/17 Ipratropium-Albuterol Nebulize 3 ml INHALATION RT-QID ampul.neb 09/29/17 [Duoneb 0.5 mg-3 mg/3 ml Soln] guaiFENesin [Mucinex] 600 mg PO Q12HR tablet.er 09/29/17 Aspirin EC [Ecotrin Low Dose] 81 mg PO DAILY #30 tablet. 10/01/17 Cyanocobalamin [Vitamin B-12] 1,000 mcg PO DAILY@1200 tab 10/30/17 Levofloxacin [Levaquin] 500 mg PO Q48H #10 tab 12/26/17 amLODIPine [Norvasc] 5 mg PO DAILY #30 tab 12/26/17 Allergies Allergy/AdvReac Type Severity Reaction Status Date / Time No Known Allergies Allergy Verified 12/30/17 16:32 Review of Systems ROS Statement: Those systems with pertinent positive or pertinent negative responses have been documented in the HPI. ROS Other: All systems not noted in ROS Statement are negative. Genitourinary: Reports: other (anuria ) Past Medical History Past Medical History: Cancer, COPD, CVA/TIA, Diabetes Mellitus, Fibromyalgia, GERD/Reflux, Hyperlipidemia, Hypertension, Osteoarthritis (OA), Renal Disease, Thyroid Disorder Additional Past Medical History / Comment(s): cervical cancer 1974, home 02 2.5 liters n/c uses prn. neuropathy in feet, tia, dialysis port removal History of Any Multi-Drug Resistant Organisms: VRE Date of last positivie culture/infection: 11/09/17 MDRO Source:: URINE Past Surgical History: Cholecystectomy, Hysterectomy Past Anesthesia/Blood Transfusion Reactions: No Reported Reaction Past Psychological History: Anxiety Smoking Status: Former smoker Past Alcohol Use History: None Reported Past Drug Use History: None Reported - Past Family History Father Family Medical History: Cancer (father at age of 70 from prostate cancer as well as renal cancer.), Renal Disease Additional Family Medical History / Comment(s): kidney cancer- Mother Family Medical History: Musculoskeletal Disorder (mother at age of 78 she had severe history of Cipro spray) Additional Family Medical History / Comment(s): severe osteoporosis Sister(s) Family Medical History: Cancer (patient had one sister who from lung cancer she smoked for about 45 years.) Brother(s) Family Medical History: Unable to Obtain (patient has one brother who of unknown in etiology.) Daughter(s) Family Medical History: Musculoskeletal Disorder (patient has 2 daughters one of them with psoriatic arthritis.) Son(s) Family Medical History: No Reported History (patient has one son with pelvis and shingles.) General Exam Limitations: physical limitation General appearance: alert, in no apparent distress Head exam: Present: atraumatic, normocephalic Eye exam: Present: normal appearance ENT exam: Present: normal exam Neck exam: Present: normal inspection Respiratory exam: Present: normal lung sounds bilaterally. Absent: respiratory distress, wheezes, rales Cardiovascular Exam: Present: regular rate, normal rhythm GI/Abdominal exam: Present: soft. Absent: distended, tenderness Rectal exam: Present: deferred Extremities exam: Present: normal inspection, other (2+ regular pulses in the upper and lower extremities b/l ) Neurological exam: Present: alert, oriented X3 Psychiatric exam: Present: normal affect, normal mood Skin exam: Present: warm, dry, intact Course Vital Signs 12/30/17 12/30/17 14:49 18:46 Temperature 97.9 F Pulse Rate 66 59 L Respiratory 18 18 Rate Blood Pressure 131/60 137/62 O2 Sat by Pulse 96 95 Oximetry Medical Decision Making - Medical Decision Making Patient presents with a CC of decreased urine output for 2 days. on initial evaluation, VS stable, patient in no acute distress. patient to be evaluated with basic labs, US of kidneys and bladder. bladder scan shows 207mL of urine within the urinary bladder. 7:27 PM Lab evaluation of this patient is unremarkable. Creatinine today is 1.71, when compared to previous values this is improved. Ultrasound of the kidneys and bladder shows no evidence of obstruction. There is some thickening of the bladder wall however the bladder is not fully distended. I discussed this case with Dr. Noble who is willing to follow-up this patient and short order. He states that the patient also suffers from incontinence and may not realize that she is going to the bathroom. Urinalysis shows no evidence of infection. Patient was straight cathed with 50 mL returned. Patient states that she does not typically drink a lot of water during the day. I instructed her to increase her oral intake of water, she'll be given 500 mL of IV fluid in the emergency department prior to discharge. She was instructed to follow up with primary care 1-2 days, return to the emergency department if symptoms worsen or change. - Lab Data Result diagrams: 12/30/17 16:21 12/30/17 16:21 Lab Results 05/08/18 05/08/18 05/08/18 Range/Units 16:21 16:21 18:48 WBC 7.1 (3.8-10.6) k/uL RBC 4.27 (3.80-5.40) m/uL Hgb 12.8 (11.4-16.0) gm/dL Hct 39.0 (34.0-46.0) % MCV 91.2 (80.0-100.0) fL MCH 29.9 (25.0-35.0) pg MCHC 32.8 (31.0-37.0) g/dL RDW 13.4 (11.5-15.5) % Plt Count 157 (150-450) k/uL Neutrophils % 61 % Lymphocytes % 30 % Monocytes % 4 % Eosinophils % 3 % Basophils % 0 % Neutrophils # 4.3 (1.3-7.7) k/uL Lymphocytes # 2.2 (1.0-4.8) k/uL Monocytes # 0.3 (0-1.0) k/uL Eosinophils # 0.2 (0-0.7) k/uL Basophils # 0.0 (0-0.2) k/uL Sodium 142 (137-145) mmol/L Potassium 4.1 (3.5-5.1) mmol/L Chloride 105 (98-107) mmol/L Carbon Dioxide 26 (22-30) mmol/L Anion Gap 11 mmol/L BUN 17 (7-17) mg/dL Creatinine 1.71 H (0.52-1.04) mg/dL Est GFR (CKD-EPI)AfAm 33 (>60 ml/min/1.73 sqM) Est GFR (CKD-EPI)NonAf 29 (>60 ml/min/1.73 sqM) Glucose 137 H (74-99) mg/dL Calcium 9.0 (8.4-10.2) mg/dL Urine Color Yellow Urine Appearance Cloudy H (Clear) Urine pH 5.5 (5.0-8.0) Ur Specific Reserve 1.013 (1.001-1.035) Urine Protein 1+ H (Negative) Urine Glucose (UA) Negative (Negative) Urine Ketones Negative (Negative) Urine Blood Negative (Negative) Urine Nitrite Negative (Negative) Urine Bilirubin Negative (Negative) Urine Urobilinogen <2.0 (<2.0) mg/dL Ur Leukocyte Esterase Trace H (Negative) Urine RBC 1 (0-5) /hpf Urine WBC 1 (0-5) /hpf Ur Squamous Epith Cells 3 (0-4) /hpf Urine Bacteria Rare H (None) /hpf Hyaline Casts 6 H (0-2) /lpf Urine Mucus Few H (None) /hpf Disposition Clinical Impression: Dehydration Disposition: HOME SELF-CARE Condition: Good Instructions: Dehydration (ED) Is patient prescribed a controlled substance at d/c from ED?: No Referrals: Jeronimo Nolbe MD [Primary Care Provider] - 1-2 days
[2017-12-30 16:25] LABS: Basophils % (A) 0 %; Eosinophils # (A) 0.2 k/uL (0-0.7); Eosinophils % (A) 3 %; HGB 12.8 gm/dL (11.4-16.0); Lymphocytes # (A) 2.2 k/uL (1.0-4.8); Lymphocytes % (A) 30 %; MCH 29.9 pg (25.0-35.0); MCHC 32.8 g/dL (31.0-37.0); MCV 91.2 fL (80.0-100.0); Mean Platelet Volume 7.6; Monocytes # (A) 0.3 k/uL (0-1.0); Monocytes % (A) 4 %; Neutrophils # (A) 4.3 k/uL (1.3-7.7); Neutrophils % (A) 61 %; Platelet Count 157 k/uL (150-450); RBC 4.27 m/uL (3.80-5.40); RDW 13.4 % (11.5-15.5); WBC 7.1 k/uL (3.8-10.6)
[2017-12-30 16:33] LABS: Potassium 4.1 mmol/L (3.5-5.1)
--- NOTE | 2017-12-30 17:16 | US ---
EXAMINATION TYPE: US renals and bladder DATE OF EXAM: 12/30/2017 COMPARISON: 10/27/2017 CLINICAL HISTORY: Pain. Patient has no urinated in 2 days EXAM MEASUREMENTS: Right Kidney: 10.5 x 5.3 x 4.3 cm Left Kidney: 10.8 x 5.0 x 4.0 cm Right Kidney: No hydronephrosis. Cystic area visualized mid pole measuring 0.9 cm Left Kidney: No hydronephrosis or masses seen Bladder: Not fully distended, bladder wall appears thickened Bilateral Jets seen: No There is no evidence for hydronephrosis at this point in time. No nephrolithiasis is seen. The uri nary bladder is anechoic. Incidental finding of ascites within the abdomen. IMPRESSION: Small simple cyst in the interpolar right kidney. No evidence of solid renal mass or obstruction. Thi ckened urinary bladder wall consistent with nonspecific cystitis. Possible posterior wall bladder mas s on the left side. Follow-up is recommended. Ascites fluid is noted.
[2017-12-30 18:56] LABS: Appearance,Urine Cloudy (Clear); Bacteria,Urine Rare /hpf; Bilirubin,Urine Negative (Negative); Blood,Urine Negative (Negative); Color,Urine Yellow; Glucose,Urine (UA) Negative (Negative); Hyaline Casts,Urine 6 /lpf (0-2); Ketones,Urine Negative (Negative); Leukocyte Esterase,Urine Trace (Negative); Mucus,Urine Few /hpf; Nitrite,Urine Negative (Negative); PH, Urine 5.5 (5.0-8.0); Protein,Urine 1+ (Negative); RBC,Urine 1 /hpf (0-5); Specific Gravity,Urine 1.013 (1.001-1.035); Squamous Epithelial Cell,Urine 3 /hpf (0-4); Urobilinogen,Urine <2.0 mg/dL (<2.0); WBC,Urine 1 /hpf (0-5)
[2017-12-30] MEDS ORDERED: SODIUM CHLORIDE 0.9% 500 ML IV ONE (19:06)
[2017-12-30 19:53] VITALS: BP 139/63; PULSE 68; TEMP 98.2
== END 2017-12-30 19:52 | disposition home or self-care (01) ==
LOC: EC 14:34
DX: E86.0 Dehydration (principal); M79.7 Fibromyalgia; K21.9 Gastro-esophageal reflux disease without esophagitis; E78.5 Hyperlipidemia, unspecified; I10 Essential (primary) hypertension; E07.9 Disorder of thyroid, unspecified; E11.40 Type 2 diabetes mellitus with diabetic neuropathy, unspecified; Z86.73 Personal history of transient ischemic attack (TIA), and cerebral infarction without residual deficits; Z87.891 Personal history of nicotine dependence; Z79.4 Long term (current) use of insulin; Z79.899 Other long term (current) drug therapy
CPT/HCPCS: 36415; 51701; 51798; 76770; 80048; 81001; 85025; 87086; 96360; 99284

== ENCOUNTER 2018-06-16 13:51 | Inpatient (IN) | payer MEDICARE ==
[2018-06-16] MEDS ORDERED: SODIUM CHLORIDE 0.9% 1,000 ML IV STA (14:01)
[2018-06-16] MEDS ORDERED: ACETAMINOPHEN TAB 500 MG TAB PO STA (14:04)
[2018-06-16] MEDS ORDERED: IBUPROFEN 800 MG TAB PO STA (14:04)
--- NOTE | 2018-06-16 14:15 | ED ---
Weakness HPI - General Chief complaint: Weakness Stated complaint: weakness & A Fib Time Seen by Provider: 06/16/18 14:01 Source: patient Mode of arrival: EMS Limitations: no limitations - History of Present Illness Initial comments: This is a 77-year-old female the ER for weakness dehydration not feeling well occasional cough mainly weakness and anorexia. No abdominal pain no nausea vomiting or diarrhea. No recent travel history or sick contacts. Patient denies recent hospitalization MD Complaint: generalized weakness -: days(s) (6) Location: generalized Severity: moderate Severity scale (1-10): 6 Quality: numbness, aching Consistency: constant Improves with: none Worsens with: none Context: new medication Associated Symptoms: chest pain - Related Data Home Medications Medication Instructions Recorded Confirmed Simvastatin [Zocor] 40 mg PO HS 12/09/15 06/16/18 Levothyroxine Sodium [Synthroid] 50 mcg PO DAILY 09/16/17 06/16/18 Insulin Aspart [NovoLOG See Protocol SQ ACHS 10/26/17 06/16/18 (formulary)] Gabapentin [Neurontin] 100 mg PO HS 12/23/17 06/16/18 Insulin Aspart [NovoLOG 10 unit SQ AC-TID 06/16/18 06/16/18 (formulary)] Previous Rx's Medication Instructions Recorded Aspirin EC [Ecotrin Low Dose] 81 mg PO DAILY #30 tablet. 10/01/17 Cyanocobalamin [Vitamin B-12] 1,000 mcg PO DAILY@1200 tab 10/30/17 Allergies Allergy/AdvReac Type Severity Reaction Status Date / Time No Known Allergies Allergy Verified 06/16/18 15:47 Review of Systems ROS Statement: Those systems with pertinent positive or pertinent negative responses have been documented in the HPI. ROS Other: All systems not noted in ROS Statement are negative. Past Medical History Past Medical History: Cancer, COPD, CVA/TIA, Diabetes Mellitus, Fibromyalgia, GERD/Reflux, Hyperlipidemia, Hypertension, Osteoarthritis (OA), Renal Disease, Thyroid Disorder Additional Past Medical History / Comment(s): cervical cancer 1974, home 02 2.5 liters n/c uses prn. neuropathy in feet, tia, dialysis port removal History of Any Multi-Drug Resistant Organisms: VRE Date of last positivie culture/infection: 11/09/17 MDRO Source:: URINE Past Surgical History: Cholecystectomy, Hysterectomy Past Anesthesia/Blood Transfusion Reactions: No Reported Reaction Past Psychological History: Anxiety Smoking Status: Former smoker Past Alcohol Use History: None Reported Past Drug Use History: None Reported - Past Family History Father Family Medical History: Cancer (father at age of 70 from prostate cancer as well as renal cancer.), Renal Disease Additional Family Medical History / Comment(s): kidney cancer- Mother Family Medical History: Musculoskeletal Disorder (mother at age of 78 she had severe history of Cipro spray) Additional Family Medical History / Comment(s): severe osteoporosis Sister(s) Family Medical History: Cancer (patient had one sister who from lung cancer she smoked for about 45 years.) Brother(s) Family Medical History: Unable to Obtain (patient has one brother who of unknown in etiology.) Daughter(s) Family Medical History: Musculoskeletal Disorder (patient has 2 daughters one of them with psoriatic arthritis.) Son(s) Family Medical History: No Reported History (patient has one son with pelvis and shingles.) General Exam Limitations: no limitations General appearance: alert, in no apparent distress Head exam: Present: atraumatic, normocephalic, normal inspection Eye exam: Present: normal appearance, PERRL, EOMI. Absent: scleral icterus, conjunctival injection, periorbital swelling ENT exam: Present: normal exam, mucous membranes moist Neck exam: Present: normal inspection. Absent: tenderness, meningismus, lymphadenopathy Respiratory exam: Present: normal lung sounds bilaterally. Absent: respiratory distress, wheezes, rales, rhonchi, stridor Cardiovascular Exam: Present: regular rate, normal rhythm, normal heart sounds. Absent: systolic murmur, diastolic murmur, rubs, gallop, clicks GI/Abdominal exam: Present: soft, normal bowel sounds. Absent: distended, tenderness, guarding, rebound, rigid Extremities exam: Present: normal inspection, full ROM, normal capillary refill. Absent: tenderness, pedal edema, joint swelling, calf tenderness Back exam: Present: normal inspection Neurological exam: Present: alert, oriented X3, CN II-XII intact Psychiatric exam: Present: normal affect, normal mood Skin exam: Present: warm, dry, intact, normal color. Absent: rash Course Vital Signs 06/16/18 06/16/18 13:55 15:50 Temperature 101.5 F H 99.7 F H Pulse Rate 66 63 Respiratory 18 16 Rate Blood Pressure 153/63 130/63 O2 Sat by Pulse 90 L 96 Oximetry - Reevaluation(s) Reevaluation #1: 06/16/18 14:15 Medical records thoroughly reviewed Reevaluation #2: 06/16/18 15:40 Patient is feeling better with fever control and hydration EKG Findings - EKG Comments: EKG Findings:: EKG shows sinus rhythm rate of 63, OK 102, QRS 86, QTc 470 Medical Decision Making - Medical Decision Making 77 female the ER with fever, positive fever and weakness. Patient be admitted for febrile illness IV antibiotics and continue monitoring and resuscitation. - Lab Data Result diagrams: 06/16/18 14:20 06/16/18 14:20 Lab Results 06/16/18 06/16/18 06/16/18 Range/Units 14:20 14:20 14:20 WBC 7.0 (3.8-10.6) k/uL RBC 4.41 (3.80-5.40) m/uL Hgb 12.9 (11.4-16.0) gm/dL Hct 40.5 (34.0-46.0) % MCV 92.0 (80.0-100.0) fL MCH 29.3 (25.0-35.0) pg MCHC 31.9 (31.0-37.0) g/dL RDW 13.5 (11.5-15.5) % Plt Count 176 (150-450) k/uL Neutrophils % 73 % Lymphocytes % 18 % Monocytes % 7 % Eosinophils % 0 % Basophils % 0 % Neutrophils # 5.1 (1.3-7.7) k/uL Lymphocytes # 1.2 (1.0-4.8) k/uL Monocytes # 0.5 (0-1.0) k/uL Eosinophils # 0.0 (0-0.7) k/uL Basophils # 0.0 (0-0.2) k/uL PT (9.0-12.0) sec INR (<1.2) APTT (22.0-30.0) sec Sodium 139 (137-145) mmol/L Potassium 4.7 (3.5-5.1) mmol/L Chloride 102 (98-107) mmol/L Carbon Dioxide 27 (22-30) mmol/L Anion Gap 10 mmol/L BUN 26 H (7-17) mg/dL Creatinine 2.04 H (0.52-1.04) mg/dL Est GFR (CKD-EPI)AfAm 27 (>60 ml/min/1.73 sqM) Est GFR (CKD-EPI)NonAf 23 (>60 ml/min/1.73 sqM) Glucose 142 H (74-99) mg/dL Plasma Lactic Acid David (0.7-2.0) mmol/L Calcium 9.1 (8.4-10.2) mg/dL Phosphorus 3.0 (2.5-4.5) mg/dL Magnesium 1.7 (1.6-2.3) mg/dL Total Bilirubin 1.3 (0.2-1.3) mg/dL AST 37 H (14-36) U/L ALT 27 (9-52) U/L Alkaline Phosphatase 110 (38-126) U/L Total Creatine Kinase 90 (30-135) U/L CK-MB (CK-2) 0.6 (0.0-2.4) ng/mL CK-MB (CK-2) Rel Index 0.7 Troponin I 0.060 H* (0.000-0.034) ng/mL Total Protein 5.9 L (6.3-8.2) g/dL Albumin 3.3 L (3.5-5.0) g/dL 06/16/18 06/16/18 Range/Units 14:20 14:20 WBC (3.8-10.6) k/uL RBC (3.80-5.40) m/uL Hgb (11.4-16.0) gm/dL Hct (34.0-46.0) % MCV (80.0-100.0) fL MCH (25.0-35.0) pg MCHC (31.0-37.0) g/dL RDW (11.5-15.5) % Plt Count (150-450) k/uL Neutrophils % % Lymphocytes % % Monocytes % % Eosinophils % % Basophils % % Neutrophils # (1.3-7.7) k/uL Lymphocytes # (1.0-4.8) k/uL Monocytes # (0-1.0) k/uL Eosinophils # (0-0.7) k/uL Basophils # (0-0.2) k/uL PT 12.0 (9.0-12.0) sec INR 1.3 H (<1.2) APTT 27.0 (22.0-30.0) sec Sodium (137-145) mmol/L Potassium (3.5-5.1) mmol/L Chloride (98-107) mmol/L Carbon Dioxide (22-30) mmol/L Anion Gap mmol/L BUN (7-17) mg/dL Creatinine (0.52-1.04) mg/dL Est GFR (CKD-EPI)AfAm (>60 ml/min/1.73 sqM) Est GFR (CKD-EPI)NonAf (>60 ml/min/1.73 sqM) Glucose (74-99) mg/dL Plasma Lactic Acid David 1.5 (0.7-2.0) mmol/L Calcium (8.4-10.2) mg/dL Phosphorus (2.5-4.5) mg/dL Magnesium (1.6-2.3) mg/dL Total Bilirubin (0.2-1.3) mg/dL AST (14-36) U/L ALT (9-52) U/L Alkaline Phosphatase (38-126) U/L Total Creatine Kinase (30-135) U/L CK-MB (CK-2) (0.0-2.4) ng/mL CK-MB (CK-2) Rel Index Troponin I (0.000-0.034) ng/mL Total Protein (6.3-8.2) g/dL Albumin (3.5-5.0) g/dL - Radiology Data Radiology results: report reviewed (Chest x-rays negative for acute disease), image reviewed Disposition Clinical Impression: UTI (urinary tract infection), Acute exacerbation of chronic obstructive airways disease, Weakness, Febrile illness, acute Disposition: ADMITTED IP TO THIS HOSP Condition: Fair Is patient prescribed a controlled substance at d/c from ED?: No
[2018-06-16 14:53] LABS: Basophils % (A) 0 %; Eosinophils % (A) 0 %; HCT 40.5 % (34.0-46.0); HGB 12.9 gm/dL (11.4-16.0); Lymphocytes # (A) 1.2 k/uL (1.0-4.8); Lymphocytes % (A) 18 %; MCH 29.3 pg (25.0-35.0); MCHC 31.9 g/dL (31.0-37.0); Mean Platelet Volume 7.5; Monocytes # (A) 0.5 k/uL (0-1.0); Monocytes % (A) 7 %; Neutrophils # (A) 5.1 k/uL (1.3-7.7); Neutrophils % (A) 73 %; Platelet Count 176 k/uL (150-450); RBC 4.41 m/uL (3.80-5.40); RDW 13.5 % (11.5-15.5)
[2018-06-16 15:04] LABS: Albumin 3.3 g/dL (3.5-5.0); Calcium 9.1 mg/dL (8.4-10.2); Magnesium 1.7 mg/dL (1.6-2.3); Total Bilirubin 1.3 mg/dL (0.2-1.3); Total Protein 5.9 g/dL (6.3-8.2)
[2018-06-16 15:06] LABS: INR 1.3 (<1.2)
--- NOTE | 2018-06-16 15:10 | XR ---
EXAMINATION TYPE: XR chest 2V DATE OF EXAM: 06/16/2018 COMPARISON: Prior chest x-ray 12/23/2017 HISTORY: Weakness, history COPD and cervical carcinoma TECHNIQUE: Frontal and lateral views of the chest are obtained. FINDINGS: Prominent lung lines suggest underlying COPD. There is no focal air space opacity, pleural effusion, or pneumothorax seen. The cardiac silhouette size is stable. There are overlying cardiac leads. The osseous structures are intact. IMPRESSION: No acute cardiopulmonary process.
[2018-06-16 15:13] LABS: Potassium 4.7 mmol/L (3.5-5.1)
[2018-06-16 15:27] LABS: Creatine Kinase MB 0.6 ng/mL (0.0-2.4)
[2018-06-16 15:31] LABS: Troponin I 0.06 ng/mL (0.000-0.034)
[2018-06-16] MEDS ORDERED: PNEUMONIA PROTOCOL UTILIZED 1 EACH MISC PO PRN (15:41)
[2018-06-16] MEDS: SODIUM CHLORIDE 0.9% 1,000 ML IV SCH (15:52)
[2018-06-16] MEDS ORDERED: AZITHROMYCIN 500 MG in SODIUM CHLORIDE 0.9% 250 ML IVPB STA (16:02)
[2018-06-16 16:17] LABS: Appearance,Urine Turbid (Clear); Bacteria,Urine Moderate /hpf; Bilirubin,Urine Negative (Negative); Blood,Urine Moderate (Negative); Budding Yeast,Urine Many /hpf; Color,Urine Yellow; Glucose,Urine (UA) Negative (Negative); Ketones,Urine Trace (Negative); Leukocyte Esterase,Urine Large (Negative); Nitrite,Urine Negative (Negative); PH, Urine 5.5 (5.0-8.0); Protein,Urine 2+ (Negative); RBC,Urine 14 /hpf (0-5); Specific Gravity,Urine 1.014 (1.001-1.035); Urobilinogen,Urine <2.0 mg/dL (<2.0); WBC,Urine >182 /hpf (0-5)
[2018-06-16] MEDS: IPRATROPIUM-ALBUTEROL 3 ML NEB INHALATION SCH ×2 (16:59→20:18)
[2018-06-16] MEDS ORDERED: IPRATROPIUM-ALBUTEROL 3 ML NEB INHALATION PRN (20:19)
[2018-06-16 21:18] LABS: Glucose,Whole Blood 186 mg/dL (75-99)
[2018-06-16] MEDS: GABAPENTIN 100 MG CAP PO SCH (21:21)
[2018-06-16] MEDS: INSULIN ASPART 100 UNIT/ML 1 ML 10 ML VIAL SQ SCH (21:21)
[2018-06-16] MEDS: ATORVASTATIN 20 MG TAB PO SCH (21:21)
[2018-06-17] MEDS: ACETAMINOPHEN TAB 325 MG TAB PO PRN ×2 (05:15→17:47)
[2018-06-17] MEDS: SODIUM CHLORIDE 0.9% 1,000 ML IV SCH ×2 (05:15→15:58)
[2018-06-17] MEDS: LEVOTHYROXINE 50 MCG TAB PO SCH (05:15)
[2018-06-17] MEDS: INSULIN ASPART 100 UNIT/ML 1 ML 10 ML VIAL SQ SCH ×7 (06:11→22:52)
[2018-06-17 06:14] LABS: Basophils % (A) 0 %; Eosinophils % (A) 0 %; HCT 34.5 % (34.0-46.0); Hypochromasia Slight; Lymphocytes # (A) 0.7 k/uL (1.0-4.8); Lymphocytes % (A) 12 %; MCH 29.6 pg (25.0-35.0); MCHC 31.9 g/dL (31.0-37.0); MCV 92.8 fL (80.0-100.0); Mean Platelet Volume 7.7; Monocytes # (A) 0.4 k/uL (0-1.0); Monocytes % (A) 7 %; Neutrophils # (A) 4.9 k/uL (1.3-7.7); Neutrophils % (A) 79 %; Platelet Count 146 k/uL (150-450); RBC 3.72 m/uL (3.80-5.40); RDW 13.7 % (11.5-15.5); WBC 6.2 k/uL (3.8-10.6)
[2018-06-17 06:26] LABS: Calcium 8.3 mg/dL (8.4-10.2); Potassium 4.1 mmol/L (3.5-5.1)
[2018-06-17 06:52] LABS: Glucose,Whole Blood 141 mg/dL (75-99)
[2018-06-17] MEDS: IPRATROPIUM-ALBUTEROL 3 ML NEB INHALATION SCH ×5 (07:15→20:16)
[2018-06-17] MEDS: ASPIRIN 81 MG PO SCH (08:10)
[2018-06-17] MEDS ORDERED: ENOXAPARIN 40 MG/0.4 ML SYRINGE SQ SCH (09:00)
--- NOTE | 2018-06-17 09:40 | XR ---
EXAMINATION TYPE: XR chest 2V DATE OF EXAM: 06/17/2018 COMPARISON: 06/16/2018 TECHNIQUE: PA and lateral views submitted. HISTORY: Fever FINDINGS: Atherosclerotic change aorta. Subsegmental changes at the right lung base. There is a tiny effusion. Arthropathy of the shoulders. No pneumothorax. Hyperinflation is seen and there is a coarsened inters titium. Hypertrophic and degenerative change of the spine. IMPRESSION: 1. Right basilar atelectasis or infiltrate superimposed on a background of COPD. 2. Interstitium is prominent may been the basis of chronic interstitial lung disease rather than pneu monitis or venous congestion. Correlate clinically.
[2018-06-17 11:23] LABS: Glucose,Whole Blood 143 mg/dL (75-99)
[2018-06-17] MEDS: CYANOCOBALAMIN 500 MCG TAB PO SCH (12:18)
--- NOTE | 2018-06-17 13:55 | P.HPIM ---
History of Present Illness H&P Date: 06/17/18 Chief Complaint: Fever suprapubic pain This is a 77-year-old female one of Dr. Real Jiang with medical history significant for hypertension and hypertensive cardiovascular disease with left ventricular hypertrophy, history of the fiber myalgia, hyperlipidemia , history of hypothyroidism, COPD, CVA/TIA, history of cervical cancer back in 1974 status post hysterectomy, history of chronic kidney disease stage III with a prior history of acute kidney injury requiring dialysis in the past, diabetes mellitus type 2 patient was brought into the emergency department at [facility] because of generalized weakness and not feeling well , fever chills, anorexia, hypersomnia, diminished appetite, possible weight loss, and increasing urinary incontinence, bladder discomfort, without any hematuria. She was thus admitted from our facility 12/24/2017 for urinary tract infection, workup included at that time included Enterobacter UTI and I drug resistant except for quinolone's and imipenem, Bactrim. Bladder ultrasound shows a possibility of a bladder mass patient mentioned that she has seen a urologist for this and was told not to worry. She comes in now for urinary tract infection with SIRS, IV antibiotics to be given blood and urine cultures cultures, Review of Systems Constitutional: Reports as per HPI, Reports anorexia, Reports chills, Reports daytime sleepiness, Reports fatigue, Reports fever, Reports malaise, Denies chronic headaches, Denies chronic pain, Denies lethargy, Denies night sweats, Denies poor appetite, Denies sweats, Denies weakness, Denies weight gain, Denies weight loss Ears, nose, mouth and throat: Reports as per HPI, Denies ant. neck pain, Denies bleeding gums, Denies dental pain, Denies dysphagia, Denies epistaxis, Denies headache, Denies hoarseness, Denies mouth pain, Denies nasal congestion, Denies nasal discharge, Denies neck fullness/pressure, Denies neck lump, Denies nose pain, Denies odynophagia, Denies post-nasal drip, Denies sinus pain, Denies sinus pressure, Denies swelling in mouth, Denies swelling in throat, Denies sore throat, Denies vertigo, Denies voice changes Cardiovascular: Reports as per HPI, Denies chest pain, Denies claudication, Denies decreased exercise tolerance, Denies dyspnea on exertion, Denies edema, Denies high blood pressure, Denies irregular heart beat, Denies leg edema, Denies lightheadedness, Denies orthopnea, Denies palpitations, Denies paroxysmal nocturnal dyspnea, Denies phlebitis, Denies rapid heart beat, Denies shortness of breath, Denies syncope Respiratory: Reports as per HPI, Denies congestion, Denies cough, Denies cough with sputum, Denies dyspnea, Denies excessive sputum, Denies hemoptysis, Denies home oxygen, Denies pain, Denies pain on inspiration, Denies pleurisy, Denies respiratory infections, Denies sleep apnea, Denies snoring, Denies wheezing Gastrointestinal: Reports as per HPI, Denies abdominal pain, Denies belching, Denies bloating, Denies BRBPR, Denies change in bowel habits, Denies coffee ground emesis, Denies constipation, Denies diarrhea, Denies dyspepsia, Denies early satiety, Denies excessive gas, Denies heartburn, Denies hematemesis, Denies hematochezia, Denies indigestion, Denies jaundice, Denies lactose intolerance, Denies loss of appetite, Denies melena, Denies nausea, Denies vomiting Genitourinary: Reports as per HPI, Reports dysuria, Reports mixed incontinence, Reports urge incontinence, Reports urinary frequency, Denies abnormal vaginal bleeding, Denies decreased libido, Denies difficulty conceiving, Denies difficulty voiding, Denies dysmenorrhea, Denies dyspareunia, Denies flank pain, Denies genital sores, Denies hematuria, Denies hot flashes, Denies incomplete emptying, Denies kidney stones, Denies menorrhagia, Denies nocturia, Denies pelvic pain, Denies post void dribbling, Denies , Denies prolapse symptoms, Denies stress incontinence, Denies urgency, Denies vaginal discharge, Denies vaginal dryness, Denies vaginal itching, Denies vaginal odor Menstruation: Reports as per HPI, Denies amenorrhea, Denies amenorrhea on BC, Denies currently menstrual, Denies cycle < 21 days, Denies cycle > 35 days, Denies cycle variable, Denies menses 1-7 days, Denies menses 8 or > days, Denies menses variable, Denies period heavy, Denies period light, Denies period normal, Denies period spotting, Denies post hysterectomy, Denies postmenopausal , Denies premenarcheal Musculoskeletal: Reports as per HPI, Denies arm numbness/tingling, Denies atrophy, Denies fractures, Denies frequent falls, Denies gait dysfunction, Denies hot joints, Denies leg numbness/tingling, Denies limitation of motion, Denies loss of height, Denies low back pain, Denies morning stiffness, Denies muscle cramps, Denies muscle weakness, Denies myalgias, Denies neck pain, Denies neck stiffness, Denies prior amputations, Denies redness of joints, Denies shooting arm pain, Denies shooting leg pain Integumentary: Reports as per HPI, Denies acne, Denies boils, Denies brittle nails, Denies change in hair/nails, Denies color changes, Denies darkening of skin, Denies depigmentation, Denies dryness, Denies foot/leg ulcers, Denies growths, Denies hirsutism, Denies lesions, Denies onychomycosis, Denies pruritus , Denies rash, Denies sores, Denies striae, Denies unusual bruising, Denies wounds Neurological: Reports as per HPI, Denies aphasia, Denies ataxia, Denies balance difficulties, Denies burning pain, Denies change in mentation, Denies change in smell/taste, Denies change in speech, Denies confusion, Denies convulsions, Denies double vision, Denies gait dysfunction, Denies head injury, Denies headaches, Denies hearing difficulties, Denies lack of coordination, Denies loss of vision, Denies memory loss, Denies migraines, Denies motor disturbance, Denies numbness, Denies paralysis, Denies paresthesias, Denies seizures, Denies sensory deficit, Denies spasticity, Denies syncope, Denies tic, Denies tingling , Denies transient paralysis, Denies tremors, Denies vertigo, Denies weakness, Denies visual changes Psychiatric: Reports as per HPI, Reports change in appetite, Reports change in sleep habits, Reports insomnia, Reports sleep disturbances, Denies anhedonia, Denies anxiety, Denies anxiety attacks, Denies change in libido, Denies confusion, Denies depression, Denies difficulty concentrating, Denies disorientation, Denies hallucinations, Denies hopelessness, Denies hypersomnia, Denies irritability, Denies memory loss, Denies mood swings, Denies paranoia, Denies sadness/tearfulness, Denies suicidal ideation Endocrine: Reports as per HPI, Denies cold intolerance, Denies deepening of the voice, Denies excessive sweating, Denies excessive thirst, Denies fatigue, Denies flushing, Denies heat intolerance, Denies high blood sugars, Denies increase in ring/shoe/hat size, Denies low blood sugars, Denies nocturia, Denies palpitations, Denies polydipsia, Denies polyphagia, Denies polyuria, Denies proptosis, Denies recent glucocorticoid use, Denies thyroid mass, Denies weight change Hematologic/Lymphatic: Reports as per HPI, Denies easy bleeding, Denies easy bruising, Denies lymphadenopathy, Denies lymphedema, Denies thrombophilia Allergic/Immunologic: Reports as per HPI, Denies allergic rhinitis, Denies anaphylaxis, Denies angioedema, Denies gluten intolerance, Denies persistent infections, Denies seasonal allergies, Denies urticaria, Denies wheezing Past Medical History Past Medical History: Cancer, COPD, CVA/TIA, Diabetes Mellitus, Fibromyalgia, GERD/Reflux, Hyperlipidemia, Hypertension, Osteoarthritis (OA), Renal Disease, Thyroid Disorder Additional Past Medical History / Comment(s): cervical cancer 1974, paste 2.5 liters n/c uses prn since taken off it. neuropathy in feet, tia, dialysis port removal History of Any Multi-Drug Resistant Organisms: VRE Date of last positivie culture/infection: 11/09/17 MDRO Source:: URINE Past Surgical History: Cholecystectomy, Hysterectomy Past Anesthesia/Blood Transfusion Reactions: No Reported Reaction Smoking Status: Former smoker - Past Family History Father Family Medical History: Cancer, Renal Disease Additional Family Medical History / Comment(s): kidney cancer- Mother Family Medical History: Musculoskeletal Disorder Additional Family Medical History / Comment(s): severe osteoporosis Sister(s) Family Medical History: Cancer Brother(s) Family Medical History: Unable to Obtain Daughter(s) History Unknown: Yes Family Medical History: Musculoskeletal Disorder Son(s) Family Medical History: No Reported History Medications and Allergies Home Medications Medication Instructions Recorded Confirmed Type Simvastatin [Zocor] 40 mg PO HS 12/09/15 06/16/18 History Levothyroxine Sodium [Synthroid] 50 mcg PO DAILY 09/16/17 06/16/18 History Aspirin EC [Ecotrin Low Dose] 81 mg PO DAILY #30 tablet. 10/01/17 06/16/18 Rx Insulin Aspart [NovoLOG See Protocol SQ ACHS 10/26/17 06/16/18 History (formulary)] Cyanocobalamin [Vitamin B-12] 1,000 mcg PO DAILY@1200 tab 10/30/17 06/16/18 Rx Gabapentin [Neurontin] 100 mg PO HS 12/23/17 06/16/18 History Insulin Aspart [NovoLOG 10 unit SQ AC-TID 06/16/18 06/16/18 History (formulary)] Allergies Allergy/AdvReac Type Severity Reaction Status Date / Time No Known Allergies Allergy Verified 06/16/18 15:47 Physical Exam Vitals: Vital Signs Temp Pulse Pulse Resp BP BP Pulse Ox 06/16/18 20:13 98.2 F 65 18 118/91 95 06/16/18 18:47 98.7 F 67 16 128/94 95 06/16/18 17:58 98.3 F 06/16/18 17:30 66 16 133/65 95 06/16/18 17:00 67 18 116/61 96 06/16/18 16:00 66 18 130/63 96 06/16/18 15:50 99.7 F H 63 16 130/63 96 06/16/18 15:30 66 18 140/52 96 06/16/18 14:30 66 22 153/63 98 06/16/18 14:00 67 12 153/63 89 L 06/16/18 13:59 153/63 89 L 06/16/18 13:55 101.5 F H 66 18 153/63 90 L Intake and Output 06/16/18 06/16/18 06/16/18 06:59 14:59 22:59 Output Total 100 Balance -100 Output: Urine 100 Uretheral (Kurtz) 100 Other: Weight 90.718 kg - Constitutional General appearance: cooperative, no acute distress - EENT Eyes: anicteric sclerae, EOMI, PERRLA, dentition normal ENT: no hard of hearing, no hearing grossly normal, no NA/AT, no normal oropharynx, no other, no pharyngeal erythema, no thrush, no tonsillar exudates, no tonsillar swelling - Neck Neck: normal ROM - Respiratory Respiratory: bilateral: CTA, negative: diminished, dullness, rales, rhonchi, wheezing - Cardiovascular Rhythm: regular Heart sounds: normal: S1, S2 Abnormal Heart Sounds: no systolic murmur, no diastolic murmur, no rub, no S3 Gallop, no S4 Gallop, no click, no other - Gastrointestinal General gastrointestinal: no absent bowel sounds, no decreased bowel sounds, no distended, no hepatomegaly, no hyperactive bowel sounds, normal bowel sounds, no organomegaly, no rigid, no scaphoid, soft, no splenomegaly, no tenderness, no umbilical hernia, no ventral hernia - Integumentary Integumentary: decreased turgor, normal - Neurologic Neurologic: CNII-XII intact - Musculoskeletal Musculoskeletal: gait normal, strength equal bilaterally - Psychiatric Psychiatric: A&O x's 3, appropriate affect Results CBC & Chem 7: 06/17/18 05:59 06/17/18 05:59 Labs: Abnormal Lab Results - Last 24 Hours (Table) 06/16/18 06/16/18 06/16/18 Range/Units 14:20 14:20 14:20 INR 1.3 H (<1.2) BUN 26 H (7-17) mg/dL Creatinine 2.04 H (0.52-1.04) mg/dL Glucose 142 H (74-99) mg/dL AST 37 H (14-36) U/L Troponin I 0.060 H* (0.000-0.034) ng/mL Total Protein 5.9 L (6.3-8.2) g/dL Albumin 3.3 L (3.5-5.0) g/dL Urine Appearance (Clear) Urine Protein (Negative) Urine Ketones (Negative) Urine Blood (Negative) Ur Leukocyte Esterase (Negative) Urine RBC (0-5) /hpf Urine WBC (0-5) /hpf Urine WBC Clumps (None) /hpf Urine Bacteria (None) /hpf Urine Yeast (Budding) (None) /hpf 06/16/18 Range/Units 16:09 INR (<1.2) BUN (7-17) mg/dL Creatinine (0.52-1.04) mg/dL Glucose (74-99) mg/dL AST (14-36) U/L Troponin I (0.000-0.034) ng/mL Total Protein (6.3-8.2) g/dL Albumin (3.5-5.0) g/dL Urine Appearance Turbid H (Clear) Urine Protein 2+ H (Negative) Urine Ketones Trace H (Negative) Urine Blood Moderate H (Negative) Ur Leukocyte Esterase Large H (Negative) Urine RBC 14 H (0-5) /hpf Urine WBC >182 H (0-5) /hpf Urine WBC Clumps Many H (None) /hpf Urine Bacteria Moderate H (None) /hpf Urine Yeast (Budding) Many H (None) /hpf Thrombosis Risk Factor Assmnt - DVT/VTE Prophylaxis DVT/VTE Prophylaxis: Pharmacologic Prophylaxis ordered - Choose All That Apply Any of the Below Risk Factors Present?: Yes Each Factor Represents 1 point: Abnormal pulmonary function (COPD), Obesity ( BMI >25) Other Risk Factors: Yes Each Risk Factor Represents 3 Points: Age 75 years or older Thrombosis Risk Factor Assessment Total Risk Factor Score: 5 Thrombosis Risk Factor Assessment Level: High Risk Assessment and Plan Plan: 1. UTI with sepsis. Urine culture, blood culture, start the patient on levofloxacin IV, ceftriaxone was discontinued as it is resistant based on her last urine culture in December 2017, continue IV fluid resuscitation, monitor the patient very closely.. Fluconazole 100 mg daily for urine ale, vaginitis 2. Acute kidney injury with underlying CK D stage III, from ATN, continue IV hydration, renal ultrasound to evaluate for hydronephrosis, patient would be hydrated, and avoid nephrotoxins Ca 3. Possibility of bladder mass, bladder ultrasound is requested today, to evaluate for hydronephrosis as well as take a look at the bladder mass, however she was seen already by urologist for this last December. Patient cannot recall the name of the doctor 4. Anemia, Hemoccult test stools were negative patient has microscopic hematuria most likely secondary to hemorrhagic cystitis but no gross blood noted on physical examination 5. Fibromyalgia. Continue patient on gabapentin 100 mg orally once every day. 6 Ale infection in the urine/vagina, patient will be given fluconazole 100 mg daily, oral she has high risk secondary to sugar diabetes 7. Elevated troponins most likely secondary to sepsis, cardiology is to see the patient, monitor troponins, patient does not have any cardiac symptoms at this time 8. Infiltrate in the right lung possibility of atelectasis or infiltrate, patient possibility of pneumonia based on clinical findings, this also is to see show prominence may be on the basis of chronic interstitial lung disease rather than pneumonitis, IV Zithromax and Rocephin would be changed to IV levofloxacin, will try to obtain cultures if able 9 Hypothyroidism. Continue Synthroid 50 g orally once every day. 10 Hyperlipidemia. Continue patient on Lipitor 20 mg orally once every day. 11. Diabetes mellitus type 2. Continue consistent carbohydrate diet, continue patient on Humulin N 10 units twice every day along with the Humalog correctional scale pre-meals ,continue the patient on BGM before each meal and at bedtime. 12 Peripheral dizziness chronic stable. Continue patient on Antivert 25 mg orally twice every day. 13 COPD. Continue patient on DuoNeb the pleasure 4 times every day. 14 DVT prophylaxis and GI prophylaxis. Continue Contin Lovenox 30 daily, PPI. 16. Admitted to inpatient. Estimate length of stay 2 midnights. `7 Patient is full code.
[2018-06-17] MEDS ORDERED: LEVOFLOXACIN 250MG-D5W PMX 250 MG in DEXTROSE/WATER 1 50ML.BAG IVPB SCH (14:00)
[2018-06-17 14:01] VITALS: BMI 34.6
[2018-06-17 15:18] LABS: Hemoglobin A1C 5.9 % (4.0-6.0)
--- NOTE | 2018-06-17 15:18 | P.CRDCN ---
History of Present Illness Consult date: 06/17/18 Requesting physician: Sophia Sanhcez Reason for Consult (text): Abnormal troponin Chief complaint: Weakness, cough History of present illness: This is a 77-year-old female with known history of COPD with home O2 use, prior nicotine dependence, diabetes, hyperlipidemia, renal failure, obesity , hypertension, who presented to the hospital on this occasion with symptoms of weakness and fever. Patient also has a history of chronic kidney disease with a prior history of acute kidney injury requiring dialysis in the past. Patient was brought to the emergency room on this occasion with symptoms of weakness, fever chills, anorexia, decreased appetite and increased urinary incontinence. She was admitted with urinary tract infection with surgery and antibiotics are currently in place. Troponin was drawn in the emergency room for which cardiology consultation was obtained. Chest x-ray reveals acute cardiopulmonary process. EKG shows normal sinus rhythm with no acute changes. Blood pressure 152/62 on admission, heart rate in the 60s, temperature 101.5, 90 % on room air. White blood cell count 6.2, hemoglobin 11, platelet count 146. Sodium 138, potassium 4.1, BUN 27, creatinine 1.9. Troponin 0.06, 0.19. Influenza A and B-. Urinalysis showed large amount of leukocyte Estrace, moderate bacteria, urine culture in process. We will also obtain blood cultures. At the time of my examination, patient states that she felt diaphoretic, generally weak. Denied any chest discomfort, no difficulty in breathing. Past Medical History Past Medical History: Cancer, COPD, CVA/TIA, Diabetes Mellitus, Fibromyalgia, GERD/Reflux, Hyperlipidemia, Hypertension, Osteoarthritis (OA), Renal Disease, Thyroid Disorder Additional Past Medical History / Comment(s): cervical cancer 1974, pasthome 02 2.5 liters n/c uses prn since taken off it. neuropathy in feet, tia, dialysis port removal History of Any Multi-Drug Resistant Organisms: VRE Date of last positivie culture/infection: 11/09/17 MDRO Source:: URINE Past Surgical History: Cholecystectomy, Hysterectomy Past Anesthesia/Blood Transfusion Reactions: No Reported Reaction Smoking Status: Former smoker - Past Family History Father Family Medical History: Cancer, Renal Disease Additional Family Medical History / Comment(s): kidney cancer- Mother Family Medical History: Musculoskeletal Disorder Additional Family Medical History / Comment(s): severe osteoporosis Sister(s) Family Medical History: Cancer Brother(s) Family Medical History: Unable to Obtain Daughter(s) History Unknown: Yes Family Medical History: Musculoskeletal Disorder Son(s) Family Medical History: No Reported History Medications and Allergies Home Medications Medication Instructions Recorded Confirmed Type Simvastatin [Zocor] 40 mg PO HS 12/09/15 06/16/18 History Levothyroxine Sodium [Synthroid] 50 mcg PO DAILY 09/16/17 06/16/18 History Aspirin EC [Ecotrin Low Dose] 81 mg PO DAILY #30 tablet. 10/01/17 06/16/18 Rx Insulin Aspart [NovoLOG See Protocol SQ ACHS 10/26/17 06/16/18 History (formulary)] Cyanocobalamin [Vitamin B-12] 1,000 mcg PO DAILY@1200 tab 10/30/17 06/16/18 Rx Gabapentin [Neurontin] 100 mg PO HS 12/23/17 06/16/18 History Insulin Aspart [NovoLOG 10 unit SQ AC-TID 06/16/18 06/16/18 History (formulary)] Allergies Allergy/AdvReac Type Severity Reaction Status Date / Time No Known Allergies Allergy Verified 06/16/18 15:47 Physical Exam Vitals: Vital Signs Temp Pulse Pulse Resp BP BP Pulse Ox 06/17/18 12:00 98.3 F 63 18 113/53 93 L 06/17/18 08:00 98.4 F 73 18 111/50 96 06/17/18 06:10 101.0 F H 06/17/18 05:00 101.6 F H 72 20 116/52 93 L 06/17/18 00:30 67 18 137/66 94 L 06/16/18 20:13 98.2 F 65 18 118/91 95 06/16/18 18:47 98.7 F 67 16 128/94 95 06/16/18 17:58 98.3 F 06/16/18 17:30 66 16 133/65 95 06/16/18 17:00 67 18 116/61 96 06/16/18 16:00 66 18 130/63 96 06/16/18 15:50 99.7 F H 63 16 130/63 96 06/16/18 15:30 66 18 140/52 96 Intake and Output 10/06/17/18 06/17/18 06:59 14:59 22:59 Intake Total 970 Balance 970 Intake: Intake, IV Titration 850 Amount Sodium Chloride 0.9% 1, 800 000 ml @ 100 mls/hr IV . Q10H [facility] Rx#:[id number] cefTRIAXone 1,000 mg In 50 Sodium Chloride 0.9% 50 ml @ 100 mls/hr IVPB ONCE STA Rx#:[id number] Oral 120 Other: Voiding Method Incontinent # Voids 1 1 Weight 94.3 kg 94.3 kg PHYSICAL EXAMINATION: GENERAL: 77-year-old female appears weak, diaphoretic. HEENT: Head is atraumatic, normocephalic. Pupils equal, round. Sclera anicteric. Conjunctiva are clear. Mucous membranes of the mouth are moist. Neck is supple. There is no elevated jugular venous pressure. No carotid bruit is heard. HEART EXAMINATION: Heart S1, S2 normal. No murmur or gallop heard. CHEST EXAMINATION: Lungs are clear to auscultation and precussion. No chest wall tenderness is noted on palpation or with deep breathing. ABDOMEN: Soft, nontender. Bowel sounds are heard. No organomegaly noted. EXTREMITIES: 2+ peripheral pulses with no evidence of peripheral edema and no calf tenderness noted. NEUROLOGIC patient is awake, alert and oriented 3 . . Results 06/17/18 05:59 06/17/18 05:59 Cardiac Enzymes 06/16/18 06/16/18 06/17/18 Range/Units 14:20 14:20 05:59 AST 37 H (14-36) U/L CK-MB (CK-2) 0.6 (0.0-2.4) ng/mL Troponin I 0.060 H* 0.192 H* (0.000-0.034) ng/mL Coagulation 06/16/18 Range/Units 14:20 PT 12.0 (9.0-12.0) sec APTT 27.0 (22.0-30.0) sec CBC 06/17/18 Range/Units 05:59 WBC 6.2 (3.8-10.6) k/uL RBC 3.72 L (3.80-5.40) m/uL Hgb 11.0 L (11.4-16.0) gm/dL Hct 34.5 (34.0-46.0) % Plt Count 146 L (150-450) k/uL Comprehensive Metabolic Panel 06/16/18 06/17/18 Range/Units 14:20 05:59 Sodium 139 138 (137-145) mmol/L Potassium 4.7 4.1 (3.5-5.1) mmol/L Chloride 102 106 (98-107) mmol/L Carbon Dioxide 27 25 (22-30) mmol/L BUN 26 H 27 H (7-17) mg/dL Creatinine 2.04 H 1.96 H (0.52-1.04) mg/dL Glucose 142 H 155 H (74-99) mg/dL Calcium 9.1 8.3 L (8.4-10.2) mg/dL AST 37 H (14-36) U/L ALT 27 (9-52) U/L Alkaline Phosphatase 110 (38-126) U/L Total Protein 5.9 L (6.3-8.2) g/dL Albumin 3.3 L (3.5-5.0) g/dL Current Medications Generic Name Dose Route Start Last Admin Trade Name Freq PRN Reason Stop Dose Admin Acetaminophen 650 mg 06/17/18 05:06 06/17/18 05:15 Tylenol Tab PO 650 mg Q6HR PRN Administration Fever and/ or Pain Albuterol/Ipratropium 3 ml 06/16/18 16:00 06/17/18 10:37 Duoneb 0.5 Mg-3 Mg/3 Ml Soln INHALATION Not Given RT-QID [facility] Albuterol/Ipratropium 3 ml 06/16/18 20:19 Duoneb 0.5 Mg-3 Mg/3 Ml Soln INHALATION RT-QID PRN Shortness Of Breath Or Wheezing Aspirin 81 mg 06/17/18 09:00 06/17/18 08:10 Aspirin PO 81 mg DAILY [facility] Administration Atorvastatin Calcium 20 mg 06/16/18 21:00 06/16/18 21:21 Lipitor PO 20 mg HS [facility] Administration Cyanocobalamin 1,000 mcg 06/17/18 12:00 06/17/18 12:18 Vitamin B-12 PO 1,000 mcg DAILY@1200 [facility] Administration Enoxaparin Sodium 30 mg 06/18/18 09:00 Lovenox SQ DAILY [facility] Fluconazole 100 mg 06/17/18 14:00 Diflucan PO DAILY [facility] Gabapentin 100 mg 06/16/18 21:00 06/16/18 21:21 Neurontin PO 100 mg HS [facility] Administration Sodium Chloride 1,000 mls @ 100 mls/hr 06/16/18 15:45 06/17/18 05:15 Saline 0.9% IV 100 mls/hr .Q10H [facility] Administration Levofloxacin/Dextrose 250 mg/ 50 mls @ 50 mls/hr 06/17/18 14:00 IV Solution IVPB Q24H [facility] Insulin Aspart 10 unit 06/17/18 07:30 06/17/18 12:18 Novolog SQ 10 unit AC-TID [facility] Administration Insulin Aspart 0 unit 06/16/18 21:00 06/17/18 12:19 Novolog SQ 1 unit ACHS [facility] Administration Protocol Levothyroxine Sodium 50 mcg 06/17/18 06:30 06/17/18 05:15 Synthroid PO 50 mcg DAILY@0630 [facility] Administration Miscellaneous Information 1 each 06/16/18 15:41 Pneumonia Protocol Utilized PO ONCE PRN Per Protocol Intake and Output 06/17/18 06/17/18 06/17/18 06:59 14:59 22:59 Intake Total 970 Balance 970 Intake: Intake, IV Titration 850 Amount Sodium Chloride 0.9% 1, 800 000 ml @ 100 mls/hr IV . Q10H [facility] Rx#:[id number] cefTRIAXone 1,000 mg In 50 Sodium Chloride 0.9% 50 ml @ 100 mls/hr IVPB ONCE STA Rx#:[id number] Oral 120 Other: Voiding Method Incontinent # Voids 1 1 Weight 94.3 kg 94.3 kg Patient Weight 06/18/18 06:59 Weight 94.3 kg 06/17/18 05:59 06/17/18 05:59 EKG Interpretations (text) EKG shows a normal sinus rhythm, possible junctional rhythm with inverted P waves Assessment and Plan Plan: Assessment and plan #1. UTI with sepsis. #2. Acute kidney injury with underlying CK D stage III #3. Possibility of bladder mass, bladder ultrasound is requested today, to evaluate for hydronephrosis as well as take a look at the bladder mass, however she was seen already by urologist for this last December. Patient cannot recall the name of the doctor #4 Anemia #5 Fibromyalgia. #6 Ale infection in the urine/vagina #7 Elevated troponins most likely secondary to sepsis #8 Infiltrate in the right lung possibility of atelectasis or infiltrate, patient possibility of pneumonia based on clinical findings, this also is to see show prominence may be on the basis of chronic interstitial lung disease rather than pneumonitis #9 Hypothyroidism. #10 Hyperlipidemia. #11 Diabetes mellitus type 2. #12 COPD Plan We will obtain an echocardiogram with Doppler study. Continue baby aspirin, Lipitor 20 mg daily. Abnormality in troponin likely secondary to sepsis. Further recommendations to follow. DNP note has been reviewed, I agree with a documented findings and plan of care. Patient was seen and examined.
--- NOTE | 2018-06-17 15:20 | US ---
EXAMINATION TYPE: US kidneys/renal and bladder DATE OF EXAM: 06/17/2018 COMPARISON: 12/23/2017 CLINICAL HISTORY: UTI, known bladder mass follow up. EXAM MEASUREMENTS: Right Kidney: 10.5 x 4.4 x 4.2 cm Left Kidney: 11.2 x 4.6 x 4.6 cm Ascites seen in RUQ. Right Kidney: No hydronephrosis or masses seen Left Kidney: No hydronephrosis or masses seen Bladder: Free fluid in pelvis surrounding bladder, wall does appear somewhat thick, this could be bec ause of the free fluid surrounding bladder Spleen measures 18.6cm Areas of renal cortical loss suggest chronic medical renal disease. IMPRESSION: There is free fluid in the pelvis surrounding the bladder. Bladder wall is thickened which may accoun t for history of bladder mass. Correlate clinically. Incidental note made of splenomegaly
[2018-06-17] MEDS: FLUCONAZOLE 100 MG TAB PO SCH (15:55)
[2018-06-17] MEDS ORDERED: AZITHROMYCIN 500 MG in SODIUM CHLORIDE 0.9% 250 ML IVPB SCH (16:00)
[2018-06-17 16:25] LABS: Glucose,Whole Blood 109 mg/dL (75-99)
[2018-06-17] MEDS: GABAPENTIN 100 MG CAP PO SCH (21:00)
[2018-06-17] MEDS: ATORVASTATIN 20 MG TAB PO SCH (21:00)
[2018-06-17 21:46] LABS: Glucose,Whole Blood 128 mg/dL (75-99)
[2018-06-18] MEDS: SODIUM CHLORIDE 0.9% 1,000 ML IV SCH ×3 (05:17→17:31)
[2018-06-18 06:02] LABS: Glucose,Whole Blood 111 mg/dL (75-99)
[2018-06-18 06:04] LABS: Basophils % (A) 0 %; Eosinophils # (A) 0.1 k/uL (0-0.7); Eosinophils % (A) 1 %; HCT 33.3 % (34.0-46.0); HGB 10.7 gm/dL (11.4-16.0); Hypochromasia Slight; Lymphocytes # (A) 1.3 k/uL (1.0-4.8); Lymphocytes % (A) 30 %; MCH 29.6 pg (25.0-35.0); MCV 92.3 fL (80.0-100.0); Mean Platelet Volume 7.6; Monocytes # (A) 0.3 k/uL (0-1.0); Monocytes % (A) 8 %; Neutrophils # (A) 2.5 k/uL (1.3-7.7); Neutrophils % (A) 58 %; Platelet Count 143 k/uL (150-450); RBC 3.61 m/uL (3.80-5.40); RDW 13.6 % (11.5-15.5); WBC 4.3 k/uL (3.8-10.6)
[2018-06-18 06:14] LABS: Albumin 2.6 g/dL (3.5-5.0); Calcium 8.5 mg/dL (8.4-10.2); Potassium 4.1 mmol/L (3.5-5.1); Total Bilirubin 0.4 mg/dL (0.2-1.3); Total Protein 4.8 g/dL (6.3-8.2)
[2018-06-18] MEDS: LEVOTHYROXINE 50 MCG TAB PO SCH (06:38)
[2018-06-18] MEDS: INSULIN ASPART 100 UNIT/ML 1 ML 10 ML VIAL SQ SCH ×7 (06:57→23:54)
[2018-06-18] MEDS: IPRATROPIUM-ALBUTEROL 3 ML NEB INHALATION SCH ×4 (07:21→20:00)
[2018-06-18] MEDS: ASPIRIN 81 MG PO SCH (08:12)
[2018-06-18] MEDS: CYANOCOBALAMIN 500 MCG TAB PO SCH (08:12)
[2018-06-18] MEDS: ENOXAPARIN 30 MG/0.3 ML SYRINGE SQ SCH (08:12)
[2018-06-18] MEDS: FLUCONAZOLE 100 MG TAB PO SCH (08:12)
--- NOTE | 2018-06-18 09:23 | P.PN ---
Subjective Progress Note Date: 06/18/18 Principal diagnosis: Urinary tract infection/mildly abnormal cardiac enzymes This is a very pleasant 77-year-old female patient with a past medical history significant for chronic obstructive pulmonary disease on home oxygen, history of smoking in the past, history of TIA, diabetes, hypertension, dyslipidemia who was admitted to the hospital with symptoms of weakness and dysuria and was diagnosed with UTI. We involved in her care because of mildly abnormal cardiac enzymes. She never had any chest pain or discomfort. She does have shortness of breath with exertion which is chronic. No dizziness or lightheadedness. The EKG showed sinus rhythm without any ischemic ST or T-wave abnormalities. On follow-up with her today, June 182017, she remains asymptomatic from a cardiovascular standpoint overview. She remains in normal sinus mechanism. She remains hemodynamically stable. The kidney function has been stable. There is possibility she that she might have a bladder mass. We will consider a conservative medical approach regarding the mildly abnormal cardiac enzymes. We did order an echocardiogram which is still pending but we will follow-up with this. Objective - Vital Signs Vital signs: Vital Signs Temp 98.3 F 06/18/18 08:00 Pulse 70 06/18/18 08:00 Resp 18 06/18/18 08:00 BP 132/62 06/18/18 08:00 Pulse Ox 91 L 06/18/18 08:00 Intake & Output 06/17/18 06/18/18 06/18/18 18:59 06:59 18:59 Intake Total 1090 1100 240 Output Total 400 Balance 1090 1100 -160 Weight 94.3 kg 94.5 kg Intake: Intake, IV Titration 850 900 Amount Sodium Chloride 0.9% 1, 800 900 000 ml @ 100 mls/hr IV . Q10H [facility] Rx#:[id number] cefTRIAXone 1,000 mg In 50 Sodium Chloride 0.9% 50 ml @ 100 mls/hr IVPB ONCE STA Rx#:[id number] Oral 240 200 240 Output: Urine 400 Other: Voiding Method Incontinent Incontinent Incontinent # Voids 2 2 # Bowel Movements 0 - Constitutional General appearance: Present: no acute distress - Respiratory Respiratory: bilateral: diminished - Cardiovascular Rhythm: regular Heart sounds: normal: S1, S2 - Labs CBC & Chem 7: 06/18/18 05:30 06/18/18 05:30 Labs: Abnormal Lab Results - Last 24 Hours (Table) 06/17/18 06/17/18 06/17/18 Range/Units 05:59 11:18 16:17 RBC (3.80-5.40) m/uL Hgb (11.4-16.0) gm/dL Hct (34.0-46.0) % Plt Count (150-450) k/uL Chloride (98-107) mmol/L BUN (7-17) mg/dL Creatinine (0.52-1.04) mg/dL Glucose (74-99) mg/dL POC Glucose (mg/dL) 143 H 109 H (75-99) mg/dL Troponin I 0.192 H* (0.000-0.034) ng/mL Total Protein (6.3-8.2) g/dL Albumin (3.5-5.0) g/dL 06/17/18 06/18/18 06/18/18 Range/Units 21:44 05:30 05:30 RBC 3.61 L (3.80-5.40) m/uL Hgb 10.7 L (11.4-16.0) gm/dL Hct 33.3 L (34.0-46.0) % Plt Count 143 L (150-450) k/uL Chloride 109 H (98-107) mmol/L BUN 30 H (7-17) mg/dL Creatinine 1.80 H (0.52-1.04) mg/dL Glucose 110 H (74-99) mg/dL POC Glucose (mg/dL) 128 H (75-99) mg/dL Troponin I (0.000-0.034) ng/mL Total Protein 4.8 L (6.3-8.2) g/dL Albumin 2.6 L (3.5-5.0) g/dL 06/18/18 Range/Units 06:01 RBC (3.80-5.40) m/uL Hgb (11.4-16.0) gm/dL Hct (34.0-46.0) % Plt Count (150-450) k/uL Chloride (98-107) mmol/L BUN (7-17) mg/dL Creatinine (0.52-1.04) mg/dL Glucose (74-99) mg/dL POC Glucose (mg/dL) 111 H (75-99) mg/dL Troponin I (0.000-0.034) ng/mL Total Protein (6.3-8.2) g/dL Albumin (3.5-5.0) g/dL Microbiology - Last 24 Hours (Table) 06/16/18 16:09 Urine Culture - Preliminary Urine,Catheterized Gram Neg Bacilli 06/16/18 14:26 Blood Culture - Preliminary Blood No Growth after 24 hours Assessment and Plan Assessment: Assessment #1 urinary tract infection/sepsis #2 mildly abnormal cardiac enzymes #3 chronic hypoxic respiratory failure #4 chronic obstructive pulmonary disease #5 multiple comorbid conditions Plan #1 continue the conservative medical approach in the absence of chest pain as well as absence of any ischemic ST or T-wave abnormalities on the EKG #2 follow-up on the echocardiogram #3 follow-up with the patient.
--- NOTE | 2018-06-18 11:28 | CDI ---
Last Revision, July 2017 Documentation Clarification Form Date: 06/18/18 From: Raquel Ibarra RN Admit Date: 06/16/2018 3:41:00 PM Patient Name: Eloisa Carranza Visit Number: [id number] ATTENTION: The Clinical Documentation Specialists (CDI) and [facility] Coding Staff appreciate your assistance in clarifying documentation. Please respond to the clarification below the line at the bottom and electronically sign. The CDI & [facility] Coding staff will review the response and follow-up if needed. Please note: Queries are made part of the Legal Health Record. If you have any questions, please contact the author of this message via ITS. Sophia Bhatia MD, Pneumonia was documented in your H&P 06/16. Pt. was admitted with Weakness, A-FIB, dehydration, anorexia, UTI, acute exacerbation COPD, weakness, febrile illness History/Risk Factors: cervical cancer, COPD, CKD 3, thyroid disorder, ex smoker Clinical Indicators: WBC on admission: 7.0 X-ray: right basilar atelectasis or infiltrate superimposed on a background of COPD. Lung/Breathing assessment: normal Occasional cough noted in ED note Treatment: Pneumonia protocol utilized Antibiotics: Azithromycin IVPB, Ceftriaxone IVPB, Diflucan PO, Levofloxacin IVPB, O2: 2L Breathing Tx: Duoneb In order to capture the severity of condition, please clarify if the condition signifies and you are treating for: Pneumonia ruled in Pneumonia ruled out Aspiration Pneumonia, identify if: Due to solids or liquids Bacterial Pneumonia, specify causal organism (if known) Gram Negative Pneumonia Other bacteria (please specify) Viral Pneumonia, specify casual organism (if known) Healthcare Acquired Pneumonia/Pneumonia, unspecified Other, please specify Unable to determine MTDD
[2018-06-18 11:44] LABS: Glucose,Whole Blood 141 mg/dL (75-99)
[2018-06-18] MEDS: FUROSEMIDE 40 MG TAB PO SCH (12:28)
[2018-06-18] MEDS: FAMOTIDINE 20 MG TAB PO SCH (12:28)
--- NOTE | 2018-06-18 12:35 | P.PN ---
Subjective Progress Note Date: 06/18/18 This is a 77-year-old female one of Dr. Noble, Dr. Jiang with medical history significant for hypertension and hypertensive cardiovascular disease with left ventricular hypertrophy, history of the fiber myalgia, hyperlipidemia, history of hypothyroidism, COPD, CVA/TIA, history of cervical cancer back in 1974 status post hysterectomy, history of chronic kidney disease stage III with a prior history of acute kidney injury requiring dialysis in the past, diabetes mellitus type 2 patient was brought into the emergency department at [facility] because of generalized weakness and not feeling well , fever chills, anorexia, hypersomnia, diminished appetite, possible weight loss, and increasing urinary incontinence, bladder discomfort, without any hematuria. She was thus admitted from our facility 12/24/2017 for urinary tract infection, workup included at that time included Enterobacter UTI and I drug resistant except for quinolone's and imipenem, Bactrim. Bladder ultrasound shows a possibility of a bladder mass patient mentioned that she has seen a urologist for this and was told not to worry. She comes in now for urinary tract infection with SIRS, IV antibiotics to be given blood and urine cultures cultures, 06/18: Renal ultrasound shows free fluid in the pelvis surrounding the bladder. Bladder wall is thickened which may account for history of bladder mass. Correlate clinically. No hydronephrosis bilaterally. No renal masses. Repeat chest x-ray shows right basilar atelectasis or infiltrate superimposed on background of COPD. Interstitium is prominent main be on the basis of chronic interstitial lung disease rather than pneumonitis or venous congestion. Patient has been seen and followed by cardiology and acute coronary syndrome has been ruled out. Echocardiogram report is pending. White count is normal, BUN 30 and creatinine 1.8. TSH 1.630. Physical therapy has recommended subacute rehab. Patient has been at [facility] in the past. She is reluctant to go to rehab but after discussion, she agrees that rehab is the best choice and requests [facility]. She denies any new pains. Lasix, potassium and Pulmicort started. She had a small BM. Anticipate discharge to [facility] tomorrow. Review Of Systems: Constitutional: No fever, no chills, no night sweats. No weight change. No weakness, fatigue or lethargy. No daytime sleepiness. EENT: No headache. No blurred vision or double vision, no loss of vision. No loss of Hearing, no ringing in the ears, no dizziness. No nasal drainage or congestion. No epistaxis. No sore throat. Lungs: No shortness of breath, cough, no sputum production. No wheezing. Cardiovascular: No chest pain, no lower extremity edema. No palpitations. No paroxysmal nocturnal dyspnea. No orthopnea. No lightheadedness or dizziness. No syncopal episodes. Abdominal: No abdominal pain. No nausea, vomiting. No diarrhea. No constipation. No bloody or tarry stools.. No loss of appetite. Genitourinary: No dysuria, increased frequency, urgency. No urinary retention. Musculoskeletal: No myalgias. No muscle weakness, no gait dysfunction, no frequent falls. No back pain. No neck pain. Integumentary: No wounds, no lesions. No rash or pruritus. No unusual bruising. No change in hair or nails. Neurologic: No aphasia. No facial droop. No change in mentation. No head injury. No headache. No paralysis. No paresthesia. Psychiatric: No depression. No anxiety. No mood swings. Endocrine: No abnormal blood sugars. No weight change. No excessive sweating or thirst. No cold intolerance. No weight change. Objective - Vital Signs Vital signs: Vital Signs Temp 98.3 F 06/18/18 08:00 Pulse 70 06/18/18 08:00 Resp 18 06/18/18 08:00 BP 132/62 06/18/18 08:00 Pulse Ox 91 L 06/18/18 08:00 Intake & Output 06/17/18 06/18/18 06/18/18 18:59 06:59 18:59 Intake Total 1090 1100 240 Output Total 400 Balance 1090 1100 -160 Weight 94.3 kg 94.5 kg Intake: Intake, IV Titration 850 900 Amount Sodium Chloride 0.9% 1, 800 900 000 ml @ 100 mls/hr IV . Q10H BROCK Rx#:[id number] cefTRIAXone 1,000 mg In 50 Sodium Chloride 0.9% 50 ml @ 100 mls/hr IVPB ONCE STA Rx#:[id number] Oral 240 200 240 Output: Urine 400 Other: Voiding Method Incontinent Incontinent Incontinent # Voids 2 2 # Bowel Movements 0 - Exam General appearance: cooperative, no acute distress - EENT Eyes: anicteric sclerae, EOMI, PERRLA, dentition normal ENT: no hard of hearing, no hearing grossly normal, no NA/AT, no normal oropharynx, no other, no pharyngeal erythema, no thrush, no tonsillar exudates, no tonsillar swelling - Neck Neck: normal ROM - Respiratory Respiratory: bilateral: CTA, negative: diminished, dullness, rales, rhonchi, wheezing - Cardiovascular Rhythm: regular Heart sounds: normal: S1, S2 Abnormal Heart Sounds: no systolic murmur, no diastolic murmur, no rub, no S3 Gallop, no S4 Gallop, no click, no other - Gastrointestinal General gastrointestinal: no absent bowel sounds, no decreased bowel sounds, no distended, no hepatomegaly, no hyperactive bowel sounds, normal bowel sounds, no organomegaly, no rigid, no scaphoid, soft, no splenomegaly, no tenderness, no umbilical hernia, no ventral hernia - Integumentary Integumentary: decreased turgor, normal - Neurologic Neurologic: CNII-XII intact - Musculoskeletal Musculoskeletal: gait normal, strength equal bilaterally - Psychiatric Psychiatric: A&O x's 3, appropriate affect - Labs CBC & Chem 7: 06/18/18 05:30 06/18/18 05:30 Labs: Abnormal Lab Results - Last 24 Hours (Table) 06/17/18 06/17/18 06/17/18 Range/Units 05:59 11:18 16:17 RBC (3.80-5.40) m/uL Hgb (11.4-16.0) gm/dL Hct (34.0-46.0) % Plt Count (150-450) k/uL Chloride (98-107) mmol/L BUN (7-17) mg/dL Creatinine (0.52-1.04) mg/dL Glucose (74-99) mg/dL POC Glucose (mg/dL) 143 H 109 H (75-99) mg/dL Troponin I 0.192 H* (0.000-0.034) ng/mL Total Protein (6.3-8.2) g/dL Albumin (3.5-5.0) g/dL 06/17/18 06/18/18 06/18/18 Range/Units 21:44 05:30 05:30 RBC 3.61 L (3.80-5.40) m/uL Hgb 10.7 L (11.4-16.0) gm/dL Hct 33.3 L (34.0-46.0) % Plt Count 143 L (150-450) k/uL Chloride 109 H (98-107) mmol/L BUN 30 H (7-17) mg/dL Creatinine 1.80 H (0.52-1.04) mg/dL Glucose 110 H (74-99) mg/dL POC Glucose (mg/dL) 128 H (75-99) mg/dL Troponin I (0.000-0.034) ng/mL Total Protein 4.8 L (6.3-8.2) g/dL Albumin 2.6 L (3.5-5.0) g/dL 06/18/18 Range/Units 06:01 RBC (3.80-5.40) m/uL Hgb (11.4-16.0) gm/dL Hct (34.0-46.0) % Plt Count (150-450) k/uL Chloride (98-107) mmol/L BUN (7-17) mg/dL Creatinine (0.52-1.04) mg/dL Glucose (74-99) mg/dL POC Glucose (mg/dL) 111 H (75-99) mg/dL Troponin I (0.000-0.034) ng/mL Total Protein (6.3-8.2) g/dL Albumin (3.5-5.0) g/dL Microbiology - Last 24 Hours (Table) 06/16/18 16:09 Urine Culture - Preliminary Urine,Catheterized Gram Neg Bacilli 06/16/18 14:26 Blood Culture - Preliminary Blood No Growth after 24 hours Assessment and Plan Plan: 1. Gram-negative UTI with sepsis. Urine culture, blood culture, start the patient on levofloxacin IV, ceftriaxone was discontinued as it is resistant based on her last urine culture in December 2017, status post IV fluid resuscitation , monitor the patient very closely. Fluconazole 100 mg daily for urine ale vaginitis 2. Acute kidney injury with underlying CKD stage III, from ATN, continue IV hydration, renal ultrasound as above, avoid nephrotoxins 3. Possibility of bladder mass, bladder ultrasound as above however she was seen already by urologist for this last December. Patient cannot recall the name of the doctor 4. Anemia, Hemoccult test stools were negative patient has microscopic hematuria most likely secondary to hemorrhagic cystitis but no gross blood noted on physical examination 5. Fibromyalgia. Continue patient on gabapentin 100 mg orally once every day. 6. Ale infection in the urine/vagina, patient will be given fluconazole 100 mg daily, oral she has high risk secondary to sugar diabetes 7. Elevated troponins most likely secondary to sepsis, cardiology consult appreciated. Acute coronary syndrome ruled out. 8. Infiltrate in the right lung possibility of atelectasis or infiltrate, patient possibility of pneumonia based on clinical findings, this also is to see show prominence may be on the basis of chronic interstitial lung disease rather than pneumonitis, IV Zithromax and Rocephin would be changed to IV levofloxacin, will try to obtain cultures if able. Lasix, potassium and Pulmicort added. 9 Hypothyroidism. Continue Synthroid 50 g orally once every day. 10 Hyperlipidemia. Continue patient on Lipitor 20 mg orally once every day. 11. Diabetes mellitus type 2. Continue consistent carbohydrate diet, continue patient on Humulin N 10 units twice every day along with the Humalog correctional scale pre-meals ,continue the patient on BGM before each meal and at bedtime. 12 Peripheral dizziness chronic stable. Continue patient on Antivert 25 mg orally twice every day. 13 COPD. Continue patient on DuoNeb 4 times every day. 14 DVT prophylaxis and GI prophylaxis. Continue Lovenox 30 daily, PPI. Patient is full code. Discharge plan: [facility] tomorrow. Impression and plan of care have been directed as dictated by the signing physician. Jodi Schwartz nurse practitioner acting as scribe for signing physician.
[2018-06-18] MEDS: POTASSIUM CHLORIDE ER 20 MEQ TAB.ER PO SCH (14:14)
[2018-06-18] MEDS: LEVOFLOXACIN 250 MG TAB PO SCH (14:15)
[2018-06-18 16:41] LABS: Glucose,Whole Blood 85 mg/dL (75-99)
--- NOTE | 2018-06-18 19:12 | ECHOF ---
Referral Reason:abn trop MEASUREMENTS -------- HEIGHT: 165.1 cm WEIGHT: 93.9 kg BP: 113/53 IVSd: 1.3 cm (0.6 - 1.1) LVIDd: 5.6 cm (3.9 - 5.3) LVPWd: 1.5 cm (0.6 - 1.1) IVSs: 1.4 cm LVIDs: 4.1 cm LVPWs: 1.7 cm LAESV Index (A-L): 36.28 ml/m Ao Diam: 3.0 cm (2.0 - 3.7) LA Diam: 4.2 cm (2.7 - 3.8) AV Cusp: 1.0 cm (1.5 - 2.6) MV E Solomon: 1.24 m/s MV DecT: 367 ms MV A Solomon: 1.52 m/s MV E/A Ratio: 0.82 AV maxP.52 mmHg AV meanP.62 mmHg AR PHT: 528 ms RAP: 10.00 mmHg RVSP: 39.91 mmHg FINDINGS -------- Sinus rhythm. This was a technically adequate study. The left ventricular size is normal. There is mild concentric left ventricular hypertrophy. Overa ll left ventricular systolic function is normal with, an EF between 55 - 60 %. The right ventricle is normal in size and function. LA is moderately dilated 34-39 ml/m2 RA appears enlarged. There is moderate aortic valve sclerosis. There is hmpd-pe-fdshxutw aortic regurgitation. There i s moderate aortic stenosis present. Peak/mean gradient across the Aortic Valve is 43.52mmHg / 25.62 mmHg. The mitral valve leaflets are mildly thickened. Moderate mitral annular calcification present. Mi od-it-yocoyjby mitral regurgitation is present. The peak and mean MV gradients are 9.17mmHg 2.76mm Hg as measured by doppler. Mild mitral stenosis. Mild tricuspid regurgitation present. There is mild pulmonary hypertension. The right ventricular systolic pressure, as measured by Doppler, is 39.91mmHg. The pulmonic valve was not well visualized. The aortic root size is normal. The IVC is dilated with normal collapse. There is no pericardial effusion. Large Pleural Effusion. CONCLUSIONS -------- 1. Sinus rhythm. 2. This was a technically adequate study. 3. The left ventricular size is normal. 4. There is mild concentric left ventricular hypertrophy. 5. Overall left ventricular systolic function is normal with, an EF between 55 - 60 %. 6. LA is moderately dilated 34-39 ml/m2 7. RA appears enlarged. 8. There is moderate aortic valve sclerosis. 9. There is jauw-bx-dwibnuan aortic regurgitation. 10. There is moderate aortic stenosis present. 11. Peak/mean gradient across the Aortic Valve is 43.52mmHg / 25.62mmHg. 12. The mitral valve leaflets are mildly thickened. 13. Moderate mitral annular calcification present. 14. Lsdy-bv-iurnwfez mitral regurgitation is present. 15. The peak and mean MV gradients are 9.17mmHg 2.76mmHg as measured by doppler. 16. Mild mitral stenosis. 17. Mild tricuspid regurgitation present. 18. There is mild pulmonary hypertension. 19. The right ventricular systolic pressure, as measured by Doppler, is 39.91mmHg. 20. The pulmonic valve was not well visualized. 21. The aortic root size is normal. 22. The IVC is dilated with normal collapse. 23. There is no pericardial effusion. 24. Large Pleural Effusion. ACADEMIC SERVICES PROFESSIONAL: Denzel Kumar RDCS
[2018-06-18] MEDS: ATORVASTATIN 20 MG TAB PO SCH (19:49)
[2018-06-18] MEDS: GABAPENTIN 100 MG CAP PO SCH (19:49)
[2018-06-18] MEDS: BUDESONIDE 0.5 MG/2 ML NEBU INHALATION SCH (20:00)
[2018-06-18 23:11] LABS: Glucose,Whole Blood 140 mg/dL (75-99)
[2018-06-19] MEDS: SODIUM CHLORIDE 0.9% 1,000 ML IV SCH ×2 (04:18→15:00)
[2018-06-19] MEDS: LEVOTHYROXINE 50 MCG TAB PO SCH (06:04)
[2018-06-19 06:50] LABS: Glucose,Whole Blood 102 mg/dL (75-99)
[2018-06-19] MEDS: BUDESONIDE 0.5 MG/2 ML NEBU INHALATION SCH (07:33)
[2018-06-19] MEDS: IPRATROPIUM-ALBUTEROL 3 ML NEB INHALATION SCH ×3 (07:33→17:22)
[2018-06-19] MEDS: INSULIN ASPART 100 UNIT/ML 1 ML 10 ML VIAL SQ SCH ×4 (09:00→15:02)
[2018-06-19] MEDS: ENOXAPARIN 30 MG/0.3 ML SYRINGE SQ SCH (09:09)
[2018-06-19] MEDS: FUROSEMIDE 40 MG TAB PO SCH (09:09)
[2018-06-19] MEDS: FLUCONAZOLE 100 MG TAB PO SCH (09:09)
[2018-06-19] MEDS: POTASSIUM CHLORIDE ER 20 MEQ TAB.ER PO SCH (09:09)
[2018-06-19] MEDS: ASPIRIN 81 MG PO SCH (09:09)
[2018-06-19] MEDS: FAMOTIDINE 20 MG TAB PO SCH (09:09)
[2018-06-19 10:01] LABS: Basophils % (A) 1 %; Eosinophils # (A) 0.1 k/uL (0-0.7); Eosinophils % (A) 1 %; HCT 36.2 % (34.0-46.0); HGB 11.5 gm/dL (11.4-16.0); Hypochromasia Slight; Lymphocytes # (A) 1.2 k/uL (1.0-4.8); Lymphocytes % (A) 32 %; MCH 29.3 pg (25.0-35.0); MCHC 31.7 g/dL (31.0-37.0); MCV 92.5 fL (80.0-100.0); Mean Platelet Volume 7.2; Monocytes # (A) 0.3 k/uL (0-1.0); Monocytes % (A) 7 %; Neutrophils # (A) 2.2 k/uL (1.3-7.7); Neutrophils % (A) 57 %; Platelet Count 167 k/uL (150-450); RBC 3.91 m/uL (3.80-5.40); RDW 13.6 % (11.5-15.5); WBC 3.8 k/uL (3.8-10.6)
[2018-06-19 10:22] LABS: Calcium 8.7 mg/dL (8.4-10.2); Potassium 3.7 mmol/L (3.5-5.1)
--- NOTE | 2018-06-19 10:46 | P.DS ---
Providers Date of admission: 06/16/18 15:41 Expected date of discharge: 06/19/18 Attending physician: Sophia Sanchez Consults: 06/17/18 02:04 Consult Physician Routine Consulting Provider: Mila Blackburn Consult Reason/Comments: elevated trop Do you want consulting provider notified?: Yes, Notify in am Primary care physician: [facility] Course: This is a 77-year-old female one of Dr. Real Jiang with medical history significant for hypertension and hypertensive cardiovascular disease with left ventricular hypertrophy, history of the fiber myalgia, hyperlipidemia , history of hypothyroidism, COPD, CVA/TIA, history of cervical cancer back in 1974 status post hysterectomy, history of chronic kidney disease stage III with a prior history of acute kidney injury requiring dialysis in the past, diabetes mellitus type 2 patient was brought into the emergency department at [facility] because of generalized weakness and not feeling well , fever chills, anorexia, hypersomnia, diminished appetite, possible weight loss, and increasing urinary incontinence, bladder discomfort, without any hematuria. She was thus admitted from our facility 12/24/2017 for urinary tract infection, workup included at that time included Enterobacter UTI and I drug resistant except for quinolone's and imipenem, Bactrim. Bladder ultrasound shows a possibility of a bladder mass patient mentioned that she has seen a urologist for this and was told not to worry. She comes in now for urinary tract infection with SIRS, IV antibiotics to be given blood and urine cultures cultures, 06/18: Renal ultrasound shows free fluid in the pelvis surrounding the bladder. Bladder wall is thickened which may account for history of bladder mass. Correlate clinically. No hydronephrosis bilaterally. No renal masses. Repeat chest x-ray shows right basilar atelectasis or infiltrate superimposed on background of COPD. Interstitium is prominent main be on the basis of chronic interstitial lung disease rather than pneumonitis or venous congestion. Patient has been seen and followed by cardiology and acute coronary syndrome has been ruled out. Echocardiogram report is pending. White count is normal, BUN 30 and creatinine 1.8. TSH 1.630. Physical therapy has recommended subacute rehab. Patient has been at [facility] in the past. She is reluctant to go to rehab but after discussion, she agrees that rehab is the best choice and requests [facility]. She denies any new pains. Lasix, potassium and Pulmicort started. She had a small BM. Anticipate discharge to [facility] tomorrow. 06/19: Patient remains afebrile with normal white count of 3.8. BUN 24 and creatinine 1.66. Capillary blood glucose running between 102 and 148. Urine culture is finalized with E. coli resistant to Unasyn, ampicillin, Augmentin and Bactrim. Patient states she did not sleep last night and very tired today. Breathing status is stable. SHe is urinating frequently due to IVF which will be discontinued. Patient will be discharged to [facility] today in stable condition. Discharge diagnoses: 1. E. coli UTI with sepsis. 2. Acute kidney injury with underlying CKD stage III, from ATN 3. Possibility of bladder mass 4. Anemia of chronic disease 5. Fibromyalgia. 6. Ale infection in the urine/vagina 7. Elevated troponins most likely secondary to sepsis. Acute coronary syndrome ruled out. 8. Pneumonia and atelectasis right side (no gram negative) 9. Hypothyroidism. 10 Hyperlipidemia. 11. Diabetes mellitus type 2. 12 Peripheral dizziness chronic stable. 13. COPD and chronic interstitial lung disease with exacerbation. 14. Lower extremity edema. (No documented CHF) Discharge plan: [facility] under the care of Dr. Noble Impression and plan of care have been directed as dictated by the signing physician. Jodi Schwartz nurse practitioner acting as scribe for signing physician. Patient Condition at Discharge: Good Plan - Discharge Summary Discharge Rx Participant: No New Discharge Prescriptions: New Acetaminophen Tab [Tylenol] 650 mg PO Q6HR PRN tab PRN Reason: Fever And/ Or Pain Budesonide [Pulmicort] 0.5 mg INHALATION RT-BID nebu Fluconazole [Diflucan] 100 mg PO DAILY #10 tab Furosemide [Lasix] 40 mg PO DAILY tab Ipratropium-Albuterol Nebulize [Duoneb 0.5 mg-3 mg/3 ml Soln] 3 ml INHALATION RT-QID PRN ampul.neb PRN Reason: Shortness Of Breath Or Wheezing Levofloxacin [Levaquin] 250 mg PO Q24H #7 tab Potassium Chloride ER [K-Dur 20] 20 meq PO DAILY tab.er.prt Continue Simvastatin [Zocor] 40 mg PO HS Levothyroxine Sodium [Synthroid] 50 mcg PO DAILY Aspirin EC [Ecotrin Low Dose] 81 mg PO DAILY #30 tablet. Cyanocobalamin [Vitamin B-12] 1,000 mcg PO DAILY@1200 tab Gabapentin [Neurontin] 100 mg PO HS Insulin Aspart [NovoLOG (formulary)] 10 unit SQ AC-TID Discontinued Insulin Aspart [NovoLOG (formulary)] See Protocol SQ ACHS Discharge Medication List Simvastatin [Zocor] 40 mg PO HS 12/09/15 [History] Levothyroxine Sodium [Synthroid] 50 mcg PO DAILY 09/16/17 [History] Aspirin EC [Ecotrin Low Dose] 81 mg PO DAILY #30 tablet. 10/01/17 [Rx] Cyanocobalamin [Vitamin B-12] 1,000 mcg PO DAILY@1200 tab 10/30/17 [Rx] Gabapentin [Neurontin] 100 mg PO HS 12/23/17 [History] Insulin Aspart [NovoLOG (formulary)] 10 unit SQ AC-TID 06/16/18 [History] Acetaminophen Tab [Tylenol] 650 mg PO Q6HR PRN tab 06/19/18 [Rx] Budesonide [Pulmicort] 0.5 mg INHALATION RT-BID nebu 06/19/18 [Rx] Fluconazole [Diflucan] 100 mg PO DAILY #10 tab 06/19/18 [Rx] Furosemide [Lasix] 40 mg PO DAILY tab 06/19/18 [Rx] Ipratropium-Albuterol Nebulize [Duoneb 0.5 mg-3 mg/3 ml Soln] 3 ml INHALATION RT -QID PRN ampul.neb 06/19/18 [Rx] Levofloxacin [Levaquin] 250 mg PO Q24H #7 tab 06/19/18 [Rx] Potassium Chloride ER [K-Dur 20] 20 meq PO DAILY tab.er.prt 06/19/18 [Rx] Follow up Appointment(s)/Referral(s): Jeronimo Noble MD [Primary Care Provider] - 1 Week (at [facility]) Discharge Disposition: TRANSFER TO SNF/ECF
[2018-06-19] MEDS: CYANOCOBALAMIN 500 MCG TAB PO SCH (15:01)
[2018-06-19] MEDS: LEVOFLOXACIN 250 MG TAB PO SCH (15:26)
[2018-06-19 15:56] VITALS: BP 112/70; PULSE 66; RESP 12; TEMP 98
== END 2018-06-19 18:01 | disposition home health service (06) | DRG 871 ==
LOC: EC 13:51 → 3SCARD 15:41 → 4SSUR 06-18 20:24
PROVIDERS: ADMIT Family Medicine; ATTEND Family Medicine
DX: A41.51 Sepsis due to Escherichia coli [E. coli] (principal); N17.0 Acute kidney failure with tubular necrosis; J18.9 Pneumonia, unspecified organism; J98.11 Atelectasis; J44.0 Chronic obstructive pulmonary disease with (acute) lower respiratory infection; J96.11 Chronic respiratory failure with hypoxia; J44.1 Chronic obstructive pulmonary disease with (acute) exacerbation; N39.0 Urinary tract infection, site not specified; R74.8 Abnormal levels of other serum enzymes; N18.3 Chronic kidney disease, stage 3 (moderate); E11.22 Type 2 diabetes mellitus with diabetic chronic kidney disease; N32.9 Bladder disorder, unspecified; D63.1 Anemia in chronic kidney disease; M79.7 Fibromyalgia; E03.9 Hypothyroidism, unspecified; E78.5 Hyperlipidemia, unspecified; R60.0 Localized edema; I13.10 Hypertensive heart and chronic kidney disease without heart failure, with stage 1 through stage 4 chronic kidney disease, or unspecified chronic kidney disease; Z90.710 Acquired absence of both cervix and uterus; Z86.73 Personal history of transient ischemic attack (TIA), and cerebral infarction without residual deficits; Z85.41 Personal history of malignant neoplasm of cervix uteri; K21.9 Gastro-esophageal reflux disease without esophagitis; M19.90 Unspecified osteoarthritis, unspecified site; E11.40 Type 2 diabetes mellitus with diabetic neuropathy, unspecified; Z90.49 Acquired absence of other specified parts of digestive tract; Z87.891 Personal history of nicotine dependence; Z80.1 Family history of malignant neoplasm of trachea, bronchus and lung; Z80.51 Family history of malignant neoplasm of kidney; Z82.62 Family history of osteoporosis; Z84.1 Family history of disorders of kidney and ureter; Z79.82 Long term (current) use of aspirin; Z79.890 Hormone replacement therapy; Z79.4 Long term (current) use of insulin; N76.0 Acute vaginitis; R31.29 Other microscopic hematuria; B37.3 Candidiasis of vulva and vagina; I48.91 Unspecified atrial fibrillation; Z99.81 Dependence on supplemental oxygen; E66.9 Obesity, unspecified; Z68.35 Body mass index [BMI] 35.0-35.9, adult
CPT/HCPCS: 36415; 51701; 71046; 76770; 80048; 80053; 81001; 82272; 82550; 82553; 83036; 83605; 83735; 84100; 84443; 84484; 85025; 85610; 85730; 87040; 87077; 87086; 87186; 87502; 93005; 93306; 94640; 96361; 96365; 96367; 99285

== ENCOUNTER 2018-07-05 21:59 | Observation (INO) | payer MEDICARE ==
[2018-07-05] MEDS ORDERED: SODIUM CHLORIDE 0.9% 1,000 ML IV STA (22:35)
[2018-07-05 22:57] LABS: Basophils % (A) 0 %; Eosinophils # (A) 0.1 k/uL (0-0.7); Eosinophils % (A) 3 %; HCT 36.6 % (34.0-46.0); HGB 11.2 gm/dL (11.4-16.0); Hypochromasia Slight; Lymphocytes # (A) 1.3 k/uL (1.0-4.8); Lymphocytes % (A) 31 %; MCH 28.6 pg (25.0-35.0); MCHC 30.7 g/dL (31.0-37.0); MCV 93.3 fL (80.0-100.0); Mean Platelet Volume 7.4; Monocytes # (A) 0.3 k/uL (0-1.0); Monocytes % (A) 6 %; Neutrophils # (A) 2.4 k/uL (1.3-7.7); Neutrophils % (A) 58 %; Platelet Count 163 k/uL (150-450); RBC 3.92 m/uL (3.80-5.40); WBC 4.2 k/uL (3.8-10.6)
[2018-07-05 23:07] LABS: Albumin 2.9 g/dL (3.5-5.0); Magnesium 2.1 mg/dL (1.6-2.3); Potassium 4.8 mmol/L (3.5-5.1); Total Bilirubin 0.4 mg/dL (0.2-1.3); Total Protein 5.1 g/dL (6.3-8.2)
--- NOTE | 2018-07-05 23:07 | XR ---
EXAMINATION TYPE: XR chest 2V DATE OF EXAM: 07/05/2018 COMPARISON: 07/02/2018 HISTORY: Weakness TECHNIQUE: Frontal and lateral views of the chest are obtained. FINDINGS: There is mild coarsening of interstitial markings. There is no heart failure. There is no pleural effusion. Bony thorax is intact. Thoracic aorta is atheromatous. IMPRESSION: Interstitial fibrotic changes. Atheromatous aorta. No change.
[2018-07-05 23:11] LABS: INR 1.2 (<1.2); Partial Thromboplastin Time 24.5 sec (22.0-30.0); Prothrombin Time 11.5 sec (9.0-12.0)
--- NOTE | 2018-07-05 23:13 | ED ---
Weakness HPI - General Chief complaint: Weakness Stated complaint: Fall Time Seen by Provider: 07/05/18 22:09 Source: patient Limitations: no limitations - History of Present Illness Initial comments: Patient is a 77-year-old female with past medical history as documented in [facility]. Most significant for recent admission the hospital for UTI, subsequent follow- up visit due to generalized weakness at which time she was rehydrated, no acute findings on labs and she was discharged home. Patient was discharged home 3 days ago. She reports that since getting home she's had profound weakness, inability to walk due to generalized debility. She reports that her family members have been bringing her meals to her chair. Patient reports that today she ambulated independently to the restroom and then had a fall. She reports that EMS was called to assist her from her bathroom floor to her chair. She denies any injury without fall. She states that she spent the entire day in the chair and that upon standing this evening she slipped out of her chair onto the floor and again was unable to get back up again EMS had to be contacted and at which time they decided to bring her to the ER for further evaluation. Patient denies any injuries with the falls however she states that she is just too weak to even stand or walk. Patient has been experiencing progressively worsening weakness. Her family has discussed placement in a nursing facility which she is agreeable to. At this time the patient is unable to attend to her activities of daily living and unable to care for herself. She doesn't feel safe at home. - Related Data Home Medications Medication Instructions Recorded Confirmed Simvastatin [Zocor] 40 mg PO HS 12/09/15 07/05/18 Levothyroxine Sodium [Synthroid] 50 mcg PO DAILY 09/16/17 07/05/18 Gabapentin [Neurontin] 100 mg PO HS 12/23/17 07/05/18 Insulin Aspart [NovoLOG 10 unit SQ AC-TID 06/16/18 07/05/18 (formulary)] Aspirin EC [Ecotrin Low Dose] 81 mg PO HS 07/02/18 07/05/18 Previous Rx's Medication Instructions Recorded Cyanocobalamin [Vitamin B-12] 1,000 mcg PO DAILY@1200 tab 10/30/17 Acetaminophen Tab [Tylenol] 650 mg PO Q6HR PRN tab 06/19/18 Budesonide [Pulmicort] 0.5 mg INHALATION RT-BID nebu 06/19/18 Furosemide [Lasix] 40 mg PO DAILY tab 06/19/18 Ipratropium-Albuterol Nebulize 3 ml INHALATION RT-QID PRN 06/19/18 [Duoneb 0.5 mg-3 mg/3 ml Soln] ampul.neb Potassium Chloride ER [K-Dur 20] 20 meq PO DAILY tab.er.prt 06/19/18 Allergies Allergy/AdvReac Type Severity Reaction Status Date / Time No Known Allergies Allergy Verified 07/05/18 22:19 Review of Systems ROS Statement: Those systems with pertinent positive or pertinent negative responses have been documented in the HPI. ROS Other: All systems not noted in ROS Statement are negative. Past Medical History Past Medical History: Cancer, COPD, CVA/TIA, Diabetes Mellitus, Fibromyalgia, GERD/Reflux, Hyperlipidemia, Hypertension, Osteoarthritis (OA), Renal Disease, Thyroid Disorder Additional Past Medical History / Comment(s): cervical cancer 1974, paste 2.5 liters n/c uses prn since taken off it. neuropathy in feet, tia, dialysis port removal History of Any Multi-Drug Resistant Organisms: VRE Date of last positivie culture/infection: 11/09/17 MDRO Source:: URINE Past Surgical History: Cholecystectomy, Hysterectomy Past Anesthesia/Blood Transfusion Reactions: No Reported Reaction Past Psychological History: Anxiety Smoking Status: Former smoker - Past Family History Father Family Medical History: Cancer, Renal Disease Additional Family Medical History / Comment(s): kidney cancer- Mother Family Medical History: Musculoskeletal Disorder Additional Family Medical History / Comment(s): severe osteoporosis Sister(s) Family Medical History: Cancer Brother(s) Family Medical History: Unable to Obtain Daughter(s) History Unknown: Yes Family Medical History: Musculoskeletal Disorder Son(s) Family Medical History: No Reported History General Exam - General Exam Comments Initial Comments: Physical Exam GENERAL: Medically ill appearing dehydrated 77-year-old female HENT: Normocephalic, Atraumatic. EYES: PERRL, EOMI PULMONARY: Unlabored respirations. Mild expiratory wheeze CARDIOVASCULAR: Tachycardic, regular ABDOMEN: Obese, nontender, normal active bowel sounds SKIN: Pale and dry Skin is clear with no lesions or rashes and otherwise unremarkable. : Deferred NEUROLOGIC: Patient is alert and oriented x3. Moving all extremities spontaneously MUSCULOSKELETAL: No obvious injuries to any extremities. 1+ tibial pitting edema bilateral lower extremities Extremities warm and well perfused Generalized weakness of all extremities PSYCHIATRIC: Flat affect, depressed Limitations: no limitations Limitations: no limitations Course Vital Signs 07/05/18 07/05/18 07/06/18 22:09 23:40 00:46 Temperature 98.1 F Pulse Rate 54 L 45 L 48 L Respiratory 15 16 Rate Blood Pressure 125/54 117/54 O2 Sat by Pulse 95 96 Oximetry 07/06/18 07/06/18 00:51 00:59 Temperature Pulse Rate 47 L 43 L Respiratory 15 Rate Blood Pressure 135/50 O2 Sat by Pulse 98 Oximetry EKG Findings - EKG Comments: EKG Findings:: EKG obtained at 10:15 PM, rate is 55, this is a narrow complex bradycardia with no discernible P waves consistent with a junctional bradycardia. QRS is 86, QTC is 441. There are no acute ST elevations or depressions no evidence of acute ischemia or infarction. Medical Decision Making - Medical Decision Making The patient was seen and evaluated, history is obtained from the patient and review of medical record Patient with recent admission for UTI, subsequent generalized debility, was seen in our ER earlier in the week with the plan to follow up outpatient however the patient has had multiple falls and doesn't feel safe at home Labs were ordered Chest x-ray was ordered due to subjective soreness of breath and oxygen saturation of 88% on room air, the patient does have a history of COPD and has intermittently required home oxygen though she currently is not using any Patient was placed on supplemental oxygen Labs reveal chronic kidney disease, albumin is decreasing X-ray with no acute pneumonia or any acute findings Given the patient's history and clinical presentation I do believe that she has failure to thrive given her depression, multiple falls, generalized weakness, decreasing albumin in addition she was hypoxic upon arrival requiring oxygen supplementation. At this time I do not feel the patient is safe for discharge home and will require hospitalization and long-term care placement. Patient is agreeable to this plan. Patient's primary care doctor's Dr. Noble, his group was paged multiple times without a callback. Admission orders were placed. Further attempts will be made to contact this group in the morning. Patient's home medications were ordered as well as a consult to physical therapy. - Lab Data Result diagrams: 07/05/18 22:28 07/05/18 22:28 Lab Results 07/05/18 07/05/18 07/05/18 Range/Units 22:28 22:28 22:28 WBC (3.8-10.6) k/uL RBC (3.80-5.40) m/uL Hgb (11.4-16.0) gm/dL Hct (34.0-46.0) % MCV (80.0-100.0) fL MCH (25.0-35.0) pg MCHC (31.0-37.0) g/dL RDW (11.5-15.5) % Plt Count (150-450) k/uL Neutrophils % % Lymphocytes % % Monocytes % % Eosinophils % % Basophils % % Neutrophils # (1.3-7.7) k/uL Lymphocytes # (1.0-4.8) k/uL Monocytes # (0-1.0) k/uL Eosinophils # (0-0.7) k/uL Basophils # (0-0.2) k/uL Hypochromasia PT (9.0-12.0) sec INR (<1.2) APTT (22.0-30.0) sec Sodium 140 (137-145) mmol/L Potassium 4.8 (3.5-5.1) mmol/L Chloride 109 H (98-107) mmol/L Carbon Dioxide 24 (22-30) mmol/L Anion Gap 7 mmol/L BUN 25 H (7-17) mg/dL Creatinine 2.12 H (0.52-1.04) mg/dL Est GFR (CKD-EPI)AfAm 25 (>60 ml/min/1.73 sqM) Est GFR (CKD-EPI)NonAf 22 (>60 ml/min/1.73 sqM) Glucose 145 H (74-99) mg/dL Plasma Lactic Acid David (0.7-2.0) mmol/L Calcium 9.0 (8.4-10.2) mg/dL Magnesium 2.1 (1.6-2.3) mg/dL Total Bilirubin 0.4 (0.2-1.3) mg/dL AST 21 (14-36) U/L ALT 19 (9-52) U/L Alkaline Phosphatase 85 (38-126) U/L Total Creatine Kinase 142 H (30-135) U/L CK-MB (CK-2) 1.2 (0.0-2.4) ng/mL CK-MB (CK-2) Rel Index 0.8 Troponin I 0.023 (0.000-0.034) ng/mL NT-Pro-B Natriuret Pep 1700 pg/mL Total Protein 5.1 L (6.3-8.2) g/dL Albumin 2.9 L (3.5-5.0) g/dL TSH 3.700 (0.465-4.680) mIU/L Urine Color Urine Appearance (Clear) Urine pH (5.0-8.0) Ur Specific [place] (1.001-1.035) Urine Protein (Negative) Urine Glucose (UA) (Negative) Urine Ketones (Negative) Urine Blood (Negative) Urine Nitrite (Negative) Urine Bilirubin (Negative) Urine Urobilinogen (<2.0) mg/dL Ur Leukocyte Esterase (Negative) 07/05/18 07/05/18 07/05/18 Range/Units 22:28 22:28 22:28 WBC 4.2 (3.8-10.6) k/uL RBC 3.92 (3.80-5.40) m/uL Hgb 11.2 L (11.4-16.0) gm/dL Hct 36.6 (34.0-46.0) % MCV 93.3 (80.0-100.0) fL MCH 28.6 (25.0-35.0) pg MCHC 30.7 L (31.0-37.0) g/dL RDW 14.0 (11.5-15.5) % Plt Count 163 (150-450) k/uL Neutrophils % 58 % Lymphocytes % 31 % Monocytes % 6 % Eosinophils % 3 % Basophils % 0 % Neutrophils # 2.4 (1.3-7.7) k/uL Lymphocytes # 1.3 (1.0-4.8) k/uL Monocytes # 0.3 (0-1.0) k/uL Eosinophils # 0.1 (0-0.7) k/uL Basophils # 0.0 (0-0.2) k/uL Hypochromasia Slight PT 11.5 (9.0-12.0) sec INR 1.2 H (<1.2) APTT 24.5 (22.0-30.0) sec Sodium (137-145) mmol/L Potassium (3.5-5.1) mmol/L Chloride (98-107) mmol/L Carbon Dioxide (22-30) mmol/L Anion Gap mmol/L BUN (7-17) mg/dL Creatinine (0.52-1.04) mg/dL Est GFR (CKD-EPI)AfAm (>60 ml/min/1.73 sqM) Est GFR (CKD-EPI)NonAf (>60 ml/min/1.73 sqM) Glucose (74-99) mg/dL Plasma Lactic Acid David 1.6 (0.7-2.0) mmol/L Calcium (8.4-10.2) mg/dL Magnesium (1.6-2.3) mg/dL Total Bilirubin (0.2-1.3) mg/dL AST (14-36) U/L ALT (9-52) U/L Alkaline Phosphatase (38-126) U/L Total Creatine Kinase (30-135) U/L CK-MB (CK-2) (0.0-2.4) ng/mL CK-MB (CK-2) Rel Index Troponin I (0.000-0.034) ng/mL NT-Pro-B Natriuret Pep pg/mL Total Protein (6.3-8.2) g/dL Albumin (3.5-5.0) g/dL TSH (0.465-4.680) mIU/L Urine Color Urine Appearance (Clear) Urine pH (5.0-8.0) Ur Specific [place] (1.001-1.035) Urine Protein (Negative) Urine Glucose (UA) (Negative) Urine Ketones (Negative) Urine Blood (Negative) Urine Nitrite (Negative) Urine Bilirubin (Negative) Urine Urobilinogen (<2.0) mg/dL Ur Leukocyte Esterase (Negative) 07/05/18 Range/Units 23:19 WBC (3.8-10.6) k/uL RBC (3.80-5.40) m/uL Hgb (11.4-16.0) gm/dL Hct (34.0-46.0) % MCV (80.0-100.0) fL MCH (25.0-35.0) pg MCHC (31.0-37.0) g/dL RDW (11.5-15.5) % Plt Count (150-450) k/uL Neutrophils % % Lymphocytes % % Monocytes % % Eosinophils % % Basophils % % Neutrophils # (1.3-7.7) k/uL Lymphocytes # (1.0-4.8) k/uL Monocytes # (0-1.0) k/uL Eosinophils # (0-0.7) k/uL Basophils # (0-0.2) k/uL Hypochromasia PT (9.0-12.0) sec INR (<1.2) APTT (22.0-30.0) sec Sodium (137-145) mmol/L Potassium (3.5-5.1) mmol/L Chloride (98-107) mmol/L Carbon Dioxide (22-30) mmol/L Anion Gap mmol/L BUN (7-17) mg/dL Creatinine (0.52-1.04) mg/dL Est GFR (CKD-EPI)AfAm (>60 ml/min/1.73 sqM) Est GFR (CKD-EPI)NonAf (>60 ml/min/1.73 sqM) Glucose (74-99) mg/dL Plasma Lactic Acid David (0.7-2.0) mmol/L Calcium (8.4-10.2) mg/dL Magnesium (1.6-2.3) mg/dL Total Bilirubin (0.2-1.3) mg/dL AST (14-36) U/L ALT (9-52) U/L Alkaline Phosphatase (38-126) U/L Total Creatine Kinase (30-135) U/L CK-MB (CK-2) (0.0-2.4) ng/mL CK-MB (CK-2) Rel Index Troponin I (0.000-0.034) ng/mL NT-Pro-B Natriuret Pep pg/mL Total Protein (6.3-8.2) g/dL Albumin (3.5-5.0) g/dL TSH (0.465-4.680) mIU/L Urine Color Yellow Urine Appearance Clear (Clear) Urine pH 5.5 (5.0-8.0) Ur Specific [place] 1.014 (1.001-1.035) Urine Protein Negative (Negative) Urine Glucose (UA) Negative (Negative) Urine Ketones Negative (Negative) Urine Blood Negative (Negative) Urine Nitrite Negative (Negative) Urine Bilirubin Negative (Negative) Urine Urobilinogen <2.0 (<2.0) mg/dL Ur Leukocyte Esterase Negative (Negative) Disposition Clinical Impression: Senile debility, Failure to thrive in adult, Generalized weakness, Multiple falls, Bradycardia [facility] Referrals: Jeronimo Noble MD [Primary Care Provider] - 1-2 days
[2018-07-05 23:30] LABS: Creatine Kinase MB 1.2 ng/mL (0.0-2.4); Troponin I 0.023 ng/mL (0.000-0.034)
[2018-07-05 23:41] LABS: Appearance,Urine Clear (Clear); Bilirubin,Urine Negative (Negative); Blood,Urine Negative (Negative); Color,Urine Yellow; Glucose,Urine (UA) Negative (Negative); Ketones,Urine Negative (Negative); Leukocyte Esterase,Urine Negative (Negative); Nitrite,Urine Negative (Negative); PH, Urine 5.5 (5.0-8.0); Protein,Urine Negative (Negative); Specific Gravity,Urine 1.014 (1.001-1.035); Urobilinogen,Urine <2.0 mg/dL (<2.0)
[2018-07-06] MEDS ORDERED: IPRATROPIUM-ALBUTEROL 3 ML NEB INHALATION STA (00:08)
[2018-07-06] MEDS ORDERED: SODIUM CHLORIDE 0.9% 1,000 ML IV SCH (01:45)
[2018-07-06] MEDS ORDERED: NALOXONE 0.4 MG/ML 1 ML VIAL IV PRN (01:45)
[2018-07-06] MEDS ORDERED: ACETAMINOPHEN TAB 325 MG TAB PO PRN (01:47)
[2018-07-06] MEDS: LEVOTHYROXINE 50 MCG TAB PO SCH (06:26)
[2018-07-06 07:16] LABS: Glucose,Whole Blood 118 mg/dL (75-99)
[2018-07-06] MEDS: INSULIN ASPART 100 UNIT/ML 1 ML 10 ML VIAL SQ SCH ×7 (07:22→20:48)
[2018-07-06] MEDS: FAMOTIDINE 20 MG TAB PO SCH (07:32)
[2018-07-06] MEDS: POTASSIUM CHLORIDE ER 20 MEQ TAB.ER PO SCH (07:32)
[2018-07-06] MEDS: FUROSEMIDE 40 MG TAB PO SCH (07:32)
[2018-07-06 08:37] LABS: Basophils % (A) 1 %; Eosinophils # (A) 0.1 k/uL (0-0.7); Eosinophils % (A) 3 %; HCT 33.9 % (34.0-46.0); HGB 10.6 gm/dL (11.4-16.0); Hypochromasia Moderate; Lymphocytes # (A) 1.4 k/uL (1.0-4.8); Lymphocytes % (A) 37 %; MCH 29.4 pg (25.0-35.0); MCHC 31.4 g/dL (31.0-37.0); MCV 93.8 fL (80.0-100.0); Mean Platelet Volume 7.6; Monocytes # (A) 0.2 k/uL (0-1.0); Monocytes % (A) 6 %; Neutrophils # (A) 1.9 k/uL (1.3-7.7); Neutrophils % (A) 51 %; Platelet Count 148 k/uL (150-450); RBC 3.62 m/uL (3.80-5.40); RDW 14.1 % (11.5-15.5); WBC 3.8 k/uL (3.8-10.6)
[2018-07-06] MEDS: IPRATROPIUM-ALBUTEROL 3 ML NEB INHALATION PRN ×2 (08:42→21:13)
[2018-07-06] MEDS: BUDESONIDE 0.5 MG/2 ML NEBU INHALATION SCH ×2 (08:42→21:13)
[2018-07-06] MEDS ORDERED: ENOXAPARIN 40 MG/0.4 ML SYRINGE SQ SCH (09:00)
[2018-07-06 09:27] LABS: Albumin 2.5 g/dL (3.5-5.0); Calcium 8.7 mg/dL (8.4-10.2); Potassium 4.9 mmol/L (3.5-5.1); Total Bilirubin 0.5 mg/dL (0.2-1.3); Total Protein 4.6 g/dL (6.3-8.2)
[2018-07-06 11:58] LABS: Glucose,Whole Blood 101 mg/dL (75-99)
[2018-07-06] MEDS: CYANOCOBALAMIN 500 MCG TAB PO SCH (12:15)
--- NOTE | 2018-07-06 14:32 | P.HPIM ---
History of Present Illness H&P Date: 07/06/18 Chief Complaint: Recurrent falls and failure to thrive. This is a 77-year-old female one of Dr. Noble with a previous medical history significant for hypertension and hypertensive cardiovascular disease with left ventricular hypertrophy, history of Fibromyalgia, hyperlipidemia, history of hypothyroidism, COPD, CVA/TIA, history of cervical cancer back in 1974 status post hysterectomy, history of chronic kidney disease stage III with a prior history of acute kidney injury requiring dialysis in the past, diabetes mellitus type 2, patient was recently hospitalized at [facility] due to significant UTI with sepsis from 06/17/2018 till 06/19/2016 and has been complaining of generalized weakness and inability to perform acitivity of daily living, she was seen ai our emergency department 3 days ago for weakness and was rehydrated and sent home, she reports that since getting home she's had profound weakness, inability to walk due to generalized debility. She reports that her family members have been bringing her meals to her chair. Patient reports that today she ambulated independently to the restroom and then had a fall. She reports that EMS was called to assist her from her bathroom floor to her chair. She denies any injury without fall. She states that she spent the entire day in the chair and that upon standing this evening she slipped out of her chair onto the floor and again was unable to get back up again EMS had to be contacted and at which time they decided to bring her to the ER for further evaluation. Family thinks that she is not safe at home and she will need to be at [facility], we will consult social secretary for transferring patient to [facility] today. Review of Systems Constitutional: Reports fatigue, Reports malaise, Reports weakness Eyes: denies blurred vision, denies bulging eye Ears: bilateral: decreased hearing Ears, nose, mouth and throat: Denies dysphagia, Denies neck lump, Denies sore throat Cardiovascular: Denies chest pain, Denies claudication, Denies decreased exercise tolerance, Denies rapid heart beat, Denies shortness of breath, Denies syncope Respiratory: Denies congestion, Denies cough with sputum, Denies home oxygen, Denies sleep apnea, Denies snoring, Denies wheezing Gastrointestinal: Denies abdominal pain, Denies bloating, Denies BRBPR, Denies heartburn, Denies hematemesis, Denies hematochezia, Denies indigestion, Denies melena, Denies nausea, Denies vomiting Genitourinary: Denies dysuria Menstruation: Reports postmenopausal Musculoskeletal: Reports atrophy, Reports frequent falls, Reports gait dysfunction Musculoskeletal: absent: ankle pain, ankle stiffness, ankle swelling, elbow pain , elbow stiffness, elbow swelling, foot pain, foot stiffness, foot swelling, hand pain, hand stiffness, hand swelling, hip pain, hip stiffness, hip swelling , knee pain, knee stiffness, knee swelling, shoulder pain, shoulder stiffness, shoulder swelling, wrist pain, wrist stiffness, wrist swelling Integumentary: Denies pruritus, Denies rash Neurological: Reports weakness, Denies numbness Psychiatric: Denies anxiety, Denies depression Endocrine: Denies fatigue, Denies weight change Past Medical History Past Medical History: Cancer, COPD, CVA/TIA, Diabetes Mellitus, Fibromyalgia, GERD/Reflux, Hyperlipidemia, Hypertension, Osteoarthritis (OA), Renal Disease, Thyroid Disorder Additional Past Medical History / Comment(s): cervical cancer 1974, pasthome 02 2.5 liters n/c uses prn since taken off it. neuropathy in feet, tia, dialysis port removal History of Any Multi-Drug Resistant Organisms: VRE Date of last positivie culture/infection: 11/09/17 MDRO Source:: URINE Past Surgical History: Cholecystectomy, Hysterectomy Past Anesthesia/Blood Transfusion Reactions: No Reported Reaction Past Psychological History: Anxiety, Panic Disorder Additional Psychological History / Comment(s): pt lives w/sig other of 8 years. has 1 pet cat. nebulizer,shower chair, ambulates around house on own but uses electric scooter, w/c, walker if out side home. Smoking Status: Former smoker Past Alcohol Use History: None Reported Additional Past Alcohol Use History / Comment(s): started smoking 1959- quit 1989 was smoking 2 ppd Past Drug Use History: None Reported - Past Family History Father Family Medical History: Cancer, Renal Disease Additional Family Medical History / Comment(s): kidney cancer- Mother Family Medical History: Musculoskeletal Disorder Additional Family Medical History / Comment(s): severe osteoporosis Sister(s) Family Medical History: Cancer Brother(s) Family Medical History: Unable to Obtain Daughter(s) History Unknown: Yes Family Medical History: Musculoskeletal Disorder Son(s) Family Medical History: No Reported History Medications and Allergies Home Medications Medication Instructions Recorded Confirmed Type Simvastatin [Zocor] 40 mg PO HS 12/09/15 07/05/18 History Levothyroxine Sodium [Synthroid] 50 mcg PO DAILY 09/16/17 07/05/18 History Cyanocobalamin [Vitamin B-12] 1,000 mcg PO DAILY@1200 tab 10/30/17 07/05/18 Rx Gabapentin [Neurontin] 100 mg PO HS 12/23/17 07/05/18 History Insulin Aspart [NovoLOG 10 unit SQ AC-TID 06/16/18 07/05/18 History (formulary)] Acetaminophen Tab [Tylenol] 650 mg PO Q6HR PRN tab 06/19/18 07/05/18 Rx Budesonide [Pulmicort] 0.5 mg INHALATION RT-BID nebu 06/19/18 07/05/18 Rx Furosemide [Lasix] 40 mg PO DAILY tab 06/19/18 07/05/18 Rx Ipratropium-Albuterol Nebulize 3 ml INHALATION RT-QID PRN 06/19/18 07/05/18 Rx [Duoneb 0.5 mg-3 mg/3 ml Soln] ampul.neb Potassium Chloride ER [K-Dur 20] 20 meq PO DAILY tab.er.prt 06/19/18 07/05/18 Rx Aspirin EC [Ecotrin Low Dose] 81 mg PO HS 07/02/18 07/05/18 History Allergies Allergy/AdvReac Type Severity Reaction Status Date / Time No Known Allergies Allergy Verified 07/05/18 22:19 Physical Exam Vitals: Vital Signs Temp Pulse Resp BP Pulse Ox 07/06/18 03:22 18 07/06/18 02:00 60 16 123/53 94 L 07/06/18 00:59 43 L 07/06/18 00:51 47 L 15 135/50 98 07/06/18 00:46 48 L 07/05/18 23:40 45 L 16 117/54 96 07/05/18 22:09 98.1 F 54 L 15 125/54 95 Intake and Output 07/05/18 07/05/18 07/06/18 14:59 22:59 06:59 Other: Voiding Method Bedpan Weight 104.326 kg - Constitutional General appearance: mild distress, thin - EENT Eyes: anicteric sclerae, EOMI, PERRLA, no ptosis, no scleral icterus, normal appearance ENT: hard of hearing, NA/AT, normal oropharynx, no thrush Ears: bilateral: normal - Neck Neck: no lymphadenopathy, normal ROM, no rigidity, no stridor Carotids: bilateral: upstroke normal - Respiratory Respiratory: bilateral: diminished, negative: dullness, rales, rhonchi, wheezing , prolonged expiration - Cardiovascular Rhythm: regular Heart sounds: normal: S1, S2 Abnormal Heart Sounds: systolic murmur, no S3 Gallop - Gastrointestinal General gastrointestinal: normal bowel sounds, soft, no splenomegaly, no tenderness, no umbilical hernia, no ventral hernia - Integumentary Integumentary: normal, normal turgor - Neurologic Neurologic: CNII-XII intact, focal deficits - Musculoskeletal Musculoskeletal: generalized weakness, strength equal bilaterally (in upper extremities however she has paraparesis of both lower extremities with muscle power -1/5 bilaterally with Areflexia.) - Psychiatric Psychiatric: A&O x's 3, appropriate affect, intact judgment & insight Results CBC & Chem 7: 07/06/18 07:21 07/06/18 07:21 Labs: Abnormal Lab Results - Last 24 Hours (Table) 07/05/18 07/05/18 07/05/18 Range/Units 22:28 22:28 22:28 Hgb 11.2 L (11.4-16.0) gm/dL MCHC 30.7 L (31.0-37.0) g/dL INR (<1.2) Chloride 109 H (98-107) mmol/L BUN 25 H (7-17) mg/dL Creatinine 2.12 H (0.52-1.04) mg/dL Glucose 145 H (74-99) mg/dL Total Creatine Kinase 142 H (30-135) U/L Total Protein 5.1 L (6.3-8.2) g/dL Albumin 2.9 L (3.5-5.0) g/dL 07/05/18 Range/Units 22:28 Hgb (11.4-16.0) gm/dL MCHC (31.0-37.0) g/dL INR 1.2 H (<1.2) Chloride (98-107) mmol/L BUN (7-17) mg/dL Creatinine (0.52-1.04) mg/dL Glucose (74-99) mg/dL Total Creatine Kinase (30-135) U/L Total Protein (6.3-8.2) g/dL Albumin (3.5-5.0) g/dL Thrombosis Risk Factor Assmnt - DVT/VTE Prophylaxis DVT/VTE Prophylaxis: Pharmacologic Prophylaxis ordered, Mechanical Prophylaxis ordered - Choose All That Apply Each Factor Represents 1 point: Abnormal pulmonary function (COPD), Swollen legs (current) Other Risk Factors: Yes Each Risk Factor Represents 3 Points: Age 75 years or older Thrombosis Risk Factor Assessment Total Risk Factor Score: 5 Thrombosis Risk Factor Assessment Level: High Risk Assessment and Plan Assessment: Assessment and plan: 1. Recurrent falls with severe weakness in both legs and Areflexia.we will check CT scan of the L-Spine and will consult neurology for further evaluation.PT and OT evaluation , patient has not walked since last hospital stay 3 weeks ago. 2. Chronic CKD stage III. her numbers at baseline. 3. Possibility of bladder mass. she was seen and evaluated by urology . 4. Anemia. may be related to microscopic hematuria. 5. Fibromyalgia. Continue patient on gabapentin 100 mg orally once every day. 6 Hypothyroidism. Continue Synthroid 50 g orally once every day. 7. Hyperlipidemia. Continue patient on Lipitor 20 mg orally once every day. 8. Diabetes mellitus type 2. Continue consistent carbohydrate diet, we will continue with Humalog 10 units AC meals tid. 9. Peripheral dizziness chronic stable. Continue patient on Antivert 25 mg orally twice every day. 10. COPD. Continue patient on DuoNeb the pleasure 4 times every day and Pulmicort 0.5 ml Neb bid. 11. DVT prophylaxis. will continue with Lovenox 30 mg SC daily. 12. GI prophylaxis. we will continue with Pepcid 20 mg orally daily. 13. Observation. 14. lubrication worker consult for ECF planning hopefully in AM. 15. Physical therapy evaluation.
--- NOTE | 2018-07-06 16:24 | CT ---
EXAMINATION TYPE: CT lumbar spine wo con DATE OF EXAM: 07/06/2018 COMPARISON: None HISTORY: Paraparesis lower extremities CT DLP: 1734.40 mGycm CONTRAST: None TECHNIQUE: CT of the lumbar spine is performed on a spiral scan at 3 mm thick sections. Reconstructed images are performed in the coronal and sagittal planes. FINDINGS: Note is made of small amount of ascites. Vacuum disc phenomenon is noted L to L3. T12-L1: No focal disc herniation or significant disc bulge is evident. No spinal canal stenosis or neural foraminal stenosis is present. L1-L2: No focal disc herniation or significant disc bulge is evident. No spinal canal stenosis or n eural foraminal stenosis is present L2-L3: Broad-based disc bulge is present with moderate anterior thecal sac compression. No AP spinal canal stenosis present. Facet hypertrophy is present with mild posterior lateral thecal sac compressi on. Neural foramen are patent. L3-L4: Broad-based disc bulge is moderate anterior thecal sac compression. Ligamentum flavum laxity i s present. Some facet hypertrophy is present greater on the right. Spinal canal stenosis is not prese nt. Some canal narrowing may be present. L4-L5: Broad-based disc bulge has moderate anterior thecal sac compression. Facet hypertrophy and lig amentum flavum laxity are contributing to lateral canal stenosis is level. Mild foraminal narrowing i s present. L5-S1: No focal disc herniation or significant disc bulge is evident. No spinal canal stenosis or n eural foraminal stenosis is present. Facet hypertrophy is present. Vertebral alignment appears normal. IMPRESSION: 1. Spinal canal stenosis predominantly due to ligamentum flavum laxity to the L4-5 level. Broad-based disc bulge is present. 2. Degenerative disc changes L2-L3 with endplate spurring symmetrical disc bulge with moderate anteri or thecal sac compression. 3. Broad-based disc bulge L3-L4 moderate anterior thecal sac compression. Stenosis is not present.
[2018-07-06 17:23] LABS: Glucose,Whole Blood 124 mg/dL (75-99)
[2018-07-06 20:24] LABS: Glucose,Whole Blood 143 mg/dL (75-99)
[2018-07-06] MEDS ORDERED: ASPIRIN 81 MG PO SCH (21:00)
[2018-07-06] MEDS ORDERED: GABAPENTIN 100 MG CAP PO SCH (21:00)
[2018-07-06] MEDS ORDERED: ATORVASTATIN 20 MG TAB PO SCH (21:00)
--- NOTE | 2018-07-06 21:24 | CONS ---
CONSULTATION DATE OF CONSULTATION: 07/06/2018. CHIEF COMPLAINT: Weakness. HISTORY OF PRESENT ILLNESS: Mrs. Carranza is a pleasant 77-year-old, female who was being evaluated by the neurology service per the request of Dr. Sheffield for weakness. The patient was recently admitted to [facility] and treated for a urinary tract infection with sepsis. She was discharged home on 06/19/2018 and since then, she has not recovered her full strength. She complains of weakness involving all 4 extremities with difficulty ambulating. She reports having a couple of falls at home due to this weakness. She denies any head injuries with any of her falls. She was brought into [facility] Emergency Room for further workup and management. A CT scan of the lumbar spine was done which showed disc bulges at multiple levels along with some spinal stenosis at L4-5. She denies any severe or chronic low back pain but does complain of intermittent low back pain, but this is not a main complaint for her at this time. Her CBC showed anemia with a hemoglobin of 10.6 and hematocrit of 34%. She did have mild thrombocytopenia at 148,000. Her urinalysis was normal. Her comprehensive metabolic profile showed renal insufficiency with a BUN of 25, creatinine of 2.14. Her protein and albumin were low at 4.6, 2.5 respectively. At time of my evaluation, she is lying in her bed and appears to be in no acute distress. She denies any changes in her weakness. She is also complaining of shortness of breath and does appear to be wheezing at the time of my evaluation. She is on oxygen supplementation. She is also complaining of occasional double vision and some hearing changes in her right ear which has been going on for several weeks. She denies any vertigo or tinnitus. PAST MEDICAL HISTORY: Cervical cancer, chronic obstructive pulmonary disease, history of transient ischemic attack, diabetes, fibromyalgia, gastroesophageal reflux disease, dyslipidemia, hypertension, arthritis, renal disease, hypothyroidism, peripheral polyneuropathy, history of dialysis, hysterectomy, cholecystectomy, anxiety disorder, panic disorder. SOCIAL HISTORY: The patient is a former smoker. She denies any alcohol or drug use. FAMILY HISTORY: Positive for renal disease, cancer, arthritis. HOME MEDICATIONS: Reviewed in the chart. ALLERGIES: No known drug allergies. REVIEW OF SYSTEMS: CONSTITUTIONAL: Positive for fatigue. EYES: As mentioned above. ENT: As mentioned above. CARDIOVASCULAR: Negative. RESPIRATORY: As mentioned above. NEUROLOGICAL: As mentioned above. GASTROINTESTINAL: Positive for occasional heartburn. GENITOURINARY: As mentioned above. MUSCULOSKELETAL: As mentioned above. DERMATOLOGICAL: Negative. ENDOCRINE: Positive for history of hypothyroidism and diabetes. PSYCHIATRIC: Positive for history of anxiety disorder. PHYSICAL EXAM: Vital signs show a temperature of 98.1, pulse is 53, respiration 15, blood pressure 122/66. GENERAL APPEARANCE: The patient is a mildly obese, elderly female, who appears to be in no acute distress but does have obvious wheezing. HEENT: Normocephalic, atraumatic. No facial asymmetry is seen. Extraocular muscles are intact. NECK: Supple with no masses felt. CARDIOVASCULAR: Bradycardic rate with a "regular rhythm. ABDOMEN: Nontender nondistended. EXTREMITIES: Showed no edema or clubbing. NEUROLOGICAL EXAM: The patient is awake and oriented x3. Speech and language are normal. Strength is 4-/5 in all 4 proximal extremities and 5-/5 distally. Tenderness to palpation is felt along the proximal muscles. Sensory exam showed diminished light touch sensation in bilateral distal lower extremities. No facial asymmetry is seen on cranial nerve testing. IMPRESSION: 1. Proximal muscle weakness. 2. Myopathy. 3. History of dyslipidemia, on statin therapy. 4. Chronic obstructive pulmonary disease. 5. Anemia. 6. Lumbago. 7. Lumbar spinal stenosis. RECOMMENDATION: The patient continues to have weakness involving all 4 extremities and mainly involving her proximal muscles. Her symptoms and findings are more consistent with an acute myopathy, which could be statin induced myopathy. I will discontinue Lipitor which she has been started on since her admission. She does take Zocor for home which I do recommend discontinuing after her discharge. I will order a serum CPK level and aldolase level. Even if those levels are normal, she may still be having statin induced myopathy. Continue IV hydration as tolerated. Physical therapy has been consulted. Regarding her diplopia, I will order a myasthenia gravis panel. As for her sensory deficits, she will need further outpatient neurophysiological workup. I do recommend a pulmonology consultation for her extensive wheezing and history of COPD. If her weakness does not improve over the next couple of days, she will need inpatient rehab. I will continue to follow with you. Further recommendations to follow. Thank you for allowing me to participate in the care of your patient. If you have any questions, please feel free to contact me. MMODL / IJN: [id number] /
[2018-07-07] MEDS: LEVOTHYROXINE 50 MCG TAB PO SCH (06:16)
[2018-07-07] MEDS: INSULIN ASPART 100 UNIT/ML 1 ML 10 ML VIAL SQ SCH ×4 (07:30→12:30)
[2018-07-07 07:46] LABS: Glucose,Whole Blood 119 mg/dL (75-99)
[2018-07-07] MEDS ORDERED: ENOXAPARIN 30 MG/0.3 ML SYRINGE SQ SCH (09:00)
[2018-07-07] MEDS: IPRATROPIUM-ALBUTEROL 3 ML NEB INHALATION PRN (09:23)
[2018-07-07] MEDS: BUDESONIDE 0.5 MG/2 ML NEBU INHALATION SCH (09:23)
[2018-07-07] MEDS: FUROSEMIDE 40 MG TAB PO SCH (09:45)
[2018-07-07] MEDS: FAMOTIDINE 20 MG TAB PO SCH (09:45)
[2018-07-07] MEDS: POTASSIUM CHLORIDE ER 20 MEQ TAB.ER PO SCH (09:45)
[2018-07-07 10:39] VITALS: PULSE 52
--- NOTE | 2018-07-07 11:45 | P.DS ---
Providers Date of admission: 07/06/18 01:45 Expected date of discharge: 07/07/18 Attending physician: Faviola Sheffield Consults: 07/06/18 12:34 Consult Physician Routine Consulting Provider: Devin Johnson Consult Reason/Comments: lower extremity weakness Do you want consulting provider notified?: Yes Primary care physician: [facility] Course: his is a 77-year-old female one of Dr. Noble with a previous medical history significant for hypertension and hypertensive cardiovascular disease with left ventricular hypertrophy, history of Fibromyalgia, hyperlipidemia, history of hypothyroidism, COPD, CVA/TIA, history of cervical cancer back in 1974 status post hysterectomy, history of chronic kidney disease stage III with a prior history of acute kidney injury requiring dialysis in the past, diabetes mellitus type 2, patient was recently hospitalized at [facility] due to significant UTI with sepsis from 06/17/2018 till 06/19/2016 and has been complaining of generalized weakness and inability to perform acitivity of daily living, she was seen ai our emergency department 3 days ago for weakness and was rehydrated and sent home, she reports that since getting home she's had profound weakness, inability to walk due to generalized debility. She reports that her family members have been bringing her meals to her chair. Patient reports that today she ambulated independently to the restroom and then had a fall. She reports that EMS was called to assist her from her bathroom floor to her chair. She denies any injury without fall. She states that she spent the entire day in the chair and that upon standing this evening she slipped out of her chair onto the floor and again was unable to get back up again EMS had to be contacted and at which time they decided to bring her to the ER for further evaluation. Family thinks that she is not safe at home and she will need to be at [facility], we will consult social media marketing analyst for transferring patient to [facility] today. 07/07: Lumbar spine CAT scan shows spinal canal stenosis predominantly due to ligamental flavum laxity at the L4 5 level. Broad-based disc bulge is present. Degenerative disc changes L2/L3 with end plate spurring symmetrical disc bulge with moderate anterior thecal sac compression. Broad-based disc bulge L3- L4 moderate anterior thecal sac compression. Stenosis is not present. Patient has been seen by Dr. Johnson and he feels that her symptoms are most likely due to statin which we will discontinue. She will be started on CoQ10. Arrangements are being made for patient at [facility]. We will plan to discharge today in stable condition. Discharge diagnoses: 1. Recurrent falls with severe weakness in both legs and Areflexia. 2. Chronic CKD stage III. 3. Possibility of bladder mass. 4. Anemia. may be related to microscopic hematuria. 5. Fibromyalgia. 6 Hypothyroidism. 7. Hyperlipidemia. Discontinue statin. 8. Diabetes mellitus type 2. 9. Peripheral dizziness chronic stable. 10. COPD. Discharge plan: [facility] Impression and plan of care have been directed as dictated by the signing physician. Jodi Schwartz nurse practitioner acting as scribe for signing physician. Patient Condition at Discharge: Good Plan - Discharge Summary Discharge Rx Participant: No New Discharge Prescriptions: New Famotidine [Pepcid] 20 mg PO DAILY tab Ubidecarenone [Co Q-10] 400 mg PO DAILY #30 capsule Continue Levothyroxine Sodium [Synthroid] 50 mcg PO DAILY Cyanocobalamin [Vitamin B-12] 1,000 mcg PO DAILY@1200 tab Gabapentin [Neurontin] 100 mg PO HS Insulin Aspart [NovoLOG (formulary)] 10 unit SQ AC-TID Acetaminophen Tab [Tylenol] 650 mg PO Q6HR PRN tab PRN Reason: Fever And/ Or Pain Budesonide [Pulmicort] 0.5 mg INHALATION RT-BID nebu Furosemide [Lasix] 40 mg PO DAILY tab Ipratropium-Albuterol Nebulize [Duoneb 0.5 mg-3 mg/3 ml Soln] 3 ml INHALATION RT-QID PRN ampul.neb PRN Reason: Shortness Of Breath Or Wheezing Potassium Chloride ER [K-Dur 20] 20 meq PO DAILY tab.er.prt Aspirin EC [Ecotrin Low Dose] 81 mg PO HS Discontinued Simvastatin [Zocor] 40 mg PO HS Discharge Medication List Levothyroxine Sodium [Synthroid] 50 mcg PO DAILY 09/16/17 [History] Cyanocobalamin [Vitamin B-12] 1,000 mcg PO DAILY@1200 tab 10/30/17 [Rx] Gabapentin [Neurontin] 100 mg PO HS 12/23/17 [History] Insulin Aspart [NovoLOG (formulary)] 10 unit SQ AC-TID 06/16/18 [History] Acetaminophen Tab [Tylenol] 650 mg PO Q6HR PRN tab 06/19/18 [Rx] Budesonide [Pulmicort] 0.5 mg INHALATION RT-BID nebu 06/19/18 [Rx] Furosemide [Lasix] 40 mg PO DAILY tab 06/19/18 [Rx] Ipratropium-Albuterol Nebulize [Duoneb 0.5 mg-3 mg/3 ml Soln] 3 ml INHALATION RT -QID PRN ampul.neb 06/19/18 [Rx] Potassium Chloride ER [K-Dur 20] 20 meq PO DAILY tab.er.prt 06/19/18 [Rx] Aspirin EC [Ecotrin Low Dose] 81 mg PO HS 07/02/18 [History] Famotidine [Pepcid] 20 mg PO DAILY tab 07/07/18 [Rx] Ubidecarenone [Co Q-10] 400 mg PO DAILY #30 capsule 07/07/18 [Rx] Follow up Appointment(s)/Referral(s): Jeronimo Noble MD [Primary Care Provider] - 1 Week (at [facility]) Devin Johnson MD [STAFF PHYSICIAN] - 3 Weeks (Office will call patient with appointment time) Discharge Disposition: TRANSFER TO SNF/ECF
[2018-07-07 11:53] LABS: Glucose,Whole Blood 176 mg/dL (75-99)
[2018-07-07] MEDS: CYANOCOBALAMIN 500 MCG TAB PO SCH (12:30)
[2018-07-07 12:43] LABS: Calcium 8.8 mg/dL (8.4-10.2); Potassium 4.8 mmol/L (3.5-5.1)
[2018-07-07 14:49] VITALS: BP 126/68; RESP 15; TEMP 97.9
[2018-07-09 04:37] LABS: Aldolase 4.6 U/L (1.2-7.6)
[2018-07-10 19:38] LABS: Acetylchol Recept Bind Ab <0.30 nmol/L
== END 2018-07-07 15:05 ==
LOC: EC 21:59 → 4SSUR 07-06 01:45
PROVIDERS: ADMIT Internal Medicine; ATTEND Internal Medicine
DX: M62.81 Muscle weakness (generalized) (principal); R29.6 Repeated falls; R29.2 Abnormal reflex; D64.9 Anemia, unspecified; M79.7 Fibromyalgia; E03.9 Hypothyroidism, unspecified; E78.5 Hyperlipidemia, unspecified; R42 Dizziness and giddiness; J44.9 Chronic obstructive pulmonary disease, unspecified; R54 Age-related physical debility; R22.43 Localized swelling, mass and lump, lower limb, bilateral; I13.10 Hypertensive heart and chronic kidney disease without heart failure, with stage 1 through stage 4 chronic kidney disease, or unspecified chronic kidney disease; N18.3 Chronic kidney disease, stage 3 (moderate); E11.22 Type 2 diabetes mellitus with diabetic chronic kidney disease; K21.9 Gastro-esophageal reflux disease without esophagitis; E11.42 Type 2 diabetes mellitus with diabetic polyneuropathy; Z99.81 Dependence on supplemental oxygen; R62.7 Adult failure to thrive; R00.1 Bradycardia, unspecified; G82.20 Paraplegia, unspecified; M48.061 Spinal stenosis, lumbar region without neurogenic claudication; M19.90 Unspecified osteoarthritis, unspecified site; Z16.21 Resistance to vancomycin; F41.0 Panic disorder [episodic paroxysmal anxiety]; F41.9 Anxiety disorder, unspecified; D69.6 Thrombocytopenia, unspecified; E66.9 Obesity, unspecified; Z68.38 Body mass index [BMI] 38.0-38.9, adult; H53.2 Diplopia; M51.26 Other intervertebral disc displacement, lumbar region; M51.36 Other intervertebral disc degeneration, lumbar region; Z79.890 Hormone replacement therapy; Z79.4 Long term (current) use of insulin; Z79.82 Long term (current) use of aspirin; Z79.51 Long term (current) use of inhaled steroids; Z79.899 Other long term (current) drug therapy; Z86.73 Personal history of transient ischemic attack (TIA), and cerebral infarction without residual deficits; Z85.41 Personal history of malignant neoplasm of cervix uteri; Z90.49 Acquired absence of other specified parts of digestive tract; Z90.710 Acquired absence of both cervix and uterus; Z87.891 Personal history of nicotine dependence; Z86.19 Personal history of other infectious and parasitic diseases; Z80.51 Family history of malignant neoplasm of kidney; Z82.62 Family history of osteoporosis; Z80.9 Family history of malignant neoplasm, unspecified
CPT/HCPCS: 96372 ×2; 99285; 36415; 94640 ×3; 93005; 97161; 97166; 83519; 83880; 80053 ×2; 80048; 82085; 82550 ×2; 82553; 83605; 83735; 84443; 84484; 85025 ×2; 85610; 85730; 81003; 83036; 71046; 72131; G0378 ×2; J1650 ×2

== ENCOUNTER 2018-08-06 13:52 | Inpatient (IN) | payer MEDICARE ==
--- NOTE | 2018-08-06 15:36 | XR ---
EXAMINATION TYPE: XR femur bilateral DATE OF EXAM: 08/06/2018 CLINICAL HISTORY: Fall injury with weakness and pain. TECHNIQUE: Two views of the bilateral femurs are obtained. COMPARISON: None FINDINGS: There is no acute fracture or dislocation seen in either femur. Mild to moderate tricompar tment joint space loss in both knees is present. There is mild axial joint space loss in both hips wi th mild to moderate left greater than right acetabular spurring. The overlying soft tissue appears u nremarkable bilaterally. IMPRESSION: There is no acute fracture or dislocation in either femur.
[2018-08-06] MEDS ORDERED: SODIUM CHLORIDE 0.9% 1,000 ML IV STA (15:45)
[2018-08-06 17:26] LABS: Appearance,Urine Clear (Clear); Bilirubin,Urine Negative (Negative); Blood,Urine Negative (Negative); Color,Urine Light Yellow; Glucose,Urine (UA) Negative (Negative); Ketones,Urine Negative (Negative); Leukocyte Esterase,Urine Negative (Negative); Nitrite,Urine Negative (Negative); PH, Urine 6.5 (5.0-8.0); Protein,Urine Negative (Negative); Specific Gravity,Urine 1.006 (1.001-1.035); Urobilinogen,Urine <2.0 mg/dL (<2.0)
[2018-08-06 17:37] LABS: Albumin 3.4 g/dL (3.5-5.0); Calcium 9.2 mg/dL (8.4-10.2); Potassium 3.9 mmol/L (3.5-5.1); Total Bilirubin 0.6 mg/dL (0.2-1.3); Total Protein 5.6 g/dL (6.3-8.2)
--- NOTE | 2018-08-06 17:41 | ED ---
General Adult HPI - General Chief complaint: Weakness Stated complaint: WEAKNESS, FALLING Source: patient, RN notes reviewed, old records reviewed Mode of arrival: wheelchair Limitations: no limitations - History of Present Illness Initial comments: 77-year-old female patient with history of renal insufficiency presents to ED after sustaining a fall yesterday and generalized weakness. Patient was sitting in her chair slipped forward fell straight down. Patient had some initial pain medially after fall, however does not have any pain currently. Patient is not able ambulate at baseline, however has been able to bear weight without significant pain. Patient denies use of blood thinners. She denied loss of consciousness. Patient denies trauma to head or neck. Patient denies chest pain, shortness breath, abdominal pain, nausea vomiting diarrhea, fever chills. Patient has a history of failure to thrive, prolonged hospitalizations. Patient also complains of generalized weakness which she states is her new baseline. Systemic: Pt denies myalgia, fever/chills, rash. Pt denies weakness, night sweats, weight loss. Neuro: Pt denies headache, visual disturbances, syncope or pre-syncope. HEENT: Pt denies ocular discharge or irritation, otalgia, rhinorrhea, pharyngitis or notable lymphadenopathy. Cardiopulmonary: Pt denies chest pain, SOB, heart palpitations, dyspnea on exertion. Abdominal/GI: Pt denies abdominal pain, n/v/d. : Pt denies dysuria, burning w/ urination, frequency/urgency. Denies new onset urinary or bowel incontinence. MSK: Pt denies myalgia, loss of strength or function in extremities. Neuro: Pt denies new onset weakness, paresthesias. - Related Data Home Medications Medication Instructions Recorded Confirmed Levothyroxine Sodium [Synthroid] 50 mcg PO DAILY 09/16/17 08/06/18 Gabapentin [Neurontin] 100 mg PO HS 12/23/17 08/06/18 Insulin Aspart [NovoLOG See Protocol SQ AC-TID 06/16/18 08/06/18 (formulary)] Aspirin EC [Ecotrin Low Dose] 81 mg PO HS 07/02/18 08/06/18 Insulin NPH Human Isophane 10 unit SQ BID 08/06/18 08/06/18 [NovoLIN N] Simvastatin 40 mg PO HS 08/06/18 08/06/18 Previous Rx's Medication Instructions Recorded Cyanocobalamin [Vitamin B-12] 1,000 mcg PO DAILY@1200 tab 10/30/17 Acetaminophen Tab [Tylenol] 650 mg PO Q6HR PRN tab 06/19/18 Budesonide [Pulmicort] 0.5 mg INHALATION RT-BID nebu 06/19/18 Furosemide [Lasix] 40 mg PO DAILY tab 06/19/18 Ipratropium-Albuterol Nebulize 3 ml INHALATION RT-QID PRN 06/19/18 [Duoneb 0.5 mg-3 mg/3 ml Soln] ampul.neb Potassium Chloride ER [K-Dur 20] 20 meq PO DAILY tab.er.prt 06/19/18 Ubidecarenone [Co Q-10] 400 mg PO DAILY #30 capsule 07/07/18 Allergies Allergy/AdvReac Type Severity Reaction Status Date / Time No Known Allergies Allergy Verified 08/06/18 14:48 Review of Systems ROS Statement: Those systems with pertinent positive or pertinent negative responses have been documented in the HPI. ROS Other: All systems not noted in ROS Statement are negative. Past Medical History Past Medical History: Cancer, COPD, CVA/TIA, Diabetes Mellitus, Fibromyalgia, GERD/Reflux, Hyperlipidemia, Hypertension, Osteoarthritis (OA), Renal Disease, Thyroid Disorder Additional Past Medical History / Comment(s): cervical cancer 1974, past 2.5 liters n/c uses prn since taken off it. neuropathy in feet, tia, dialysis port removal History of Any Multi-Drug Resistant Organisms: VRE Date of last positivie culture/infection: 11/09/17 MDRO Source:: URINE Past Surgical History: Cholecystectomy, Hysterectomy Past Anesthesia/Blood Transfusion Reactions: No Reported Reaction Past Psychological History: Anxiety, Panic Disorder Smoking Status: Former smoker Past Alcohol Use History: None Reported Past Drug Use History: None Reported - Past Family History Father Family Medical History: Cancer, Renal Disease Additional Family Medical History / Comment(s): kidney cancer- Mother Family Medical History: Musculoskeletal Disorder Additional Family Medical History / Comment(s): severe osteoporosis Sister(s) Family Medical History: Cancer Brother(s) Family Medical History: Unable to Obtain Daughter(s) History Unknown: Yes Family Medical History: Musculoskeletal Disorder Son(s) Family Medical History: No Reported History General Exam - General Exam Comments Initial Comments: Constitutional: NAD, AOX3, Pt has pleasant affect. HEENT: NC/AT, trachea midline, neck supple, no lymphadenopathy. Posterior pharynx non erythematous, without exudates. External ears appear normal, without discharge. Mucous membranes moist. Eyes PERRLA, EOM intact. There is no scleral icterus. No pallor noted. Cardiopulmonary: RRR, no murmurs, rubs or gallops, no JVD noted. Lungs CTAB in anterior and posterior chau. No peripheral edema. Abdominal exam: Abdomen soft and non-distended. Abdomen non-tender to palpation in all 4 quadrants. Bowel sounds active in LLQ. No hepatosplenomegaly. No ecchymosis Neuro: CN II-XII grossly intact. No nuchal rigidity. MSK: Full active range of motion of legs bilaterally. Full sensation in legs bilaterally. No posterior calf tenderness bilaterally, homans sign negative bilaterally. Posterior tibialis and radial pulse +2 bilaterally. Sensation intact in upper and lower extremities. Full active ROM in upper and lower extremities, 5/5 stregnth. Limitations: no limitations Course Vital Signs 08/06/18 08/06/18 08/06/18 13:55 15:00 17:00 Temperature 97.7 F Pulse Rate 48 L 61 70 Pulse Rate [ 50 L Manager Er ] Respiratory 18 18 18 Rate Blood Pressure 119/39 140/78 132/56 O2 Sat by Pulse 95 98 96 Oximetry 08/06/18 18:00 Temperature Pulse Rate 63 Pulse Rate [ Manager Er ] Respiratory 18 Rate Blood Pressure 136/60 O2 Sat by Pulse 96 Oximetry Medical Decision Making - Medical Decision Making 77-year-old female presents to ED with fall and generalized weakness. Pt was sent in by her PCP Dr. Phelps for admission. Physical exam did not display acute pathology. Plain films of femur bilaterally did not display any acute fracture. Laboratory investigations displayed renal insufficiency. Initial EKG displayed possible atrial fibrillation with slow ventricular response. Repeat EKG displayed normal sinus rhythm with sinus arrhythmia, low-voltage QRS. Patient to be admitted for workup generalized weakness. Case discussed with Dr. Ash. - Lab Data Result diagrams: 08/06/18 16:27 08/06/18 16:27 Lab Results 08/06/18 08/06/18 08/06/18 Range/Units 16:27 16:27 16:27 WBC 4.5 (3.8-10.6) k/uL RBC 4.19 (3.80-5.40) m/uL Hgb 12.3 (11.4-16.0) gm/dL Hct 38.3 (34.0-46.0) % MCV 91.4 (80.0-100.0) fL MCH 29.4 (25.0-35.0) pg MCHC 32.2 (31.0-37.0) g/dL RDW 14.3 (11.5-15.5) % Plt Count 153 (150-450) k/uL Neutrophils % 54 % Lymphocytes % 35 % Monocytes % 6 % Eosinophils % 3 % Basophils % 1 % Neutrophils # 2.4 (1.3-7.7) k/uL Lymphocytes # 1.5 (1.0-4.8) k/uL Monocytes # 0.3 (0-1.0) k/uL Eosinophils # 0.1 (0-0.7) k/uL Basophils # 0.0 (0-0.2) k/uL Sodium 141 (137-145) mmol/L Potassium 3.9 (3.5-5.1) mmol/L Chloride 102 (98-107) mmol/L Carbon Dioxide 32 H (22-30) mmol/L Anion Gap 7 mmol/L BUN 28 H (7-17) mg/dL Creatinine 2.02 H (0.52-1.04) mg/dL Est GFR (CKD-EPI)AfAm 27 (>60 ml/min/1.73 sqM) Est GFR (CKD-EPI)NonAf 23 (>60 ml/min/1.73 sqM) Glucose 105 H (74-99) mg/dL Plasma Lactic Acid David 1.1 (0.7-2.0) mmol/L Calcium 9.2 (8.4-10.2) mg/dL Total Bilirubin 0.6 (0.2-1.3) mg/dL AST 20 (14-36) U/L ALT 22 (9-52) U/L Alkaline Phosphatase 95 (38-126) U/L Total Protein 5.6 L (6.3-8.2) g/dL Albumin 3.4 L (3.5-5.0) g/dL Urine Color Urine Appearance (Clear) Urine pH (5.0-8.0) Ur Specific [place] (1.001-1.035) Urine Protein (Negative) Urine Glucose (UA) (Negative) Urine Ketones (Negative) Urine Blood (Negative) Urine Nitrite (Negative) Urine Bilirubin (Negative) Urine Urobilinogen (<2.0) mg/dL Ur Leukocyte Esterase (Negative) 08/06/18 Range/Units 16:52 WBC (3.8-10.6) k/uL RBC (3.80-5.40) m/uL Hgb (11.4-16.0) gm/dL Hct (34.0-46.0) % MCV (80.0-100.0) fL MCH (25.0-35.0) pg MCHC (31.0-37.0) g/dL RDW (11.5-15.5) % Plt Count (150-450) k/uL Neutrophils % % Lymphocytes % % Monocytes % % Eosinophils % % Basophils % % Neutrophils # (1.3-7.7) k/uL Lymphocytes # (1.0-4.8) k/uL Monocytes # (0-1.0) k/uL Eosinophils # (0-0.7) k/uL Basophils # (0-0.2) k/uL Sodium (137-145) mmol/L Potassium (3.5-5.1) mmol/L Chloride (98-107) mmol/L Carbon Dioxide (22-30) mmol/L Anion Gap mmol/L BUN (7-17) mg/dL Creatinine (0.52-1.04) mg/dL Est GFR (CKD-EPI)AfAm (>60 ml/min/1.73 sqM) Est GFR (CKD-EPI)NonAf (>60 ml/min/1.73 sqM) Glucose (74-99) mg/dL Plasma Lactic Acid David (0.7-2.0) mmol/L Calcium (8.4-10.2) mg/dL Total Bilirubin (0.2-1.3) mg/dL AST (14-36) U/L ALT (9-52) U/L Alkaline Phosphatase (38-126) U/L Total Protein (6.3-8.2) g/dL Albumin (3.5-5.0) g/dL Urine Color Light Yellow Urine Appearance Clear (Clear) Urine pH 6.5 (5.0-8.0) Ur Specific [place] 1.006 (1.001-1.035) Urine Protein Negative (Negative) Urine Glucose (UA) Negative (Negative) Urine Ketones Negative (Negative) Urine Blood Negative (Negative) Urine Nitrite Negative (Negative) Urine Bilirubin Negative (Negative) Urine Urobilinogen <2.0 (<2.0) mg/dL Ur Leukocyte Esterase Negative (Negative) Disposition Clinical Impression: Weakness Disposition: ADMITTED IP TO THIS [facility] Condition: Good Is patient prescribed a controlled substance at d/c from ED?: No Referrals: Jeronimo Noble MD [Primary Care Provider] - 1-2 days Decision Time: 19:12
[2018-08-06 17:42] LABS: Basophils % (A) 1 %; Eosinophils # (A) 0.1 k/uL (0-0.7); Eosinophils % (A) 3 %; HCT 38.3 % (34.0-46.0); HGB 12.3 gm/dL (11.4-16.0); Lymphocytes # (A) 1.5 k/uL (1.0-4.8); Lymphocytes % (A) 35 %; MCH 29.4 pg (25.0-35.0); MCHC 32.2 g/dL (31.0-37.0); MCV 91.4 fL (80.0-100.0); Mean Platelet Volume 7.7; Monocytes # (A) 0.3 k/uL (0-1.0); Monocytes % (A) 6 %; Neutrophils # (A) 2.4 k/uL (1.3-7.7); Neutrophils % (A) 54 %; Platelet Count 153 k/uL (150-450); RBC 4.19 m/uL (3.80-5.40); RDW 14.3 % (11.5-15.5); WBC 4.5 k/uL (3.8-10.6)
[2018-08-06] MEDS ORDERED: NALOXONE 0.4 MG/ML 1 ML VIAL IV PRN (18:23)
--- NOTE | 2018-08-06 19:15 | ED ---
Medical Decision Making - Lab Data Result diagrams: 08/06/18 16:27 08/06/18 16:27 Lab Results 08/06/18 08/06/18 08/06/18 Range/Units 16:27 16:27 16:27 WBC 4.5 (3.8-10.6) k/uL RBC 4.19 (3.80-5.40) m/uL Hgb 12.3 (11.4-16.0) gm/dL Hct 38.3 (34.0-46.0) % MCV 91.4 (80.0-100.0) fL MCH 29.4 (25.0-35.0) pg MCHC 32.2 (31.0-37.0) g/dL RDW 14.3 (11.5-15.5) % Plt Count 153 (150-450) k/uL Neutrophils % 54 % Lymphocytes % 35 % Monocytes % 6 % Eosinophils % 3 % Basophils % 1 % Neutrophils # 2.4 (1.3-7.7) k/uL Lymphocytes # 1.5 (1.0-4.8) k/uL Monocytes # 0.3 (0-1.0) k/uL Eosinophils # 0.1 (0-0.7) k/uL Basophils # 0.0 (0-0.2) k/uL Sodium 141 (137-145) mmol/L Potassium 3.9 (3.5-5.1) mmol/L Chloride 102 (98-107) mmol/L Carbon Dioxide 32 H (22-30) mmol/L Anion Gap 7 mmol/L BUN 28 H (7-17) mg/dL Creatinine 2.02 H (0.52-1.04) mg/dL Est GFR (CKD-EPI)AfAm 27 (>60 ml/min/1.73 sqM) Est GFR (CKD-EPI)NonAf 23 (>60 ml/min/1.73 sqM) Glucose 105 H (74-99) mg/dL Plasma Lactic Acid David 1.1 (0.7-2.0) mmol/L Calcium 9.2 (8.4-10.2) mg/dL Total Bilirubin 0.6 (0.2-1.3) mg/dL AST 20 (14-36) U/L ALT 22 (9-52) U/L Alkaline Phosphatase 95 (38-126) U/L Total Protein 5.6 L (6.3-8.2) g/dL Albumin 3.4 L (3.5-5.0) g/dL Urine Color Urine Appearance (Clear) Urine pH (5.0-8.0) Ur Specific [place] (1.001-1.035) Urine Protein (Negative) Urine Glucose (UA) (Negative) Urine Ketones (Negative) Urine Blood (Negative) Urine Nitrite (Negative) Urine Bilirubin (Negative) Urine Urobilinogen (<2.0) mg/dL Ur Leukocyte Esterase (Negative) 08/06/18 Range/Units 16:52 WBC (3.8-10.6) k/uL RBC (3.80-5.40) m/uL Hgb (11.4-16.0) gm/dL Hct (34.0-46.0) % MCV (80.0-100.0) fL MCH (25.0-35.0) pg MCHC (31.0-37.0) g/dL RDW (11.5-15.5) % Plt Count (150-450) k/uL Neutrophils % % Lymphocytes % % Monocytes % % Eosinophils % % Basophils % % Neutrophils # (1.3-7.7) k/uL Lymphocytes # (1.0-4.8) k/uL Monocytes # (0-1.0) k/uL Eosinophils # (0-0.7) k/uL Basophils # (0-0.2) k/uL Sodium (137-145) mmol/L Potassium (3.5-5.1) mmol/L Chloride (98-107) mmol/L Carbon Dioxide (22-30) mmol/L Anion Gap mmol/L BUN (7-17) mg/dL Creatinine (0.52-1.04) mg/dL Est GFR (CKD-EPI)AfAm (>60 ml/min/1.73 sqM) Est GFR (CKD-EPI)NonAf (>60 ml/min/1.73 sqM) Glucose (74-99) mg/dL Plasma Lactic Acid David (0.7-2.0) mmol/L Calcium (8.4-10.2) mg/dL Total Bilirubin (0.2-1.3) mg/dL AST (14-36) U/L ALT (9-52) U/L Alkaline Phosphatase (38-126) U/L Total Protein (6.3-8.2) g/dL Albumin (3.5-5.0) g/dL Urine Color Light Yellow Urine Appearance Clear (Clear) Urine pH 6.5 (5.0-8.0) Ur Specific [place] 1.006 (1.001-1.035) Urine Protein Negative (Negative) Urine Glucose (UA) Negative (Negative) Urine Ketones Negative (Negative) Urine Blood Negative (Negative) Urine Nitrite Negative (Negative) Urine Bilirubin Negative (Negative) Urine Urobilinogen <2.0 (<2.0) mg/dL Ur Leukocyte Esterase Negative (Negative) - EKG Data -: EKG Interpreted by Me EKG Comments: 1) Facial fibrillation with slow ventricular response, low voltage QRS, nonspecific ST and T wave abnormality. Ventricular 48, QRS 84, QT/QTc 474/423 no concern for acute ischemia. 2) normal sinus rhythm with sinus arrhythmia. Low-voltage QRS, borderline EKG. Ventricular rate 60, IA interval 200, QRS 96, QT/QTc 466/466 no concern for acute ischemia Disposition Clinical Impression: Weakness Disposition: ADMITTED IP TO THIS HOSP Condition: Good Is patient prescribed a controlled substance at d/c from ED?: No Referrals: Jeronimo Noble MD [Primary Care Provider] - 1-2 days
[2018-08-07 08:10] LABS: Glucose,Whole Blood 118 mg/dL (75-99)
[2018-08-07] MEDS ORDERED: NON-FORMULARY DRUG (Ubidecarenone [Co Q-10] 400 MG) PO SCH (09:00)
[2018-08-07] MEDS: CYANOCOBALAMIN 500 MCG TAB PO SCH (09:07)
[2018-08-07] MEDS: FUROSEMIDE 40 MG TAB PO SCH (09:07)
[2018-08-07] MEDS: POTASSIUM CHLORIDE ER 20 MEQ TAB.ER PO SCH (09:07)
[2018-08-07] MEDS: HEPARIN SODIUM,PORCINE 5,000 UNIT/ML 1 ML VIAL SQ SCH ×2 (09:08→19:47)
[2018-08-07] MEDS: FAMOTIDINE 20 MG TAB PO SCH (09:08)
[2018-08-07] MEDS: LEVOTHYROXINE 50 MCG TAB PO SCH (09:37)
[2018-08-07] MEDS: INSULIN NPH 300 UNIT/3 ML VIAL SQ SCH ×2 (10:14→17:43)
[2018-08-07 12:12] LABS: Glucose,Whole Blood 154 mg/dL (75-99)
--- NOTE | 2018-08-07 12:46 | P.HPIM ---
History of Present Illness H&P Date: 08/07/18 Chief Complaint: Weakness This is a 77-year-old female one of Dr. Noble with a previous medical history significant for hypertension and hypertensive cardiovascular disease with left ventricular hypertrophy, history of Fibromyalgia, hyperlipidemia, history of hypothyroidism, COPD, CVA/TIA, history of cervical cancer back in 1974 status post hysterectomy, history of chronic kidney disease stage III with a prior history of acute kidney injury requiring dialysis in the past, diabetes mellitus type 2, patient was recently hospitalized at [facility] due to significant recurrent falls with severe weakness in both legs and areflexia. Patient was discharged to [facility] and subsequently was discharged to home. Patient came into [facility] emergency center after falling yesterday and had generalized weakness. She has not been able to ambulate since the fall. She denies any chest pain or shortness of breath. Family thinks that she is not safe at home and she will need to have more rehab. White count was 4.5, hemoglobin 12.3, creatinine 2.02 and BUN 28. Lactic acid 1.1, albumin 3.4, total protein 5.6. Urinalysis is clear with nitrate and leukoesterase negative. EKG was reported as atrial fibrillation with slow ventricular response with nonspecific ST-T wave abnormalities. Patient was admitted to the [facility] floor and cardiology consult requested. PT , OT and social work consults. Review of Systems All systems: negative Constitutional: Reports fatigue, Reports poor appetite, Reports weakness, Denies chills, Denies fever, Denies sweats Eyes: denies blurred vision, denies pain Ears, nose, mouth and throat: Denies dysphagia, Denies headache, Denies hoarseness, Denies sore throat Cardiovascular: Reports dyspnea on exertion, Denies chest pain, Denies edema, Denies irregular heart beat, Denies palpitations, Denies shortness of breath, Denies syncope Respiratory: Denies cough, Denies cough with sputum, Denies dyspnea, Denies excessive sputum, Denies hemoptysis, Denies home oxygen, Denies wheezing Gastrointestinal: Denies abdominal pain, Denies diarrhea, Denies loss of appetite, Denies melena, Denies nausea, Denies vomiting Genitourinary: Denies dysuria, Denies hematuria, Denies urgency, Denies urinary frequency Musculoskeletal: Reports frequent falls, Reports gait dysfunction, Reports low back pain, Reports muscle weakness, Denies myalgias Integumentary: Denies pruritus, Denies rash, Denies wounds Neurological: Reports gait dysfunction, Denies aphasia, Denies change in mentation, Denies confusion, Denies head injury, Denies numbness, Denies weakness Psychiatric: Denies anxiety, Denies depression Endocrine: Denies fatigue, Denies weight change Past Medical History Past Medical History: Cancer, COPD, CVA/TIA, Diabetes Mellitus, Fibromyalgia, Hyperlipidemia, Hypertension, Osteoarthritis (OA), Renal Disease, Thyroid Disorder Additional Past Medical History / Comment(s): cervical cancer 1974, pasthome 02 2.5 liters n/c uses prn since taken off it. neuropathy in feet, tia, dialysis port removal History of Any Multi-Drug Resistant Organisms: VRE Date of last positivie culture/infection: 11/09/17 MDRO Source:: URINE Past Surgical History: Cholecystectomy, Hysterectomy Past Anesthesia/Blood Transfusion Reactions: No Reported Reaction Past Psychological History: Anxiety, Panic Disorder Additional Psychological History / Comment(s): pt lives w/sig other of 8 years. has 1 pet cat. nebulizer,shower chair, ambulates around house on own but uses electric scooter, w/c, walker if out side home. Smoking Status: Former smoker Past Alcohol Use History: None Reported Additional Past Alcohol Use History / Comment(s): started smoking 1959- quit 1989 was smoking 2 ppd Past Drug Use History: None Reported - Past Family History Father Family Medical History: Cancer, Renal Disease Additional Family Medical History / Comment(s): kidney cancer- Mother Family Medical History: Musculoskeletal Disorder Additional Family Medical History / Comment(s): severe osteoporosis Sister(s) Family Medical History: Cancer Brother(s) Family Medical History: Unable to Obtain Daughter(s) History Unknown: Yes Family Medical History: Asthma, Musculoskeletal Disorder Son(s) Family Medical History: No Reported History Additional Family Medical History / Comment(s): Gout, shingles Medications and Allergies Home Medications Medication Instructions Recorded Confirmed Type Levothyroxine Sodium [Synthroid] 50 mcg PO DAILY 09/16/17 08/06/18 History Cyanocobalamin [Vitamin B-12] 1,000 mcg PO DAILY@1200 tab 10/30/17 08/06/18 Rx Gabapentin [Neurontin] 100 mg PO HS 12/23/17 08/06/18 History Insulin Aspart [NovoLOG See Protocol SQ AC-TID 06/16/18 08/06/18 History (formulary)] Acetaminophen Tab [Tylenol] 650 mg PO Q6HR PRN tab 06/19/18 08/06/18 Rx Budesonide [Pulmicort] 0.5 mg INHALATION RT-BID nebu 06/19/18 08/06/18 Rx Furosemide [Lasix] 40 mg PO DAILY tab 06/19/18 08/06/18 Rx Ipratropium-Albuterol Nebulize 3 ml INHALATION RT-QID PRN 06/19/18 08/06/18 Rx [Duoneb 0.5 mg-3 mg/3 ml Soln] ampul.neb Potassium Chloride ER [K-Dur 20] 20 meq PO DAILY tab.er.prt 06/19/18 08/06/18 Rx Aspirin EC [Ecotrin Low Dose] 81 mg PO HS 07/02/18 08/06/18 History Ubidecarenone [Co Q-10] 400 mg PO DAILY #30 capsule 07/07/18 08/06/18 Rx Insulin NPH Human Isophane 10 unit SQ BID 08/06/18 08/06/18 History [NovoLIN N] Simvastatin 40 mg PO HS 08/06/18 08/06/18 History Allergies Allergy/AdvReac Type Severity Reaction Status Date / Time No Known Allergies Allergy Verified 08/06/18 14:48 Physical Exam Vitals: Vital Signs Temp Pulse Pulse Resp BP BP Pulse Ox 08/07/18 06:29 97.2 F L 64 18 105/51 92 L 08/06/18 23:38 98.3 F 61 17 107/53 92 L 08/06/18 21:55 97.8 F 61 18 110/45 92 L 08/06/18 20:30 98.0 F 64 18 132/78 98 08/06/18 20:00 62 16 134/72 98 08/06/18 19:00 97.9 F 61 18 130/71 98 08/06/18 18:00 63 18 136/60 96 08/06/18 17:00 70 50 L 18 132/56 96 08/06/18 15:00 61 18 140/78 98 08/06/18 13:55 97.7 F 48 L 18 119/39 95 Intake and Output 08/06/18 08/07/18 08/07/18 22:59 06:59 14:59 Output Total 400 Balance -400 Output: Urine 400 Other: Voiding Method Bedside Commode Bedpan Diaper # Voids 1 # Bowel Movements 0 General appearance: mild distress, thin - EENT Eyes: anicteric sclerae, EOMI, PERRLA, no ptosis, no scleral icterus, normal appearance ENT: hard of hearing, NA/AT, normal oropharynx, no thrush Ears: bilateral: normal - Neck Neck: no lymphadenopathy, normal ROM, no rigidity, no stridor Carotids: bilateral: upstroke normal - Respiratory Respiratory: bilateral: diminished, negative: dullness, rales, rhonchi, wheezing , prolonged expiration - Cardiovascular Rhythm: regular Heart sounds: normal: S1, S2 Abnormal Heart Sounds: systolic murmur, no S3 Gallop - Gastrointestinal General gastrointestinal: normal bowel sounds, soft, no splenomegaly, no tenderness, no umbilical hernia, no ventral hernia - Integumentary Integumentary: normal, normal turgor - Neurologic Neurologic: CNII-XII intact, focal deficits - Musculoskeletal Musculoskeletal: generalized weakness, strength equal bilaterally (in upper extremities however she has paraparesis of both lower extremities with muscle power -1/5 bilaterally.) - Psychiatric Psychiatric: A&O x's 3, appropriate affect, intact judgment & insight Results CBC & Chem 7: 08/06/18 16:27 08/06/18 16:27 Labs: Abnormal Lab Results - Last 24 Hours (Table) 08/06/18 08/07/18 Range/Units 16:27 07:46 Carbon Dioxide 32 H (22-30) mmol/L BUN 28 H (7-17) mg/dL Creatinine 2.02 H (0.52-1.04) mg/dL Glucose 105 H (74-99) mg/dL POC Glucose (mg/dL) 118 H (75-99) mg/dL Total Protein 5.6 L (6.3-8.2) g/dL Albumin 3.4 L (3.5-5.0) g/dL Thrombosis Risk Factor Assmnt - DVT/VTE Prophylaxis DVT/VTE Prophylaxis: Pharmacologic Prophylaxis ordered - Choose All That Apply Any of the Below Risk Factors Present?: Yes Each Factor Represents 1 point: Obesity (BMI >25) Other Risk Factors: Yes Each Risk Factor Represents 3 Points: Age 75 years or older Thrombosis Risk Factor Assessment Total Risk Factor Score: 4 Thrombosis Risk Factor Assessment Level: Moderate Risk Assessment and Plan Plan: 1. Recurrent falls with severe weakness in both legs. Reviewed previous CT scan of the L-Spine, consult PT and OT evaluation. 2. New onset atrial fibrillation, controlled rate. Repeat EKG ordered. Cardiology consult. Echocardiogram ordered. 3. Chronic CKD stage III. her numbers at baseline. 4. Possibility of bladder mass. she was seen and evaluated by urology. 5. Anemia of chronic disease. 6. Fibromyalgia. Continue patient on gabapentin 100 mg orally once every day. 7. Hypothyroidism. Continue Synthroid 50 g orally once every day. 8. Hyperlipidemia. Continue patient on Lipitor 20 mg orally once every day. 9. Diabetes mellitus type 2. Continue consistent carbohydrate diet, we will continue NPH 10 units twice daily with meals and NovoLog scale. 10. Peripheral dizziness chronic stable. 11. COPD not in exacerbation. Continue patient on DuoNeb the pleasure 4 times every day and Pulmicort 0.5 ml Neb bid. 12. DVT prophylaxis. will continue with heparin SC daily. 13. GI prophylaxis. we will continue with Pepcid 20 mg orally daily. 14. CODE STATUS: Full code 15. Generalized debility. PT and OT consults. Social work consult. Patient will be admitted to the hospital for a minimum of 2 nights day. Impression and plan of care have been directed as dictated by the signing physician. Jodi Schwartz nurse practitioner acting as scribe for signing physician.
[2018-08-07] MEDS: INSULIN ASPART 100 UNIT/ML 1 ML 10 ML VIAL SQ SCH ×3 (12:52→21:09)
--- NOTE | 2018-08-07 15:18 | P.CRDCN ---
History of Present Illness History of present illness: This is a pleasant 77-year-old female past medical history significant for hypertension, dyslipidemia, chronic kidney disease and hypothyroidism. She also has a known history of aortic stenosis however the patient denies prior knowledge of this. She denies history of coronary artery disease. We have been asked to see her in consultation for an abnormal EKG. On admission EKG was obtained and reveals sinus mechanism with sinus pause and then in a junctional escape beat with resumption to sinus mechanism. The patient presented to the hospital after having slipped and fallen out of her recliner chair. She states that she was readjusting herself secondary to a chronic wound on her coccyx and slid out of the chair. She was unable to get herself up off the floor. She states she has been feeling increasingly weak, fatigued and dizzy for the last month. She denies chest pain, palpitations, loss of consciousness or diaphoresis. She states her dizziness feels like spinning in the room at times. She also complains of shortness of breath but states this is her baseline and doesn't seem any worse than usual. Laboratory data reviewed, WBC 4.5, hemoglobin 12.3, platelets 153, sodium 141, potassium 3.9, creatinine 2.02, GFR 23. Current cardiac medications include aspirin 81 mg daily, Lasix 40 mg daily and simvastatin 40 mg daily. Most recent echocardiogram obtained May 2018 reveals preserved left ventricular systolic function with ejection fraction 55-60%, moderately dilated left atrium , enlarged right atrium, moderate aortic valve sclerosis with mild to moderate aortic regurgitation, moderate aortic stenosis with a mean gradient across the valve of 25 mmHg, mild to moderate mitral regurgitation with a mean gradient across the mitral valve 2 mmHg with mild mitral stenosis, mild tricuspid regurgitation and mild pulmonary hypertension with an RVSP of 39 mmHg. At the time of my exam: CONSTITUTIONAL: Denies fever. Denies chills. EYES: Denies blurred vision. Denies vision changes. Denies eye pain. EARS, NOSE, MOUTH & THROAT: Denies headache. Denies sore throat. Denies ear pain. CARDIOVASCULAR: Denies chest pain. Denies shortness of breath. Denies orthopnea. Denies PND. Denies palpitations. RESPIRATORY: Denies cough. GASTROINTESTINAL: Denies abdominal pain. Denies diarrhea. Denies constipation. Denies nausea. Denies vomiting. MUSCULOSKELETAL: Denies myalgias. INTEGUMENTARY: Denies pruitis. Denies rash. NEUROLOGIC: Denies numbness. Denies tingling. Denies weakness. PSYCHIATRIC: Denies anxiety. Denies depression. ENDOCRINE: Complains of generalized weakness and fatigue. Denies weight change. Denies polydipsia. Denies polyurina. GENITOURINARY: Denies burning, hematuria or urgency with micturation. HEMATOLOGIC: Denies history of anemia. Denies bleeding. Blood pressure 129/67 heart rate 68 afebrile maintaining oxygen saturation on room air GENERAL: This is a 77-year-old female in no apparent distress at the time of my examination. Generalized weakness. HEENT: Head is atraumatic, normocephalic. Pupils are equal, round. Sclerae anicteric. Conjunctivae are clear. Mucous membranes of the mouth are moist. Neck is supple. There is no jugular venous distention. No carotid bruit is heard. LUNGS: Clear to auscultation no wheezes, rales or rhonchi. No chest wall tenderness is noted on palpation or with deep breathing. HEART: Regular rate and rhythm with systolic ejection murmur at the base and apex. Base greater than apex., no rubs or gallops. S1 and S2 heard. ABDOMEN: Soft, nontender. Bowel sounds are heard. No organomegaly noted. EXTREMITIES: No evidence of peripheral edema and no calf tenderness noted. VASCULAR: Radial and dorsalis pedis pulses palpated, no evidence of clubbing. NEUROLOGIC: Patient is awake, alert and oriented x3. ASSESSMENT Bradycardia arrhythmia with probable sick sinus syndrome. Generalized weakness and fatigue Aortic stenosis, mean gradient 25 mmHg Pulmonary hypertension RVSP 39 mmHg Hypertension Dyslipidemia Hypothyroidism Chronic kidney disease, GFR 23. Has required dialysis in the past. PLAN Recent 2-D echocardiogram and Doppler study has been reviewed, no need to repeat on this admission. Patient to be transferred to telemetry unit for continuous telemetry monitoring. Check TSH. Avoid beta-blocking agents. Patient may require permanent pacemaker implantation if sick sinus syndrome is confirmed. This is likely the cause of her increased weakness and fatigue for the previous 1-month. Further recommendations to follow based on clinical course. Thank you kindly for this consultation. Nurse Practitioner note has been reviewed, I agree with a documented findings and plan of care. Patient was seen and examined. Past Medical History Past Medical History: Cancer, COPD, CVA/TIA, Diabetes Mellitus, Fibromyalgia, Hyperlipidemia, Hypertension, Osteoarthritis (OA), Renal Disease, Thyroid Disorder Additional Past Medical History / Comment(s): cervical cancer 1974, pasthome 2.5 liters n/c uses prn since taken off it. neuropathy in feet, tia, dialysis port removal History of Any Multi-Drug Resistant Organisms: VRE Date of last positivie culture/infection: 11/09/17 MDRO Source:: URINE Past Surgical History: Cholecystectomy, Hysterectomy Past Anesthesia/Blood Transfusion Reactions: No Reported Reaction Past Psychological History: Anxiety, Panic Disorder Additional Psychological History / Comment(s): pt lives w/sig other of 8 years. has 1 pet cat. nebulizer,shower chair, ambulates around house on own but uses electric scooter, w/c, walker if out side home. Smoking Status: Former smoker Past Alcohol Use History: None Reported Additional Past Alcohol Use History / Comment(s): started smoking 1959- quit 1989 was smoking 2 ppd Past Drug Use History: None Reported - Past Family History Father Family Medical History: Cancer, Renal Disease Additional Family Medical History / Comment(s): kidney cancer- Mother Family Medical History: Musculoskeletal Disorder Additional Family Medical History / Comment(s): severe osteoporosis Sister(s) Family Medical History: Cancer Brother(s) Family Medical History: Unable to Obtain Daughter(s) History Unknown: Yes Family Medical History: Asthma, Musculoskeletal Disorder Son(s) Family Medical History: No Reported History Additional Family Medical History / Comment(s): Gout, shingles Medications and Allergies Home Medications Medication Instructions Recorded Confirmed Type Levothyroxine Sodium [Synthroid] 50 mcg PO DAILY 09/16/17 08/06/18 History Cyanocobalamin [Vitamin B-12] 1,000 mcg PO DAILY@1200 tab 10/30/17 08/06/18 Rx Gabapentin [Neurontin] 100 mg PO HS 12/23/17 08/06/18 History Insulin Aspart [NovoLOG See Protocol SQ AC-TID 06/16/18 08/06/18 History (formulary)] Acetaminophen Tab [Tylenol] 650 mg PO Q6HR PRN tab 06/19/18 08/06/18 Rx Budesonide [Pulmicort] 0.5 mg INHALATION RT-BID nebu 06/19/18 08/06/18 Rx Furosemide [Lasix] 40 mg PO DAILY tab 06/19/18 08/06/18 Rx Ipratropium-Albuterol Nebulize 3 ml INHALATION RT-QID PRN 06/19/18 08/06/18 Rx [Duoneb 0.5 mg-3 mg/3 ml Soln] ampul.neb Potassium Chloride ER [K-Dur 20] 20 meq PO DAILY tab.er.prt 06/19/18 08/06/18 Rx Aspirin EC [Ecotrin Low Dose] 81 mg PO HS 07/02/18 08/06/18 History Ubidecarenone [Co Q-10] 400 mg PO DAILY #30 capsule 07/07/18 08/06/18 Rx Insulin NPH Human Isophane 10 unit SQ BID 08/06/18 08/06/18 History [NovoLIN N] Simvastatin 40 mg PO HS 08/06/18 08/06/18 History Allergies Allergy/AdvReac Type Severity Reaction Status Date / Time No Known Allergies Allergy Verified 08/06/18 14:48 Physical Exam Vitals: Vital Signs Temp Pulse Pulse Pulse Resp BP BP 08/07/18 14:46 99.1 F 68 16 129/67 08/07/18 06:29 97.2 F L 64 18 105/51 08/06/18 23:38 98.3 F 61 17 107/53 08/06/18 21:55 97.8 F 61 18 110/45 08/06/18 20:30 98.0 F 64 18 132/78 08/06/18 20:00 62 16 134/72 08/06/18 19:00 97.9 F 61 18 130/71 08/06/18 18:00 63 18 136/60 08/06/18 17:00 70 50 L 18 132/56 Pulse Ox 08/07/18 14:46 93 L 08/07/18 06:29 92 L 08/06/18 23:38 92 L 08/06/18 21:55 92 L 08/06/18 20:30 98 08/06/18 20:00 98 08/06/18 19:00 98 08/06/18 18:00 96 08/06/18 17:00 96 Intake and Output 08/07/18 08/07/18 08/07/18 06:59 14:59 22:59 Output Total 400 Balance -400 Output: Urine 400 Other: Voiding Method Bedside Commode Bedpan Diaper # Voids 1 3 # Bowel Movements 0 0 Results 08/06/18 16:27 08/06/18 16:27 Cardiac Enzymes 08/06/18 Range/Units 16:27 AST 20 (14-36) U/L CBC 08/06/18 Range/Units 16:27 WBC 4.5 (3.8-10.6) k/uL RBC 4.19 (3.80-5.40) m/uL Hgb 12.3 (11.4-16.0) gm/dL Hct 38.3 (34.0-46.0) % Plt Count 153 (150-450) k/uL Comprehensive Metabolic Panel 08/06/18 Range/Units 16:27 Sodium 141 (137-145) mmol/L Potassium 3.9 (3.5-5.1) mmol/L Chloride 102 (98-107) mmol/L Carbon Dioxide 32 H (22-30) mmol/L BUN 28 H (7-17) mg/dL Creatinine 2.02 H (0.52-1.04) mg/dL Glucose 105 H (74-99) mg/dL Calcium 9.2 (8.4-10.2) mg/dL AST 20 (14-36) U/L ALT 22 (9-52) U/L Alkaline Phosphatase 95 (38-126) U/L Total Protein 5.6 L (6.3-8.2) g/dL Albumin 3.4 L (3.5-5.0) g/dL Current Medications Generic Name Dose Route Start Last Admin Trade Name Freq PRN Reason Stop Dose Admin Acetaminophen 650 mg 08/07/18 08:04 Tylenol Tab PO Q6HR PRN Fever and/ or Pain Albuterol/Ipratropium 3 ml 08/07/18 08:04 Duoneb 0.5 Mg-3 Mg/3 Ml Soln INHALATION RT-QID PRN Shortness Of Breath Or Wheezing Aspirin 81 mg 08/07/18 21:00 Aspirin PO HS BROCK Atorvastatin Calcium 20 mg 08/07/18 21:00 Lipitor PO HS BROCK Budesonide 0.5 mg 08/07/18 20:00 Pulmicort INHALATION RT-BID [facility] Cyanocobalamin 1,000 mcg 08/07/18 12:00 08/07/18 09:07 Vitamin B-12 PO 1,000 mcg DAILY@1200 BROCK Administration Famotidine 20 mg 08/07/18 09:00 08/07/18 09:08 Pepcid PO 20 mg DAILY BROCK Administration Furosemide 40 mg 08/07/18 09:00 08/07/18 09:07 Lasix PO 40 mg DAILY BROCK Administration Gabapentin 100 mg 08/07/18 21:00 Neurontin PO HS BROCK Heparin Sodium (Porcine) 5,000 unit 08/07/18 09:00 08/07/18 09:08 Heparin SQ 5,000 unit Q12HR BROCK Administration Insulin Aspart 0 unit 08/07/18 12:30 08/07/18 12:52 Novolog SQ Not Given ACHS [facility] Protocol Insulin Human NPH 10 unit 08/07/18 09:00 08/07/18 10:14 Humulin N SQ 10 unit BID-W/MEALS BROCK Administration Levothyroxine Sodium 50 mcg 08/07/18 09:00 08/07/18 09:37 Synthroid PO 50 mcg DAILY@0630 BROCK Administration Naloxone HCl 0.2 mg 08/06/18 18:23 Narcan IV Q2M PRN Opioid Reversal Potassium Chloride 20 meq 08/07/18 09:00 08/07/18 09:07 K-Dur 20 PO 20 meq DAILY BROCK Administration Intake and Output 08/07/18 08/07/18 08/07/18 06:59 14:59 22:59 Output Total 400 Balance -400 Output: Urine 400 Other: Voiding Method Bedside Commode Bedpan Diaper # Voids 1 3 # Bowel Movements 0 0 08/06/18 16:27 08/06/18 16:27
[2018-08-07 16:46] LABS: Glucose,Whole Blood 221 mg/dL (75-99)
[2018-08-07 18:48] LABS: Hemoglobin A1C 5.7 % (4.0-6.0)
[2018-08-07] MEDS: ATORVASTATIN 20 MG TAB PO SCH (19:47)
[2018-08-07] MEDS: GABAPENTIN 100 MG CAP PO SCH (19:47)
[2018-08-07] MEDS: ASPIRIN 81 MG PO SCH (19:47)
[2018-08-07 20:30] LABS: Glucose,Whole Blood 141 mg/dL (75-99)
[2018-08-07] MEDS: IPRATROPIUM-ALBUTEROL 3 ML NEB INHALATION PRN (20:54)
[2018-08-07] MEDS: BUDESONIDE 0.5 MG/2 ML NEBU INHALATION SCH (20:54)
[2018-08-08 06:39] LABS: Glucose,Whole Blood 104 mg/dL (75-99)
[2018-08-08] MEDS: INSULIN ASPART 100 UNIT/ML 1 ML 10 ML VIAL SQ SCH ×4 (06:39→21:09)
[2018-08-08] MEDS: LEVOTHYROXINE 50 MCG TAB PO SCH (06:42)
[2018-08-08] MEDS: INSULIN NPH 300 UNIT/3 ML VIAL SQ SCH ×2 (07:34→18:39)
[2018-08-08] MEDS: IPRATROPIUM-ALBUTEROL 3 ML NEB INHALATION PRN ×2 (09:03→20:53)
[2018-08-08] MEDS: BUDESONIDE 0.5 MG/2 ML NEBU INHALATION SCH ×2 (09:03→20:53)
[2018-08-08] MEDS: CYANOCOBALAMIN 500 MCG TAB PO SCH (09:07)
[2018-08-08] MEDS: POTASSIUM CHLORIDE ER 20 MEQ TAB.ER PO SCH (09:08)
[2018-08-08] MEDS: FAMOTIDINE 20 MG TAB PO SCH (09:08)
[2018-08-08] MEDS: HEPARIN SODIUM,PORCINE 5,000 UNIT/ML 1 ML VIAL SQ SCH ×2 (09:08→19:34)
[2018-08-08] MEDS: FUROSEMIDE 40 MG TAB PO SCH (09:08)
[2018-08-08] MEDS: ACETAMINOPHEN TAB 325 MG TAB PO PRN ×2 (09:19→19:35)
[2018-08-08 11:48] LABS: Glucose,Whole Blood 176 mg/dL (75-99)
[2018-08-08 16:33] LABS: Glucose,Whole Blood 124 mg/dL (75-99)
[2018-08-08] MEDS: MECLIZINE 12.5 MG TAB PO SCH ×2 (17:57→21:08)
[2018-08-08] MEDS: ATORVASTATIN 20 MG TAB PO SCH (19:33)
[2018-08-08] MEDS: GABAPENTIN 100 MG CAP PO SCH (19:33)
[2018-08-08] MEDS: ASPIRIN 81 MG PO SCH (19:33)
[2018-08-08 20:51] LABS: Glucose,Whole Blood 173 mg/dL (75-99)
--- NOTE | 2018-08-08 22:44 | PN ---
PROGRESS NOTE Mrs. Carranza was admitted by Dr. Tarango. She remains in sinus rhythm with a 2:1 block. She complains of fatigue, lack of energy, dizzy, lightheadedness, near syncope. I am asking that she should increase activity and move from bed to commode and at least if she walks around in the room with help we can see how her chronotropic response is. She probably has conduction system disease and resting bradycardia and probably also has bradycardia with exercise as well and there is evidence of a 2:1 block with some sinus node dysfunction. Her vital signs are stable. S1,S2 heard normally. Short systolic murmur noted. Lungs reveal diminished air entry. Abdomen and lower extremity exam is unchanged. We will check her heart rate with increased activity. Check some labs. If she remains bradycardic and does not have a good chronotropic response, I will consider a dual- chamber pacemaker on Friday. I explained this to the patient and she understands the risks, benefits, options and rationale. MMODL / IJN: [id number] /
--- NOTE | 2018-08-08 23:25 | P.PN ---
Subjective Progress Note Date: 08/08/18 this is a 77-year-old female one of Dr. Noble with a previous medical history significant for hypertension and hypertensive cardiovascular disease with left ventricular hypertrophy, history of Fibromyalgia, hyperlipidemia, history of hypothyroidism, COPD, CVA/TIA, history of cervical cancer back in 1974 status post hysterectomy, history of chronic kidney disease stage III with a prior history of acute kidney injury requiring dialysis in the past, diabetes mellitus type 2, patient was recently hospitalized at [facility] due to significant recurrent falls with severe weakness in both legs and areflexia. Patient was discharged to [facility] and subsequently was discharged to home. Patient came into [facility] emergency center after falling yesterday and had generalized weakness. She has not been able to ambulate since the fall. She denies any chest pain or shortness of breath. Family thinks that she is not safe at home and she will need to have more rehab. White count was 4.5, hemoglobin 12.3, creatinine 2.02 and BUN 28. Lactic acid 1.1, albumin 3.4, total protein 5.6. Urinalysis is clear with nitrate and leukoesterase negative. EKG was reported as atrial fibrillation with slow ventricular response with nonspecific ST-T wave abnormalities. Patient was admitted to the MedSur floor and cardiology consult requested. PT , OT and social work consults. 08/08 patient complains of vertigo while ion bed,complains of jelly legs, cardiology has been consulted, they are monitorin her for possible pacemaker for sick sinus, we willcheck orthostatics, cpk and sed rate r/o polymyalgia rheumatica. physical therapy to see the patient, patient has impacted ear wax right more than leftm will do ear wash today Objective - Vital Signs Vital signs: Vital Signs Temp 97.7 F 08/08/18 08:00 Pulse 62 08/08/18 09:21 Resp 18 08/08/18 08:00 BP 117/56 08/08/18 08:00 Pulse Ox 92 L 08/08/18 08:00 Intake & Output 08/07/18 08/08/18 08/08/18 18:59 06:59 18:59 Intake Total 760 180 Output Total 200 Balance 560 180 Weight 88.5 kg Intake: Oral 760 180 Output: Urine 200 Other: Voiding Method Bedside Commode Bedside Commode Bedside Commode Bedpan Bedpan Bedpan Diaper Diaper Diaper # Voids 1 2 # Bowel Movements 0 - Constitutional General appearance: Present: cooperative, morbidly obese - EENT Eyes: Present: anicteric sclerae, dentition normal, normal appearance ENT: Present: NA/AT, normal oropharynx - Respiratory Respiratory: bilateral: CTA, diminished, negative: dullness - Cardiovascular Heart sounds: normal: S1, S2 Abnormal Heart Sounds: Absent: systolic murmur, diastolic murmur, rub, S3 Gallop , S4 Gallop, click, other - Integumentary Integumentary: Present: normal - Neurologic Neurologic: Present: CNII-XII intact - Musculoskeletal Musculoskeletal: Present: gait normal, generalized weakness, strength equal bilaterally - Labs CBC & Chem 7: 08/06/18 16:27 08/06/18 16:27 Labs: Abnormal Lab Results - Last 24 Hours (Table) 08/07/18 08/07/18 08/08/18 Range/Units 16:43 20:25 06:33 POC Glucose (mg/dL) 221 H 141 H 104 H (75-99) mg/dL 08/08/18 Range/Units 11:34 POC Glucose (mg/dL) 176 H (75-99) mg/dL Assessment and Plan Plan: 1. Recurrent falls with severe weakness in both legs vertiginous sensation and near syncope r/o sick sinus syndrome orthostatics to be done, sed rate to check for PMR. cpk to eval for rhabdo Reviewed previous CT scan of the L-Spine, consult PT and OT evaluation. 2. New onset atrial fibrillation, controlled rate. Repeat EKG ordered. Cardiology consult. Echocardiogram ordered. 3. Chronic CKD stage III. her numbers at baseline. 4. Possibility of bladder mass. she was seen and evaluated by urology. 5. Anemia of chronic disease. 6. Fibromyalgia. Continue patient on gabapentin 100 mg orally once every day. 7. Hypothyroidism. Continue Synthroid 50 g orally once every day. 8. Hyperlipidemia. Continue patient on Lipitor 20 mg orally once every day. 9. Diabetes mellitus type 2. Continue consistent carbohydrate diet, we will continue NPH 10 units twice daily with meals and NovoLog scale. 10. Peripheral dizziness chronic stable has impacted ear wax, wash to be done toay 08/08. 11. COPD not in exacerbation. Continue patient on DuoNeb the pleasure 4 times every day and Pulmicort 0.5 ml Neb bid. 12. DVT prophylaxis. will continue with heparin SC daily. 13. GI prophylaxis. we will continue with Pepcid 20 mg orally daily. 14. CODE STATUS: Full code 15. Generalized debility. PT and OT consults. Social work consult.
[2018-08-09 06:03] LABS: Glucose,Whole Blood 109 mg/dL (75-99)
[2018-08-09] MEDS: INSULIN ASPART 100 UNIT/ML 1 ML 10 ML VIAL SQ SCH ×4 (06:07→20:53)
[2018-08-09] MEDS: LEVOTHYROXINE 50 MCG TAB PO SCH (06:24)
[2018-08-09] MEDS: INSULIN NPH 300 UNIT/3 ML VIAL SQ SCH ×2 (07:03→19:39)
[2018-08-09 07:09] LABS: Basophils % (A) 1 %; Eosinophils # (A) 0.1 k/uL (0-0.7); Eosinophils % (A) 3 %; HCT 36.6 % (34.0-46.0); HGB 11.6 gm/dL (11.4-16.0); Lymphocytes # (A) 1.4 k/uL (1.0-4.8); Lymphocytes % (A) 37 %; MCH 29.3 pg (25.0-35.0); MCHC 31.7 g/dL (31.0-37.0); MCV 92.6 fL (80.0-100.0); Monocytes # (A) 0.3 k/uL (0-1.0); Monocytes % (A) 6 %; Neutrophils % (A) 51 %; Platelet Count 127 k/uL (150-450); RBC 3.95 m/uL (3.80-5.40); RDW 14.2 % (11.5-15.5); WBC 3.9 k/uL (3.8-10.6)
[2018-08-09 07:57] LABS: Calcium 9.1 mg/dL (8.4-10.2); Potassium 3.6 mmol/L (3.5-5.1)
[2018-08-09] MEDS: BUDESONIDE 0.5 MG/2 ML NEBU INHALATION SCH ×2 (09:26→20:28)
[2018-08-09] MEDS: HEPARIN SODIUM,PORCINE 5,000 UNIT/ML 1 ML VIAL SQ SCH ×2 (09:55→20:47)
[2018-08-09] MEDS: POTASSIUM CHLORIDE ER 20 MEQ TAB.ER PO SCH (09:55)
[2018-08-09] MEDS: FAMOTIDINE 20 MG TAB PO SCH (09:55)
[2018-08-09] MEDS: CYANOCOBALAMIN 500 MCG TAB PO SCH (09:55)
[2018-08-09] MEDS: FUROSEMIDE 40 MG TAB PO SCH (09:56)
[2018-08-09] MEDS: MECLIZINE 12.5 MG TAB PO SCH ×3 (10:08→20:48)
[2018-08-09 10:23] LABS: Erythrocyte Sedimentation Rate 8 mm/hr (0-20)
[2018-08-09 11:38] LABS: Glucose,Whole Blood 188 mg/dL (75-99)
[2018-08-09] MEDS: SODIUM CHLORIDE 0.9% 1,000 ML IV SCH ×3 (13:57→20:48)
--- NOTE | 2018-08-09 14:23 | CONS ---
CONSULTATION Mrs. Carranza remains in a 2 as to 1 block with junctional beats and heart rates in the 40s and 30s. Complains of weakness, fatigue, lack of energy and dizziness when she ambulates. I have advised her to have a pacemaker. Yesterday with activity and heart rate went up to a maximum of 66, but then came back to the high 30s and low 40s. She has symptomatic bradycardia with a 2 as to 1 block, narrow QRS and junctional escape beats. I am recommending a dual-chamber pacemaker. This will be performed tomorrow. Rationale, risks, benefits and options explained. Patient understands all details and I spoke to her daughter, Hannah by phone and they understand and agree and wished to proceed and this procedure will be performed tomorrow around 06-04 or more so. MMDGL / IJN: [id number] /
[2018-08-09] MEDS ORDERED: CLINDAMYCIN 600 MG in SODIUM CHLORIDE 0.9% IRRIGATIO 250 ML IRRIGATION ONE (14:32)
[2018-08-09] MEDS ORDERED: ceFAZolin IN SWFI 2 GM/20 ML SYRINGE IVP ONE (14:32)
[2018-08-09 15:28] LABS: LDH 315 U/L (313-618); Lipase 58 U/L (23-300)
--- NOTE | 2018-08-09 16:11 | XR ---
EXAMINATION TYPE: XR abdomen 2V DATE OF EXAM: 08/09/2018 CLINICAL HISTORY: Lower abdominal pain TECHNIQUE: Supine and upright views of the abdomen are obtained. COMPARISON: None. FINDINGS: Scattered gas is seen in non-distended small bowel loops. Gas and fecal material is seen in non-distended colon. Scattered pelvic phleboliths are seen. Cholecystectomy clips are noted. Lung bases are clear. No pneumoperitoneum is appreciated. IMPRESSION: Overall nonobstructive bowel gas pattern.
[2018-08-09 16:58] LABS: Glucose,Whole Blood 116 mg/dL (75-99)
[2018-08-09] MEDS: IPRATROPIUM-ALBUTEROL 3 ML NEB INHALATION PRN (20:28)
[2018-08-09] MEDS: ATORVASTATIN 20 MG TAB PO SCH (20:47)
[2018-08-09] MEDS: ASPIRIN 81 MG PO SCH (20:47)
[2018-08-09] MEDS: GABAPENTIN 100 MG CAP PO SCH (20:47)
[2018-08-09 20:55] LABS: Glucose,Whole Blood 134 mg/dL (75-99)
--- NOTE | 2018-08-09 21:35 | P.PN ---
Subjective Progress Note Date: 08/09/18 this is a 77-year-old female one of Dr. Noble with a previous medical history significant for hypertension and hypertensive cardiovascular disease with left ventricular hypertrophy, history of Fibromyalgia, hyperlipidemia, history of hypothyroidism, COPD, CVA/TIA, history of cervical cancer back in 1974 status post hysterectomy, history of chronic kidney disease stage III with a prior history of acute kidney injury requiring dialysis in the past, diabetes mellitus type 2, patient was recently hospitalized at [facility] due to significant recurrent falls with severe weakness in both legs and areflexia. Patient was discharged to [facility] and subsequently was discharged to home. Patient came into [facility] emergency center after falling yesterday and had generalized weakness. She has not been able to ambulate since the fall. She denies any chest pain or shortness of breath. Family thinks that she is not safe at home and she will need to have more rehab. White count was 4.5, hemoglobin 12.3, creatinine 2.02 and BUN 28. Lactic acid 1.1, albumin 3.4, total protein 5.6. Urinalysis is clear with nitrate and leukoesterase negative. EKG was reported as atrial fibrillation with slow ventricular response with nonspecific ST-T wave abnormalities. Patient was admitted to the Med[facility] floor and cardiology consult requested. PT , OT and social work consults. 08/08 patient complains of vertigo while ion bed,complains of jelly legs, cardiology has been consulted, they are monitorin her for possible pacemaker for sick sinus, we willcheck orthostatics, cpk and sed rate r/o polymyalgia rheumatica. physical therapy to see the patient, patient has impacted ear wax right more than leftm will do ear wash today 08/09 patient complains of pain in stomach, and back, but had a large bm last, now has night low abominal pain bloated, no dysuria. otherwise ear wash is planned today. still have vertigo. planned pacemaker placment tomorrow. abdominal xray ordered for today Objective - Vital Signs Vital signs: Vital Signs Temp 98.0 F 08/09/18 08:00 Pulse 54 L 08/09/18 12:00 Resp 18 08/09/18 12:00 BP 127/58 08/09/18 08:00 Pulse Ox 94 L 08/09/18 03:47 Intake & Output 08/08/18 08/09/18 08/09/18 18:59 06:59 18:59 Intake Total 380 800 200 Output Total 400 600 Balance -20 200 200 Weight 86.6 kg Intake: Oral 380 800 200 Output: Urine 400 600 Other: Voiding Method Bedside Commode Bedside Commode Bedside Commode Bedpan Bedpan Bedpan Diaper Diaper Diaper - Constitutional General appearance: Present: cooperative, no acute distress, obese, thin - EENT Eyes: Present: anicteric sclerae, EOMI, PERRLA, dentition normal, normal appearance ENT: Present: NA/AT, normal oropharynx - Respiratory Respiratory: bilateral: CTA, negative: diminished, rales, wheezing, prolonged inspiration - Gastrointestinal General gastrointestinal: Present: decreased bowel sounds, soft - Integumentary Integumentary: Present: normal, normal turgor - Neurologic Neurologic: Present: CNII-XII intact - Musculoskeletal Musculoskeletal: Present: generalized weakness, strength equal bilaterally - Psychiatric Psychiatric: Present: A&O x's 3, appropriate affect, intact judgment & insight - Labs CBC & Chem 7: 08/09/18 05:37 08/09/18 05:37 Labs: Abnormal Lab Results - Last 24 Hours (Table) 08/08/18 08/08/18 08/09/18 Range/Units 16:31 20:49 05:37 Plt Count 127 L (150-450) k/uL Carbon Dioxide (22-30) mmol/L BUN (7-17) mg/dL Creatinine (0.52-1.04) mg/dL Glucose (74-99) mg/dL POC Glucose (mg/dL) 124 H 173 H (75-99) mg/dL 08/09/18 08/09/18 08/09/18 Range/Units 05:37 06:01 11:24 Plt Count (150-450) k/uL Carbon Dioxide 32 H (22-30) mmol/L BUN 27 H (7-17) mg/dL Creatinine 2.11 H (0.52-1.04) mg/dL Glucose 107 H (74-99) mg/dL POC Glucose (mg/dL) 109 H 188 H (75-99) mg/dL Assessment and Plan Plan: 1. Recurrent falls with severe weakness in both legs vertiginous sensation and near syncope r/o sick sinus syndrome orthostatics to be done, sed rate to check for PMR. cpk to [place] for rhabdo Reviewed previous CT scan of the L-Spine, consult PT and OT evaluation. 2. New onset atrial fibrillation, controlled rate. Repeat EKG ordered. Cardiology consult. Echocardiogram ordered. 3. Chronic CKD stage III. her numbers at baseline. 4. Possibility of bladder mass. she was seen and evaluated by urology. 5. Anemia of chronic disease. 6. Fibromyalgia. Continue patient on gabapentin 100 mg orally once every day. 7. Hypothyroidism. Continue Synthroid 50 g orally once every day. 8. Hyperlipidemia. Continue patient on Lipitor 20 mg orally once every day. 9. Diabetes mellitus type 2. Continue consistent carbohydrate diet, we will continue NPH 10 units twice daily with meals and NovoLog scale. 10. Peripheral dizziness chronic stable has impacted ear wax, wash to be done toay 08/08. 11. COPD not in exacerbation. Continue patient on DuoNeb the pleasure 4 times every day and Pulmicort 0.5 ml Neb bid. 12. DVT prophylaxis. will continue with heparin SC daily. 13. GI prophylaxis. we will continue with Pepcid 20 mg orally daily. 14. CODE STATUS: Full code 15. Generalized debility. PT and OT consults. Social work consult. 16. acute lower abdominal pain, not consistent with ischemic bowel or acute diverticulitis, will obtain xrays and ldh, recent UA negative. continue to monitor
[2018-08-10] MEDS ORDERED: CLINDAMYCIN 600 MG in SODIUM CHLORIDE 0.9% IRRIGATIO 250 ML IRRIGATION ONE (06:00)
[2018-08-10 06:13] LABS: Glucose,Whole Blood 128 mg/dL (75-99)
[2018-08-10] MEDS: INSULIN ASPART 100 UNIT/ML 1 ML 10 ML VIAL SQ SCH ×4 (06:16→21:39)
[2018-08-10] MEDS: LEVOTHYROXINE 50 MCG TAB PO SCH (06:26)
[2018-08-10] MEDS: SODIUM CHLORIDE 0.9% 1,000 ML IV SCH ×5 (06:27→20:38)
[2018-08-10] MEDS: IPRATROPIUM-ALBUTEROL 3 ML NEB INHALATION PRN (07:27)
[2018-08-10] MEDS: BUDESONIDE 0.5 MG/2 ML NEBU INHALATION SCH ×2 (07:28→19:30)
[2018-08-10 08:06] LABS: Basophils % (A) 1 %; Eosinophils # (A) 0.1 k/uL (0-0.7); Eosinophils % (A) 3 %; HGB 11.1 gm/dL (11.4-16.0); Lymphocytes # (A) 1.2 k/uL (1.0-4.8); Lymphocytes % (A) 35 %; MCH 29.2 pg (25.0-35.0); MCHC 31.6 g/dL (31.0-37.0); MCV 92.5 fL (80.0-100.0); Mean Platelet Volume 7.8; Monocytes # (A) 0.2 k/uL (0-1.0); Monocytes % (A) 5 %; Neutrophils # (A) 1.8 k/uL (1.3-7.7); Neutrophils % (A) 55 %; Platelet Count 126 k/uL (150-450); RBC 3.78 m/uL (3.80-5.40); RDW 14.1 % (11.5-15.5); WBC 3.4 k/uL (3.8-10.6)
[2018-08-10 08:19] LABS: Calcium 9.2 mg/dL (8.4-10.2); Potassium 3.7 mmol/L (3.5-5.1)
[2018-08-10] MEDS: ceFAZolin IN SWFI 2 GM/20 ML SYRINGE IVP ONE ×3 (10:20→13:33)
[2018-08-10] MEDS ORDERED: LIDOCAINE 1% INJ 10MG/ML (20 ML MDV) SQ ONE ×2 (10:31→10:46)
[2018-08-10] MEDS ORDERED: fentaNYL (PF) 50 MCG/ML 2 ML AMP IVP ONE ×2 (10:31→10:43)
[2018-08-10] MEDS ORDERED: IV FLUID CONTINUATION 1,000 ML IV ONE (10:36)
[2018-08-10] MEDS ORDERED: MIDAZOLAM 2 MG/2 ML VIAL IV ONE (11:42)
[2018-08-10] MEDS ORDERED: ACETAMINOPHEN TAB 325 MG TAB PO PRN (12:03)
[2018-08-10 12:46] LABS: Glucose,Whole Blood 115 mg/dL (75-99)
--- NOTE | 2018-08-10 12:52 | CE ---
CARDIAC ELECTROPHYSIOLOGY REPORT DATE OF SERVICE: 08/10/2018. PROCEDURE: Permanent dual-chamber pacemaker from left infraclavicular approach. PERFORMED BY: Dr. Yarelis Rey. Moderate conscious sedation time was 88 minutes. The patient was administered a combination of Versed and fentanyl. Oxygen saturation, hemodynamics and EKG were monitored closely. CLINICAL INFORMATION: Mrs. Eloisa Carranza is a 77-year-old lady with a history of type 2 diabetes, hypertension, hyperlipidemia, who came into the hospital with fatigue, dizziness, lightheadedness and near syncope, but did not quite pass out. She had a 2:1 heart block with a heart rate in the high 30s and low 40s. With ambulation, her maximal heart rate she had was about 66. She is also very sedentary, does not ambulate much. In view of persisting symptoms of dizziness, lightheadedness, near syncope and documented bradycardia with a 2:1 block and underlying right bundle branch block with junctional escape beat, she was advised a dual-chamber pacemaker. Risks, benefits, options, rationale were explained to the patient and daughter. PROCEDURE NOTE: Under local anesthesia and strict aseptic precautions using a micropuncture needle technique an axillary vein access was achieved under fluoroscopic guidance. A micropuncture needle was used. I advanced and positioned the wire in the right atrium. Subsequently a 3-inch incision was made medial and parallel to the left deltopectoral groove. Blunt dissection was carried up to the level of fascia. The pocket was then made. The pocket was irrigated with antibiotic solution. The patient received the Kefzol during the incision. Another access point was then achieved medial to the previous one under fluoroscopic guidance with a micropuncture needle technique. Six- Irish sheaths were placed in the axillary vein. Under fluoroscopic guidance, the ventricular lead was positioned in the right ventricular apex. Good thresholds and sensitivities were obtained. The lead was then secured to the underlying muscle. Subsequently, the atrial lead was also positioned under fluoroscopic guidance in the right atrial appendage. Good thresholds and sensitivities were obtained. The lead was also secured to the underlying fascia with 2 sutures. Subsequently, the numbers were rechecked again. A 10 V diaphragmatic pacing with each lead was performed. The leads were checked in the MONEGASQUE and CARPIO projection. Subsequently, the leads were connected to the pulse generator and the pulse generator was secured to the underlying muscle. The wound was then closed in 3 layers. Patient tolerated procedure well without complications. She will have a chest x-ray today and also another repeat chest x-ray tomorrow along with a device check prior to discharge. PACEMAKER INFORMATION: Pulse generator schedule planning manager is [employer], model is [employer] MRI 2272 pacemaker, serial number [id number]. The atrial lead schedule planning manager is [employer], model Tendril STS 2088TC/46 cm, serial number [id number]. The threshold for the atrial lead was 1 V at 0.4 milliseconds. The P-waves were 2.1 mV. The lead impedance was 460 ohms. The ventricular lead schedule planning manager is [employer], model number Tendril STS 2088TC/52, serial number [id number]. Ventricular threshold was 0.75 V at 0.4 milliseconds. R-waves were 12.0 mV. Lead impedance was 600 ohms. Both leads are MRI compatible and the pulse generator was also MRI compatible. The settings were at low rate of 60 and high rate of 120. The mode was DDDR. Paced AV delay was 275 milliseconds and AV delay was 250 milliseconds. The patient tolerated the procedure well without complications and the findings and details were discussed with the patient and daughter and she will be going back to the room in a stable condition. CALVIN / CAMILLE: [id number] /
[2018-08-10] MEDS: HEPARIN SODIUM,PORCINE 5,000 UNIT/ML 1 ML VIAL SQ SCH ×2 (13:34→20:30)
[2018-08-10] MEDS: CYANOCOBALAMIN 500 MCG TAB PO SCH (13:35)
[2018-08-10] MEDS: FAMOTIDINE 20 MG TAB PO SCH (13:35)
[2018-08-10] MEDS: MECLIZINE 12.5 MG TAB PO SCH ×3 (13:35→21:41)
[2018-08-10] MEDS: POTASSIUM CHLORIDE ER 20 MEQ TAB.ER PO SCH (13:35)
[2018-08-10] MEDS: INSULIN NPH 300 UNIT/3 ML VIAL SQ SCH ×2 (13:36→18:52)
[2018-08-10] MEDS: ceFAZolin 1,000 MG in DEXTROSE/WATER 1 50ML.BAG IVPB SCH ×2 (15:22→23:25)
--- NOTE | 2018-08-10 15:25 | XR ---
EXAMINATION TYPE: XR chest 1V portable DATE OF EXAM: 08/10/2018 COMPARISON: 07/05/2018 HISTORY: Lead placement check TECHNIQUE: Single frontal view of the chest is obtained. FINDINGS: There is right-sided consolidation and small effusion. Heart is mildly prominent is athero sclerotic change aorta. Arthropathy of the shoulders. No pneumothorax. Hyperinflation suggests COPD. Cardiac device noted. Subsegmental consolidation left lung base. IMPRESSION: 1. Bilateral lower lobe infiltrate and small effusion on the right. 2. COPD 3. Double lead device seen no sizable pneumothorax.
[2018-08-10 17:08] LABS: Glucose,Whole Blood 148 mg/dL (75-99)
[2018-08-10] MEDS ORDERED: ceFAZolin IN SWFI 2 GM/20 ML SYRINGE IVP SCH (18:00)
--- NOTE | 2018-08-10 20:04 | PN ---
PROGRESS NOTE HISTORY: Mr. Carranza had a permanent pacemaker placed from left infraclavicular approach uneventfully. Post procedure she is doing well. Site is clean and dry. S1 and S2 heard normally lungs are clear. Abdomen and lower extremity exams are unchanged. I am waiting for the results of the chest x-ray. She will be discharged tomorrow if the x- ray and device check work out well. She will probably go to an extended care facility. MMODL / IJN: [id number] /
[2018-08-10] MEDS: ASPIRIN 81 MG PO SCH (20:31)
[2018-08-10] MEDS: ATORVASTATIN 20 MG TAB PO SCH (20:31)
[2018-08-10] MEDS: ACETAMINOPHEN TAB 325 MG TAB PO PRN (20:31)
[2018-08-10] MEDS: GABAPENTIN 100 MG CAP PO SCH (20:32)
[2018-08-10 21:03] LABS: Glucose,Whole Blood 160 mg/dL (75-99)
[2018-08-11] MEDS: ceFAZolin 1,000 MG in DEXTROSE/WATER 1 50ML.BAG IVPB SCH ×3 (04:55→20:34)
[2018-08-11] MEDS: LEVOTHYROXINE 50 MCG TAB PO SCH (04:55)
[2018-08-11] MEDS: ACETAMINOPHEN TAB 325 MG TAB PO PRN (05:20)
[2018-08-11] MEDS: SODIUM CHLORIDE 0.9% 1,000 ML IV SCH ×5 (05:21→21:45)
[2018-08-11 06:16] LABS: Glucose,Whole Blood 126 mg/dL (75-99)
[2018-08-11] MEDS: INSULIN ASPART 100 UNIT/ML 1 ML 10 ML VIAL SQ SCH ×4 (06:22→21:15)
[2018-08-11] MEDS: INSULIN NPH 300 UNIT/3 ML VIAL SQ SCH ×2 (07:00→17:26)
[2018-08-11] MEDS: BUDESONIDE 0.5 MG/2 ML NEBU INHALATION SCH ×2 (08:15→19:51)
[2018-08-11] MEDS: IPRATROPIUM-ALBUTEROL 3 ML NEB INHALATION PRN ×2 (08:15→19:51)
[2018-08-11] MEDS: CYANOCOBALAMIN 500 MCG TAB PO SCH (09:27)
[2018-08-11] MEDS: POTASSIUM CHLORIDE ER 20 MEQ TAB.ER PO SCH (09:28)
[2018-08-11] MEDS: MECLIZINE 12.5 MG TAB PO SCH ×3 (09:28→21:18)
[2018-08-11] MEDS: HEPARIN SODIUM,PORCINE 5,000 UNIT/ML 1 ML VIAL SQ SCH ×2 (09:28→20:32)
[2018-08-11] MEDS: FAMOTIDINE 20 MG TAB PO SCH (09:28)
--- NOTE | 2018-08-11 09:43 | XR ---
EXAMINATION TYPE: XR chest 2V DATE OF EXAM: 08/11/2018 COMPARISON: 08/10/2018 TECHNIQUE: PA and lateral views submitted. HISTORY: Lead placement check FINDINGS: Heart size stable. Bilateral small effusions and basilar consolidation. Mild interstitial pattern. Un derlying COPD suspected. Atherosclerotic change aorta. Arthropathy of the shoulders. No pneumothorax. Dual lead pacemaker seen with the proximal lead overlying the right atrium and distal lead overlying the right ventricle. Hypertrophic and degenerative change of the spine noted. IMPRESSION: 1. Bilateral infiltrate and small effusion are stable. Correlate for mild central venous congestion s uperimposed on a background COPD. 2. No evidence of pneumothorax.
[2018-08-11 11:54] LABS: Glucose,Whole Blood 188 mg/dL (75-99)
[2018-08-11] MEDS ORDERED: ceFAZolin 1,000 MG in SODIUM CHLORIDE 0.9% IRRIGATIO 250 ML IRRIGATION STA (13:52)
[2018-08-11] MEDS ORDERED: ceFAZolin IN SWFI 2 GM/20 ML SYRINGE IVP STA (13:52)
[2018-08-11] MEDS ORDERED: IV FLUID CONTINUATION 1,000 ML IV ONE (14:15)
[2018-08-11] MEDS ORDERED: fentaNYL (PF) 50 MCG/ML 2 ML AMP IV ONE (14:16)
[2018-08-11] MEDS ORDERED: MIDAZOLAM 2 MG/2 ML VIAL IV ONE (14:16)
[2018-08-11] MEDS ORDERED: LIDOCAINE 1% INJ 10MG/ML (20 ML MDV) SQ ONE (14:18)
[2018-08-11] MEDS: ceFAZolin 1,000 MG in DEXTROSE/WATER 1 50ML.BAG IVPB STA ×2 (14:20→14:24)
[2018-08-11] MEDS: MORPHINE SULFATE 4 MG/ML SYRINGE IV ONE ×2 (14:27→15:05)
[2018-08-11] MEDS ORDERED: ACETAMINOPHEN TAB 325 MG TAB PO PRN (15:24)
[2018-08-11] MEDS: FLUTICASONE 50MCG/SPRAY NASAL 16GM EA NOSTRIL SCH ×2 (16:16→21:18)
[2018-08-11 16:45] LABS: Glucose,Whole Blood 108 mg/dL (75-99)
[2018-08-11] MEDS ORDERED: ceFAZolin IN SWFI 2 GM/20 ML SYRINGE IVP SCH (18:00)
--- NOTE | 2018-08-11 18:05 | PCN ---
PROCEDURE NOTE DATE OF SERVICE: 08/11/2018. PROCEDURE: Atrial lead revision of a dual-chamber pacemaker that was implanted yesterday. PERFORMED BY: Dr. Crista Rey. Moderate conscious sedation time was 68 minutes. Patient was administered a combination of fentanyl, Versed and morphine sulfate. Oxygen saturation, hemodynamics and EKG were monitored very closely. CLINICAL INFORMATION: Mrs. Eloisa Craranza had a dual-chamber pacemaker for symptomatic high-grade AV block yesterday. This morning the chest x-ray revealed that the position of the atrial lead was not in a good spot and patient was advised to have a lead revision. The device interrogation revealed that the sensitivities were very poor of the atrial lead. Ventricular lead numbers were excellent. She was advised to have revision, brought in for the procedure after due discussion with the patient and daughter. PROCEDURE NOTE: Under strict aseptic precautions and local anesthesia, an incision was made over the previous incision after giving adequate local anesthetic. The pocket was exposed. The pulse generator which was secured to the underlying muscle was taken out. The atrial lead was disconnected from the pulse generator. Under fluoroscopic guidance after multiple manipulations, I repositioned the atrial lead to get decent numbers. Diaphragmatic pacing was checked. The lead position was double-checked in MARY and CARPIO projections. The lead was then secured to the underlying muscle and then connected to the pulse generator. Pulse generator was then secured to the underlying muscle. The wound was closed in 2 layers. Patient tolerated the procedure well. She received the antibiotic during the incision and will continue to receive 6 more doses. The atrial lead that was repositioned was the same lead from yesterday and trench trimmer fine is [employer]. Lead is a Tendril STS 2088TC/46. Lead serial number is [id number]. The P-waves were 2.5 mV and the threshold was 0.5 V at 0.4 milliseconds. The ventricular threshold was 0.75 V at 0.4 milliseconds. R-wave was more than 12.0. The pacemaker was set at a low rate of 60, high rate of 120 in a DDDR mode with an AV paced delay of 275 milliseconds and AV sense delay of 250 milliseconds. Patient tolerated the procedure well. We will perform a chest x-ray and re-interrogate the device tomorrow. I discussed the details with the patient as well as her daughter by telephone. MMODL / IJN: [id number] /
[2018-08-11] MEDS: ASPIRIN 81 MG PO SCH (20:32)
[2018-08-11] MEDS: ATORVASTATIN 20 MG TAB PO SCH (20:32)
[2018-08-11] MEDS: GABAPENTIN 100 MG CAP PO SCH (20:32)
[2018-08-11 20:56] LABS: Glucose,Whole Blood 126 mg/dL (75-99)
[2018-08-12] MEDS: ceFAZolin 1,000 MG in DEXTROSE/WATER 1 50ML.BAG IVPB SCH ×3 (03:00→14:50)
[2018-08-12 05:55] LABS: Glucose,Whole Blood 109 mg/dL (75-99)
[2018-08-12] MEDS: INSULIN ASPART 100 UNIT/ML 1 ML 10 ML VIAL SQ SCH ×3 (06:09→16:09)
[2018-08-12] MEDS: SODIUM CHLORIDE 0.9% 1,000 ML IV SCH ×2 (06:21)
[2018-08-12] MEDS: LEVOTHYROXINE 50 MCG TAB PO SCH (07:15)
[2018-08-12] MEDS: INSULIN NPH 300 UNIT/3 ML VIAL SQ SCH ×2 (07:15→16:09)
--- NOTE | 2018-08-12 08:00 | P.PN ---
Subjective Progress Note Date: 08/10/18 this is a 77-year-old female one of Dr. Noble with a previous medical history significant for hypertension and hypertensive cardiovascular disease with left ventricular hypertrophy, history of Fibromyalgia, hyperlipidemia, history of hypothyroidism, COPD, CVA/TIA, history of cervical cancer back in 1974 status post hysterectomy, history of chronic kidney disease stage III with a prior history of acute kidney injury requiring dialysis in the past, diabetes mellitus type 2, patient was recently hospitalized at [facility] due to significant recurrent falls with severe weakness in both legs and areflexia. Patient was discharged to [facility] and subsequently was discharged to home. Patient came into [facility] emergency center after falling yesterday and had generalized weakness. She has not been able to ambulate since the fall. She denies any chest pain or shortness of breath. Family thinks that she is not safe at home and she will need to have more rehab. White count was 4.5, hemoglobin 12.3, creatinine 2.02 and BUN 28. Lactic acid 1.1, albumin 3.4, total protein 5.6. Urinalysis is clear with nitrate and leukoesterase negative. EKG was reported as atrial fibrillation with slow ventricular response with nonspecific ST-T wave abnormalities. Patient was admitted to the MedSur floor and cardiology consult requested. PT , OT and social work consults. 08/08 patient complains of vertigo while ion bed,complains of jelly legs, cardiology has been consulted, they are monitorin her for possible pacemaker for sick sinus, we willcheck orthostatics, cpk and sed rate r/o polymyalgia rheumatica. physical therapy to see the patient, patient has impacted ear wax right more than left will do ear wash today 08/09 patient complains of pain in stomach, and back, but had a large bm last, now has night low abominal pain bloated, no dysuria. otherwise ear wash is planned today. still have vertigo. planned pacemaker placment tomorrow. abdominal xray ordered for today 08/10: Abdominal x-ray from yesterday showed nonobstructive pattern. Chest x- ray shows bilateral lower lobe infiltrate and small effusion on the right, COPD , double lead device seen no sizable pneumothorax. Patient has undergone dual- chamber pacemaker placement today with Dr. MEKA Rey. Plan is for discharge to subacute rehab tomorrow. Patient has chosen [facility]. Review Of Systems: Constitutional: No fever, no chills, no night sweats. No weight change. Reports generalized weakness, fatigue or lethargy. No daytime sleepiness. EENT: No headache. No blurred vision or double vision, no loss of vision. No loss of Hearing, no ringing in the ears, no dizziness. No nasal drainage or congestion. No epistaxis. No sore throat. Lungs: No shortness of breath, cough, no sputum production. No wheezing. Cardiovascular: No chest pain, no lower extremity edema. No palpitations. No paroxysmal nocturnal dyspnea. No orthopnea. No lightheadedness or dizziness. No syncopal episodes. Abdominal: No abdominal pain. No nausea, vomiting. No diarrhea. No constipation. No bloody or tarry stools.. No loss of appetite. Genitourinary: No dysuria, increased frequency, urgency. No urinary retention. Musculoskeletal: No myalgias. No muscle weakness, no gait dysfunction, no frequent falls. No back pain. No neck pain. Integumentary: No wounds, no lesions. No rash or pruritus. No unusual bruising. No change in hair or nails. Neurologic: No aphasia. No facial droop. No change in mentation. No head injury. No headache. No paralysis. No paresthesia. Psychiatric: No depression. No anxiety. No mood swings. Endocrine: No abnormal blood sugars. No weight change. No excessive sweating or thirst. Objective - Vital Signs Vital signs: Vital Signs Temp 98.2 F 08/10/18 08:00 Pulse 48 L 08/10/18 08:00 Resp 18 08/10/18 08:00 BP 109/59 08/10/18 08:00 Pulse Ox 90 L 08/10/18 08:00 Intake & Output 08/09/18 08/10/18 08/10/18 18:59 06:59 18:59 Intake Total 200 400 290 Output Total 300 300 300 Balance -100 100 -10 Weight 86.5 kg Intake: IV 190 Intake, IV Titration 400 100 Amount Sodium Chloride 0.9% 1, 400 100 000 ml @ 50 mls/hr IV . Q20H [facility] Rx#:[id number] Oral 200 Output: Urine 300 300 300 Other: Voiding Method Bedside Commode Bedside Commode Bedside Commode Bedpan Bedpan Bedpan Diaper Diaper Diaper # Voids 2 2 - Exam General appearance: Present: cooperative, no acute distress, obese, patient is resting comfortably in bed - EENT Eyes: Present: anicteric sclerae, EOMI, PERRLA, dentition normal, normal appearance ENT: Present: NA/AT, normal oropharynx - Respiratory Respiratory: bilateral: CTA, negative: diminished, rales, wheezing, prolonged inspiration - Gastrointestinal General gastrointestinal: Present: decreased bowel sounds, soft - Integumentary Integumentary: Present: normal, normal turgor - Neurologic Neurologic: Present: CNII-XII intact - Musculoskeletal Musculoskeletal: Present: generalized weakness, strength equal bilaterally - Psychiatric Psychiatric: Present: A&O x's 3, appropriate affect, intact judgment & insight - Labs CBC & Chem 7: 08/10/18 07:34 08/10/18 07:34 Labs: Abnormal Lab Results - Last 24 Hours (Table) 08/09/18 08/09/18 08/10/18 Range/Units 16:46 20:52 06:12 WBC (3.8-10.6) k/uL RBC (3.80-5.40) m/uL Hgb (11.4-16.0) gm/dL Plt Count (150-450) k/uL Carbon Dioxide (22-30) mmol/L BUN (7-17) mg/dL Creatinine (0.52-1.04) mg/dL Glucose (74-99) mg/dL POC Glucose (mg/dL) 116 H 134 H 128 H (75-99) mg/dL 08/10/18 08/10/18 08/10/18 Range/Units 07:34 07:34 12:43 WBC 3.4 L (3.8-10.6) k/uL RBC 3.78 L (3.80-5.40) m/uL Hgb 11.1 L (11.4-16.0) gm/dL Plt Count 126 L (150-450) k/uL Carbon Dioxide 31 H (22-30) mmol/L BUN 26 H (7-17) mg/dL Creatinine 1.93 H (0.52-1.04) mg/dL Glucose 121 H (74-99) mg/dL POC Glucose (mg/dL) 115 H (75-99) mg/dL Assessment and Plan Plan: 1. Recurrent falls with severe weakness in both legs. Reviewed previous CT scan of the L-Spine, consult PT and OT evaluation. 2. 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 3. Chronic CKD stage III. her numbers at baseline. 4. Possibility of bladder mass. she was seen and evaluated by urology. 5. Anemia of chronic disease. 6. Fibromyalgia. Continue patient on gabapentin 100 mg orally once every day. 7. Hypothyroidism. Continue Synthroid 50 g orally once every day. 8. Hyperlipidemia. Continue patient on Lipitor 20 mg orally once every day. 9. Diabetes mellitus type 2. Continue consistent carbohydrate diet, we will continue NPH 10 units twice daily with meals and NovoLog scale. 10. Peripheral dizziness chronic stable. 11. COPD not in exacerbation. Continue patient on DuoNeb 4 times every day and Pulmicort 0.5 ml Neb bid. 12. DVT prophylaxis. will continue with heparin SC daily. 13. GI prophylaxis. we will continue with Pepcid 20 mg orally daily. 14. CODE STATUS: Full code 15. Generalized debility. PT and OT consults. Social work consult. 16. acute lower abdominal pain, not consistent with ischemic bowel or acute diverticulitis, will obtain xrays and ldh, recent UA negative. continue to monitor Discharge plan: [facility] tomorrow Impression and plan of care have been directed as dictated by the signing physician. Jodi Schwartz nurse practitioner acting as scribe for signing physician.
--- NOTE | 2018-08-12 08:03 | P.PN ---
Subjective Progress Note Date: 08/11/18 this is a 77-year-old female one of Dr. Noble with a previous medical history significant for hypertension and hypertensive cardiovascular disease with left ventricular hypertrophy, history of Fibromyalgia, hyperlipidemia, history of hypothyroidism, COPD, CVA/TIA, history of cervical cancer back in 1974 status post hysterectomy, history of chronic kidney disease stage III with a prior history of acute kidney injury requiring dialysis in the past, diabetes mellitus type 2, patient was recently hospitalized at [facility] due to significant recurrent falls with severe weakness in both legs and areflexia. Patient was discharged to [facility] and subsequently was discharged to home. Patient came into [facility] emergency center after falling yesterday and had generalized weakness. She has not been able to ambulate since the fall. She denies any chest pain or shortness of breath. Family thinks that she is not safe at home and she will need to have more rehab. White count was 4.5, hemoglobin 12.3, creatinine 2.02 and BUN 28. Lactic acid 1.1, albumin 3.4, total protein 5.6. Urinalysis is clear with nitrate and leukoesterase negative. EKG was reported as atrial fibrillation with slow ventricular response with nonspecific ST-T wave abnormalities. Patient was admitted to the MedSur floor and cardiology consult requested. PT , OT and social work consults. 08/08 patient complains of vertigo while ion bed,complains of jelly legs, cardiology has been consulted, they are monitorin her for possible pacemaker for sick sinus, we willcheck orthostatics, cpk and sed rate r/o polymyalgia rheumatica. physical therapy to see the patient, patient has impacted ear wax right more than left will do ear wash today 08/09 patient complains of pain in stomach, and back, but had a large bm last, now has night low abominal pain bloated, no dysuria. otherwise ear wash is planned today. still have vertigo. planned pacemaker placment tomorrow. abdominal xray ordered for today 08/10: Abdominal x-ray from yesterday showed nonobstructive pattern. Chest x- ray shows bilateral lower lobe infiltrate and small effusion on the right, COPD , double lead device seen no sizable pneumothorax. Patient has undergone dual- chamber pacemaker placement today with Dr. MEKA Rey. Plan is for discharge to subacute rehab tomorrow. Patient has chosen [facility]. 08/11: Patient denies any complaints. She has noted to have a hoarse voice and Flonase will be added. There is problem with the atrial lead which will need to be revised this evening. Discharge to [facility] will be held until tomorrow. Review Of Systems: Constitutional: No fever, no chills, no night sweats. No weight change. Reports generalized weakness, fatigue or lethargy. No daytime sleepiness. EENT: No headache. No blurred vision or double vision, no loss of vision. No loss of Hearing, no ringing in the ears, no dizziness. No sore throat. Lungs: No shortness of breath, cough, no sputum production. No wheezing. Cardiovascular: No chest pain, no lower extremity edema. No palpitations. No paroxysmal nocturnal dyspnea. No orthopnea. No lightheadedness or dizziness. No syncopal episodes. Abdominal: No abdominal pain. No nausea, vomiting. No diarrhea. No constipation. No bloody or tarry stools.. No loss of appetite. Genitourinary: No dysuria, increased frequency, urgency. No urinary retention. Musculoskeletal: No myalgias. No muscle weakness, no gait dysfunction, no frequent falls. No back pain. No neck pain. Integumentary: No wounds, no lesions. No rash or pruritus. No unusual bruising. No change in hair or nails. Neurologic: No aphasia. No facial droop. No change in mentation. No head injury. No headache. No paralysis. No paresthesia. Psychiatric: No depression. No anxiety. No mood swings. Endocrine: No abnormal blood sugars. No weight change. No excessive sweating or thirst. Objective - Vital Signs Vital signs: Vital Signs Temp 98.0 F 08/11/18 04:00 Pulse 66 08/11/18 12:00 Resp 18 08/11/18 12:00 BP 105/58 08/11/18 12:00 Pulse Ox 93 L 08/11/18 12:00 Intake & Output 08/10/18 08/11/18 08/11/18 18:59 06:59 18:59 Intake Total 520 600 340 Output Total 300 Balance 220 600 340 Weight 88.3 kg Intake: IV 190 Intake, IV Titration 100 500 100 Amount Sodium Chloride 0.9% 1, 100 400 100 000 ml @ 50 mls/hr IV . Q20H [facility] Rx#:[id number] ceFAZolin 1,000 mg In 100 Dextrose/Water 1 50ml.bag @ 100 mls/hr IVPB Q6HR [facility] Rx#:[id number] Oral 230 100 240 Output: Urine 300 Other: Voiding Method Bedside Commode Bedside Commode Bedside Commode Bedpan Bedpan Bedpan Diaper Diaper Diaper # Voids 2 2 - Exam General appearance: Present: cooperative, no acute distress, obese, patient is resting comfortably in bed - EENT Eyes: Present: anicteric sclerae, EOMI, PERRLA, dentition normal, normal appearance ENT: Present: NA/AT, normal oropharynx, hoarseness noted - Respiratory Respiratory: bilateral: CTA, negative: diminished, rales, wheezing, prolonged inspiration - Gastrointestinal General gastrointestinal: Present: decreased bowel sounds, soft - Integumentary Integumentary: Present: normal, normal turgor - Neurologic Neurologic: Present: CNII-XII intact - Musculoskeletal Musculoskeletal: Present: generalized weakness, strength equal bilaterally - Psychiatric Psychiatric: Present: A&O x's 3, appropriate affect, intact judgment & insight - Labs CBC & Chem 7: 08/10/18 07:34 08/10/18 07:34 Labs: Abnormal Lab Results - Last 24 Hours (Table) 08/10/18 08/10/18 08/11/18 Range/Units 17:02 21:02 06:14 POC Glucose (mg/dL) 148 H 160 H 126 H (75-99) mg/dL 08/11/18 Range/Units 11:47 POC Glucose (mg/dL) 188 H (75-99) mg/dL Assessment and Plan Plan: 1. Recurrent falls with severe weakness in both legs. Reviewed previous CT scan of the L-Spine, consult PT and OT evaluation. 2. 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 Plan for revision of atrial lead this evening 3. Chronic CKD stage III. her numbers at baseline. 4. Possibility of bladder mass. she was seen and evaluated by urology. 5. Anemia of chronic disease. 6. Fibromyalgia. Continue patient on gabapentin 100 mg orally once every day. 7. Hypothyroidism. Continue Synthroid 50 g orally once every day. 8. Hyperlipidemia. Continue patient on Lipitor 20 mg orally once every day. 9. Diabetes mellitus type 2. Continue consistent carbohydrate diet, we will continue NPH 10 units twice daily with meals and NovoLog scale. 10. Peripheral dizziness chronic stable. 11. COPD not in exacerbation. Continue patient on DuoNeb 4 times every day and Pulmicort 0.5 ml Neb bid. 12. DVT prophylaxis. will continue with heparin SC daily. 13. GI prophylaxis. we will continue with Pepcid 20 mg orally daily. 14. CODE STATUS: Full code 15. Generalized debility. PT and OT consults. Social work consult. 16. acute lower abdominal pain, not consistent with ischemic bowel or acute diverticulitis, will obtain xrays and ldh, recent UA negative. continue to monitor Discharge plan: [facility] tomorrow Impression and plan of care have been directed as dictated by the signing physician. Jodi Schwartz nurse practitioner acting as scribe for signing physician.
--- NOTE | 2018-08-12 08:08 | P.DS ---
Providers Date of admission: 08/07/18 10:25 Expected date of discharge: 08/12/18 Attending physician: Faviola Sheffield Consults: 08/07/18 10:12 Consult Physician Routine Consulting Provider: Raciel Tarango Consult Reason/Comments: a fib Do you want consulting provider notified?: Yes Primary care physician: Jeronimo Real [facility] Course: this is a 77-year-old female one of Dr. Noble with a previous medical history significant for hypertension and hypertensive cardiovascular disease with left ventricular hypertrophy, history of Fibromyalgia, hyperlipidemia, history of hypothyroidism, COPD, CVA/TIA, history of cervical cancer back in 1974 status post hysterectomy, history of chronic kidney disease stage III with a prior history of acute kidney injury requiring dialysis in the past, diabetes mellitus type 2, patient was recently hospitalized at [facility] due to significant recurrent falls with severe weakness in both legs and areflexia. Patient was discharged to [facility] and subsequently was discharged to home. Patient came into [facility] emergency center after falling yesterday and had generalized weakness. She has not been able to ambulate since the fall. She denies any chest pain or shortness of breath. Family thinks that she is not safe at home and she will need to have more rehab. White count was 4.5, hemoglobin 12.3, creatinine 2.02 and BUN 28. Lactic acid 1.1, albumin 3.4, total protein 5.6. Urinalysis is clear with nitrate and leukoesterase negative. EKG was reported as atrial fibrillation with slow ventricular response with nonspecific ST-T wave abnormalities. Patient was admitted to the MedSur floor and cardiology consult requested. PT , OT and social work consults. 08/08 patient complains of vertigo while ion bed,complains of jelly legs, cardiology has been consulted, they are monitorin her for possible pacemaker for sick sinus, we willcheck orthostatics, cpk and sed rate r/o polymyalgia rheumatica. physical therapy to see the patient, patient has impacted ear wax right more than left will do ear wash today 08/09 patient complains of pain in stomach, and back, but had a large bm last, now has night low abominal pain bloated, no dysuria. otherwise ear wash is planned today. still have vertigo. planned pacemaker placment tomorrow. abdominal xray ordered for today 08/10: Abdominal x-ray from yesterday showed nonobstructive pattern. Chest x- ray shows bilateral lower lobe infiltrate and small effusion on the right, COPD , double lead device seen no sizable pneumothorax. Patient has undergone dual- chamber pacemaker placement today with Dr. MEKA Rey. Plan is for discharge to subacute rehab tomorrow. Patient has chosen [facility]. 08/11: Patient denies any complaints. She has noted to have a hoarse voice and Flonase will be added. There is problem with the atrial lead which will need to be revised this evening. Discharge to [facility] will be held until tomorrow. 08/12: Patient underwent atrial lead revision yesterday afternoon with Dr. MEKA Rey. Patient has been afebrile, vital signs stable, pulse ox 93% on 2 L nasal cannula. Heart rate is running in the 60s. Cardiology is cleared patient for discharge today. Patient will be discharged to [facility] today in stable condition. Patient will be followed a [facility] by Dr. Noble. Discharge diagnoses: 1. Recurrent falls with severe weakness in both legs. 2. 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 3. Chronic CKD stage III. 4. Possibility of bladder mass. 5. Anemia of chronic disease. 6. Fibromyalgia. 7. Hypothyroidism. 8. Hyperlipidemia. 9. Diabetes mellitus type 2. 10. Peripheral dizziness chronic stable. 11. COPD not in exacerbation. 12. Generalized debility. 13. Acute lower abdominal pain Discharge plan: [facility] under the care of Dr. Noble Impression and plan of care have been directed as dictated by the signing physician. Jodi Schwartz nurse practitioner acting as scribe for signing physician. Patient Condition at Discharge: Good Plan - Discharge Summary New Discharge Prescriptions: New Fluticasone Nasal [place] [Flonase Nasal [place]] 1 spray EA NOSTRIL BID spr Continue Levothyroxine Sodium [Synthroid] 50 mcg PO DAILY Cyanocobalamin [Vitamin B-12] 1,000 mcg PO DAILY@1200 tab Gabapentin [Neurontin] 100 mg PO HS Insulin Aspart [NovoLOG (formulary)] See Protocol SQ AC-TID Acetaminophen Tab [Tylenol] 650 mg PO Q6HR PRN tab PRN Reason: Fever And/ Or Pain Budesonide [Pulmicort] 0.5 mg INHALATION RT-BID nebu Furosemide [Lasix] 40 mg PO DAILY tab Ipratropium-Albuterol Nebulize [Duoneb 0.5 mg-3 mg/3 ml Soln] 3 ml INHALATION RT-QID PRN ampul.neb PRN Reason: Shortness Of Breath Or Wheezing Potassium Chloride ER [K-Dur 20] 20 meq PO DAILY tab.er.prt Aspirin EC [Ecotrin Low Dose] 81 mg PO HS Ubidecarenone [Co Q-10] 400 mg PO DAILY #30 capsule Insulin NPH Human Isophane [NovoLIN N] 10 unit SQ BID Simvastatin 40 mg PO HS Discharge Medication List Levothyroxine Sodium [Synthroid] 50 mcg PO DAILY 09/16/17 [History] Cyanocobalamin [Vitamin B-12] 1,000 mcg PO DAILY@1200 tab 10/30/17 [Rx] Gabapentin [Neurontin] 100 mg PO HS 12/23/17 [History] Insulin Aspart [NovoLOG (formulary)] See Protocol SQ AC-TID 06/16/18 [History] Acetaminophen Tab [Tylenol] 650 mg PO Q6HR PRN tab 06/19/18 [Rx] Budesonide [Pulmicort] 0.5 mg INHALATION RT-BID nebu 06/19/18 [Rx] Furosemide [Lasix] 40 mg PO DAILY tab 06/19/18 [Rx] Ipratropium-Albuterol Nebulize [Duoneb 0.5 mg-3 mg/3 ml Soln] 3 ml INHALATION RT -QID PRN ampul.neb 06/19/18 [Rx] Potassium Chloride ER [K-Dur 20] 20 meq PO DAILY tab.er.prt 06/19/18 [Rx] Aspirin EC [Ecotrin Low Dose] 81 mg PO HS 07/02/18 [History] Ubidecarenone [Co Q-10] 400 mg PO DAILY #30 capsule 07/07/18 [Rx] Insulin NPH Human Isophane [NovoLIN N] 10 unit SQ BID 08/06/18 [History] Simvastatin 40 mg PO HS 08/06/18 [History] Fluticasone Nasal [place] [Flonase Nasal [place]] 1 spray EA NOSTRIL BID spr [Rx] Follow up Appointment(s)/Referral(s): [facility] [Provider Group] - 1 Week Jeronimo Noble MD [Primary Care Provider] - 1 Week (At [facility].) Patient Instructions/Handouts: Chronic Kidney Disease Diet (DC), Fall Prevention for Older Adults (DC) Activity/Diet/Wound Care/Special Instructions: [place]? renal diet activity as tolerated
--- NOTE | 2018-08-12 08:08 | XR ---
EXAMINATION TYPE: XR chest 2V DATE OF EXAM: 08/12/2018 COMPARISON: 08/11/2018 TECHNIQUE: PA and lateral views submitted. HISTORY: Lead placement check FINDINGS: Heart size stable. Bilateral small effusions and basilar consolidation. Mild interstitial pattern. Un derlying COPD suspected. Atherosclerotic change aorta. Arthropathy of the shoulders. No pneumothorax. Dual lead pacemaker seen with the proximal lead overlying the right atrium and dista l lead overlying the right ventricle. Hypertrophic and degenerative change of the spine noted. IMPRESSION: 1. Bilateral infiltrate and small effusion are stable. Correlate for mild central venous congestion superimposed on a background COPD.
[2018-08-12 08:19] LABS: Basophils % (A) 1 %; Eosinophils # (A) 0.1 k/uL (0-0.7); Eosinophils % (A) 3 %; HCT 34.6 % (34.0-46.0); HGB 10.7 gm/dL (11.4-16.0); Hypochromasia Moderate; Lymphocytes # (A) 1.2 k/uL (1.0-4.8); Lymphocytes % (A) 31 %; MCH 29.2 pg (25.0-35.0); MCV 94.1 fL (80.0-100.0); Mean Platelet Volume 7.6; Monocytes # (A) 0.2 k/uL (0-1.0); Monocytes % (A) 5 %; Neutrophils # (A) 2.2 k/uL (1.3-7.7); Neutrophils % (A) 58 %; Platelet Count 120 k/uL (150-450); RBC 3.68 m/uL (3.80-5.40); WBC 3.8 k/uL (3.8-10.6)
[2018-08-12 08:44] LABS: Calcium 9.1 mg/dL (8.4-10.2); Potassium 3.9 mmol/L (3.5-5.1)
[2018-08-12] MEDS: IPRATROPIUM-ALBUTEROL 3 ML NEB INHALATION PRN (08:47)
[2018-08-12] MEDS: BUDESONIDE 0.5 MG/2 ML NEBU INHALATION SCH (08:47)
[2018-08-12] MEDS: MECLIZINE 12.5 MG TAB PO SCH ×2 (08:57→14:51)
[2018-08-12] MEDS: CYANOCOBALAMIN 500 MCG TAB PO SCH (08:58)
[2018-08-12] MEDS: FAMOTIDINE 20 MG TAB PO SCH (08:58)
[2018-08-12] MEDS: HEPARIN SODIUM,PORCINE 5,000 UNIT/ML 1 ML VIAL SQ SCH (08:58)
[2018-08-12] MEDS: POTASSIUM CHLORIDE ER 20 MEQ TAB.ER PO SCH (08:58)
[2018-08-12] MEDS: FLUTICASONE 50MCG/SPRAY NASAL 16GM EA NOSTRIL SCH (08:58)
[2018-08-12 09:19] VITALS: RESP 18
[2018-08-12 11:18] LABS: Glucose,Whole Blood 144 mg/dL (75-99)
[2018-08-12 15:47] VITALS: BP 128/67; PULSE 81; TEMP 97.5
--- NOTE | 2018-08-12 16:14 | PN ---
PROGRESS NOTE Mrs Carranza is a lady with sick sinus syndrome and second-degree AV block with symptoms. I performed a revision of atrial lead which was dislodged. She is doing very well today. The device interrogation revealed that the atrial and ventricular thresholds and sensitivities were excellent. Chest x-ray does not reveal any issues with the pacemaker. Plan is to continue current medications, increase activity, and she can be discharged. She will see Dr. Tarango in the device clinic in one week. She will be discharged on her current medical regimen. Physical exam revealed that there is some tenderness over the wound, but it is clean and dry. S1, S2 heard normally. Short systolic murmur noted. Lungs reveal improved air entry. Abdomen and lower extremity exam is unchanged. Vital signs are stable. MMODL / IJN: [id number] /
== END 2018-08-12 16:11 | DRG 244 ==
LOC: EC 13:52 → 4MS4W 19:11 → OBSVTOIN 08-07 10:25 → 3SCARD 08-07 16:33
PROVIDERS: ADMIT Internal Medicine; ATTEND Internal Medicine
PROC: 02HK3JZ Insertion of Pacemaker Lead into Right Ventricle, Percutaneous Approach (ICD-10-PCS; 2018-08-10)
PROC: 02H63JZ Insertion of Pacemaker Lead into Right Atrium, Percutaneous Approach (ICD-10-PCS; 2018-08-10)
PROC: 0JH606Z Insertion of Pacemaker, Dual Chamber into Chest Subcutaneous Tissue and Fascia, Open Approach (ICD-10-PCS; principal; 2018-08-10 10:04)
PROC: 02WA3MZ Revision of Cardiac Lead in Heart, Percutaneous Approach (ICD-10-PCS; 2018-08-11)
DX: I49.5 Sick sinus syndrome (principal); I44.1 Atrioventricular block, second degree; I45.10 Unspecified right bundle-branch block; E11.42 Type 2 diabetes mellitus with diabetic polyneuropathy; D63.8 Anemia in other chronic diseases classified elsewhere; E03.9 Hypothyroidism, unspecified; E11.22 Type 2 diabetes mellitus with diabetic chronic kidney disease; E78.5 Hyperlipidemia, unspecified; F41.0 Panic disorder [episodic paroxysmal anxiety]; I08.3 Combined rheumatic disorders of mitral, aortic and tricuspid valves; I13.10 Hypertensive heart and chronic kidney disease without heart failure, with stage 1 through stage 4 chronic kidney disease, or unspecified chronic kidney disease; I27.20 Pulmonary hypertension, unspecified; I48.91 Unspecified atrial fibrillation; R49.0 Dysphonia; H61.23 Impacted cerumen, bilateral; J44.9 Chronic obstructive pulmonary disease, unspecified; K21.9 Gastro-esophageal reflux disease without esophagitis; M79.7 Fibromyalgia; N18.3 Chronic kidney disease, stage 3 (moderate); R29.6 Repeated falls; M19.90 Unspecified osteoarthritis, unspecified site; R10.30 Lower abdominal pain, unspecified; N32.9 Bladder disorder, unspecified; Z79.4 Long term (current) use of insulin; Z79.82 Long term (current) use of aspirin; Z79.890 Hormone replacement therapy; Z79.899 Other long term (current) drug therapy; Z90.710 Acquired absence of both cervix and uterus; Z87.891 Personal history of nicotine dependence; Z86.73 Personal history of transient ischemic attack (TIA), and cerebral infarction without residual deficits; Z85.41 Personal history of malignant neoplasm of cervix uteri; Z90.49 Acquired absence of other specified parts of digestive tract; Z80.51 Family history of malignant neoplasm of kidney; Z82.5 Family history of asthma and other chronic lower respiratory diseases; Z82.62 Family history of osteoporosis; W07.XXXA Fall from chair, initial encounter
CPT/HCPCS: 33208; 33215; 36415; 71045; 71046; 74019; 80048; 80053; 81003; 82550; 83036; 83605; 83615; 83690; 84443; 85025; 85652; 93005; 94640; 96360; 99285